=== PATIENT | female | born 1930 | race Caucasian/White ===

== ENCOUNTER 2016-09-12 19:37 | Inpatient (IN) | payer OTHER, MEDICARE ==
[~2016-09-12] VITALS: Ht 162.6 cm; Wt 80.6 kg
[~2016-09-12 19:37] MED LIST: ALBUAER19 INH; ASPCH81X PO; ATRINS INH; CHOL100010 PO; CZR25 PO; DULO-24 PO; FLUT0.15 NAE; GABA-112 PO; GLIP5TAB11 PO; IMDSR30 PO; LPR25 PO; LPT/40 PO; MAGN1CAP4 PO; NTRSLP4 SL; OXYC1TAB3 PO; PLV75 PO; PRED20TA2 PO; REPA1TAB42 PO; SNM/25100 PO; SYMIN INH; SYN125 PO
[2016-09-12] MEDS ORDERED: ALBUT/IPRATROP 3MG/0.5MG NEB 3 ML VIAL INH STA (20:34)
[2016-09-12 20:44] LABS: BASO % 0.1 %; BASO ABS # 0.01 K/uL (0-0.2); COMPLETE YES; HEMATOCRIT 33.4 % (37-47); IG% 0.4 %; LYMPH % 8.2 %; LYMPH ABS # 0.58 K/uL (1.2-3.4); MEAN CELL VOLUME 86.5 fL (80-100); MEAN CORPUSCULAR HEMOGLOBIN 28.2 pg (25-34); MEAN CORPUSCULAR HGB CONC 32.6 g/dl (32-36); MEAN PLATELET VOLUME 10.7 fL (7.4-10.4); MONO % 4.6 %; NEUT % 86.7 %; PLATELET COUNT 213 K/uL (130-400); RED BLOOD COUNT 3.86 M/uL (4.2-5.4); WHITE BLOOD COUNT 7.11 K/uL (4.8-10.8)
--- NOTE | 2016-09-12 20:48 | EMERGENCY ROOM VISIT NOTE ---
History Report prepared by Janet: Hernan Slade Under the Supervision of: Dr. Reno Green M.D. First contact with patient: 20:27 Chief Complaint: COUGH Stated Complaint: PROBLEMS BREATHING Nursing Triage Summary: pt c/o SOB, dry cough. seen on [facility] for same complaint, dx with Bronchitis. "I just seem awefly tight". pt denies pain. History of Present Illness The patient is an 86 year old female who presents to the Emergency Room with complaints of worsening shortness of breath beginning one week prior to arrival. She associates a dry cough with today's symptoms. The patient notes she was seen one week ago on [facility] for the same symptoms and was discharged on Prednisone and Azithromycin. She states she will finished her antibiotic tomorrow and prednisone in two days. The patient notes she has been using her inhaler and nebulizer without relief. She states she feels "tight". The patient notes she experienced similar symptoms this time last year, when she was diagnosed with pneumonia. Pt denies LOC, headache, fevers, chills, diaphoresis, visual changes, neck pain, chest pain, nausea, vomiting, abdominal pain, back pain, melena, hematochezia, urinary symptoms, numbness, weakness, lymphadenopathy, rash, or other complaints. Source of History: patient Onset: one week IT SPECIALIST Position: other (global) Timing: worsening Associated Symptoms: + SOB, + cough (dry) Review of Systems See HPI for pertinent positives and negatives. A total of ten systems were reviewed and were otherwise negative. Past Medical & Surgical Medical Problems: (1) Arrhythmia (2) Asthma (3) Benign hypertension (4) CAD (coronary artery disease) (5) Chest pain (6) CKD (chronic kidney disease), stage III (7) COPD (chronic obstructive pulmonary disease) (8) Diabetes mellitus type 2 (9) Dyslipidemia (10) Elevated troponin (11) GERD (gastroesophageal reflux disease) (12) H/O non-ST elevation myocardial infarction (NSTEMI) (13) Hypothyroidism (14) Migraine headache (15) Parkinson's disease (16) Pulmonary nodule (17) SOB (shortness of breath) (18) TIA (transient ischemic attack) Surgical Problems: (1) H/o cervical laminectomy (2) History of lumbar surgery (3) S/P tonsillectomy and adenoidectomy (4) Status post appendectomy (5) Status post cholecystectomy (6) Status post hysterectomy Family History FH: cancer FH: diabetes mellitus FH: heart disease Hypertension Social History Smoking Status: Never Smoker Alcohol Use: none Drug Use: none Marital Status: Housing Status: lives with family Occupation Status: retired Current/Historical Medications Scheduled Aspirin (Aspirin Chewable), 81 MG PO DAILY Atorvastatin (Lipitor), 40 MG PO DAILY Budesonide/Formoterol Fumarate (Symbicort 160-4.5 Mcg/Act), 2 PUFFS INH BID Cholecalciferol (Vitamin D), 2,000 UNITS PO DAILY Clopidogrel Bisulfate (Clopidogrel), 75 MG PO QAM Duloxetine HCl (Cymbalta), 1 CAP PO DAILY Fluticasone Propionate (Nasal) (Flonase Allergy Relief), 1 SPRAY JOSE DAILY Gabapentin (Neurontin), 200 MG PO TID Glipizide (Glucotrol), 10 MG PO BIDM Ipratropium [place] (Ipratropium [place]), 0.5 MG INH Q6R Isosorbide Mononitrate (Isosorbide Mononitrate ER), 30 MG PO QAM Levodopa/Carbidopa (Sinemet 25MG/100MG), 1 TABLET PO QID Levothyroxine Sodium (Synthroid), 125 MCG PO HS Losartan Potassium (Losartan Potassium), 25 MG PO QAM Magnesium Oxide (Magnesium), 500 MG PO DAILY Metoprolol Tartrate (Lopressor), 25 MG PO BID Prednisone (Prednisone Tab), 40 MG PO DAILY Scheduled PRN Albuterol Inhaler (Ventolin Inhaler), 2 PUFFS INH QID PRN for Wheezing Nitroglycerin (Nitrostat), 0.4 MG SL UD PRN for Chest Pain Oxycodone Immediate Rel Tab (Roxicodone Ir), 1 TAB PO Q4H PRN for Severe Pain Repaglinide (Prandin), 1 MG PO TID PRN for BSG >140 Allergies Coded Allergies: Cefuroxime (Verified Allergy, Unknown, ., 09/12/16) Cephalosporins (Verified Allergy, Unknown, 09/12/16) Donepezil (Unverified Allergy, Unknown, night terrors, 09/12/16) Levofloxacin (Unverified Allergy, Unknown, creatinine raised to 2.1, ) Physical Exam Vital Signs Date Time Temp Pulse Resp B/P Pulse Ox O2 Delivery O2 Flow Rate FiO2 09/12/16 23:02 92 28 147/81 97 Room Air 09/12/16 22:30 97 22 129/63 93 Room Air 09/12/16 21:00 91 23 123/77 93 Room Air 09/12/16 20:30 94 18 121/62 95 Room Air 09/12/16 20:28 90 09/12/16 20:14 95 Room Air 09/12/16 19:52 94 Room Air 09/12/16 19:49 36.7 102 16 130/63 94 Room Air Physical Exam GENERAL: Awake, alert, dyspneic-appearing. HENT: Normocephalic, atraumatic. Oropharynx unremarkable. EYES: Normal conjunctiva. Sclera non-icteric. NECK: Supple. No nuchal rigidity. FROM. No JVD. RESPIRATORY: Wheezes in the right lung. CARDIAC: Regular rate, normal rhythm. Extremities warm and well perfused. Pulses equal. ABDOMEN: Soft, non-distended. No tenderness to palpation. No rebound or guarding. No masses. RECTAL: Deferred. MUSCULOSKELETAL: Chest examination reveals no tenderness. The back is symmetrical on inspection without obvious abnormality. There is no CVA tenderness to palpation. No joint edema. LOWER EXTREMITIES: Calves are equal size bilaterally and non-tender. Trace lower extremity edema. No discoloration. NEURO: Normal sensorium. No sensory or motor deficits noted. SKIN: No rash or jaundice noted. Medical Decision & Procedures ER Provider Diagnostic Interpretation: X-ray: Per my interpretation, radiologist review. SINGLE VIEW CHEST CLINICAL HISTORY: Dyspnea. FINDINGS: An AP, portable, upright chest radiograph is compared to study dated 09/05/2016. The cardiomediastinal silhouette is unremarkable. There is atherosclerotic calcification of the thoracic aorta. There is minimal bibasilar atelectasis. The lungs and pleural spaces are otherwise clear. No pneumothorax is seen. The skeletal structures are osteopenic. Degenerative change is noted in the thoracic spine. IMPRESSION: No acute cardiopulmonary abnormality no significant change from 09/05/2016. Electronically signed by: Demond Velazquez M.D. 09/12/2016 8:50 PM Laboratory Results 09/12/16 20:30 Red Blood Count 3.86, Mean Corpuscular Volume 86.5, Mean Corpuscular Hemoglobin 28.2, Mean Corpuscular Hemoglobin Concent 32.6, Mean Platelet Volume 10.7, Neutrophils (%) (Auto) 86.7, Lymphocytes (%) (Auto) 8.2, Monocytes (%) (Auto) 4.6, Eosinophils (%) (Auto) 0.0, Basophils (%) (Auto) 0.1, Neutrophils # (Auto) 6.16, Lymphocytes # (Auto) 0.58, Monocytes # (Auto) 0.33, Eosinophils # (Auto) 0.00, Basophils # (Auto) 0.01 09/12/16 20:30 Test 09/12/16 20:25 09/12/16 20:30 09/12/16 21:38 09/12/16 22:50 Influenza Type A Antigen Neg for Influ A (NEG) Influenza Type B Antigen Neg for Influ B (NEG) White Blood Count 7.11 K/uL (4.8-10.8) Red Blood Count 3.86 M/uL (4.2-5.4) Hemoglobin 10.9 g/dL (12.0-16.0) Hematocrit 33.4 % (37-47) Mean Corpuscular Volume 86.5 fL (80-100) Mean Corpuscular Hemoglobin 28.2 pg (25-34) Mean Corpuscular Hemoglobin Concent 32.6 g/dl (32-36) Platelet Count 213 K/uL (130-400) Mean Platelet Volume 10.7 fL (7.4-10.4) Neutrophils (%) (Auto) 86.7 % Lymphocytes (%) (Auto) 8.2 % Monocytes (%) (Auto) 4.6 % Eosinophils (%) (Auto) 0.0 % Basophils (%) (Auto) 0.1 % Neutrophils # (Auto) 6.16 K/uL (1.4-6.5) Lymphocytes # (Auto) 0.58 K/uL (1.2-3.4) Monocytes # (Auto) 0.33 K/uL (0.11-0.59) Eosinophils # (Auto) 0.00 K/uL (0-0.5) Basophils # (Auto) 0.01 K/uL (0-0.2) RDW Standard Deviation 46.9 fL (36.4-46.3) RDW Coefficient of Variation 15.0 % (11.5-14.5) Immature Granulocyte % (Auto) 0.4 % Immature Granulocyte # (Auto) 0.03 K/uL (0.00-0.02) Activated Partial Thromboplast Time 28.2 SECONDS (21.0-31.0) Partial Thromboplastin Ratio 1.1 Anion Gap 12.0 mmol/L (3-11) Est Creatinine Clear Calc Drug Dose 20.7 ml/min Estimated GFR () 27.2 Estimated GFR (Non- 23.5 BUN/Creatinine Ratio 15.3 (10-20) Calcium Level 8.1 mg/dl (8.5-10.1) Total Bilirubin 0.2 mg/dl (0.2-1) Aspartate Amino Transf (AST/SGOT) 57 U/L (15-37) Alanine Aminotransferase (ALT/SGPT) 52 U/L (12-78) Alkaline Phosphatase 162 U/L (45-117) Pro-B-Type Natriuretic Peptide 892 pg/ml (0-1800) Total Protein 7.3 gm/dl (6.4-8.2) Albumin 3.2 gm/dl (3.4-5.0) Globulin 4.1 gm/dl (2.5-4.0) Albumin/Globulin Ratio 0.8 (0.9-2) Beta-Hydroxybutyric Acid 0.78 mg/dL (0.2-2.81) Bedside Lactic Acid Venous 5.17 mmol/L (0.90-1.70) Laboratory results reviewed by me Medications Administered Medications (Trade) Dose Ordered Sig/Nilsa Route Start Time Stop Time Status Last Admin Dose Admin Albuterol/ Ipratropium 3 ml 3 ml NOW STAT INH 09/12/16 20:34 09/12/16 20:35 DC 09/12/16 21:07 3 ML Sodium Chloride 500 ml @ 999 mls/hr Q31M STAT IV 09/12/16 21:49 09/12/16 22:19 DC 09/12/16 22:20 999 MLS/HR Sodium Chloride (Nss 1000ml) 1,000 ml @ 125 mls/hr Q8H STAT IV 09/12/16 21:49 09/13/16 05:48 09/12/16 22:20 125 MLS/HR Aspirin (Aspirin Chew) 324 mg STK-MED ONCE .ROUTE 09/12/16 22:13 09/12/16 22:14 DC 09/12/16 22:20 324 MG ECG Indication: SOB/dyspnea Rate (beats per minute): 89 Rhythm: normal sinus Findings: no acute ischemic change, no ectopy ED Course 2029: The patient was evaluated in room C1B. A complete history and physical exam was performed. 2033: Ordered Duoneb 3 ml INH. 2142: Reevaluated the patient at this time, and she is in agreement with the treatment plan for admission. 2148: Ordered Sodium Chloride 1,000 ml @ 125 mls/hr IV, Sodium Chloride 500 ml @ 999 mls/hr IV, Aspirin 324 mg PO. 2155: I spoke to Alok De La Torre (Hospitalist) about the patient's case, and he will follow the patient for further evaluation. Medical Decision Triage Nursing notes reviewed. The patient's presentation and history were concerning for respiratory issues. Etiologies such as pneumonia, COPD, reactive airway disease, CHF, cardiac ischemia, pulmonary embolism, pneumothorax, musculoskeletal, infections, gastrointestinal, as well as others were entertained. The patient was evaluated. She was wheezing. Otherwise she was doing relatively well. She was not requiring supplemental oxygen. She had no fever. The patient was given a DuoNeb and was feeling better. Her CBC showed a mild anemia. No leukocytosis. Creatinine was elevated but consistent with prior. Glucose was elevated at 333 which is likely from her steroid. Troponin was elevated and BNP was unremarkable. The patient was reassessed. She was found to have an elevated lactate but had no leukocytosis, hypotension, or hypoxia recorded here. The patient had no pneumonia on chest x-ray. She will need further evaluation and management in the hospital. The patient was given a dose of aspirin and IV fluids were initiated. Consultation was made with internal medicine. I discussed the case with . Patient was evaluated in the Emergency Room for further management. The chart was completed utilizing [facility] Speech voice recognition software. Grammatical errors, random word insertions, pronoun errors, and incomplete sentences are an occasional consequence of this system due to software limitations, ambient noise, and hardware issues. Any formal questions or concerns about the content, text, or information contained within the body of this dictation should be directly addressed to the physician for clarification. Consults Time Called: 2145 Consulting Physician: Alok De La Torre (Hospitalist) Returned Call: 2155 I spoke to Alok De La Torre (Hospitalist) about the patient's case, and he will follow the patient for further evaluation. Impression Primary Impression: Elevated troponin Additional Impressions: Cough, Wheezing Scribe Attestation The scribe's documentation has been prepared under my direction and personally reviewed by me in its entirety. I confirm that the note above accurately reflects all work, treatment, procedures, and medical decision making performed by me. Departure Information Dispostion Being Evaluated By Hospitalist (Alok De La Torre (Hospitalist)) Referrals Amanda Hogue D.O. (PCP)
--- NOTE | 2016-09-12 20:52 | DIAGNOSTIC IMAGING REPORT ---
SINGLE VIEW CHEST CLINICAL HISTORY: Dyspnea. FINDINGS: An AP, portable, upright chest radiograph is compared to study dated 09/05/2016. The cardiomediastinal silhouette is unremarkable. There is atherosclerotic calcification of the thoracic aorta. There is minimal bibasilar atelectasis. The lungs and pleural spaces are otherwise clear. No pneumothorax is seen. The skeletal structures are osteopenic. Degenerative change is noted in the thoracic spine. IMPRESSION: No acute cardiopulmonary abnormality no significant change from 09/05/2016. Electronically signed by: Demond Velazquez M.D. 09/12/2016 8:50 PM
[2016-09-12 21:10] LABS: BUN/CREATININE RATIO 15.3 (10-20); CALCIUM 8.1 mg/dl (8.5-10.1); CREATININE 1.9 mg/dl (0.60-1.20); POTASSIUM 4.8 mmol/L (3.5-5.1)
[2016-09-12 21:12] LABS: ALB/GLOB RATIO 0.8 (0.9-2)
[2016-09-12 21:39] LABS: BETA-HYDROXYBUTYRATE 0.78 mg/dL (0.2-2.81)
[2016-09-12] MEDS ORDERED: SODIUM CHLORIDE 0.9% 500ML 500 ML IV STA (21:49)
[2016-09-12] MEDS ORDERED: ASPIRIN 81 MG CHEW PO STA (21:49)
[2016-09-12] MEDS ORDERED: SODIUM CHLORIDE 0.9% 1000ML 1,000 ML IV STA (21:49)
[2016-09-12] MEDS ORDERED: ASPIRIN 324 MG CHEW ONE (22:13)
[2016-09-12 22:42] LABS: PARTIAL THROMBOPLASTIN RATIO 1.1
[2016-09-13] VITALS (13 sets, daily range): BP systolic 144–179; BP diastolic 56–84; PULSE 85–100; TEMP 36.4–36.8; O2SAT 92–98; Ht 162.6 cm; Wt 80.6 kg
[2016-09-13] MEDS ORDERED: INSULIN GLARGINE PER UNIT 15 UNITS in SYRINGE 0 ML SC STA (00:02)
[2016-09-13] MEDS ORDERED: METHYLPREDNISOLONE IV 20 MG in SYRINGE 0 ML IV STA (00:08)
[2016-09-13] MEDS ORDERED: INSULIN GLARGINE SOLOSTAR 100 UNITS/ML 3 ML PEN SC STA (00:09)
[2016-09-13] MEDS ORDERED: GUAIFENESIN 600 MG TABCR PO ONE (00:10)
[2016-09-13] MEDS ORDERED: GLUCAGON FOR INJ 1 MG VIAL SQ PRN (00:15)
[2016-09-13] MEDS ORDERED: LEVALBUTEROL/IPRATROPIUM NEB INH PRN (00:15)
[2016-09-13] MEDS ORDERED: GLUCOSE 40% GEL 15 GM TUBE PO PRN (00:15)
[2016-09-13] MEDS ORDERED: LORAZEPAM 2 MG/ML 1 ML VIAL IV PRN (00:15)
[2016-09-13] MEDS ORDERED: OXYCODONE HCL IR 5 MG TAB (IMMEDIATE RELEASE) PO PRN (00:15)
[2016-09-13] MEDS ORDERED: DEXTROSE 50% 50 ML SYR IV PRN (00:15)
[2016-09-13] MEDS ORDERED: NITROGLYCERIN 0.4 MG SL PER TAB CHARGE SL PRN ×2 (00:15)
[2016-09-13] MEDS ORDERED: GLUCOSE 10 TABS/TUBE PO PRN (00:15)
[2016-09-13] MEDS ORDERED: ACETAMINOPHEN 325 MG TAB PO PRN (00:15)
[2016-09-13] MEDS: SODIUM CHLORIDE 0.9% 1000ML 1,000 ML IV SCH ×3 (00:30→10:15)
[2016-09-13 00:45] LABS: URINE APPEARANCE CLEAR (CLEAR); URINE BILIRUBIN NEG (NEG); URINE COLOR YELLOW; URINE NITRITE NEG (NEG); URINE SPECIFIC GRAVITY 1.008 (1.000-1.030); UROBILINOGEN NEG (NEG)
[2016-09-13 00:56] LABS: MANUAL MICROSCOPIC REQUIRED? NO; REVIEW REQ? NO
[2016-09-13 01:15] LABS: PROTHROMBIN TIME (PATIENT) 10.4 SECONDS (9.0-12.0)
[2016-09-13] MEDS: IPRATROPIUM BROMIDE NEB SOLN 0.02% 2.5 ML VIAL INH SCH ×4 (01:33→20:14)
[2016-09-13] MEDS: LEVALBUTEROL 1.25MG/0.5ML NEB INH SCH ×4 (01:34→20:14)
[2016-09-13] MEDS ORDERED: LEVALBUTEROL/IPRATROPIUM NEB INH SCH (03:00)
[2016-09-13] MEDS ORDERED: IV FLUIDS COMPLETED PRN (04:45)
[2016-09-13 04:59] LABS: BASO % 0.1 %; BASO ABS # 0.01 K/uL (0-0.2); COMPLETE YES; EOS % 0.1 %; HEMATOCRIT 32.1 % (37-47); IG% 0.5 %; LYMPH % 12.1 %; LYMPH ABS # 0.88 K/uL (1.2-3.4); MEAN CELL VOLUME 85.1 fL (80-100); MEAN CORPUSCULAR HEMOGLOBIN 27.9 pg (25-34); MEAN CORPUSCULAR HGB CONC 32.7 g/dl (32-36); MEAN PLATELET VOLUME 10.5 fL (7.4-10.4); MONO % 4.7 %; NEUT % 82.5 %; PLATELET COUNT 187 K/uL (130-400); RED BLOOD COUNT 3.77 M/uL (4.2-5.4); WHITE BLOOD COUNT 7.29 K/uL (4.8-10.8)
[2016-09-13 05:20] LABS: BUN/CREATININE RATIO 15.7 (10-20); CALCIUM 8.3 mg/dl (8.5-10.1); CREATININE 1.6 mg/dl (0.60-1.20); POTASSIUM 4.9 mmol/L (3.5-5.1)
[2016-09-13] MEDS ORDERED: INSULIN GLARGINE SOLOSTAR 100 UNITS/ML 3 ML PEN SC ONE (06:20)
[2016-09-13] MEDS: HEPARIN SOD 5000 UNIT/0.5 ML CARP SQ SCH ×3 (06:29→22:17)
[2016-09-13] MEDS: ISOSORBIDE MONONITRATE 30 MG TABCR PO SCH (07:43)
[2016-09-13] MEDS: DULOXETINE HCL 20 MG CAP PO SCH (07:43)
[2016-09-13] MEDS: ASPIRIN 81 MG ECTAB PO SCH (07:43)
[2016-09-13] MEDS: ATORVASTATIN 20 MG TAB PO SCH (07:43)
[2016-09-13] MEDS: CARBIDOPA/LEVODOPA 25/100MG TAB PO SCH ×4 (07:44→21:09)
[2016-09-13] MEDS: METOPROLOL TARTRATE 25 MG TAB PO SCH ×2 (07:44→21:06)
[2016-09-13] MEDS: CLOPIDOGREL BISULFATE 75 MG TAB PO SCH (07:44)
[2016-09-13] MEDS: GABAPENTIN 100 MG CAP PO SCH ×3 (07:44→21:09)
--- NOTE | 2016-09-13 08:22 | HISTORY & PHYSICAL EXAMINATION ---
DATE OF ADMISSION: 09/13/2016 PRIMARY CARE DOCTOR: Dr. Hogue. Hx obtained from px and records. CHIEF COMPLAINT: Shortness of breath, persistent cough. HISTORY OF PRESENT ILLNESS: Medical history is significant for asthma, CAD sp stenting, hypertension, hyperlipidemia, diabetes type 2, on oral medications, Parkinson's disease as per records, TIA as per records, chronic renal insufficiency (baseline creatinine of 1.5), chronic anemia (baseline hemoglobin of 11). Recent confinement July 2016 for epigastric discomfort, normal stress study, EF 55-60%, mild LVH, aortic valve sclerosis, mild MR, grade 1 diastolic dysfunction. A week ago the patient seen at Emergency Room for cough symptoms, productive of yellow white sputum, and postnasal drainage, some shortness of breath. Episodes usually noted during cold weather. Impression was bronchitis. Patient discharged on azithromycin, prednisone course. Cough now nonproductive. Patient still "tight" despite [id number] home inhaler. Px denies cp. No fever, no chills. Patient returned to the Emergency Room. MEDICAL HISTORY: As above. SURGERIES: Cholecystectomy, appendectomy, hysterectomy, tonsillectomy, adenoidectomy, back surgery, neck surgery. HOME MEDICATIONS: Include albuterol, budesonide, cholecalciferol, fluticasone, glipizide, ipratropium, losartan with magnesium oxide, aspirin, Lipitor, clopidogrel, duloxetine, gabapentin, isosorbide mononitrate, levodopa, levothyroxine, metoprolol, nitroglycerin, OxyIR, prednisone course. ALLERGIES: TO CEFUROXIME, DONEPEZIL, LEVOFLOXACIN. FAMILY HISTORY: Heart disease. PERSONAL SOCIAL HISTORY: Nonsmoker, no chronic intake of alcoholic beverages. 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 PHYSICAL EXAMINATION: VITAL SIGNS: Blood pressure was noted to be 130/60, pulse rate 102, RR 28, temperature 36.8, sats 95 on room air. GENERAL: Noted to be pleasant, no respiratory distress. Looks younger for stated age. Obese. HEENT: Pale palpebral conjunctivae, dry mucosa. NECK: Short neck. CHEST: Expiratory wheezes. HEART: Regular rate and rhythm. ABDOMEN: Soft. Some distention. EXTREMITIES: Minimal LE edema, no tenderness. NEUROLOGIC: No gross deficits except for some tremors, chronic. LABORATORY DATA: Hemoglobin was noted to be 10.9, hematocrit 32.1, white cell count 11, platelets 213. Sodium 138, potassium 4.8, chloride 103, CO2 23, BUN 29, creatinine 1.9, glucose 330. Lactic acid was noted to be 5. Troponin 0.211. Hemoglobin A1c from August 2016 was 6.6. Chest x-ray, no acute pathology. EKG, rate 90, normal sinus rhythm, Q-waves in inferior leads, no ischemia. ASSESSMENT: 1. Asthma exacerbation asthmatic bronchitis sx usually precipitated by cold weather as per px protracted bronchitis symptoms despite outpx Zpack, prednisone taper, RTC MDI puffs. productive cough now dry. px bothered by residual tightness. px not hypoxemic 2. Acute renal failure on chronic renal insufficiency secondary to illness. 3. coronary artery disease, transient ischemic attack as per records. 4. troponinemia 2 to kidney dysfunction no ACS 5. Lactic acidemia likely secondary to kidney dysfunction Patient not septic. 6. DM2, on oral meds well controlled as of recent outpx HgA1c px hyperglycemic 2 to home pred taper 7 .Parkinson's disease as per records. 8. Anemia secondary to chronic kidney disease. Hemoglobin at baseline. PLAN: PCU RE troponinemia nebs, RTC p.r.n. mucolytic Solu-Medrol IV 1 dose now. continue prednisone taper. May need new steroid course pending response Pulmonary consult if no improvement ff above intervention RE asthma exacerbation /prolonged bronchitis. Follow lactic acid. Monitor creatinine response to IV fluids. Would hold off on additional antibiotic for now as cough is now dry and px not septic. PT/OT eval. basal insulin in order given hyperglycemia ff steroid rx, ISS BG goal 140-180 DVT prophylaxis, Heparin SQ Full code. MTDD
[2016-09-13] MEDS ORDERED: INSULIN GLARGINE SOLOSTAR 100 UNITS/ML 3 ML PEN SC SCH ×2 (09:00→21:00)
[2016-09-13] MEDS: INSULIN ASPART 100 UNITS/ML 3 ML PEN SC SCH ×4 (09:08→21:18)
[2016-09-13] MEDS: BENZONATATE 100MG CAP PO PRN ×2 (10:19→21:05)
[2016-09-13] MEDS ORDERED: DOXYCYCLINE HYCLATE 100 MG CAP PO STA (10:30)
--- NOTE | 2016-09-13 11:40 | PULMONARY CONSULTATION ---
DATE OF CONSULTATION: 09/13/2016 TIME: 10:10 a.m. HISTORY OF PRESENT ILLNESS: The patient was seen in room 239, bed 1. She is an 86-year-old female who has a chief complaint of cough and shortness of breath. Her symptoms began approximately September 02. She subsequently presented to the Emergency Room on September 05. She states at that time, she was having shortness of breath and cough. She was subsequently treated and released with Zithromax and prednisone. Her symptoms did not improve. She has become progressively more short of breath. She then came to the Emergency Room in the lead sql developer hours of today. She is feeling a little bit better than she was upon first presentation. The patient related that she was admitted 1 year ago for very similar symptoms. Review of records shows that she was admitted on September 04 and discharged on September 16. Her cough is nonproductive. She feels congested and feels like she would like to be able to bring up some phlegm, but nothing comes. She denies any chest pains. She denies chills, fevers or sweats. She states she feels well except for the respiratory complaints mentioned. Her appetite is good. Her energy level has been good. The patient is a . Her about 2 years ago. She does have 3 children, who live in the area. The patient carries a diagnosis of asthma. Apparently that diagnosis was made when she was in her 60s. She states that she has not had much trouble over time. She really has not had any significant exacerbations or anything until about a year ago. In February of 2016, she did have some shortness of breath. She states it felt different at that time. She ended up having a stent done acutely. She feels that what she has now seems different than that. The patient has never smoked. 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 PAST SURGICAL HISTORY: 1. Cardiac catheterization and stent. 2. Cholecystectomy. 3. Appendectomy. 4. Hysterectomy. 5. Tonsillectomy. 6. Adenoidectomy. 7. Cervical spine surgery. 8. Lumbar spine surgery. PAST MEDICAL HISTORY: 1. Coronary artery disease. 2. Hyperlipidemia. 3. Hypertension. 4. Diabetes type 2. 5. Parkinson's disease. 6. TIA. 7. Renal insufficiency. ALLERGIES: CEFTIN, WHICH MADE HER TONGUE FEEL NUMB. LEVOTHYROXINE, WHICH GAVE HER WHAT SHE CALLS A FUNNY FEELING ON HER FACE. SHE HAD THAT DRUG MANY TIMES IN THE PAST, BUT SHE FELT THAT ULTIMATELY IT CLEARLY WAS THE CAUSE OF HER SYMPTOMS WITH THE FACIAL DISCOMFORT. ALLERGY ALSO LISTED TO DONEPEZIL. FAMILY HISTORY: Father age 66 of [place]. Mother at age 72. She had cerebral bleed. REVIEW OF SYSTEMS: GENERAL: The patient's energy level is good. She does her own housework. She does her own shopping and still drives. NEUROLOGIC: No syncope or near syncope. OPHTHALMIC: No visual complaints. ENT: Denies nasal congestion or coryza. CARDIAC: No chest pain or palpitations. PULMONARY: As noted above. GASTROINTESTINAL: Appetite is good. Denies bowel problems. No heartburn. GENITOURINARY: She does have urinary stress incontinence, which is precipitated by severe coughing. MUSCULOSKELETAL: No acute complaints of myalgias or arthralgias. DERMATOLOGIC: No rash. She has had very minimal swelling of the lower extremities. ENDOCRINE: No lymphadenopathy. PHYSICAL EXAMINATION: VITAL SIGNS: The patient is a very pleasant 86-year-old female who was cooperative, alert and oriented. She was in no distress. HEENT: Pupils were reactive. NECK: Palpation of the neck reveals no lymph nodes. The neck veins did appear slightly distended. This was with the patient at about 15-20 degrees elevation. CARDIOVASCULAR: There was regular rate and rhythm. It was difficult to hear the cardiac sounds due to the pulmonary adventitious sounds. Blood pressure was 171/81. Temperature this morning 36.7. Heart rate was 86 per minute. LUNGS: Lung collins reveal diffuse rales and rhonchi bilaterally. She was coughing periodically. Respiratory rate 20 breaths per minute. Oxygen saturation 96% on room air. ABDOMEN: Soft. Good bowel sounds were heard. There was no tenderness to palpation, masses, or organomegaly. EXTREMITIES: Showed trace edema noted at sock line bilaterally. There was no cyanosis or clubbing. The patient had a chest x-ray done late last evening. This showed no acute cardiopulmonary abnormality. There was no obvious congestive heart failure. LABORATORY DATA: CBC shows a white count of 7.29, hemoglobin 10.5, and platelets are 187,000. Coags were normal. Urinalysis was unremarkable. Troponin was elevated at 0.187. Prior to that, it had been elevated at 0.211. Electrolytes show sodium 142, potassium 4.9, chloride 108, and bicarb 25. The BUN was 25 with a creatinine of 1.6. Yesterday, the creatinine was 1.9 and the BUN had been 29. Blood cultures are pending. IMPRESSION: 1. Acute asthmatic bronchitis. 2. Renal insufficiency. 3. History of coronary artery disease and status post stent. COMMENTS AND RECOMMENDATIONS: The patient has what appears to be a typical acute respiratory illness. However, somewhat surprisingly, it has not responded well to bronchodilator therapy. The patient does have a nebulizer at home, which she has been using recently on a regular basis, but without a lot of benefit. She also received prednisone. She has been taking Symbicort since last summer. She thought it helped especially at first. A Ventolin rescue inhaler does not seem to help much. This illness parallel to one she had last August of 2015 and to September of 2015. She did have a BNP done that was 892, which would be in the acceptable reference range for her. She did seem to have mild elevation of the neck veins. Complicating her course is that she is diabetic and thus giving her higher dose steroids presents some problems. Her sugars are elevated as it is. This morning, she was up to 192. She has been ordered Tessalon Perles to see if this would help with her cough. She is on her usual medicines. Her prednisone was at 40 mg daily. Ideally, she would do better with Solu-Medrol, but in light of her sugars, we may need to maintain the prednisone. However, if she worsens, I would change to Solu-Medrol. We will continue the levalbuterol and ipratropium as she has been receiving. It would be reasonable to check a mycoplasma titer. If she had an atypical infection, one might have thought that it would responded to the azithromycin, although she may not have taken it long enough. Suggest a trial of doxycycline. We will order a flutter valve for her to see if this helps loosen up any secretions. Thank you so much for asking me to assist in her care.
[2016-09-13] MEDS ORDERED: COUGH DROP (SUGAR FREE) LOZ 24 LOZ/1 BOX ONE (13:54)
[2016-09-13] MEDS ORDERED: PHARMACY GLYCEMIC MGMT CONSULT PRN (14:46)
--- NOTE | 2016-09-13 14:49 | Progress Note ---
Medicine Progress Note Date & Time of Visit: Sep 13, 2016 at 14:16. Subjective 86 yoF with asthma presents to hospital for SOB and coughing since 09/02 refractory to treatment with azithro/prednisone taper as outpatient Feels that her breathing has improved overnight Still coughing but denies coughing Denies nausea, vomiting, diarrhea, headaches, chest pain or any other symptoms at this time. Objective Last 8 Hrs Date Time Temp Pulse Resp B/P Pulse Ox O2 Delivery O2 Flow Rate FiO2 09/13/16 12:39 96 Room Air 09/13/16 11:52 36.7 88 20 148/61 97 Room Air 09/13/16 08:33 96 Room Air 09/13/16 08:33 96 Room Air 09/13/16 07:46 86 20 96 Room Air 09/13/16 07:22 36.7 85 16 171/81 95 Room Air 166/78 Physical Exam: GEN: WNWD, in no acute distress, alert and appropriate, not on oxygen and no conversational dyspnea. HEENT: NC/AT, normal sclerae CARDIO: reg rate, S1/2 heard without m/g/r LUNGS: diffuse expiratory wheezes throughout all lung collins-just finished bronchodilator treatment, good diaphragmatic excursion ABD: soft, non-tender, non-distended, no rebound or guarding EXTREMITY: no LE swelling or edema, extremities are warm and well-perfused NEURO: no gross focal deficits MUSC: good muscle tone, moves all extremities equally SKIN: warm and dry Laboratory Results: Last 24 Hours Test 09/12/16 20:25 09/12/16 20:30 09/12/16 21:35 09/12/16 21:38 Influenza Type A Antigen Neg for Influ A Influenza Type B Antigen Neg for Influ B White Blood Count 7.11 K/uL Red Blood Count 3.86 M/uL Hemoglobin 10.9 g/dL Hematocrit 33.4 % Mean Corpuscular Volume 86.5 fL Mean Corpuscular Hemoglobin 28.2 pg Mean Corpuscular Hemoglobin Concent 32.6 g/dl Platelet Count 213 K/uL Mean Platelet Volume 10.7 fL Neutrophils (%) (Auto) 86.7 % Lymphocytes (%) (Auto) 8.2 % Monocytes (%) (Auto) 4.6 % Eosinophils (%) (Auto) 0.0 % Basophils (%) (Auto) 0.1 % Neutrophils # (Auto) 6.16 K/uL Lymphocytes # (Auto) 0.58 K/uL Monocytes # (Auto) 0.33 K/uL Eosinophils # (Auto) 0.00 K/uL Basophils # (Auto) 0.01 K/uL RDW Standard Deviation 46.9 fL RDW Coefficient of Variation 15.0 % Immature Granulocyte % (Auto) 0.4 % Immature Granulocyte # (Auto) 0.03 K/uL Prothrombin Time 10.4 SECONDS Prothromb Time International Ratio 1.0 Activated Partial Thromboplast Time 28.2 SECONDS Partial Thromboplastin Ratio 1.1 Sodium Level 138 mmol/L Potassium Level 4.8 mmol/L Chloride Level 103 mmol/L Carbon Dioxide Level 23 mmol/L Anion Gap 12.0 mmol/L Blood Urea Nitrogen 29 mg/dl Creatinine 1.90 mg/dl Est Creatinine Clear Calc Drug Dose 20.7 ml/min Estimated GFR () 27.2 Estimated GFR (Non- 23.5 BUN/Creatinine Ratio 15.3 Random Glucose 333 mg/dl Calcium Level 8.1 mg/dl Total Bilirubin 0.2 mg/dl Aspartate Amino Transf (AST/SGOT) 57 U/L Alanine Aminotransferase (ALT/SGPT) 52 U/L Alkaline Phosphatase 162 U/L Troponin I 0.211 ng/ml Pro-B-Type Natriuretic Peptide 892 pg/ml Total Protein 7.3 gm/dl Albumin 3.2 gm/dl Globulin 4.1 gm/dl Albumin/Globulin Ratio 0.8 Beta-Hydroxybutyric Acid 0.78 mg/dL Bedside Lactic Acid Venous 5.07 mmol/L 5.17 mmol/L Test 09/12/16 22:50 09/13/16 00:30 09/13/16 01:20 09/13/16 04:50 Lactic Acid Level 3.8 mmol/L 2.4 mmol/L Troponin I 0.187 ng/ml Urine Color YELLOW Urine Appearance CLEAR Urine pH 5.0 Urine Specific Herod 1.008 Urine Protein NEG Urine Glucose (UA) NEG Urine Ketones NEG Urine Occult Blood NEG Urine Nitrite NEG Urine Bilirubin NEG Urine Urobilinogen NEG Urine Leukocyte Esterase NEG Bedside Glucose 175 mg/dl White Blood Count 7.29 K/uL Red Blood Count 3.77 M/uL Hemoglobin 10.5 g/dL Hematocrit 32.1 % Mean Corpuscular Volume 85.1 fL Mean Corpuscular Hemoglobin 27.9 pg Mean Corpuscular Hemoglobin Concent 32.7 g/dl Platelet Count 187 K/uL Mean Platelet Volume 10.5 fL Neutrophils (%) (Auto) 82.5 % Lymphocytes (%) (Auto) 12.1 % Monocytes (%) (Auto) 4.7 % Eosinophils (%) (Auto) 0.1 % Basophils (%) (Auto) 0.1 % Neutrophils # (Auto) 6.01 K/uL Lymphocytes # (Auto) 0.88 K/uL Monocytes # (Auto) 0.34 K/uL Eosinophils # (Auto) 0.01 K/uL Basophils # (Auto) 0.01 K/uL RDW Standard Deviation 46.3 fL RDW Coefficient of Variation 14.8 % Immature Granulocyte % (Auto) 0.5 % Immature Granulocyte # (Auto) 0.04 K/uL Sodium Level 142 mmol/L Potassium Level 4.9 mmol/L Chloride Level 108 mmol/L Carbon Dioxide Level 25 mmol/L Anion Gap 9.0 mmol/L Blood Urea Nitrogen 25 mg/dl Creatinine 1.60 mg/dl Est Creatinine Clear Calc Drug Dose 26.2 ml/min Estimated GFR () 33.5 Estimated GFR (Non- 28.9 BUN/Creatinine Ratio 15.7 Random Glucose 176 mg/dl Calcium Level 8.3 mg/dl Test 09/13/16 07:07 09/13/16 10:56 09/13/16 11:11 09/13/16 13:00 Bedside Glucose 192 mg/dl 180 mg/dl Lactic Acid Level 2.8 mmol/L Date/Time Source Procedure Growth Status 09/12/16 21:30 Blood Blood Culture Pending Received 09/12/16 21:25 Blood Blood Culture Pending Received Assessment & Plan 86 yoF with asthma presents with acute exacerbation 1. Asthma exacerbation asthmatic bronchitis sx usually precipitated by cold weather as per px protracted bronchitis symptoms despite outpx Zpack, prednisone taper, RTC MDI puffs. productive cough now dry. px bothered by residual tightness. px not hypoxemic but extensive wheezing throughout lung collins. Oral prednisone but because of wheezing, will switch to IV methylprednisone q8h and reassess in am. Cont duonebs and flutter valve per pulm Added daily peak flow to monitor progress. Flu negative. Doxy 100mg PO BID 2. Acute renal failure on chronic renal insufficiency secondary to illness- improvement overnight with IVF but will stop now. PRP in am. 3. coronary artery disease, transient ischemic attack as per records. Cont ASA , Plavix, statin after PCI over the summer. 4. troponemia 2 to kidney dysfunction no evidence of ACS, asymptomatic and EKG reveals SR [address]. Will rule out echo to ensure no acute wall motion abnormality. 5. Lactic acidemia likely secondary to kidney dysfunction Patient not septic. Uncertain cause, trend q6H until peaks 6. DM2, on oral meds well controlled as of recent outpx HgA1c px hyperglycemic 2 to home pred taper. Glycemic pharmacist to assist with management. 7 .Parkinson's disease as per records-cont home Sinemet. 8. Anemia secondary to chronic kidney disease-Hemoglobin at baseline. PT/OT eval. DVT prophylaxis, Heparin SQ Full code. [facility] Consult[facility]: Pulmonary Current Inpatient Medications: Current Inpatient Medications Medications (Trade) Dose Ordered Sig/Nilsa Route Start Time Stop Time Status Last Admin Dose Admin Heparin Sodium (Porcine) (Heparin Sq 5000 Unit/0.5ml) 5,000 unit Q8 SQ 09/13/16 06:00 10/13/16 05:59 09/13/16 13:53 5,000 UNIT Acetaminophen (Tylenol Tab) 650 mg Q4H PRN PO 09/13/16 00:15 10/13/16 00:14 Nitroglycerin (Nitrostat Tab) 0.4 mg UD PRN SL 09/13/16 00:15 10/13/16 00:14 Insulin Aspart (novoLOG ASPART) SLIDING SCALE If C... ACHS SC 09/13/16 07:00 10/13/16 06:59 09/13/16 12:24 3 UNITS Glucose (Glucose 40% Gel) 15-30 GRAMS 15 GRAMS... UD PRN PO 09/13/16 00:15 10/13/16 00:14 Glucose (Glucose Chew Tab) 4-8 Tablets 4 Tabl... UD PRN PO 09/13/16 00:15 10/13/16 00:14 Dextrose (Dextrose 50% 50ML Syringe) 25-50ML OF 50% DW IV FOR... UD PRN IV 09/13/16 00:15 10/13/16 00:14 Glucagon (Glucagon Inj) 1 mg UD PRN SQ 09/13/16 00:15 10/13/16 00:14 Aspirin (Ecotrin Tab) 81 mg QAM PO 09/13/16 09:00 10/13/16 08:59 09/13/16 07:43 81 MG Atorvastatin Calcium (Lipitor Tab) 40 mg DAILY PO 09/13/16 09:00 10/13/16 08:59 09/13/16 07:43 40 MG Clopidogrel Bisulfate (plAVix TAB) 75 mg QAM PO 09/13/16 09:00 10/13/16 08:59 09/13/16 07:44 75 MG Duloxetine HCl (Cymbalta Cap) 20 mg DAILY PO 09/13/16 09:00 10/13/16 08:59 09/13/16 07:43 20 MG Gabapentin (Neurontin Cap) 200 mg TID PO 09/13/16 09:00 10/13/16 08:59 09/13/16 13:54 200 MG Isosorbide Mononitrate (Imdur Ext Rel Tab) 30 mg QAM PO 09/13/16 09:00 10/13/16 08:59 09/13/16 07:43 30 MG Carbidopa/Levodopa (Sinemet 25/ 100MG Tab) 1 tab QID PO 09/13/16 09:00 10/13/16 08:59 09/13/16 12:19 1 TAB Levothyroxine Sodium (Synthroid Tab) 125 mcg HS PO 09/13/16 21:00 10/13/16 20:59 Metoprolol Tartrate (Lopressor Tab) 25 mg BID PO 09/13/16 09:00 10/13/16 08:59 09/13/16 07:44 25 MG Oxycodone HCl (Roxicodone Immediate Rel Tab) 5 mg Q4H PRN PO 09/13/16 00:15 09/27/16 00:14 Prednisone (PredniSONE TAB) 40 mg DAILY PO 09/13/16 09:00 10/13/16 08:59 09/13/16 07:44 40 MG Hydromorphone HCl (Dilaudid Inj) 0.5 mg Q3H PRN IV 09/13/16 00:15 09/27/16 00:14 Lorazepam (Ativan Inj) 0.5 mg Q4H PRN IV 09/13/16 00:15 10/13/16 00:14 09/13/16 01:51 0.5 MG Guaifenesin (Mucinex Contr Rel Tab) 600 mg Q12 PO 09/13/16 21:00 10/13/16 20:59 Ipratropium Peever (Atrovent 0.02% 0.5MG/2.5ML Neb) 0.5 mg Q6R INH 09/13/16 03:00 10/13/16 02:59 09/13/16 07:46 0.5 MG Levalbuterol (Xopenex 1.25MG/ 0.5ML Neb) 1.25 mg Q6R INH 09/13/16 03:00 10/13/16 02:59 09/13/16 07:46 1.25 MG Ipratropium Peever (Atrovent 0.02% 0.5MG/2.5ML Neb) 0.5 mg Q4H PRN INH 09/13/16 00:45 10/13/16 00:44 Levalbuterol (Xopenex 1.25MG/ 0.5ML Neb) 1.25 mg Q4H PRN INH 09/13/16 00:45 10/13/16 00:44 Miscellaneous (Iv Fluids Completed) 1 ea PRN PRN N/A 09/13/16 04:45 09/13/17 04:44 Insulin Glargine (Lantus Solostar Pen) 5 unit BID SC 09/13/16 21:00 10/13/16 20:59 Benzonatate (Tessalon Perles Cap) 100 mg Q8H PRN PO 09/13/16 09:45 10/13/16 09:44 09/13/16 10:19 100 MG Doxycycline Hyclate (Vibramycin Cap) 100 mg BID PO 09/13/16 21:00 09/20/16 20:59
--- NOTE | 2016-09-13 15:58 | Pharmacy Progress Note ---
Glycemic Control Intl Consult Date of Service Sep 13, 2016. Scope Glycemic Pharmacist consulted by on 09/13/16 for glycemic control and to write orders per [facility] inpatient glycemic control protocol Objective Weight (Kilograms): 82.400 Accuchecks BSG (last 24hrs): Test 09/12/16 20:30 09/13/16 01:20 09/13/16 04:50 09/13/16 07:07 Random Glucose 333 mg/dl (70-99) 176 mg/dl (70-99) Bedside Glucose 175 mg/dl (70-90) 192 mg/dl (70-90) Test 09/13/16 10:56 Bedside Glucose 180 mg/dl (70-90) Laboratory Data (last 24hrs) Test 09/12/16 20:30 09/13/16 04:50 Anion Gap 12.0 mmol/L 9.0 mmol/L BUN/Creatinine Ratio 15.3 15.7 Blood Urea Nitrogen 29 mg/dl 25 mg/dl Creatinine 1.90 mg/dl 1.60 mg/dl Potassium Level 4.8 mmol/L 4.9 mmol/L Sodium Level 138 mmol/L 142 mmol/L White Blood Count 7.11 K/uL 7.29 K/uL Red Blood Count 3.86 M/uL 3.77 M/uL Hemoglobin 10.9 g/dL 10.5 g/dL Hematocrit 33.4 % 32.1 % Mean Corpuscular Volume 86.5 fL 85.1 fL Mean Corpuscular Hemoglobin 28.2 pg 27.9 pg Mean Corpuscular Hemoglobin Concent 32.6 g/dl 32.7 g/dl Platelet Count 213 K/uL 187 K/uL Mean Platelet Volume 10.7 fL 10.5 fL Neutrophils (%) (Auto) 86.7 % 82.5 % Lymphocytes (%) (Auto) 8.2 % 12.1 % Monocytes (%) (Auto) 4.6 % 4.7 % Eosinophils (%) (Auto) 0.0 % 0.1 % Basophils (%) (Auto) 0.1 % 0.1 % Neutrophils # (Auto) 6.16 K/uL 6.01 K/uL Lymphocytes # (Auto) 0.58 K/uL 0.88 K/uL Monocytes # (Auto) 0.33 K/uL 0.34 K/uL Eosinophils # (Auto) 0.00 K/uL 0.01 K/uL Basophils # (Auto) 0.01 K/uL 0.01 K/uL Recent Pertinent Medications Outpatient Anti-diabetic Regimen: * Glipizide 10mg po BIDM, Prandin 1mg TIDM prn BSG > 140 mg/dl * Recent outpatient A1c indicates good control (will confirm A1c on 09/14/16) The patient is currently receiving: * Basal insulin: Lantus 5 units every 12 hours * Correctional Insulin: Novolog Correction per scale ACHS Goal Range: Low 140 mg/dL - High 180 mg/dL Correction Factor: 25 mg/dL/unit * Prandial insulin: Per carb ratio of 1 unit per 15 grams CHO consumed Risk Factors for Insulin Resistance: * Steroids: Starting SM 40mg IV [id number] (on Prednisone as an outpatient) * Infection: Asthma exacerbation; On doxycycline po * Diet: AHA/DM2 Assessment & Plan ASSESSMENT: * ADA & AACE recommend a goal blood sugar range 140-180 mg/dl for the majority of critically ill & non-critically ill patients. However, more stringent targets may be selected in individual cases. * 86 yo female admitted with asthma exacerbation. Pt is known to the pharmacy glycemic service from past admissions. * Pt ordered solu-medrol IV ATC so will expect BSGs to elevate in response. * Current regimen seems appropriate and also reflects past admission regimens when pt had similar stressors including steroids. * Will add a hold parameter to Lantus and also narrow the BSG range for tighter glycemic control. PLAN FOR INPATIENT GLYCEMIC CONTROL: * Continue Lantus 5units [id number]; hold for BSG below 110mg/dl * Novolog ACHS * Continue correction factor of 25 mg/dl/unit * Contine carb ratio of 1 unit per 15 grams CHO consumed * Narrow goal range to Low 120 mg/dL - High 160 mg/dL * Please note that the plan above was derived based on current level of insulin resistance and hospital stress. These recommendations are appropriate for inpatient admission only. Plan of care upon discharge will need to be reassessed to avoid potential outpatient hypo/hyperglycemia. Thank you.
[2016-09-13] MEDS: METHYLPREDNISOLONE IV 40 MG in SYRINGE 0 ML IV SCH ×2 (17:16→23:51)
[2016-09-13] MEDS: GUAIFENESIN 600 MG TABCR PO SCH (21:07)
[2016-09-13] MEDS: LEVOTHYROXINE 125 MCG TAB PO SCH (21:08)
[2016-09-13] MEDS: DOXYCYCLINE HYCLATE 100 MG CAP PO SCH (21:09)
[2016-09-13] MEDS: LORAZEPAM 0.5 MG TAB PO PRN (22:46)
[2016-09-14] VITALS (14 sets, daily range): BP systolic 142–161; BP diastolic 63–78; PULSE 67–87; TEMP 36.4–37.1; O2SAT 91–96
[2016-09-14] MEDS: HYDROmorphone INJ 1 MG/ML SYR IV PRN (00:01)
[2016-09-14] MEDS: IPRATROPIUM BROMIDE NEB SOLN 0.02% 2.5 ML VIAL INH SCH ×4 (02:02→21:00)
[2016-09-14] MEDS: LEVALBUTEROL 1.25MG/0.5ML NEB INH SCH ×4 (02:02→21:00)
[2016-09-14] MEDS: HEPARIN SOD 5000 UNIT/0.5 ML CARP SQ SCH ×3 (06:16→20:34)
[2016-09-14 08:09] LABS: COMPLETE YES; HEMATOCRIT 35.2 % (37-47); LYMPH % 16.1 %; MEAN CELL VOLUME 85.6 fL (80-100); MEAN CORPUSCULAR HGB CONC 32.7 g/dl (32-36); MONO % 6.3 %; NEUT % 76.6 %; PLATELET COUNT 235 K/uL (130-400); RED BLOOD COUNT 4.11 M/uL (4.2-5.4); WHITE BLOOD COUNT 11.18 K/uL (4.8-10.8)
[2016-09-14] MEDS: METHYLPREDNISOLONE IV 40 MG in SYRINGE 0 ML IV SCH (08:32)
[2016-09-14] MEDS: DULOXETINE HCL 20 MG CAP PO SCH (08:32)
[2016-09-14] MEDS: ASPIRIN 81 MG ECTAB PO SCH (08:32)
[2016-09-14] MEDS: GABAPENTIN 100 MG CAP PO SCH ×3 (08:33→20:17)
[2016-09-14] MEDS: GUAIFENESIN 600 MG TABCR PO SCH ×2 (08:33→20:16)
[2016-09-14] MEDS: ISOSORBIDE MONONITRATE 30 MG TABCR PO SCH (08:33)
[2016-09-14] MEDS: CLOPIDOGREL BISULFATE 75 MG TAB PO SCH (08:33)
[2016-09-14] MEDS: ATORVASTATIN 20 MG TAB PO SCH (08:33)
[2016-09-14] MEDS: CARBIDOPA/LEVODOPA 25/100MG TAB PO SCH ×4 (08:33→20:16)
[2016-09-14] MEDS: METOPROLOL TARTRATE 25 MG TAB PO SCH ×2 (08:33→20:17)
[2016-09-14] MEDS: DOXYCYCLINE HYCLATE 100 MG CAP PO SCH ×2 (08:35→20:19)
[2016-09-14] MEDS: INSULIN ASPART 100 UNITS/ML 3 ML PEN SC SCH ×4 (08:39→21:32)
[2016-09-14 08:42] LABS: BUN/CREATININE RATIO 18.8 (10-20); CALCIUM 9.2 mg/dl (8.5-10.1); CREATININE 1.5 mg/dl (0.60-1.20); POTASSIUM 4.5 mmol/L (3.5-5.1)
[2016-09-14] MEDS: BENZONATATE 100MG CAP PO PRN ×2 (08:42→20:19)
--- NOTE | 2016-09-14 08:45 | ECHOCARDIOGRAM REPORT ---
*NOTICE TO RECEIVING REPUBLICAN AGENCY This information is strictly Confidential and protected under [place] law. [place] law prohibits you from making any further disclosure of this information unless further disclosure is expressly permitted by the written consent of the person to whom it pertains or is authorized by law. A general authorization for the release of medical or other information is not sufficient for this purpose. Hospital accepts no responsibility if the information is made available to any other person, INCLUDING THE PATIENT. Interpretation Summary * Name: MARTÍNEZ LEMUS Study Date: 09/13/2016 04:13 PM BP: 148/61 mmHg * Patient Location: .2T\S\S239\S\1 HR: 90 * : 1930 (M/d[birth year]yy) Gender: Female Height: 64 in * Age: 86 yrs Ethnicity: [place] Weight: 182 lb * Ordering Physician: Ina Ramos * Referring Physician: Self, Referred * Performed By: Kaur Lugo RDCS * * Reason For Study: ELEVATED TROPONIN * BSA: 1.9 m2 * History: ELEVATED TROPONIN * -- Conclusions -- * Small, underfilled LV chamber with mild concentric LVH. * Hyperdynamic LV systolic function, EF >70%. * No segmental left ventricular wall motion abnormalities are noted. * Grade I diastolic dsyfunction. * Aortic valve sclerosis moderate, without significant aortic valvular stenosis. Procedure Details * A contrast injection of Definity was performed to improve assessment of LV function. * Contrast was injected into an intravenous site in the left arm. * One vial of Definity ultrasound contrast was diluted in normal saline to a total volume of 10 ml. A total of '2' ml of solution was administered during imaging. * Lot # [id number] of Definity utilized for procedure. * Expiration date 1 FEB 26. * The attending nurse who injected the contrast agent was BELKIS MOYER RN. Left Ventricle * The left ventricular cavity is small. * There is mild concentric left ventricular hypertrophy. * Ejection Fraction = >70 %. * The left ventricle is hyperdynamic. * No segmental left ventricular wall motion abnormalities are noted. * The left ventricular wall motion is normal. Right Ventricle * The right ventricular cavity size is normal (basal dimension <4.2 cm in right ventricular apical 4-chamber view). * The right ventricular systolic function is normal as assessed by tricuspid annular plane systolic excursion (TAPSE) (normal >1.5 cm). Atria * The left atrial size is normal. * Right atrial size is normal. * No ASD detected; PFO is not assessed. Mitral Valve * The mitral valve is normal in structure and function. Tricuspid Valve * The tricuspid valve is normal in structure and function. Aortic Valve * The aortic valve is trileaflet. * Aortic valve sclerosis moderate, without significant aortic valvular stenosis. * There is no significant aortic regurgitation. Pulmonic Valve * The pulmonary valve is not well seen, but the Doppler examination is normal without significant regurgitation or stenosis. Great Vessels * The aortic root is normal size. Pericardium/Pleural * There is no pericardial effusion. Left Ventricular Diastolic Function * Grade I diastolic dysfunction, (abnormal relaxation pattern). MMode 2D Measurements and Calculations IVSd 1.1 cm IVSs 1.7 cm LVIDd 4.2 cm LVIDs 2.7 cm LVPWd 1.2 cm LVPWs 1.4 cm IVS/LVPW 0.86 FS 36.1 % EDV(Teich) 79.1 ml ESV(Teich) 26.8 ml EF(Teich) 66.2 % EDV(cubed) 74.8 ml ESV(cubed) 19.5 ml EF(cubed) 74.0 % % IVS thick 59.9 % % LVPW thick 13.4 % LV mass(C)d 166.1 grams LV mass(C)dI 88.4 grams/m\S\2 LV mass(C)s 143.7 grams LV mass(C)sI 76.5 grams/m\S\2 SV(Teich) 52.4 ml SI(Teich) 27.9 ml/m\S\2 SV(cubed) 55.3 ml SI(cubed) 29.4 ml/m\S\2 Ao root diam 2.5 cm Ao root area 5.1 cm\S\2 LA dimension 3.3 cm LA/Ao 1.3 LVAd ap4 31.1 cm\S\2 LVLd ap4 8.4 cm EDV(MOD-sp4) 95.8 ml EDV(sp4-el) 97.3 ml LVAs ap4 17.2 cm\S\2 LVLs ap4 6.9 cm ESV(MOD-sp4) 35.1 ml ESV(sp4-el) 36.2 ml EF(MOD-sp4) 63.3 % EF(sp4-el) 62.8 % LVAd ap2 28.0 cm\S\2 LVLd ap2 7.5 cm EDV(MOD-sp2) 85.4 ml EDV(sp2-el) 88.9 ml LVAs ap2 14.7 cm\S\2 LVLs ap2 5.9 cm ESV(MOD-sp2) 30.4 ml ESV(sp2-el) 31.0 ml EF(MOD-sp2) 64.5 % EF(sp2-el) 65.1 % LVLd %diff -12.28 % EDV(MOD-bp) 95.0 ml LVLs %diff -16.58 % ESV(MOD-bp) 35.1 ml EF(MOD-bp) 63.0 % SV(MOD-sp4) 60.7 ml SI(MOD-sp4) 32.3 ml/m\S\2 SV(MOD-sp2) 55.1 ml SI(MOD-sp2) 29.3 ml/m\S\2 SV(MOD-bp) 59.9 ml SI(MOD-bp) 31.9 ml/m\S\2 SV(sp4-el) 61.2 ml SI(sp4-el) 32.6 ml/m\S\2 SV(sp2-el) 57.9 ml SI(sp2-el) 30.8 ml/m\S\2 Doppler Measurements and Calculations MV E max suzy 85.8 cm/sec MV A max suzy 131.1 cm/sec MV E/A 0.65 MV dec time 0.23 sec Ao V2 max 244.6 cm/sec Ao max PG 23.9 mmHg Ao max PG (full) 19.6 mmHg Ao V2 mean 176.0 cm/sec Ao mean PG 14.2 mmHg Ao mean PG (full) 11.9 mmHg Ao V2 VTI 47.3 cm LV V1 max PG 4.3 mmHg LV V1 mean PG 2.2 mmHg LV V1 max 103.6 cm/sec LV V1 mean 69.6 cm/sec LV V1 VTI 23.5 cm SV(Ao) 241.4 ml SI(Ao) 128.5 ml/m\S\2 TR max suzy 280.1 cm/sec
[2016-09-14] MEDS ORDERED: INSULIN GLARGINE SOLOSTAR 100 UNITS/ML 3 ML PEN SC SCH (09:00)
--- NOTE | 2016-09-14 13:36 | PULMONARY PROGRESS NOTE ---
DATE: 09/14/2016 DATE: 09/14/2016. TIME: 12:25 p.m. SUBJECTIVE: The patient is feeling significantly better. Her shortness of breath is much improved. She has been ambulating in the hallways without difficulty. Her cough is much decreased. She did not expectorate any sputum. She has had no chest pain. OBJECTIVE: GENERAL: The patient appeared comfortable and in no distress at all. VITAL SIGNS: Temperature this morning 37.1. NECK: Palpation of the neck reveals no lymph nodes. HEART: Rate is 80 beats per minute. The rhythm is irregular. LUNGS: Lung collins revealed very few rales and rhonchi. She was almost clear. CHEST: Respiratory rate is 20 breaths per minute. Oxygen saturation 96% on room air. Blood pressure 146/77. ABDOMEN: Unremarkable. EXTREMITIES: Showed trace edema. LABORATORY DATA: White count today was 11.18. This is mildly elevated compared to prior, but may be related to the steroids she received. Electrolytes show sodium 138, potassium 4.5, chloride 106, bicarbonate 21. BUN was 28 with a creatinine of 1.5. Lactic acid level this morning was reported as elevated at 3.7. This has been ranging between 2.4 and 3.9 on various blood draws. Blood cultures are showing no growth thus far. IMPRESSIONS: 1. Acute asthmatic bronchitis -- much improved. 2. Coronary artery disease by history. RECOMMENDATIONS: The patient is doing well. I would suspect she may be able to be discharged soon. She is still on Solu-Medrol 40 mg IV q. 8 hours. I think it is reasonable to discontinue that and to switch her to oral prednisone and see how she does. I would continue with her other interventions as present.
--- NOTE | 2016-09-14 15:29 | Pharmacy Progress Note ---
Glycemic Control: Progress Nt Date of Service Sep 14, 2016. Scope Glycemic Pharmacist consulted by Dr Ramos on 09/13/16 for glycemic control and to write orders per [facility] inpatient glycemic control protocol. Objective Accuchecks BSG (last 24hrs): Test 09/13/16 16:09 09/13/16 20:16 09/14/16 06:59 09/14/16 08:00 Bedside Glucose 192 mg/dl (70-90) 247 mg/dl (70-90) 201 mg/dl (70-90) Random Glucose 199 mg/dl (70-99) Test 09/14/16 11:34 Bedside Glucose 193 mg/dl (70-90) Laboratory Data (last 24hrs) Test 09/14/16 08:00 Anion Gap 11.0 mmol/L BUN/Creatinine Ratio 18.8 Blood Urea Nitrogen 28 mg/dl Creatinine 1.50 mg/dl Potassium Level 4.5 mmol/L Sodium Level 138 mmol/L White Blood Count 11.18 K/uL Red Blood Count 4.11 M/uL Hemoglobin 11.5 g/dL Hematocrit 35.2 % Mean Corpuscular Volume 85.6 fL Mean Corpuscular Hemoglobin 28.0 pg Mean Corpuscular Hemoglobin Concent 32.7 g/dl Platelet Count 235 K/uL Mean Platelet Volume 11.0 fL Neutrophils (%) (Auto) 76.6 % Lymphocytes (%) (Auto) 16.1 % Monocytes (%) (Auto) 6.3 % Eosinophils (%) (Auto) 0.0 % Basophils (%) (Auto) 0.0 % Neutrophils # (Auto) 8.57 K/uL Lymphocytes # (Auto) 1.80 K/uL Monocytes # (Auto) 0.70 K/uL Eosinophils # (Auto) 0.00 K/uL Basophils # (Auto) 0.00 K/uL HbA1c: 6.6% on 08/24/16 per [facility] outpatient records Recent Pertinent Medications Outpatient Anti-diabetic Regimen: * Glipizide 10mg PO BIDM * Prandin 1mg PO TID The patient is currently receiving: * Basal insulin: Lantus 5 units every 12 hours + additional dose of 15 units SQ x 1 dose @ 0000 on 09/14/16 * Correctional Insulin: Novolog Correction per scale ACHS Goal Range: Low 120 mg/dL - High 160 mg/dL Correction Factor: 25 mg/dL/unit * Prandial insulin: Per carb ratio of 1 unit per 15 grams CHO consumed Risk Factors for Insulin Resistance: * Steroids * Infection * Diet Assessment & Plan ASSESSMENT: * 86yo T2DM female with adequate outpatient control on oral antidiabetic medications * Outpatient regimen held on admission and patient initiated on SQ basal bolus insulin regimen with Lantus + NovoLog conservative dosing. * Pt currently with steroid induced hyperglycemia * Pt was initiated on oral prednisone on 09/13/16 but it was then changed to IV methylprednisolone. Insulin regimen was increased. * Steroids changing back to prednisone tomorrow. Therefore, will empirically decrease insulin regimen d/t step down in steroid dosing. * ADA & AACE recommend a goal blood sugar range 140-180 mg/dl for the majority of critically ill & non-critically ill patients. However, more stringent targets may be selected in individual cases. Will utilize more stringent target of 120-140mg/dl based on tight degree of outpatient control. PLAN FOR INPATIENT GLYCEMIC CONTROL: * Holding outpatient oral diabetes medications * Basal insulin with LANTUS 15 units SQ daily in AM * Correctional Insulin with NOVOLOG per scale ACHS or Q6hrs while NPO. Additional check + coverage at 0200 for RTC coverage. * Goal Range: Low 120 mg/dL - High 140 mg/dL * Correction Factor: 30 mg/dL/unit (40mg/dl/unit for 0200 check) * Nutritional / Prandial insulin per carb ratio of 1 unit per 10 grams CHO consumed * Please note that the plan above was derived based on current level of insulin resistance and hospital stress. These recommendations are appropriate for inpatient admission only. Plan of care upon discharge will need to be reassessed to avoid potential outpatient hypo/hyperglycemia. Thank you.
--- NOTE | 2016-09-14 15:45 | Progress Note ---
Internal Med Progress Note Date of Service: Sep 14, 2016. Provider Documentation: SUBJECTIVE: Resting comfortably afebrile says sob and cough much better eating ok ambulating fine feeling better OBJECTIVE: Vital Signs-as noted below Exam: General-alert and oriented x 3 ENT-normal hearing Neck-no neck masses Lungs-cta b/l no wheezing or crackles Heart-s1 and s2 heard regular rate and rhythm, no murmurs Abdomen-soft bowel sounds present non tender no distension Extremities-no edema no erythema Neuro-alert and awake moves extremities Lab data as noted below. ASSESSMENT & PLAN: 86 yoF with asthma presents with acute exacerbation 1. Asthma exacerbation asthmatic bronchitis mostlikely precipitated by cold weather as per px Failed out patient tx with z lissette and prednisone iv steroids and nebs Flu negative. On Doxy 100mg PO BID Improving taper steroids to po prednisone 2. Acute renal failure on chronic renal insufficiency secondary to illness- reolved. 3. coronary artery disease, transient ischemic attack as per records. Stable on ASA, Plavix, statin 4. troponemia 2 to kidney dysfunction asymptomatic. echo unremarkable. 5. Lactic acidemia likely secondary to kidney dysfunction will monitor. 6. DM2, on oral meds well controlled as of recent outpx HgA1c appreciate Glycemic pharmacist to assist with management. 7 .Parkinson's disease as per records. On Sinemet. 8. Anemia secondary to chronic kidney disease-Hemoglobin at baseline. PT/OT eval. DVT prophylaxis, Heparin SQ Full code. DISPOSITION possible d/c in am if stable Vital Signs: Date Time Temp Pulse Resp B/P Pulse Ox O2 Delivery O2 Flow Rate FiO2 09/14/16 14:41 86 16 93 Room Air 09/14/16 12:16 96 Room Air 09/14/16 09:25 96 Room Air 09/14/16 09:25 96 Room Air 09/14/16 08:32 79 16 95 Room Air 09/14/16 07:42 37.1 87 20 146/77 91 Room Air 09/14/16 04:00 36.7 85 20 142/63 96 Room Air 09/14/16 04:00 Room Air 09/14/16 02:03 81 18 93 Room Air 09/14/16 00:00 36.6 83 20 147/69 95 Room Air 09/13/16 23:59 Room Air 09/13/16 20:15 88 18 96 Room Air 09/13/16 20:00 Room Air 09/13/16 19:58 36.8 90 18 160/82 94 09/13/16 16:28 96 Room Air 09/13/16 16:17 36.7 100 22 144/56 92 Room Air Lab Results: Results Past 24 Hours Test 09/13/16 16:09 09/13/16 20:05 09/13/16 20:16 09/14/16 06:59 Range/Units Bedside Glucose 192 247 201 70-90 mg/dl Lactic Acid Level 3.9 0.4-2.0 mmol/L Test 09/14/16 08:00 09/14/16 11:34 09/14/16 12:00 Range/Units White Blood Count 11.18 4.8-10.8 K/uL Red Blood Count 4.11 4.2-5.4 M/uL Hemoglobin 11.5 12.0-16.0 g/dL Hematocrit 35.2 37-47 % Mean Corpuscular Volume 85.6 80-100 fL Mean Corpuscular Hemoglobin 28.0 25-34 pg Mean Corpuscular Hemoglobin Concent 32.7 32-36 g/dl Platelet Count 235 130-400 K/uL Mean Platelet Volume 11.0 7.4-10.4 fL Neutrophils (%) (Auto) 76.6 % Lymphocytes (%) (Auto) 16.1 % Monocytes (%) (Auto) 6.3 % Eosinophils (%) (Auto) 0.0 % Basophils (%) (Auto) 0.0 % Neutrophils # (Auto) 8.57 1.4-6.5 K/uL Lymphocytes # (Auto) 1.80 1.2-3.4 K/uL Monocytes # (Auto) 0.70 0.11-0.59 K/uL Eosinophils # (Auto) 0.00 0-0.5 K/uL Basophils # (Auto) 0.00 0-0.2 K/uL RDW Standard Deviation 46.5 36.4-46.3 fL RDW Coefficient of Variation 14.8 11.5-14.5 % Immature Granulocyte % (Auto) 1.0 % Immature Granulocyte # (Auto) 0.11 0.00-0.02 K/uL Sodium Level 138 136-145 mmol/L Potassium Level 4.5 3.5-5.1 mmol/L Chloride Level 106 98-107 mmol/L Carbon Dioxide Level 21 21-32 mmol/L Anion Gap 11.0 3-11 mmol/L Blood Urea Nitrogen 28 7-18 mg/dl Creatinine 1.50 0.60-1.20 mg/dl Est Creatinine Clear Calc Drug Dose 27.7 ml/min Estimated GFR () 36.2 Estimated GFR (Non- 31.2 BUN/Creatinine Ratio 18.8 10-20 Random Glucose 199 70-99 mg/dl Lactic Acid Level 3.7 2.9 0.4-2.0 mmol/L Calcium Level 9.2 8.5-10.1 mg/dl Bedside Glucose 193 70-90 mg/dl
[2016-09-14] MEDS: LEVOTHYROXINE 125 MCG TAB PO SCH (20:18)
[2016-09-14] MEDS: LORAZEPAM INJ 0.5 MG in SYRINGE 0.75 ML IV PRN (21:51)
[2016-09-14] MEDS: IPRATROPIUM BROMIDE NEB SOLN 0.02% 2.5 ML VIAL INH PRN (23:13)
[2016-09-14] MEDS: LEVALBUTEROL 1.25MG/0.5ML NEB INH PRN (23:13)
[2016-09-15] VITALS (12 sets, daily range): BP systolic 138–150; BP diastolic 63–95; PULSE 70–118; TEMP 36.7–36.9; O2SAT 90–96
[2016-09-15] MEDS ORDERED: INSULIN ASPART 100 UNITS/ML 3 ML PEN SC SCH (02:00)
[2016-09-15] MEDS: IPRATROPIUM BROMIDE NEB SOLN 0.02% 2.5 ML VIAL INH SCH ×4 (02:56→19:47)
[2016-09-15] MEDS: LEVALBUTEROL 1.25MG/0.5ML NEB INH SCH ×4 (02:56→19:47)
[2016-09-15] MEDS: LORAZEPAM INJ 0.5 MG in SYRINGE 0.75 ML IV PRN ×2 (03:32→12:58)
[2016-09-15] MEDS: HEPARIN SOD 5000 UNIT/0.5 ML CARP SQ SCH ×3 (06:57→21:57)
[2016-09-15 08:26] LABS: BASO % 0.1 %; BASO ABS # 0.01 K/uL (0-0.2); COMPLETE YES; IG% 0.7 %; MEAN CELL VOLUME 85.5 fL (80-100); MEAN CORPUSCULAR HEMOGLOBIN 28.7 pg (25-34); MEAN CORPUSCULAR HGB CONC 33.6 g/dl (32-36); MEAN PLATELET VOLUME 10.9 fL (7.4-10.4); MONO % 7.9 %; NEUT % 72.3 %; PLATELET COUNT 218 K/uL (130-400); RED BLOOD COUNT 4.21 M/uL (4.2-5.4); WHITE BLOOD COUNT 10.51 K/uL (4.8-10.8)
[2016-09-15] MEDS: ISOSORBIDE MONONITRATE 30 MG TABCR PO SCH (08:32)
[2016-09-15] MEDS: CLOPIDOGREL BISULFATE 75 MG TAB PO SCH (08:32)
[2016-09-15] MEDS: CARBIDOPA/LEVODOPA 25/100MG TAB PO SCH ×4 (08:32→20:50)
[2016-09-15] MEDS: DULOXETINE HCL 20 MG CAP PO SCH (08:32)
[2016-09-15] MEDS: ASPIRIN 81 MG ECTAB PO SCH (08:32)
[2016-09-15] MEDS: GABAPENTIN 100 MG CAP PO SCH ×3 (08:32→20:51)
[2016-09-15] MEDS: ATORVASTATIN 20 MG TAB PO SCH (08:32)
[2016-09-15] MEDS: METOPROLOL TARTRATE 25 MG TAB PO SCH ×2 (08:32→20:50)
[2016-09-15] MEDS: GUAIFENESIN 600 MG TABCR PO SCH ×2 (08:32→20:50)
[2016-09-15] MEDS: BENZONATATE 100MG CAP PO PRN ×2 (08:33→20:55)
[2016-09-15] MEDS: DOXYCYCLINE HYCLATE 100 MG CAP PO SCH ×2 (08:33→20:50)
[2016-09-15] MEDS: INSULIN ASPART 100 UNITS/ML 3 ML PEN SC SCH ×4 (08:42→21:58)
[2016-09-15 08:54] LABS: BUN/CREATININE RATIO 25.3 (10-20); CALCIUM 9.8 mg/dl (8.5-10.1); CREATININE 1.5 mg/dl (0.60-1.20); POTASSIUM 4.6 mmol/L (3.5-5.1)
[2016-09-15] MEDS ORDERED: INSULIN GLARGINE SOLOSTAR 100 UNITS/ML 3 ML PEN SC SCH (09:00)
--- NOTE | 2016-09-15 11:13 | Pharmacy Progress Note ---
Glycemic Control: Progress Nt Date of Service Sep 15, 2016. Scope Glycemic Pharmacist consulted by Dr Ramos on 09/13/16 for glycemic control and to write orders per [facility] inpatient glycemic control protocol. Objective Accuchecks BSG (last 24hrs): Test 09/14/16 11:34 09/14/16 16:19 09/14/16 21:11 09/15/16 03:31 Bedside Glucose 193 mg/dl (70-90) 139 mg/dl (70-90) 176 mg/dl (70-90) 203 mg/dl (70-90) Test 09/15/16 08:09 09/15/16 08:18 Bedside Glucose 152 mg/dl (70-90) Random Glucose 164 mg/dl (70-99) Laboratory Data (last 24hrs) Test 09/15/16 08:18 Anion Gap 12.0 mmol/L BUN/Creatinine Ratio 25.3 Blood Urea Nitrogen 38 mg/dl Creatinine 1.50 mg/dl Potassium Level 4.6 mmol/L Sodium Level 139 mmol/L White Blood Count 10.51 K/uL Red Blood Count 4.21 M/uL Hemoglobin 12.1 g/dL Hematocrit 36.0 % Mean Corpuscular Volume 85.5 fL Mean Corpuscular Hemoglobin 28.7 pg Mean Corpuscular Hemoglobin Concent 33.6 g/dl Platelet Count 218 K/uL Mean Platelet Volume 10.9 fL Neutrophils (%) (Auto) 72.3 % Lymphocytes (%) (Auto) 19.0 % Monocytes (%) (Auto) 7.9 % Eosinophils (%) (Auto) 0.0 % Basophils (%) (Auto) 0.1 % Neutrophils # (Auto) 7.60 K/uL Lymphocytes # (Auto) 2.00 K/uL Monocytes # (Auto) 0.83 K/uL Eosinophils # (Auto) 0.00 K/uL Basophils # (Auto) 0.01 K/uL HbA1c: 6.6% on 08/24/16 [facility] Recent Pertinent Medications Outpatient Anti-diabetic Regimen: * Glipizide 10mg PO BIDM * Prandin 1mg PO TID The patient is currently receiving: * Basal insulin: Lantus 15 units every 24 hours given in the morning * Correctional Insulin: Novolog Correction per scale ACHS Goal Range: Low 120 mg/dL - High 140 mg/dL Correction Factor: 30 mg/dL/unit * Prandial insulin: Per carb ratio of 1 unit per 10 grams CHO consumed Risk Factors for Insulin Resistance: * Steroids * Infection * Diet Assessment & Plan ASSESSMENT: * 86yo T2DM female with adequate outpatient control on oral antidiabetic medications * Outpatient regimen held on admission and patient initiated on SQ basal bolus insulin regimen with Lantus + NovoLog conservative dosing. * Pt currently with steroid induced hyperglycemia * Pt was initiated on oral prednisone on 09/13/16 but it was then changed to IV methylprednisolone. Insulin regimen was increased on 09/13/16. * Steroids changed back to prednisone 09/15/16 therefore, insulin regimen was empirically decreased 09/14/16 d/t step down in steroid dosing. * Patient has received 36 units of insulin over the past 24hrs * BSGs ranging 139-201mg/dl * AM fasting BSG in goal range at 152 mg/dl --> no change to basal insulin needed * Post-prandial BSGs in goal range --> no changes needed to CF/CR * ADA & AACE recommend a goal blood sugar range 140-180 mg/dl for the majority of critically ill & non-critically ill patients. However, more stringent targets may be selected in individual cases. Will utilize more stringent target of 120-140mg/dl based on tight degree of outpatient control. PLAN FOR INPATIENT GLYCEMIC CONTROL: * Holding outpatient oral diabetes medications * Continue Basal insulin with LANTUS 15 units SQ daily in AM * Continue Correctional Insulin with NOVOLOG per scale ACHS or Q6hrs while NPO ( d/c 0200 check) * Goal Range: Low 120 mg/dL - High 140 mg/dL * Correction Factor: 30 mg/dL/unit * Nutritional / Prandial insulin per carb ratio of 1 unit per 10 grams CHO consumed * Please note that the plan above was derived based on current level of insulin resistance and hospital stress. These recommendations are appropriate for inpatient admission only. Plan of care upon discharge will need to be reassessed to avoid potential outpatient hypo/hyperglycemia. Thank you. RECOMMENDATIONS FOR DISCHARGE: * A1c = 6.6% --> may be too tightly controlled based on age and comorbidities. * Pt is current taking Prandin (repaglinide) 1mg PO TIDM + Glipizide 10mg PO BIDM. This is a therapeutic duplication. * The combined use of Prandin repaglinide (a meglitinide) and oral sulfonylureas (glipizide) is not considered justified as both drug classes stimulate insulin secretion and therefore lead to hypoglycemia. * May consider decreasing outpatient regimen for less stringent glycemic control * Consider d/c glipizide or at a minimum cutting the dose in half. * No change to Prandin (repaglinide)
[2016-09-15] MEDS ORDERED: ALUMINUM/MAGNESIUM SUSP 30 ML UDC ONE (11:28)
[2016-09-15] MEDS ORDERED: ALUMINUM/MAGNESIUM/SIMETH (MAALOX MAX) 30 ML UDC PO PRN (11:30)
[2016-09-15] MEDS ORDERED: ALUMINUM/MAGNESIUM/SIMETH (MAALOX MAX) 30 ML UDC PO STA (11:40)
[2016-09-15] MEDS: LEVALBUTEROL 1.25MG/0.5ML NEB INH PRN (12:54)
[2016-09-15] MEDS: IPRATROPIUM BROMIDE NEB SOLN 0.02% 2.5 ML VIAL INH PRN (12:54)
[2016-09-15] MEDS: METHYLPREDNISOLONE IV 40 MG in SYRINGE 0 ML IV SCH (12:57)
[2016-09-15] MEDS ORDERED: METHYLPREDNISOLONE IV 40 MG in SYRINGE 0 ML IV ONE (13:15)
--- NOTE | 2016-09-15 13:29 | PROGRESS NOTE ---
DATE: 09/15/2016 PROBLEM LISTS: Includes: 1. Asthmatic bronchitis with acute exacerbation. 2. Coronary artery disease by history. SUBJECTIVE: The patient reports that she had a rough night last night. She states that she had an episode where she felt like reflux came up into her throat and then she had difficulty breathing. She states she did not have to have a nebulizer treatment and Ativan. She states that she is still having difficulties with breathing. Today, she states that she is coughing more. She states that she is wheezing more. She states that she is more short of breath due to her breathing difficulty. She is not really coughing anything up. She states she is more tired as well. She denies any chest pain or painful respirations. She states that she did have the episode of reflux and she states that she does get that somewhat frequently with this happening at night quite a bit and she will have the coughing episode associated with it. She reports that occasionally food will go down wrong as well. She has no nausea or vomiting, no pleuritic chest pain. No chest pain in general, no abdominal pain, no difficulty with her bowels. No difficulty voiding. OBJECTIVE: GENERAL: The patient is an 86-year-old female lying in bed, does have some audible wheezing, although this was faintly heard from across the room. She does have a persistent dry cough noted as well. She is alert and oriented x3. Mood is good. Affect is good. VITAL SIGNS: Temp 36.7, pulse 77, respiration 18, blood pressure is 150/81, and pulse ox 93% on room air. NECK: Supple. There is no mass. No JVD. No adenopathy. No bruit. No thyromegaly. No tenderness. CHEST: The patient has some fairly diffuse wheezing throughout, worse on exhalation. No appreciated rales or rhonchi. CARDIOVASCULAR: Regular rate and rhythm. There are no murmurs, gallops or rubs. ABDOMEN: Bowel sounds are present. Abdomen is soft, some mild tenderness to palpation in the mid epigastric area. No guarding, rigidity or organomegaly. EXTREMITIES: Trace edema, no erythema, no tenderness to palpation. LABORATORY DATA: White count is 10,000, H\T\H 12.1 and 36.0, platelet count is 218,000. No new imaging data. IMPRESSION AND PLAN: This is an 86-year-old female who is here for exacerbation to her asthma. She was doing well until yesterday when last evening she had an episode of reflux and her breathing has worsened. I suspect that the patient does have some reflux disease and may also have a component of aspiration. At this point, I do not feel that she should be discharged today. I am going to give her a one time dose of Solu-Medrol 40 mg. She is asking for Ativan and she does feel a little bit anxious as well. She does have a p.r.n. order and that will be given. I would like for her to have a chest x-ray. I would also like her to have barium swallow followed by a video swallow if needed, a cough for a p.r.n. nebulizer as well. If she does well today and the studies are remarkable, then I would anticipate that she may discharge tomorrow. I had started her on Protonix IV as well and I think that will be helpful for her and she may need something upon discharge long-term for her reflux disease. At this point, we will continue to follow her through hospitalization. JEAN PAUL
--- NOTE | 2016-09-15 14:36 | DIAGNOSTIC IMAGING REPORT ---
CHEST 2 VIEWS ROUTINE CLINICAL HISTORY: asthma exacerbation / possible aspiration COMPARISON STUDY: 09/12/2016 FINDINGS: The cardiac and mediastinal contours are normal. There is no evidence of focal pulmonary consolidation. There is no evidence of failure. No pleural effusions are visualized.[ There is a linear left basilar atelectasis/scarring. There is small right pleural effusion with associated right basilar airspace opacities likely atelectatic. IMPRESSION: Small right pleural effusion with associated right basilar airspace opacities, likely atelectatic. Electronically signed by: Matthew Corea M.D. 09/15/2016 2:34 PM
--- NOTE | 2016-09-15 14:47 | DIAGNOSTIC IMAGING REPORT ---
CHEST CT WITHOUT CONTRAST CT DOSE: 321.86 mGy.cm HISTORY: Dyspnea. TECHNIQUE: Multiaxial CT images of the chest were performed without contrast. COMPARISON: Chest CT 03/10/2016. FINDINGS: There is a trace right pleural effusion and a trace pericardial effusion. No mediastinal or hilar lymphadenopathy. The heart is normal in size. Normal caliber thoracic aorta. Prior cholecystectomy. Stable bile duct dilatation. The visualized spleen and adrenal glands are unremarkable. No suspicious lytic or blastic osseous lesions. The central airways are patent. No pneumothorax. Punctate calcified granuloma in a few tiny nodular densities at the right lung apex remain unchanged. Small focal area of peripheral interstitial thickening within the right upper lobe has improved. Stable 5 mm nodule within the right middle lobe on image 37. This demonstrates greater than 2 year stability and is considered be benign. No new focal lung consolidations. Mild peripheral interstitial thickening. IMPRESSION: 1. Trace right pleural effusion and a trace pericardial effusion. 2. Peripheral interstitial thickening which is likely chronic. 3. Stable benign 5 mm nodule within the right middle lobe. 4. No new focal lung consolidations to suggest pneumonia. Electronically signed by: Efren Feldman M.D. 09/15/2016 2:45 PM
[2016-09-15 15:23] LABS: ARTERIAL BLD GAS O2 SATURATION 91.4 % (90-95); ARTERIAL BLOOD GAS BASE EXCESS -0.3 mEq/L (-9-1.8); ARTERIAL BLOOD GAS HCO3 23 mmol/L (19-24); ARTERIAL BLOOD GAS PO2 62 mm/Hg (80-95); ARTERIAL BLOOD GAS pH 7.48 (7.35-7.45)
[2016-09-15 15:24] LABS: ALLEN TEST POS (POS); O2 ADMINISTRATION ROOM AIR
[2016-09-15 15:53] LABS: ALT/SGPT 17 U/L (12-78); BLOOD UREA NITROGEN 37 mg/dl (7-18); BUN/CREATININE RATIO 24.6 (10-20); CALCIUM 9.4 mg/dl (8.5-10.1); CARBON DIOXIDE 24 mmol/L (21-32); CHLORIDE 102 mmol/L (98-107); GLUCOSE 214 mg/dl (70-99); POTASSIUM 4.7 mmol/L (3.5-5.1); SODIUM 138 mmol/L (136-145)
[2016-09-15 15:59] LABS: ALB/GLOB RATIO 0.8 (0.9-2); ALKALINE PHOSPHATASE 122 U/L (45-117); AST/SGOT 23 U/L (15-37)
--- NOTE | 2016-09-15 20:12 | Progress Note ---
Internal Med Progress Note Date of Service: Sep 15, 2016. Provider Documentation: SUBJECTIVE: last night had episode of cough and sob having cough today has heartburn no chest pain afebrile later in the day feeling better OBJECTIVE: Vital Signs-as noted below Exam: General-alert and oriented x 3 ENT-normal hearing Neck-no neck masses Lungs-cta b/l b/l rhonchi Heart-s1 and s2 heard regular rate and rhythm, no murmurs Abdomen-soft bowel sounds present non tender no distension Extremities-no edema no erythema Neuro-alert and awake moves extremities Lab data as noted below. ASSESSMENT & PLAN: 86 yoF with asthma presents with acute exacerbation 1. Asthma exacerbation asthmatic bronchitis mostlikely precipitated by cold weather as per px Failed out patient tx with z lissette and prednisone iv steroids and nebs Flu negative. On Doxy 100mg PO BID Improved and tapered steroids to po prednisone but again develped ronhci and sob placed back on solumderol pulmonary thinks atinet aspirating. started on GERD px tx and plan for video swallow 2. Acute renal failure on chronic renal insufficiency secondary to illness- resolved. 3. coronary artery disease, transient ischemic attack as per records. Stable on ASA, Plavix, statin 4. troponemia 2 to kidney dysfunction asymptomatic. echo unremarkable. 5. Lactic acidemia likely secondary to kidney dysfunction persistent. Not in sepsis. Consulted nephrology for further input 6. DM2, on oral meds well controlled as of recent outpx HgA1c appreciate Glycemic pharmacist to assist with management. 7 .Parkinson's disease as per records. On Sinemet. 8. Anemia secondary to chronic kidney disease-Hemoglobin at baseline. PT/OT eval. DVT prophylaxis, Heparin SQ Full code. DISPOSITION possible d/c in 1-2 days if stable Vital Signs: Date Time Temp Pulse Resp B/P Pulse Ox O2 Delivery O2 Flow Rate FiO2 09/15/16 19:48 70 20 94 Nasal Cannula 2.0 09/15/16 16:00 90 Nasal Cannula 2.0 09/15/16 15:34 36.8 118 22 141/63 90 Room Air 09/15/16 14:25 70 20 94 Room Air 09/15/16 12:54 86 20 93 Room Air 09/15/16 08:59 36.7 77 18 150/81 93 Room Air 09/15/16 08:00 96 Room Air 09/15/16 07:55 70 20 94 Room Air 09/15/16 02:56 82 18 95 Room Air 09/15/16 00:35 36.9 81 20 150/95 94 Room Air 09/15/16 00:00 96 Room Air 09/15/16 00:00 96 Room Air 09/14/16 23:13 67 24 95 Room Air 09/14/16 21:00 80 16 96 Room Air Lab Results: Results Past 24 Hours Test 09/14/16 21:11 09/15/16 03:31 09/15/16 08:09 09/15/16 08:18 Range/Units Bedside Glucose 176 203 152 70-90 mg/dl White Blood Count 10.51 4.8-10.8 K/uL Red Blood Count 4.21 4.2-5.4 M/uL Hemoglobin 12.1 12.0-16.0 g/dL Hematocrit 36.0 37-47 % Mean Corpuscular Volume 85.5 80-100 fL Mean Corpuscular Hemoglobin 28.7 25-34 pg Mean Corpuscular Hemoglobin Concent 33.6 32-36 g/dl Platelet Count 218 130-400 K/uL Mean Platelet Volume 10.9 7.4-10.4 fL Neutrophils (%) (Auto) 72.3 % Lymphocytes (%) (Auto) 19.0 % Monocytes (%) (Auto) 7.9 % Eosinophils (%) (Auto) 0.0 % Basophils (%) (Auto) 0.1 % Neutrophils # (Auto) 7.60 1.4-6.5 K/uL Lymphocytes # (Auto) 2.00 1.2-3.4 K/uL Monocytes # (Auto) 0.83 0.11-0.59 K/uL Eosinophils # (Auto) 0.00 0-0.5 K/uL Basophils # (Auto) 0.01 0-0.2 K/uL RDW Standard Deviation 47.0 36.4-46.3 fL RDW Coefficient of Variation 15.0 11.5-14.5 % Immature Granulocyte % (Auto) 0.7 % Immature Granulocyte # (Auto) 0.07 0.00-0.02 K/uL Sodium Level 139 136-145 mmol/L Potassium Level 4.6 3.5-5.1 mmol/L Chloride Level 106 98-107 mmol/L Carbon Dioxide Level 21 21-32 mmol/L Anion Gap 12.0 3-11 mmol/L Blood Urea Nitrogen 38 7-18 mg/dl Creatinine 1.50 0.60-1.20 mg/dl Est Creatinine Clear Calc Drug Dose 27.7 ml/min Estimated GFR () 36.2 Estimated GFR (Non- 31.2 BUN/Creatinine Ratio 25.3 10-20 Random Glucose 164 70-99 mg/dl Lactic Acid Level 2.7 0.4-2.0 mmol/L Calcium Level 9.8 8.5-10.1 mg/dl Test 09/15/16 11:41 09/15/16 12:10 09/15/16 13:35 09/15/16 15:00 Range/Units Bedside Glucose 182 70-90 mg/dl Lactic Acid Level 4.0 0.4-2.0 mmol/L Creatine Kinase MB Ratio 0-3.0 Arterial Blood pH 7.48 7.35-7.45 Arterial Blood Partial Pressure CO2 31 35-46 mmHg Arterial Blood Partial Pressure O2 62 80-95 mm/Hg Arterial Blood HCO3 23 19-24 mmol/L Arterial Blood Oxygen Saturation 91.4 90-95 % Arterial Blood Base Excess -0.3 -9-1.8 mEq/L Arterial Blood Gas Delivery ROOM AIR Bernardo Test POS POS Sodium Level 138 136-145 mmol/L Potassium Level 4.7 3.5-5.1 mmol/L Chloride Level 102 98-107 mmol/L Carbon Dioxide Level 24 21-32 mmol/L Anion Gap 12.0 3-11 mmol/L Blood Urea Nitrogen 37 7-18 mg/dl Creatinine 1.50 0.60-1.20 mg/dl Est Creatinine Clear Calc Drug Dose 27.7 ml/min Estimated GFR () 36.2 Estimated GFR (Non- 31.2 BUN/Creatinine Ratio 24.6 10-20 Random Glucose 214 70-99 mg/dl Calcium Level 9.4 8.5-10.1 mg/dl Total Bilirubin 0.3 0.2-1 mg/dl Aspartate Amino Transf (AST/SGOT) 23 15-37 U/L Alanine Aminotransferase (ALT/SGPT) 17 12-78 U/L Alkaline Phosphatase 122 45-117 U/L Creatine Kinase MB 2.4 0.5-3.6 ng/ml Troponin I 0.074 0-0.045 ng/ml Total Protein 7.5 6.4-8.2 gm/dl Albumin 3.3 3.4-5.0 gm/dl Globulin 4.2 2.5-4.0 gm/dl Albumin/Globulin Ratio 0.8 0.9-2 Test 09/15/16 16:08 09/15/16 16:10 09/15/16 19:57 Range/Units Bedside Glucose 220 70-90 mg/dl Lactic Acid Level 3.0 0.4-2.0 mmol/L
[2016-09-15] MEDS: HYDROmorphone INJ 1 MG/ML SYR IV PRN (20:44)
[2016-09-15] MEDS: LEVOTHYROXINE 125 MCG TAB PO SCH (20:50)
[2016-09-16] VITALS (9 sets, daily range): BP systolic 119–182; BP diastolic 72–86; PULSE 74–94; TEMP 36.4–37; O2SAT 94–98
[2016-09-16] MEDS: METHYLPREDNISOLONE IV 40 MG in SYRINGE 0 ML IV SCH ×2 (00:26→13:38)
[2016-09-16] MEDS: LEVALBUTEROL 1.25MG/0.5ML NEB INH SCH ×4 (02:02→19:04)
[2016-09-16] MEDS: IPRATROPIUM BROMIDE NEB SOLN 0.02% 2.5 ML VIAL INH SCH ×4 (02:02→19:04)
[2016-09-16] MEDS: LORAZEPAM INJ 0.5 MG in SYRINGE 0.75 ML IV PRN (02:52)
[2016-09-16] MEDS: HYDROmorphone INJ 1 MG/ML SYR IV PRN (03:41)
[2016-09-16] MEDS: HEPARIN SOD 5000 UNIT/0.5 ML CARP SQ SCH ×3 (06:32→21:37)
[2016-09-16] MEDS: CARBIDOPA/LEVODOPA 25/100MG TAB PO SCH ×4 (08:24→21:33)
[2016-09-16] MEDS: CLOPIDOGREL BISULFATE 75 MG TAB PO SCH (08:25)
[2016-09-16] MEDS: DOXYCYCLINE HYCLATE 100 MG CAP PO SCH ×2 (08:25→21:34)
[2016-09-16] MEDS: ATORVASTATIN 20 MG TAB PO SCH (08:25)
[2016-09-16] MEDS: GABAPENTIN 100 MG CAP PO SCH ×3 (08:25→21:33)
[2016-09-16] MEDS: ASPIRIN 81 MG ECTAB PO SCH (08:26)
[2016-09-16] MEDS: GUAIFENESIN 600 MG TABCR PO SCH ×2 (08:26→21:34)
[2016-09-16] MEDS: ISOSORBIDE MONONITRATE 30 MG TABCR PO SCH (08:26)
[2016-09-16] MEDS: METOPROLOL TARTRATE 25 MG TAB PO SCH ×2 (08:26→21:36)
[2016-09-16] MEDS: PANTOprazole INJ 40 MG in SYRINGE 0 ML IV SCH (08:27)
[2016-09-16] MEDS: BENZONATATE 100MG CAP PO PRN ×2 (08:27→17:24)
[2016-09-16 08:28] LABS: BUN/CREATININE RATIO 28.3 (10-20); CALCIUM 9.5 mg/dl (8.5-10.1); CREATININE 1.5 mg/dl (0.60-1.20); POTASSIUM 5.2 mmol/L (3.5-5.1)
[2016-09-16] MEDS: DULOXETINE HCL 20 MG CAP PO SCH (08:28)
[2016-09-16 08:29] LABS: BASO % 0.1 %; BASO ABS # 0.01 K/uL (0-0.2); COMPLETE YES; HEMATOCRIT 35.1 % (37-47); LYMPH % 10.9 %; LYMPH ABS # 1.04 K/uL (1.2-3.4); MEAN CORPUSCULAR HEMOGLOBIN 28.3 pg (25-34); MEAN CORPUSCULAR HGB CONC 33.3 g/dl (32-36); MEAN PLATELET VOLUME 11.2 fL (7.4-10.4); MONO % 4.5 %; NEUT % 83.5 %; PLATELET COUNT 189 K/uL (130-400); PLT ESTIMATE NORMAL; RED BLOOD COUNT 4.13 M/uL (4.2-5.4); VACUOLIZATION 1+; WHITE BLOOD COUNT 9.58 K/uL (4.8-10.8)
[2016-09-16] MEDS: INSULIN ASPART 100 UNITS/ML 3 ML PEN SC SCH ×4 (08:41→21:40)
[2016-09-16] MEDS ORDERED: INSULIN GLARGINE SOLOSTAR 100 UNITS/ML 3 ML PEN SC SCH ×4 (09:00→21:00)
--- NOTE | 2016-09-16 12:26 | Pharmacy Progress Note ---
Glycemic: Assessment & Plan Date of Service Sep 16, 2016. Assessment & Plan * The patient is currently receiving 40 units of insulin per day. BSGs ranging 153 - 235 mg/dl over the past 24hrs. * Basal needs do not seem to be sufficiently covered yet as evidenced by fasting BSG above desired range despite 4 units of correctional insulin administered at bedtime yesterday. Also, the TDD of insulin is 40 units indicating the pt may benefit from additional basal on board to better distribute prandial vs basal needs 50/50. * The pt is NPO today in prep for a barium swallow test this afternoon. Therefore, I am hesitant to give full increase in Lantus dose this morning. Will split the dose up today and provide a 1/2 dose parameter. * Additionally, steroids are being tapered which will help to resolve hyperglycemia. I am reluctant to continue the increased basal dosing beyond today. Will reduce basal dose tomorrow morning to account for steroid taper. * Tighten Novolog CF/CR in order to achieve better prandial glycemic control through the day. PLAN FOR INPATIENT GLYCEMIC CONTROL: * Basal insulin: 09/16/16: Lantus 10 units SQ BID then 09/17/16: resume Lantus 15units SQ daily; give 1/2 dose for BSG below 110 mg/dl * Correctional Insulin: Novolog Correction per scale ACHS Goal Range: Low 120 mg/dL - High 140 mg/dL Tighten - Correction Factor: 25 mg/dL/unit * Prandial insulin: Tighten - Per carb ratio of 1 unit per 9 grams CHO consumed Pharmacy will continue to monitor patient daily and write orders per [facility] inpatient glycemic control protocol. Thanks. * Please note that the plan above was derived based on current level of insulin resistance and hospital stress. These recommendations are appropriate for inpatient admission only. Plan of care upon discharge will need to be reassessed to avoid potential outpatient hypo/hyperglycemia.
--- NOTE | 2016-09-16 13:19 | DIAGNOSTIC IMAGING REPORT ---
(BARIUM SWALLOW) ESOPHAGUS CLINICAL HISTORY: aspirationdysphagia COMPARISON STUDY: None FLUOROSCOPY TIME: 0.8 minutes. FINDINGS: Patient initiates swallowing function well. There is no evidence for aspiration or obstructive characteristics. Gas esophageal junction is unremarkable. Findings of minimal esophageal irritability. Patient ingested barium tablet immediately with no evidence for obstruction IMPRESSION: Minimal esophageal spasm and/or irritability. Otherwise negative study Electronically signed by: Celestino Ingram M.D. 09/16/2016 1:17 PM
[2016-09-16] MEDS ORDERED: SODIUM POLYST. SULF SUSP 15G/60ML PO ONE (15:30)
--- NOTE | 2016-09-16 16:31 | Pulmonology Progress Note ---
Pulmonary Progress Note Date of Service Sep 16, 2016. Attending Cable Subjective Feeling markedly improved today. Completed barium swallow and reports thirst and nausea post procedure but otherwise generally comfortable. Ambulating to the bathroom without difficulty. Reports some anxiety in the evenings alleviated with IV lorazepam. Cough became productive last night with subsequent improvement. Continues to c/o heart burn. Objective 86-yo female hospital day # 4 with exacerbation of asthma. PMHx includes: Asthma [ PFT 10/28], GERD/Reflux, HSV, h/o mycoplasma bronchiolitis (admit winter 2014), chronic maxillary sinusitis, HTN, DLD, CKD III, CAD s/p stent, pulmonary nodule (5mm - stable) Patient admitted to [facility] 09/13/2016 with exacerbation of asthma symptomatic of nonproductive cough and dyspnea despite completion of outpatient azithromycin and prednisone. On admission labs noted mild anemia. Mycoplasma IgM: negative. Lactic acid: 3.7. Echocardiogram 09/14/16: pEF with grade I diastolic dysfunction. ABG 09/15/16: 7.48/31/62/23. She was treated with bronchodilators, IV steroid and doxycycline with improvement. Over the evening 09/14-09/15 she reported severe symptoms of reflux with ? aspiration. F/U CXR was unremarkable and she received additional dose of IV steroid with anti-reflux regimen. CT chest 09/15/16: trace right sided pleural effusion, stable 5mm pulmonary nodule. No consolidation Barium Swallow 09/16/16: minima esophageal spasm and/or irritability - otherwise negative study Today: - Weaned to RA - Ambulating OOB independently - Afebrile, HD stable - WBC: 8.58, Hgb/Hct: 11.7/35.1, Plts: 189 - K+: 5.2, Cr: 1.5 Physical Exam: Constitutional: Well developed well nourished elderly female lying in hospital bed. No acute distress Head: + facial symmetry Eyes: EOMi, PERRLA, no injection Mouth: dry mucous membranes, no erythema Respiratory: Non-labored respirations. Bilateral rales. No wheeze. No cough on exam. CV: RRR, no MRG appreciated. Warm and perfused peripherally MSK/Extremities: Moving and developed symmetrically. No peripheral edema Neurologic:A&O. Good data recall. Appropriate affect. Able to follow complex commends. Assessment & Plan 86-yo female admitted with exacerbation of asthma. Overall she is steadily improving. She seems to be mobilizing her secretions on exam. She continues to struggle with reflux and her GI regimen has been escalated to include PPI + H2B. She would likely benefit from anti-reflux education and possibly outpatient GI follow-up. 1. Continue pulmonary toilet, flutter and encourage to ambulate throughout the hallways 2. Transition from IV to PO steroid tomorrow: 50mg dose in the AM 3. Continue scheduled bronchodilators and doxycycline 4. Elevate HOB 30-degrees at all times 5. Will continue to follow Data Medications: Current Inpatient Medications Medications (Trade) Dose Ordered Sig/Nilsa Route Start Time Stop Time Status Last Admin Dose Admin Heparin Sodium (Porcine) (Heparin Sq 5000 Unit/0.5ml) 5,000 unit Q8 SQ 09/13/16 06:00 10/13/16 05:59 09/16/16 13:47 5,000 UNIT Acetaminophen (Tylenol Tab) 650 mg Q4H PRN PO 09/13/16 00:15 10/13/16 00:14 Nitroglycerin (Nitrostat Tab) 0.4 mg UD PRN SL 09/13/16 00:15 10/13/16 00:14 Insulin Aspart (novoLOG ASPART) SLIDING SCALE If C... ACHS SC 09/13/16 07:00 10/13/16 06:59 09/16/16 08:41 2 UNITS Glucose (Glucose 40% Gel) 15-30 GRAMS 15 GRAMS... UD PRN PO 09/13/16 00:15 10/13/16 00:14 Glucose (Glucose Chew Tab) 4-8 Tablets 4 Tabl... UD PRN PO 09/13/16 00:15 10/13/16 00:14 Dextrose (Dextrose 50% 50ML Syringe) 25-50ML OF 50% DW IV FOR... UD PRN IV 09/13/16 00:15 10/13/16 00:14 Glucagon (Glucagon Inj) 1 mg UD PRN SQ 09/13/16 00:15 10/13/16 00:14 Aspirin (Ecotrin Tab) 81 mg QAM PO 09/13/16 09:00 10/13/16 08:59 09/16/16 08:26 81 MG Atorvastatin Calcium (Lipitor Tab) 40 mg DAILY PO 09/13/16 09:00 10/13/16 08:59 09/16/16 08:25 40 MG Clopidogrel Bisulfate (plAVix TAB) 75 mg QAM PO 09/13/16 09:00 10/13/16 08:59 09/16/16 08:25 75 MG Duloxetine HCl (Cymbalta Cap) 20 mg DAILY PO 09/13/16 09:00 10/13/16 08:59 09/16/16 08:28 20 MG Gabapentin (Neurontin Cap) 200 mg TID PO 09/13/16 09:00 10/13/16 08:59 09/16/16 13:38 200 MG Isosorbide Mononitrate (Imdur Ext Rel Tab) 30 mg QAM PO 09/13/16 09:00 10/13/16 08:59 09/16/16 08:26 30 MG Carbidopa/Levodopa (Sinemet 25/ 100MG Tab) 1 tab QID PO 09/13/16 09:00 10/13/16 08:59 09/16/16 13:38 1 TAB Levothyroxine Sodium (Synthroid Tab) 125 mcg HS PO 09/13/16 21:00 10/13/16 20:59 09/15/16 20:50 125 MCG Metoprolol Tartrate (Lopressor Tab) 25 mg BID PO 09/13/16 09:00 10/13/16 08:59 09/16/16 08:26 25 MG Oxycodone HCl (Roxicodone Immediate Rel Tab) 5 mg Q4H PRN PO 09/13/16 00:15 09/27/16 00:14 Hydromorphone HCl (Dilaudid Inj) 0.5 mg Q3H PRN IV 09/13/16 00:15 09/27/16 00:14 09/16/16 03:41 0.5 MG Lorazepam (Ativan Inj) 0.5 mg Q4H PRN IV 09/13/16 00:15 10/13/16 00:14 09/13/16 01:51 0.5 MG Guaifenesin (Mucinex Contr Rel Tab) 600 mg Q12 PO 09/13/16 21:00 10/13/16 20:59 09/16/16 08:26 600 MG Ipratropium [place] (Atrovent 0.02% 0.5MG/2.5ML Neb) 0.5 mg Q6R INH 09/13/16 03:00 10/13/16 02:59 09/16/16 14:15 0.5 MG Levalbuterol (Xopenex 1.25MG/ 0.5ML Neb) 1.25 mg Q6R INH 09/13/16 03:00 10/13/16 02:59 09/16/16 14:15 1.25 MG Ipratropium [place] (Atrovent 0.02% 0.5MG/2.5ML Neb) 0.5 mg Q4H PRN INH 09/13/16 00:45 10/13/16 00:44 09/15/16 12:54 0.5 MG Levalbuterol (Xopenex 1.25MG/ 0.5ML Neb) 1.25 mg Q4H PRN INH 09/13/16 00:45 10/13/16 00:44 09/15/16 12:54 1.25 MG Miscellaneous (Iv Fluids Completed) 1 ea PRN PRN N/A 09/13/16 04:45 09/13/17 04:44 Benzonatate (Tessalon Perles Cap) 100 mg Q8H PRN PO 09/13/16 09:45 10/13/16 09:44 09/16/16 08:27 100 MG Doxycycline Hyclate (Vibramycin Cap) 100 mg BID PO 09/13/16 21:00 09/20/16 20:59 09/16/16 08:25 100 MG Lorazepam (Ativan Tab) 0.5 mg TID PRN PO 09/13/16 14:15 10/13/16 14:14 09/13/16 22:46 0.5 MG Miscellaneous Information 1 ea 1 ea UD PRN N/A 09/13/16 14:46 10/13/16 14:45 Lorazepam/Syringe (Ativan Inj/ Syringe) 1 ml @ 1 mls/min Q4H PRN IV 09/14/16 21:30 10/14/16 21:29 09/16/16 02:52 1 MLS/MIN Al Hydrox/Mg Hydrox/ Simethicone 30 ml 30 ml Q6H PRN PO 09/15/16 11:30 10/15/16 11:29 Methylprednisolone Sodium Succinate 40 mg/Syringe 0.64 ml @ 1.5 mls/min Q12H IV 09/15/16 13:00 10/15/16 12:59 09/16/16 13:38 1.5 MLS/MIN Pantoprazole Sodium/Syringe (Protonix Inj/ Syringe) 10 ml @ 5 mls/min DAILY@11 IV 09/16/16 11:00 10/16/16 10:59 09/16/16 08:27 5 MLS/MIN Insulin Glargine (Lantus Solostar Pen) 15 unit DAILY SC 09/17/16 09:00 10/17/16 08:59 Insulin Glargine (Lantus Solostar Pen) 10 unit TODAY@1700 SC 09/16/16 17:00 09/16/16 17:01 Ranitidine HCl (zANTac TAB) 150 mg BID PO 09/16/16 21:00 10/16/16 20:59 Vital Signs: Date Time Temp Pulse Resp B/P Pulse Ox O2 Delivery O2 Flow Rate FiO2 09/16/16 15:55 Room Air 09/16/16 15:37 36.4 94 18 141/72 96 Room Air 09/16/16 14:15 77 20 94 Nasal Cannula 2.0 09/16/16 08:23 96 Room Air 09/16/16 08:00 Room Air 09/16/16 07:47 36.6 78 20 132/77 95 Nasal Cannula 2.0 09/16/16 07:27 74 20 94 Nasal Cannula 2.0 09/16/16 02:02 74 20 94 Nasal Cannula 2.0 09/16/16 00:53 37.0 77 20 182/81 95 Nasal Cannula 2.0 09/15/16 23:35 Nasal Cannula 2.0 09/15/16 21:02 98 138/78 09/15/16 19:48 70 20 94 Nasal Cannula 2.0 Laboratory Results: Last 24 Hours Test 09/15/16 19:57 09/15/16 21:00 09/16/16 07:39 09/16/16 08:01 Lactic Acid Level 3.7 mmol/L Bedside Glucose 235 mg/dl 189 mg/dl White Blood Count 9.58 K/uL Red Blood Count 4.13 M/uL Hemoglobin 11.7 g/dL Hematocrit 35.1 % Mean Corpuscular Volume 85.0 fL Mean Corpuscular Hemoglobin 28.3 pg Mean Corpuscular Hemoglobin Concent 33.3 g/dl Platelet Count 189 K/uL Mean Platelet Volume 11.2 fL Neutrophils (%) (Auto) 83.5 % Lymphocytes (%) (Auto) 10.9 % Monocytes (%) (Auto) 4.5 % Eosinophils (%) (Auto) 0.0 % Basophils (%) (Auto) 0.1 % Neutrophils # (Auto) 8.00 K/uL Lymphocytes # (Auto) 1.04 K/uL Monocytes # (Auto) 0.43 K/uL Eosinophils # (Auto) 0.00 K/uL Basophils # (Auto) 0.01 K/uL RDW Standard Deviation 45.9 fL RDW Coefficient of Variation 14.8 % Immature Granulocyte % (Auto) 1.0 % Immature Granulocyte # (Auto) 0.10 K/uL Toxic Vacuolation 1+ Platelet Estimate NORMAL Sodium Level 136 mmol/L Potassium Level 5.2 mmol/L Chloride Level 105 mmol/L Carbon Dioxide Level 21 mmol/L Anion Gap 10.0 mmol/L Blood Urea Nitrogen 43 mg/dl Creatinine 1.50 mg/dl Est Creatinine Clear Calc Drug Dose 27.7 ml/min Estimated GFR () 36.2 Estimated GFR (Non- 31.2 BUN/Creatinine Ratio 28.3 Random Glucose 192 mg/dl Calcium Level 9.5 mg/dl Test 09/16/16 11:37 Bedside Glucose 153 mg/dl
--- NOTE | 2016-09-16 16:49 | Progress Note ---
Internal Med Progress Note Date of Service: Sep 16, 2016. Provider Documentation: SUBJECTIVE: says feeling better today gets anxious in the night still has cough and bringing out sputum no diarrhea afebrile no chest pain OBJECTIVE: Vital Signs-as noted below Exam: General-alert and oriented x 3 ENT-normal hearing Neck-no neck masses Lungs-cta b/l b/l rhonchi Heart-s1 and s2 heard regular rate and rhythm, no murmurs Abdomen-soft bowel sounds present non tender no distension Extremities-no edema no erythema Neuro-alert and awake moves extremities Lab data as noted below. ASSESSMENT & PLAN: 86 yoF with asthma presents with acute exacerbation 1. Asthma exacerbation asthmatic bronchitis mostlikely precipitated by cold weather as per px Failed out patient tx with z lissette and prednisone iv steroids and nebs Flu negative. On Doxy 100mg PO BID Improved and tapered steroids to po prednisone but again developed rhonchi and sob placed back on solumderol pulmonary thinks patient aspirating. started on GERD px tx and plan for video swallow CT chest trace right and pericardial effusion otherwise unremarkable s/p esophageal xray which was unremarkable will continue tx and observe 2. Acute renal failure on chronic renal insufficiency secondary to illness- resolved. 3. coronary artery disease, transient ischemic attack as per records. Stable on ASA, Plavix, statin 4. troponemia 2 to kidney dysfunction asymptomatic. echo unremarkable. 5. Lactic acidemia likely secondary to kidney dysfunction persistent. Not in sepsis. Consulted nephrology -await input 6. DM2, on oral meds well controlled as of recent outpx HgA1c appreciate Glycemic pharmacist to assist with management. 7 .Parkinson's disease as per records. On Sinemet. 8. Anemia secondary to chronic kidney disease-Hemoglobin at baseline. PT/OT eval. DVT prophylaxis, Heparin SQ Full code. DISPOSITION to be determined Vital Signs: Date Time Temp Pulse Resp B/P Pulse Ox O2 Delivery O2 Flow Rate FiO2 09/16/16 15:55 Room Air 09/16/16 15:37 36.4 94 18 141/72 96 Room Air 09/16/16 14:15 77 20 94 Nasal Cannula 2.0 09/16/16 08:23 96 Room Air 09/16/16 08:00 Room Air 09/16/16 07:47 36.6 78 20 132/77 95 Nasal Cannula 2.0 09/16/16 07:27 74 20 94 Nasal Cannula 2.0 09/16/16 02:02 74 20 94 Nasal Cannula 2.0 09/16/16 00:53 37.0 77 20 182/81 95 Nasal Cannula 2.0 09/15/16 23:35 Nasal Cannula 2.0 09/15/16 21:02 98 138/78 09/15/16 19:48 70 20 94 Nasal Cannula 2.0 Lab Results: Results Past 24 Hours Test 09/15/16 19:57 09/15/16 21:00 09/16/16 07:39 09/16/16 08:01 Range/Units Lactic Acid Level 3.7 0.4-2.0 mmol/L Bedside Glucose 235 189 70-90 mg/dl White Blood Count 9.58 4.8-10.8 K/uL Red Blood Count 4.13 4.2-5.4 M/uL Hemoglobin 11.7 12.0-16.0 g/dL Hematocrit 35.1 37-47 % Mean Corpuscular Volume 85.0 80-100 fL Mean Corpuscular Hemoglobin 28.3 25-34 pg Mean Corpuscular Hemoglobin Concent 33.3 32-36 g/dl Platelet Count 189 130-400 K/uL Mean Platelet Volume 11.2 7.4-10.4 fL Neutrophils (%) (Auto) 83.5 % Lymphocytes (%) (Auto) 10.9 % Monocytes (%) (Auto) 4.5 % Eosinophils (%) (Auto) 0.0 % Basophils (%) (Auto) 0.1 % Neutrophils # (Auto) 8.00 1.4-6.5 K/uL Lymphocytes # (Auto) 1.04 1.2-3.4 K/uL Monocytes # (Auto) 0.43 0.11-0.59 K/uL Eosinophils # (Auto) 0.00 0-0.5 K/uL Basophils # (Auto) 0.01 0-0.2 K/uL RDW Standard Deviation 45.9 36.4-46.3 fL RDW Coefficient of Variation 14.8 11.5-14.5 % Immature Granulocyte % (Auto) 1.0 % Immature Granulocyte # (Auto) 0.10 0.00-0.02 K/uL Toxic Vacuolation 1+ Platelet Estimate NORMAL Sodium Level 136 136-145 mmol/L Potassium Level 5.2 3.5-5.1 mmol/L Chloride Level 105 98-107 mmol/L Carbon Dioxide Level 21 21-32 mmol/L Anion Gap 10.0 3-11 mmol/L Blood Urea Nitrogen 43 7-18 mg/dl Creatinine 1.50 0.60-1.20 mg/dl Est Creatinine Clear Calc Drug Dose 27.7 ml/min Estimated GFR () 36.2 Estimated GFR (Non- 31.2 BUN/Creatinine Ratio 28.3 10-20 Random Glucose 192 70-99 mg/dl Calcium Level 9.5 8.5-10.1 mg/dl Test 09/16/16 11:37 09/16/16 16:07 Range/Units Bedside Glucose 153 219 70-90 mg/dl
[2016-09-16 17:41] LABS: INFLUENZA A PCR Neg for Influ A (NEG); INFLUENZA B PCR Neg for Influ B (NEG)
[2016-09-16] MEDS: LORAZEPAM 0.5 MG TAB PO PRN (21:32)
[2016-09-16] MEDS: LEVOTHYROXINE 125 MCG TAB PO SCH (21:34)
[2016-09-16] MEDS: RANITIDINE HCL 150 MG TAB PO SCH (22:39)
[2016-09-17] VITALS (8 sets, daily range): BP systolic 126–164; BP diastolic 72–92; PULSE 72–86; TEMP 36.3–36.7; O2SAT 94–98
[2016-09-17] MEDS: METHYLPREDNISOLONE IV 40 MG in SYRINGE 0 ML IV SCH (01:16)
[2016-09-17] MEDS: LEVALBUTEROL 1.25MG/0.5ML NEB INH SCH ×4 (02:00→20:20)
[2016-09-17] MEDS: IPRATROPIUM BROMIDE NEB SOLN 0.02% 2.5 ML VIAL INH SCH ×4 (02:00→20:20)
[2016-09-17 05:55] LABS: COMPLETE YES; HEMATOCRIT 35.8 % (37-47); IG% 0.6 %; LYMPH % 10.2 %; LYMPH ABS # 1.05 K/uL (1.2-3.4); MEAN CELL VOLUME 86.3 fL (80-100); MEAN CORPUSCULAR HEMOGLOBIN 28.7 pg (25-34); MEAN CORPUSCULAR HGB CONC 33.2 g/dl (32-36); MEAN PLATELET VOLUME 11.2 fL (7.4-10.4); MONO % 6.4 %; NEUT % 82.8 %; PLATELET COUNT 193 K/uL (130-400); RED BLOOD COUNT 4.15 M/uL (4.2-5.4)
[2016-09-17] MEDS: HEPARIN SOD 5000 UNIT/0.5 ML CARP SQ SCH ×3 (06:09→22:38)
[2016-09-17 06:28] LABS: BUN/CREATININE RATIO 28.9 (10-20); CALCIUM 9.2 mg/dl (8.5-10.1); CREATININE 1.7 mg/dl (0.60-1.20); POTASSIUM 4.5 mmol/L (3.5-5.1)
--- NOTE | 2016-09-17 07:13 | NEPHROLOGY CONSULTATION ---
DATE OF CONSULTATION: 09/16/2016 ATTENDING OF RECORD: Ina Ramos DO REASON FOR CONSULTATION: Lactic acidosis and PENELOPE. HISTORY OF PRESENT ILLNESS: This is an 86-year-old female who follows with me in my outpatient clinic who has CKD stage 3 from advance age, hypertension and diabetes. She also has Parkinson's disease as well. The patient does not smoke, avoids NSAIDs and has a negative workup for myeloma. The patient has had hypertension for several years. 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 The patient has also been a type 2 diabetic for several years which is also well-controlled. The patient's creatinines have been in the 1.3 range. Hemoglobin A1c of 6.6. The patient presents during this hospitalization with shortness of breath and cough. The patient is thought to have asthma exacerbation and was treated outpatient with Z-Angel as well as prednisone, but was not improving. The patient currently is on Solu-Medrol 40 mg IV q. 12 and nebulizers as well as doxycycline. The patient continues to have some chest tightness and cough, but is starting to feel better. The patient's creatinine on admission was 1.9 from a baseline of 1.3 and has improved to 1.5 during this hospitalization. Blood cultures were negative and chest x-ray showed small right pleural effusion as well as atelectasis. The patient has had persistent and mild lactic acidosis in the 3 range. The patient was evaluated by pulmonary today, who was recommending transition from IV to oral steroids tomorrow and to continue the bronchodilators and doxycycline. She was steadily improving, but continues to have coarse breath sounds. Echo done during this hospitalization showed hyperdynamic LV systolic function with an EF of greater than 70% and small underfilled LV chamber with mild concentric LVH and grade 1 diastolic dysfunction with no segmental wall motion abnormalities detected. PAST SURGICAL HISTORY: Cholecystectomy, hysterectomy, tonsillectomy and appendectomy. PAST MEDICAL HISTORY: CKD stage 3, baseline creatinine of 1.3; Parkinson's; type 2 diabetes; hypertension; history of TIA in the past; hyperlipidemia; heart disease; asthma and GERD. FAMILY HISTORY: Significant for heart disease. SOCIAL HISTORY: Nonsmoker, no alcohol, no drugs. She is a retired nurse. REVIEW OF SYSTEMS: Positive chest tightness, positive cough, positive fatigue. Appetite is better. Urinating well. No nausea or vomiting. No diarrhea or constipation. Positive anxiety. No headaches. No blurry vision. No dysphagia. All other review of systems otherwise negative. CURRENT MEDICATIONS: Lantus 15 units daily, Zantac 150 mg p.o. b.i.d., Protonix 40 mg IV daily, Solu-Medrol 40 mg IV q. 12, Synthroid 125 mcg at night, Mucinex 600 mg p.o. q. 12, doxycycline 100 mg p.o. b.i.d., aspirin 81 mg daily, Lipitor 40 mg daily, Plavix 75 mg daily, Cymbalta 20 mg daily, Neurontin 200 mg p.o. t.i.d., Imdur 30 mg daily, Lopressor 25 mg p.o. b.i.d. 2, heparin 5000 units subQ q. 8, inhalers q. 6 hours. PHYSICAL EXAMINATION: VITAL SIGNS: Temperature 36.4, pulse 92, respiratory rate 20, blood pressure is 119/86 and satting 98% on room air. GENERAL: Awake, alert, oriented x3. EYES: No scleral icterus. ENT: Moist mucous membranes. NECK: Supple. PULMONARY: Coarse breath sounds with rhonchi. CARDIAC: Regular rate and rhythm. ABDOMEN: Bowel sounds positive, soft, nontender. EXTREMITIES: No clubbing, cyanosis or edema. NEUROLOGIC: Nonfocal. DERMATOLOGIC: No rash or ulcers noted. LABORATORIES: Sodium level is 136, potassium is 5.2, chloride is 105, bicarbonate is 21, BUN is 43, creatinine is 1.5, glucose 192, calcium is 9.5, white count 9.5, H\T\H 11 and 35, platelet count is 189. INR is 1. UA was bland. Flu was negative. ABG on the showed a pH of 7.48, pCO2 of 31, pO2 62 and bicarbonate of 23, indicating likely respiratory alkalosis from hyperventilation. Blood cultures negative. IMPRESSION: 1. Acute kidney injury on chronic kidney disease stage 3 with a baseline creatinine of 1.3 to 1.5; the patient came in with a creatinine of 1.9 and has improved to 1.5. She continues to have significant rhonchi; however, slowly improving. No indication for emergent dialysis at this time. 2. Hyperkalemia; potassium level was in the 4-5 range and has slowly and steadily risen to 5.2. We will change the patient to a low potassium diet. 3. Lactic acidosis. The patient has mild lactic acidosis in the setting of chronic kidney disease and asthma exacerbation. ABG actually is suggestive of respiratory alkalosis. Blood pressures are stable. Pulse is regular. While the patient is a diabetic, currently is not on any metformin, so no concern for metformin-induced acidosis. Likely has a combination of mildly elevated lactic acid from the patient's kidney disease plus or minus a contributing factor of ejection fraction of 70% indicating possible hypoperfusion and may benefit from bicarb fluids; however, given the fact that the patient has significant asthma exacerbation hesitant to do so at this time. Likely as asthma exacerbation improves, the lactic acidosis should also improve as well. I would like to repeat the lactic acid level as an outpatient. With the patient clinically improving, I would not treat with bicarb supplementation. Kidney function appears to have improved back to baseline. Given her good blood pressures, I would monitor for now and continue the conservative course of action. I appreciate the consultation. JEAN PAUL
--- NOTE | 2016-09-17 07:24 | Nephrology Progress Note ---
Nephrology Progress Note Date of Service: Sep 17, 2016. Subjective 86 yo female with asthma exacerbation with dry cough which is loosening up and has a positive attitude. pt feels she is slowly improving. has penelope which has improved close to baseline and a chronic underlying lactic acidemia. Objective Date Time Temp Pulse Resp B/P Pulse Ox O2 Delivery O2 Flow Rate FiO2 09/17/16 02:00 72 20 98 Room Air 09/17/16 00:17 36.4 86 20 164/77 97 Room Air 09/17/16 00:00 Nasal Cannula 2.0 09/16/16 21:29 92 119/86 09/16/16 19:04 77 20 98 Room Air 09/16/16 15:55 Room Air 09/16/16 15:37 36.4 94 18 141/72 96 Room Air 09/16/16 14:15 77 20 94 Nasal Cannula 2.0 09/16/16 08:23 96 Room Air 09/16/16 08:00 Room Air 09/16/16 07:47 36.6 78 20 132/77 95 Nasal Cannula 2.0 09/16/16 07:27 74 20 94 Nasal Cannula 2.0 Physical Exam: General-aaox3 Eyes-no scleral icterus ENT-mmm Neck-supple Lungs-+rhonchi Heart-rrr Abdomen-bs+ s/nt/nd Extremities-no c/c/e Neuro-nonfocal Current Inpatient Medications Medications (Trade) Dose Ordered Sig/Nilsa Route Start Time Stop Time Status Last Admin Dose Admin Heparin Sodium (Porcine) (Heparin Sq 5000 Unit/0.5ml) 5,000 unit Q8 SQ 09/13/16 06:00 10/13/16 05:59 09/17/16 06:09 5,000 UNIT Acetaminophen (Tylenol Tab) 650 mg Q4H PRN PO 09/13/16 00:15 10/13/16 00:14 Nitroglycerin (Nitrostat Tab) 0.4 mg UD PRN SL 09/13/16 00:15 10/13/16 00:14 Insulin Aspart (novoLOG ASPART) SLIDING SCALE If C... ACHS SC 09/13/16 07:00 10/13/16 06:59 09/16/16 21:40 6 UNITS Glucose (Glucose 40% Gel) 15-30 GRAMS 15 GRAMS... UD PRN PO 09/13/16 00:15 10/13/16 00:14 Glucose (Glucose Chew Tab) 4-8 Tablets 4 Tabl... UD PRN PO 09/13/16 00:15 10/13/16 00:14 Dextrose (Dextrose 50% 50ML Syringe) 25-50ML OF 50% DW IV FOR... UD PRN IV 09/13/16 00:15 10/13/16 00:14 Glucagon (Glucagon Inj) 1 mg UD PRN SQ 09/13/16 00:15 10/13/16 00:14 Aspirin (Ecotrin Tab) 81 mg QAM PO 09/13/16 09:00 10/13/16 08:59 09/16/16 08:26 81 MG Atorvastatin Calcium (Lipitor Tab) 40 mg DAILY PO 09/13/16 09:00 10/13/16 08:59 09/16/16 08:25 40 MG Clopidogrel Bisulfate (plAVix TAB) 75 mg QAM PO 09/13/16 09:00 10/13/16 08:59 09/16/16 08:25 75 MG Duloxetine HCl (Cymbalta Cap) 20 mg DAILY PO 09/13/16 09:00 10/13/16 08:59 09/16/16 08:28 20 MG Gabapentin (Neurontin Cap) 200 mg TID PO 09/13/16 09:00 10/13/16 08:59 09/16/16 21:33 200 MG Isosorbide Mononitrate (Imdur Ext Rel Tab) 30 mg QAM PO 09/13/16 09:00 10/13/16 08:59 09/16/16 08:26 30 MG Carbidopa/Levodopa (Sinemet 25/ 100MG Tab) 1 tab QID PO 09/13/16 09:00 10/13/16 08:59 09/16/16 21:33 1 TAB Levothyroxine Sodium (Synthroid Tab) 125 mcg HS PO 09/13/16 21:00 10/13/16 20:59 09/16/16 21:34 125 MCG Metoprolol Tartrate (Lopressor Tab) 25 mg BID PO 09/13/16 09:00 10/13/16 08:59 09/16/16 21:36 25 MG Oxycodone HCl (Roxicodone Immediate Rel Tab) 5 mg Q4H PRN PO 09/13/16 00:15 09/27/16 00:14 Hydromorphone HCl (Dilaudid Inj) 0.5 mg Q3H PRN IV 09/13/16 00:15 09/27/16 00:14 09/16/16 03:41 0.5 MG Lorazepam (Ativan Inj) 0.5 mg Q4H PRN IV 09/13/16 00:15 10/13/16 00:14 09/13/16 01:51 0.5 MG Guaifenesin (Mucinex Contr Rel Tab) 600 mg Q12 PO 09/13/16 21:00 10/13/16 20:59 09/16/16 21:34 600 MG Ipratropium [place] (Atrovent 0.02% 0.5MG/2.5ML Neb) 0.5 mg Q6R INH 09/13/16 03:00 10/13/16 02:59 09/17/16 02:00 0.5 MG Levalbuterol (Xopenex 1.25MG/ 0.5ML Neb) 1.25 mg Q6R INH 09/13/16 03:00 10/13/16 02:59 09/17/16 02:00 1.25 MG Ipratropium [place] (Atrovent 0.02% 0.5MG/2.5ML Neb) 0.5 mg Q4H PRN INH 09/13/16 00:45 10/13/16 00:44 09/15/16 12:54 0.5 MG Levalbuterol (Xopenex 1.25MG/ 0.5ML Neb) 1.25 mg Q4H PRN INH 09/13/16 00:45 10/13/16 00:44 09/15/16 12:54 1.25 MG Miscellaneous (Iv Fluids Completed) 1 ea PRN PRN N/A 09/13/16 04:45 09/13/17 04:44 Benzonatate (Tessalon Perles Cap) 100 mg Q8H PRN PO 09/13/16 09:45 10/13/16 09:44 09/16/16 17:24 100 MG Doxycycline Hyclate (Vibramycin Cap) 100 mg BID PO 09/13/16 21:00 09/20/16 20:59 09/16/16 21:34 100 MG Lorazepam (Ativan Tab) 0.5 mg TID PRN PO 09/13/16 14:15 10/13/16 14:14 09/16/16 21:32 0.5 MG Miscellaneous Information 1 ea 1 ea UD PRN N/A 09/13/16 14:46 10/13/16 14:45 Lorazepam/Syringe (Ativan Inj/ Syringe) 1 ml @ 1 mls/min Q4H PRN IV 09/14/16 21:30 10/14/16 21:29 09/17/16 00:00 1 MLS/MIN Al Hydrox/Mg Hydrox/ Simethicone 30 ml 30 ml Q6H PRN PO 09/15/16 11:30 10/15/16 11:29 Methylprednisolone Sodium Succinate 40 mg/Syringe 0.64 ml @ 1.5 mls/min Q12H IV 09/15/16 13:00 10/15/16 12:59 09/17/16 01:16 1.5 MLS/MIN Pantoprazole Sodium/Syringe (Protonix Inj/ Syringe) 10 ml @ 5 mls/min DAILY@11 IV 09/16/16 11:00 10/16/16 10:59 09/16/16 08:27 5 MLS/MIN Insulin Glargine (Lantus Solostar Pen) 15 unit DAILY SC 09/17/16 09:00 10/17/16 08:59 Ranitidine HCl (zANTac TAB) 150 mg BID PO 09/16/16 21:00 10/16/16 20:59 09/16/16 22:39 150 MG Last 24 Hours Test 09/16/16 07:39 09/16/16 08:01 09/16/16 11:37 09/16/16 16:07 White Blood Count 9.58 K/uL Red Blood Count 4.13 M/uL Hemoglobin 11.7 g/dL Hematocrit 35.1 % Mean Corpuscular Volume 85.0 fL Mean Corpuscular Hemoglobin 28.3 pg Mean Corpuscular Hemoglobin Concent 33.3 g/dl Platelet Count 189 K/uL Mean Platelet Volume 11.2 fL Neutrophils (%) (Auto) 83.5 % Lymphocytes (%) (Auto) 10.9 % Monocytes (%) (Auto) 4.5 % Eosinophils (%) (Auto) 0.0 % Basophils (%) (Auto) 0.1 % Neutrophils # (Auto) 8.00 K/uL Lymphocytes # (Auto) 1.04 K/uL Monocytes # (Auto) 0.43 K/uL Eosinophils # (Auto) 0.00 K/uL Basophils # (Auto) 0.01 K/uL RDW Standard Deviation 45.9 fL RDW Coefficient of Variation 14.8 % Immature Granulocyte % (Auto) 1.0 % Immature Granulocyte # (Auto) 0.10 K/uL Toxic Vacuolation 1+ Platelet Estimate NORMAL Sodium Level 136 mmol/L Potassium Level 5.2 mmol/L Chloride Level 105 mmol/L Carbon Dioxide Level 21 mmol/L Anion Gap 10.0 mmol/L Blood Urea Nitrogen 43 mg/dl Creatinine 1.50 mg/dl Est Creatinine Clear Calc Drug Dose 27.7 ml/min Estimated GFR () 36.2 Estimated GFR (Non- 31.2 BUN/Creatinine Ratio 28.3 Random Glucose 192 mg/dl Calcium Level 9.5 mg/dl Bedside Glucose 189 mg/dl 153 mg/dl 219 mg/dl Test 09/16/16 16:55 09/16/16 20:32 09/17/16 05:26 Influenza Type A (RT-PCR) Neg for Influ A Influenza Type B (RT-PCR) Neg for Influ B Bedside Glucose 241 mg/dl White Blood Count 10.30 K/uL Red Blood Count 4.15 M/uL Hemoglobin 11.9 g/dL Hematocrit 35.8 % Mean Corpuscular Volume 86.3 fL Mean Corpuscular Hemoglobin 28.7 pg Mean Corpuscular Hemoglobin Concent 33.2 g/dl Platelet Count 193 K/uL Mean Platelet Volume 11.2 fL Neutrophils (%) (Auto) 82.8 % Lymphocytes (%) (Auto) 10.2 % Monocytes (%) (Auto) 6.4 % Eosinophils (%) (Auto) 0.0 % Basophils (%) (Auto) 0.0 % Neutrophils # (Auto) 8.53 K/uL Lymphocytes # (Auto) 1.05 K/uL Monocytes # (Auto) 0.66 K/uL Eosinophils # (Auto) 0.00 K/uL Basophils # (Auto) 0.00 K/uL RDW Standard Deviation 47.5 fL RDW Coefficient of Variation 15.2 % Immature Granulocyte % (Auto) 0.6 % Immature Granulocyte # (Auto) 0.06 K/uL Sodium Level 139 mmol/L Potassium Level 4.5 mmol/L Chloride Level 105 mmol/L Carbon Dioxide Level 24 mmol/L Anion Gap 10.0 mmol/L Blood Urea Nitrogen 49 mg/dl Creatinine 1.70 mg/dl Est Creatinine Clear Calc Drug Dose 24.4 ml/min Estimated GFR () 31.1 Estimated GFR (Non- 26.8 BUN/Creatinine Ratio 28.9 Random Glucose 168 mg/dl Calcium Level 9.2 mg/dl Date/Time Source Procedure Growth Status 09/16/16 16:55 Nasal MRSA DNA Surveillance Screen - Final Specimen Negative for MRSA by DNA Probe Complete Assessment & Plan PENELOPE-creatinine was 1.9 which improved to 1.5. creatinine was 1.3 to 1.5 at baseline. not uremic and had penelope in setting of infection. infection is improving. no role for dialysis. lactic acidemia-based on echo, shows hyperdynamic function which may indicate element of volume depletion. however hesitant to give fluids in patient with significant rhonchi and undergoing asthma exacerbation. could have higher level secondary to the ckd although mild level of ckd. no metformin. my recommendation is to continue to treat the underlying asthma exacerbation and consider repeating the lactic acid levels as an outpt once clinically improved. hold on any bicarb fluids. pts abg suggestive of respiratory alkalosis from hyperventilation.
[2016-09-17] MEDS: ATORVASTATIN 20 MG TAB PO SCH (08:37)
[2016-09-17] MEDS: RANITIDINE HCL 150 MG TAB PO SCH ×2 (08:37→21:44)
[2016-09-17] MEDS: ASPIRIN 81 MG ECTAB PO SCH (08:37)
[2016-09-17] MEDS: DULOXETINE HCL 20 MG CAP PO SCH (08:37)
[2016-09-17] MEDS: CLOPIDOGREL BISULFATE 75 MG TAB PO SCH (08:37)
[2016-09-17] MEDS: GABAPENTIN 100 MG CAP PO SCH ×3 (08:37→21:42)
[2016-09-17] MEDS: BENZONATATE 100MG CAP PO PRN ×3 (08:38→21:45)
[2016-09-17] MEDS: METOPROLOL TARTRATE 25 MG TAB PO SCH ×2 (08:38→21:44)
[2016-09-17] MEDS: ISOSORBIDE MONONITRATE 30 MG TABCR PO SCH (08:38)
[2016-09-17] MEDS: GUAIFENESIN 600 MG TABCR PO SCH ×2 (08:38→21:43)
[2016-09-17] MEDS: CARBIDOPA/LEVODOPA 25/100MG TAB PO SCH ×4 (08:38→21:43)
[2016-09-17] MEDS: DOXYCYCLINE HYCLATE 100 MG CAP PO SCH ×2 (08:38→21:45)
[2016-09-17] MEDS: INSULIN ASPART 100 UNITS/ML 3 ML PEN SC SCH ×4 (08:43→22:38)
[2016-09-17] MEDS ORDERED: INSULIN GLARGINE SOLOSTAR 100 UNITS/ML 3 ML PEN SC SCH (09:00)
[2016-09-17] MEDS: PANTOprazole INJ 40 MG in SYRINGE 0 ML IV SCH (10:41)
--- NOTE | 2016-09-17 10:55 | Progress Note ---
Internal Med Progress Note Date of Service: Sep 17, 2016. Provider Documentation: SUBJECTIVE: says feeling much better today slept well cough is less sob improved no chest pain ambulated in hallways fine OBJECTIVE: Vital Signs-as noted below Exam: General-alert and oriented x 3 ENT-normal hearing Neck-no neck masses Lungs-cta b/l mild b/l rhonchi Heart-s1 and s2 heard regular rate and rhythm, no murmurs Abdomen-soft bowel sounds present non tender no distension Extremities-no edema no erythema Neuro-alert and awake moves extremities Lab data as noted below. ASSESSMENT & PLAN: 86 yoF with asthma presents with acute exacerbation 1. Asthma exacerbation asthmatic bronchitis mostlikely precipitated by cold weather as per px Failed out patient tx with z lissette and prednisone iv steroids and nebs Flu negative. On Doxy 100mg PO BID Improved and tapered steroids to po prednisone but again developed rhonchi and sob placed back on solumderol pulmonary thinks patient aspirating. started on GERD px tx and plan for video swallow CT chest trace right and pericardial effusion otherwise unremarkable s/p esophageal xray which was unremarkable improving changing steroid to po prednisone 50mg daily and will taper 2. Acute renal failure on chronic renal insufficiency secondary to illness- resolved. 3. coronary artery disease, transient ischemic attack as per records. Stable on ASA, Plavix, statin 4. troponemia 2 to kidney dysfunction asymptomatic. echo unremarkable. 5. Lactic acidemia likely secondary to kidney dysfunction persistent. Not in sepsis. Consulted nephrology -appreciate inputs plan to f/u labs as out patient when current illness resolves 6. DM2, on oral meds well controlled as of recent outpx HgA1c 219/241/168/186 appreciate Glycemic pharmacist to assist with management. 7 .Parkinson's disease as per records. On Sinemet. 8. Anemia secondary to chronic kidney disease-Hemoglobin at baseline. PT/OT eval. DVT prophylaxis, Heparin SQ Full code. DISPOSITION ambulate in hallways possible d/c in 2-3 days if stable Vital Signs: Date Time Temp Pulse Resp B/P Pulse Ox O2 Delivery O2 Flow Rate FiO2 09/17/16 08:00 Nasal Cannula 2.0 09/17/16 07:44 36.5 81 18 162/92 97 09/17/16 07:35 82 20 97 Nasal Cannula 2.0 09/17/16 02:00 72 20 98 Room Air 09/17/16 00:17 36.4 86 20 164/77 97 Room Air 09/17/16 00:00 Nasal Cannula 2.0 09/16/16 21:29 92 119/86 09/16/16 19:04 77 20 98 Room Air 09/16/16 15:55 Room Air 09/16/16 15:37 36.4 94 18 141/72 96 Room Air 09/16/16 14:15 77 20 94 Nasal Cannula 2.0 Lab Results: Results Past 24 Hours Test 09/16/16 11:37 09/16/16 16:07 09/16/16 16:55 09/16/16 20:32 Range/Units Bedside Glucose 153 219 241 70-90 mg/dl Influenza Type A (RT-PCR) Neg for Influ A NEG Influenza Type B (RT-PCR) Neg for Influ B NEG Test 09/17/16 05:26 09/17/16 07:32 Range/Units White Blood Count 10.30 4.8-10.8 K/uL Red Blood Count 4.15 4.2-5.4 M/uL Hemoglobin 11.9 12.0-16.0 g/dL Hematocrit 35.8 37-47 % Mean Corpuscular Volume 86.3 80-100 fL Mean Corpuscular Hemoglobin 28.7 25-34 pg Mean Corpuscular Hemoglobin Concent 33.2 32-36 g/dl Platelet Count 193 130-400 K/uL Mean Platelet Volume 11.2 7.4-10.4 fL Neutrophils (%) (Auto) 82.8 % Lymphocytes (%) (Auto) 10.2 % Monocytes (%) (Auto) 6.4 % Eosinophils (%) (Auto) 0.0 % Basophils (%) (Auto) 0.0 % Neutrophils # (Auto) 8.53 1.4-6.5 K/uL Lymphocytes # (Auto) 1.05 1.2-3.4 K/uL Monocytes # (Auto) 0.66 0.11-0.59 K/uL Eosinophils # (Auto) 0.00 0-0.5 K/uL Basophils # (Auto) 0.00 0-0.2 K/uL RDW Standard Deviation 47.5 36.4-46.3 fL RDW Coefficient of Variation 15.2 11.5-14.5 % Immature Granulocyte % (Auto) 0.6 % Immature Granulocyte # (Auto) 0.06 0.00-0.02 K/uL Sodium Level 139 136-145 mmol/L Potassium Level 4.5 3.5-5.1 mmol/L Chloride Level 105 98-107 mmol/L Carbon Dioxide Level 24 21-32 mmol/L Anion Gap 10.0 3-11 mmol/L Blood Urea Nitrogen 49 7-18 mg/dl Creatinine 1.70 0.60-1.20 mg/dl Est Creatinine Clear Calc Drug Dose 24.4 ml/min Estimated GFR () 31.1 Estimated GFR (Non- 26.8 BUN/Creatinine Ratio 28.9 10-20 Random Glucose 168 70-99 mg/dl Calcium Level 9.2 8.5-10.1 mg/dl Bedside Glucose 186 70-90 mg/dl Microbiology Results 09/16/16 MRSA DNA Surveillance Screen - Final, Complete Specimen Negative for MRSA by DNA Probe
--- NOTE | 2016-09-17 11:46 | PULMONARY PROGRESS NOTE ---
DATE: 09/17/2016 DATE: 09/17/2016. TIME: 11:10 a.m. SUBJECTIVE: The patient states her breathing is a little better. She was somewhat short of breath going to bed and with it during the night. She also has anxiety. She is still having some heartburn despite treatment. She states that she has a history of some GI problems and had seen Dr. Wiseman in the past. She did have a barium swallow yesterday that showed minimal esophageal spasm. Overall, she feels like she is doing better today. OBJECTIVE: GENERAL: The patient is comfortable at rest. She is always pleasant. She is afebrile. EARS, NOSE, THROAT: Exam is unremarkable. CHEST: Normal expansion. HEART: Rate was 80 beats per minute. Blood pressure 162/92. Respiratory rate 20 breaths per minute. LUNGS: Lung collins revealed mild to moderate rhonchi mainly in the lung bases bilaterally. Saturation 97%. It was unclear if that was done on room air or not. ABDOMEN: Soft and nontender. EXTREMITIES: Showed trace edema. LABORATORY DATA: White count today is 10.3. Hemoglobin 11.9, platelets 193,000. Sodium 139, potassium 4.5, chloride 105, bicarb 24. BUN is 49 and yesterday was 43. Creatinine is 1.7 and yesterday was 1.5. The renal function has been abnormal since admission and has been vacillating somewhat. IMPRESSIONS: 1. Acute asthmatic bronchitis, improved. 2. Persistent heartburn, likely secondary to reflux but with inability to exclude other problems. 3. Coronary artery disease by history. COMMENTS AND RECOMMENDATIONS: The patient is now on ranitidine and pantoprazole. If she continues having reflux it may be somewhat precipitated by her steroids. In that case, could consider giving the prednisone in a divided dose. This could be changed perhaps to 20 mg twice a day if that were the case. Otherwise, would continue with her treatments with levalbuterol and ipratropium every 6 hours and p.r.n.
[2016-09-17] MEDS: LORAZEPAM INJ 0.5 MG in SYRINGE 0.75 ML IV PRN ×2 (21:43)
[2016-09-17] MEDS: LEVOTHYROXINE 125 MCG TAB PO SCH (21:44)
[2016-09-18] VITALS (9 sets, daily range): BP systolic 108–146; BP diastolic 55–76; PULSE 70–88; TEMP 36.5–36.6; O2SAT 90–98
[2016-09-18] MEDS: LEVALBUTEROL 1.25MG/0.5ML NEB INH SCH ×4 (01:58→19:45)
[2016-09-18] MEDS: IPRATROPIUM BROMIDE NEB SOLN 0.02% 2.5 ML VIAL INH SCH ×4 (01:58→19:45)
[2016-09-18] MEDS: LORAZEPAM INJ 0.5 MG in SYRINGE 0.75 ML IV PRN (03:54)
[2016-09-18] MEDS: HEPARIN SOD 5000 UNIT/0.5 ML CARP SQ SCH ×3 (05:35→21:13)
[2016-09-18 07:03] LABS: BASO % 0.1 %; BASO ABS # 0.01 K/uL (0-0.2); COMPLETE YES; EOS % 0.1 %; HEMATOCRIT 36.3 % (37-47); IG% 0.8 %; LYMPH % 22.6 %; LYMPH ABS # 2.41 K/uL (1.2-3.4); MEAN CORPUSCULAR HEMOGLOBIN 28.2 pg (25-34); MEAN CORPUSCULAR HGB CONC 32.8 g/dl (32-36); MEAN PLATELET VOLUME 11.2 fL (7.4-10.4); NEUT % 67.4 %; PLATELET COUNT 195 K/uL (130-400); RED BLOOD COUNT 4.22 M/uL (4.2-5.4); WHITE BLOOD COUNT 10.65 K/uL (4.8-10.8)
[2016-09-18 07:27] LABS: CREATININE 1.6 mg/dl (0.60-1.20); POTASSIUM 3.9 mmol/L (3.5-5.1)
[2016-09-18] MEDS: CARBIDOPA/LEVODOPA 25/100MG TAB PO SCH ×4 (08:40→21:17)
[2016-09-18] MEDS: PANTOprazole SOD 40 MG TAB PO SCH (08:40)
[2016-09-18] MEDS: RANITIDINE HCL 150 MG TAB PO SCH ×2 (08:41→21:19)
[2016-09-18] MEDS: DULOXETINE HCL 20 MG CAP PO SCH (08:42)
[2016-09-18] MEDS: GABAPENTIN 100 MG CAP PO SCH ×3 (08:42→21:18)
[2016-09-18] MEDS: ISOSORBIDE MONONITRATE 30 MG TABCR PO SCH (08:43)
[2016-09-18] MEDS: GUAIFENESIN 600 MG TABCR PO SCH (08:43)
[2016-09-18] MEDS: DOXYCYCLINE HYCLATE 100 MG CAP PO SCH ×2 (08:43→21:19)
[2016-09-18] MEDS: ASPIRIN 81 MG ECTAB PO SCH (08:44)
[2016-09-18] MEDS: ATORVASTATIN 20 MG TAB PO SCH (08:44)
[2016-09-18] MEDS: INSULIN ASPART 100 UNITS/ML 3 ML PEN SC SCH ×4 (08:45→21:13)
[2016-09-18] MEDS: CLOPIDOGREL BISULFATE 75 MG TAB PO SCH (08:45)
[2016-09-18] MEDS: METOPROLOL TARTRATE 25 MG TAB PO SCH ×2 (08:46→21:23)
[2016-09-18] MEDS: BENZONATATE 100MG CAP PO PRN (12:24)
--- NOTE | 2016-09-18 14:56 | Pharmacy Progress Note ---
Glycemic Control: Progress Nt Date of Service Sep 18, 2016. Scope Glycemic Pharmacist consulted by Dr Ramos on 09/13/16 for glycemic control and to write orders per [facility] inpatient glycemic control protocol. Objective Accuchecks BSG (last 24hrs): Test 09/17/16 16:28 09/17/16 20:24 09/18/16 06:36 09/18/16 07:17 Bedside Glucose 182 mg/dl (70-90) 237 mg/dl (70-90) 86 mg/dl (70-90) Random Glucose 95 mg/dl (70-99) Test 09/18/16 11:15 Bedside Glucose 120 mg/dl (70-90) Laboratory Data (last 24hrs) Test 09/18/16 06:36 Anion Gap 9.0 mmol/L BUN/Creatinine Ratio 32.0 Blood Urea Nitrogen 51 mg/dl Creatinine 1.60 mg/dl Potassium Level 3.9 mmol/L Sodium Level 142 mmol/L White Blood Count 10.65 K/uL Red Blood Count 4.22 M/uL Hemoglobin 11.9 g/dL Hematocrit 36.3 % Mean Corpuscular Volume 86.0 fL Mean Corpuscular Hemoglobin 28.2 pg Mean Corpuscular Hemoglobin Concent 32.8 g/dl Platelet Count 195 K/uL Mean Platelet Volume 11.2 fL Neutrophils (%) (Auto) 67.4 % Lymphocytes (%) (Auto) 22.6 % Monocytes (%) (Auto) 9.0 % Eosinophils (%) (Auto) 0.1 % Basophils (%) (Auto) 0.1 % Neutrophils # (Auto) 7.17 K/uL Lymphocytes # (Auto) 2.41 K/uL Monocytes # (Auto) 0.96 K/uL Eosinophils # (Auto) 0.01 K/uL Basophils # (Auto) 0.01 K/uL Recent Pertinent Medications Outpatient Anti-diabetic Regimen: * Glipizide 10mg PO BIDM * Prandin 1mg PO TID The patient is currently receiving: * Basal insulin: Lantus 15 units every 24 hours given in the morning * Correctional Insulin: Novolog Correction per scale ACHS Goal Range: Low 120 mg/dL - High 140 mg/dL Correction Factor: 25 mg/dL/unit * Prandial insulin: Per carb ratio of 1 unit per 9 grams CHO consumed Risk Factors for Insulin Resistance: * Steroid Taper * Infection * Diet Assessment & Plan ASSESSMENT: * 86yo T2DM female with adequate outpatient control on oral antidiabetic medications * Outpatient regimen held on admission and patient initiated on SQ basal bolus insulin regimen with Lantus + NovoLog conservative dosing. * Pt currently with steroid induced hyperglycemia * IV solumedrol changed to PO Prednisone BID. Should see an improvement in hyperglycemia with this step down in steroid dosing * Patient has been receiving ~ 40 units of insulin per day with adequate control while on SoluMedrol - insulin regimen will need tapered to prevent future hypoglycemia now that pt receiving prednisone. * BSGs ranging 86-237mg/dl * AM fasting BSG below goal range at 86 mg/dl --> D/C basal insulin * Post-prandial BSGs in goal range but suspect that current orders will be too aggressive today with dec steroids --> Loosen CF/CR * ADA & AACE recommend a goal blood sugar range 140-180 mg/dl for the majority of critically ill & non-critically ill patients. However, more stringent targets may be selected in individual cases. Will utilize more stringent target of 120-140mg/dl based on tight degree of outpatient control. PLAN FOR INPATIENT GLYCEMIC CONTROL: * Holding outpatient oral diabetes medications * Discontinue Basal insulin with Lantus * Loosen Continue Correctional Insulin with NOVOLOG per scale ACHS or Q6hrs while NPO * Goal Range: Low 120 mg/dL - High 140 mg/dL * Correction Factor: 30 mg/dL/unit * Nutritional / Prandial insulin per carb ratio of 1 unit per 10 grams CHO consumed * Please note that the plan above was derived based on current level of insulin resistance and hospital stress. These recommendations are appropriate for inpatient admission only. Plan of care upon discharge will need to be reassessed to avoid potential outpatient hypo/hyperglycemia. Thank you. RECOMMENDATIONS FOR DISCHARGE: * A1c = 6.6% --> may be too tightly controlled based on age and comorbidities. * Pt is current taking Prandin (repaglinide) 1mg PO TIDM + Glipizide 10mg PO BIDM. This is a therapeutic duplication. * The combined use of Prandin repaglinide (a meglitinide) and oral sulfonylureas (glipizide) is not considered justified as both drug classes stimulate insulin secretion and therefore lead to hypoglycemia. * May consider decreasing outpatient regimen for less stringent glycemic control * Consider d/c glipizide or at a minimum cutting the dose in half. * No change to Prandin (repaglinide)
--- NOTE | 2016-09-18 14:58 | PULMONARY PROGRESS NOTE ---
DATE: 09/18/2016 DATE: 09/18/2016. TIME: 2:35 p.m. SUBJECTIVE: The patient states that she generally feels better. However, she was awake for about 2 hours last night with coughing. She does not have any liquid cough medicine ordered for her. She does feel that the mucus is thinning out. Thus, it is easier to come out. She has not been short of breath. Generally she feels better. OBJECTIVE: GENERAL: The patient appeared comfortable at rest. She was afebrile. EARS, NOSE, THROAT: Exam is unremarkable. HEART: Rate 70 beats per minute. The rhythm was regular. Blood pressure 108/70. Very mild rhonchi were heard posteriorly inferiorly. CHEST: Respiratory rate was 20. Saturations were 93% on room air. EXTREMITIES: Showed no edema. LABORATORY DATA: White count was 10.65. Hemoglobin 11.9. Platelets 195,000. Electrolytes showed sodium 142, potassium 3.9, chloride 108, bicarb 25. BUN is elevated at 51 and previously had been 49. The creatinine is elevated at 1.6, but previously was 1.7. Blood sugar today was 120. IMPRESSIONS: 1. Acute asthmatic bronchitis. 2. Gastroesophageal reflux disease. 3. Coronary artery disease. COMMENTS AND RECOMMENDATIONS: The patient is still on prednisone 50 mg daily. I believe that could be decreased to 40 mg daily. She is taking guaifenesin tablets q. 12 hours. I believe she would like some cough medicine. Perhaps we can change that to a liquid cough medicine that she could use p.r.n. I would anticipate that she is soon ready for discharge.
--- NOTE | 2016-09-18 17:55 | Progress Note ---
Internal Med Progress Note Date of Service: Sep 18, 2016. Provider Documentation: SUBJECTIVE: SITTING ON THE CHAIR COMFORTABLY SON IN THE ROOM SAYS SOB IS BETTER HAS SOME COUGH WITH YELLOWISH SPUTUM BUT GETTING BETTER AMBULATING FINE OBJECTIVE: Vital Signs-as noted below Exam: General-alert and oriented x 3 ENT-normal hearing Neck-no neck masses Lungs-cta b/l mild b/l rhonchi Heart-s1 and s2 heard regular rate and rhythm, no murmurs Abdomen-soft bowel sounds present non tender no distension Extremities-no edema no erythema Neuro-alert and awake moves extremities Lab data as noted below. ASSESSMENT & PLAN: 86 yoF with asthma presents with acute exacerbation 1. Asthma exacerbation asthmatic bronchitis mostlikely precipitated by cold weather as per px Failed out patient tx with z lissette and prednisone iv steroids and nebs Flu negative. On Doxy 100mg PO BID Improved and tapered steroids to po prednisone but again developed rhonchi and sob placed back on solumderol pulmonary thinks patient aspirating. started on GERD px tx and plan for video swallow CT chest trace right and pericardial effusion otherwise unremarkable s/p esophageal xray which was unremarkable improving changed steroid to po prednisone 50mg daily and will taper continue same for now Stable conditions: 2. Acute renal failure on chronic renal insufficiency secondary to illness- resolved. 3. coronary artery disease, transient ischemic attack as per records. Stable on ASA, Plavix, statin 4. troponemia 2 to kidney dysfunction asymptomatic. echo unremarkable. 5. Lactic acidemia likely secondary to kidney dysfunction persistent. Not in sepsis. Consulted nephrology -appreciate inputs plan to f/u labs as out patient when current illness resolves 6. DM2, on oral meds well controlled as of recent outpx HgA1c 219/241/168/186 appreciate Glycemic pharmacist to assist with management. 7 .Parkinson's disease as per records. On Sinemet. 8. Anemia secondary to chronic kidney disease-Hemoglobin at baseline. PT/OT eval. DVT prophylaxis, Heparin SQ Full code. DISPOSITION ambulate in hallways possible d/c on Tuesday Vital Signs: Date Time Temp Pulse Resp B/P Pulse Ox O2 Delivery O2 Flow Rate FiO2 09/18/16 15:45 93 Room Air 09/18/16 14:26 71 20 94 Room Air 09/18/16 14:22 36.5 70 20 108/70 93 Room Air 09/18/16 14:09 95 Room Air 09/18/16 07:14 71 20 95 Room Air 09/18/16 06:56 36.5 70 20 146/76 98 Nasal Cannula 2.0 09/18/16 00:00 Nasal Cannula 2.0 09/17/16 23:56 36.3 80 20 143/72 94 Room Air 09/17/16 20:22 72 20 94 Room Air Lab Results: Results Past 24 Hours Test 09/17/16 20:24 09/18/16 06:36 09/18/16 07:17 09/18/16 11:15 Range/Units Bedside Glucose 237 86 120 70-90 mg/dl White Blood Count 10.65 4.8-10.8 K/uL Red Blood Count 4.22 4.2-5.4 M/uL Hemoglobin 11.9 12.0-16.0 g/dL Hematocrit 36.3 37-47 % Mean Corpuscular Volume 86.0 80-100 fL Mean Corpuscular Hemoglobin 28.2 25-34 pg Mean Corpuscular Hemoglobin Concent 32.8 32-36 g/dl Platelet Count 195 130-400 K/uL Mean Platelet Volume 11.2 7.4-10.4 fL Neutrophils (%) (Auto) 67.4 % Lymphocytes (%) (Auto) 22.6 % Monocytes (%) (Auto) 9.0 % Eosinophils (%) (Auto) 0.1 % Basophils (%) (Auto) 0.1 % Neutrophils # (Auto) 7.17 1.4-6.5 K/uL Lymphocytes # (Auto) 2.41 1.2-3.4 K/uL Monocytes # (Auto) 0.96 0.11-0.59 K/uL Eosinophils # (Auto) 0.01 0-0.5 K/uL Basophils # (Auto) 0.01 0-0.2 K/uL RDW Standard Deviation 47.1 36.4-46.3 fL RDW Coefficient of Variation 15.1 11.5-14.5 % Immature Granulocyte % (Auto) 0.8 % Immature Granulocyte # (Auto) 0.09 0.00-0.02 K/uL Sodium Level 142 136-145 mmol/L Potassium Level 3.9 3.5-5.1 mmol/L Chloride Level 108 98-107 mmol/L Carbon Dioxide Level 25 21-32 mmol/L Anion Gap 9.0 3-11 mmol/L Blood Urea Nitrogen 51 7-18 mg/dl Creatinine 1.60 0.60-1.20 mg/dl Est Creatinine Clear Calc Drug Dose 25.9 ml/min Estimated GFR () 33.5 Estimated GFR (Non- 28.9 BUN/Creatinine Ratio 32.0 10-20 Random Glucose 95 70-99 mg/dl Calcium Level 9.0 8.5-10.1 mg/dl Total Creatine Kinase 63 26-192 U/L Test 09/18/16 16:11 Range/Units Bedside Glucose 232 70-90 mg/dl
[2016-09-18] MEDS: LEVOTHYROXINE 125 MCG TAB PO SCH (21:18)
[2016-09-18] MEDS: GUAIFENESIN SUGAR FREE 200 MG/10 ML UDC PO PRN (21:20)
[2016-09-19] VITALS (7 sets, daily range): BP systolic 135–153; BP diastolic 66–71; PULSE 61–89; TEMP 36.7–36.8; O2SAT 93–97
[2016-09-19] MEDS: BENZONATATE 100MG CAP PO PRN ×3 (00:54→21:19)
[2016-09-19] MEDS: IPRATROPIUM BROMIDE NEB SOLN 0.02% 2.5 ML VIAL INH SCH ×4 (01:59→19:25)
[2016-09-19] MEDS: LEVALBUTEROL 1.25MG/0.5ML NEB INH SCH ×4 (01:59→19:25)
[2016-09-19] MEDS: HEPARIN SOD 5000 UNIT/0.5 ML CARP SQ SCH ×3 (05:49→21:14)
[2016-09-19 06:25] LABS: BASO % 0.1 %; BASO ABS # 0.01 K/uL (0-0.2); COMPLETE YES; EOS % 0.1 %; HEMATOCRIT 37.6 % (37-47); IG% 0.9 %; LYMPH % 18.5 %; LYMPH ABS # 2.05 K/uL (1.2-3.4); MEAN CELL VOLUME 84.9 fL (80-100); MEAN CORPUSCULAR HEMOGLOBIN 28.2 pg (25-34); MEAN CORPUSCULAR HGB CONC 33.2 g/dl (32-36); MEAN PLATELET VOLUME 11.6 fL (7.4-10.4); MONO % 7.8 %; NEUT % 72.6 %; PLATELET COUNT 191 K/uL (130-400); RED BLOOD COUNT 4.43 M/uL (4.2-5.4); WHITE BLOOD COUNT 11.09 K/uL (4.8-10.8)
[2016-09-19 06:52] LABS: BUN/CREATININE RATIO 34.6 (10-20); CALCIUM 9.1 mg/dl (8.5-10.1); CREATININE 1.4 mg/dl (0.60-1.20); POTASSIUM 4.2 mmol/L (3.5-5.1)
[2016-09-19] MEDS: ASPIRIN 81 MG ECTAB PO SCH (08:56)
[2016-09-19] MEDS: METOPROLOL TARTRATE 25 MG TAB PO SCH ×2 (08:56→21:16)
[2016-09-19] MEDS: RANITIDINE HCL 150 MG TAB PO SCH ×2 (08:56→21:18)
[2016-09-19] MEDS: ATORVASTATIN 20 MG TAB PO SCH (08:57)
[2016-09-19] MEDS: ISOSORBIDE MONONITRATE 30 MG TABCR PO SCH (08:57)
[2016-09-19] MEDS: CLOPIDOGREL BISULFATE 75 MG TAB PO SCH (08:57)
[2016-09-19] MEDS: DULOXETINE HCL 20 MG CAP PO SCH (08:57)
[2016-09-19] MEDS: CARBIDOPA/LEVODOPA 25/100MG TAB PO SCH ×4 (08:58→21:17)
[2016-09-19] MEDS: DOXYCYCLINE HYCLATE 100 MG CAP PO SCH ×2 (08:58→21:18)
[2016-09-19] MEDS: GABAPENTIN 100 MG CAP PO SCH ×3 (08:58→21:17)
[2016-09-19] MEDS: PANTOprazole SOD 40 MG TAB PO SCH (08:59)
[2016-09-19] MEDS: INSULIN ASPART 100 UNITS/ML 3 ML PEN SC SCH ×4 (09:16→21:13)
--- NOTE | 2016-09-19 11:17 | Pharmacy Progress Note ---
Glycemic Control: Progress Nt Date of Service Sep 19, 2016. Scope Glycemic Pharmacist consulted by Dr Ramos on 09/13/16 for glycemic control and to write orders per [facility] inpatient glycemic control protocol. Objective Accuchecks BSG (last 24hrs): Test 09/18/16 11:15 09/18/16 16:11 09/18/16 20:42 09/19/16 05:53 Bedside Glucose 120 mg/dl (70-90) 232 mg/dl (70-90) 224 mg/dl (70-90) Random Glucose 119 mg/dl (70-99) Test 09/19/16 07:14 09/19/16 10:59 Bedside Glucose 108 mg/dl (70-90) 137 mg/dl (70-90) Laboratory Data (last 24hrs) Test 09/19/16 05:53 Anion Gap 9.0 mmol/L BUN/Creatinine Ratio 34.6 Blood Urea Nitrogen 48 mg/dl Creatinine 1.40 mg/dl Potassium Level 4.2 mmol/L Sodium Level 141 mmol/L White Blood Count 11.09 K/uL Red Blood Count 4.43 M/uL Hemoglobin 12.5 g/dL Hematocrit 37.6 % Mean Corpuscular Volume 84.9 fL Mean Corpuscular Hemoglobin 28.2 pg Mean Corpuscular Hemoglobin Concent 33.2 g/dl Platelet Count 191 K/uL Mean Platelet Volume 11.6 fL Neutrophils (%) (Auto) 72.6 % Lymphocytes (%) (Auto) 18.5 % Monocytes (%) (Auto) 7.8 % Eosinophils (%) (Auto) 0.1 % Basophils (%) (Auto) 0.1 % Neutrophils # (Auto) 8.06 K/uL Lymphocytes # (Auto) 2.05 K/uL Monocytes # (Auto) 0.86 K/uL Eosinophils # (Auto) 0.01 K/uL Basophils # (Auto) 0.01 K/uL HbA1c: 6.6% on 08/24/16 Recent Pertinent Medications Outpatient Anti-diabetic Regimen: * Glipizide 10mg PO BIDM * Prandin 1mg PO TID The patient is currently receiving: * Basal insulin: D/C'ed 09/28/16 * Correctional Insulin: Novolog Correction per scale ACHS Goal Range: Low 120 mg/dL - High 140 mg/dL Correction Factor: 30mg/dL/unit * Prandial insulin: Per carb ratio of 1 unit per 10 grams CHO consumed Risk Factors for Insulin Resistance: * Steroid Taper * Infection * Diet Assessment & Plan ASSESSMENT: * 86yo T2DM female with adequate outpatient control on oral antidiabetic medications * Outpatient regimen of oral antidiabetic agents held on admission and patient initiated on SQ basal bolus insulin regimen with Lantus + NovoLog conservative dosing. * Pt currently with steroid induced hyperglycemia * Initially was ordered RTC dosing of IV solumedrol. Steroids have tapered to once daily prednisone in the morning * Preferred regimen to treat steroid induced hyperglycemia d/t once daily prednisone is NPH insulin given once daily with prednisone as the kinetics of NPH match that of the hyperglycemic effects of daily prednisone. * Patient received 16 units of prandial/correctional insulin yesterday. Basal insulin was d/c 09/18/16 d/t steroid taper and "low" AM fasting BSG. * BSGs in range in the AM and then sae throughout the day from prednisone. Addition of NPH will correct this rise in hyperglycemia * ADA & AACE recommend a goal blood sugar range 140-180 mg/dl for the majority of critically ill & non-critically ill patients. However, more stringent targets may be selected in individual cases. Will utilize more stringent target of 120-140mg/dl based on tight degree of outpatient control. PLAN FOR INPATIENT GLYCEMIC CONTROL: * Holding outpatient oral diabetes medications * Start NPH 10 units SQ daily with prednisone * Continue Correctional Insulin with NOVOLOG per scale ACHS or Q6hrs while NPO * Goal Range: Low 120 mg/dL - High 140 mg/dL * Correction Factor: 30 mg/dL/unit * Nutritional / Prandial insulin per carb ratio of 1 unit per 10 grams CHO consumed * Please note that the plan above was derived based on current level of insulin resistance and hospital stress. These recommendations are appropriate for inpatient admission only. Plan of care upon discharge will need to be reassessed to avoid potential outpatient hypo/hyperglycemia. Thank you. RECOMMENDATIONS FOR DISCHARGE: * A1c = 6.6% --> may be too tightly controlled based on age and comorbidities. * Pt is current taking Prandin (repaglinide) 1mg PO TIDM + Glipizide 10mg PO BIDM. This is a therapeutic duplication. * The combined use of Prandin repaglinide (a meglitinide) and oral sulfonylureas (glipizide) is not considered justified as both drug classes stimulate insulin secretion and therefore lead to hypoglycemia. * May consider decreasing outpatient regimen for less stringent glycemic control * Consider d/c glipizide or at a minimum cutting the dose in half. * No change to Prandin (repaglinide)
[2016-09-19] MEDS: INSULIN HUMAN NPH SC SCH (12:28)
--- NOTE | 2016-09-19 17:19 | Progress Note ---
Internal Med Progress Note Date of Service: Sep 19, 2016. Provider Documentation: SUBJECTIVE: resting comfortably sob better cough is better afebrile ambulating fine ok to go home in am OBJECTIVE: Vital Signs-as noted below Exam: General-alert and oriented x 3 ENT-normal hearing Neck-no neck masses Lungs-cta b/l no wheezing or crackles Heart-s1 and s2 heard regular rate and rhythm, no murmurs Abdomen-soft bowel sounds present non tender no distension Extremities-no edema no erythema Neuro-alert and awake moves extremities Lab data as noted below. ASSESSMENT & PLAN: 86 yoF with asthma presents with acute exacerbation 1. Asthma exacerbation asthmatic bronchitis mostlikely precipitated by cold weather as per px Failed out patient tx with z lissette and prednisone iv steroids and nebs Flu negative. On Doxy 100mg PO BID Improved and tapered steroids to po prednisone but again developed rhonchi and sob placed back on solumderol pulmonary thinks patient aspirating. started on GERD px tx and plan for video swallow CT chest trace right and pericardial effusion otherwise unremarkable s/p esophageal xray which was unremarkable changed steroid to po prednisone 50mg daily and will taper much improved if stable d/c in am Stable conditions: 2. Acute renal failure on chronic renal insufficiency secondary to illness- resolved. 3. coronary artery disease, transient ischemic attack as per records. Stable on ASA, Plavix, statin 4. troponemia 2 to kidney dysfunction asymptomatic. echo unremarkable. 5. Lactic acidemia likely secondary to kidney dysfunction persistent. Not in sepsis. Consulted nephrology -appreciate inputs plan to f/u labs as out patient when current illness resolves 6. DM2, on oral meds well controlled as of recent outpx HgA1c 219/241/168/186 appreciate Glycemic pharmacist to assist with management. 7 .Parkinson's disease as per records. On Sinemet. 8. Anemia secondary to chronic kidney disease-Hemoglobin at baseline. PT/OT eval. DVT prophylaxis, Heparin SQ Full code. DISPOSITION ambulate in hallways possible d/c on Tuesday Vital Signs: Date Time Temp Pulse Resp B/P Pulse Ox O2 Delivery O2 Flow Rate FiO2 09/19/16 14:35 36.8 69 18 135/69 93 09/19/16 14:12 70 20 94 Room Air 09/19/16 08:00 Room Air 09/19/16 07:20 36.7 61 20 153/71 97 09/19/16 07:03 61 20 97 Room Air 09/19/16 00:45 Room Air 09/18/16 23:47 36.6 75 20 130/74 91 Room Air 09/18/16 21:22 88 145/55 09/18/16 19:45 79 18 90 Room Air Lab Results: Results Past 24 Hours Test 09/18/16 20:42 09/19/16 05:53 09/19/16 07:14 09/19/16 10:59 Range/Units Bedside Glucose 224 108 137 70-90 mg/dl White Blood Count 11.09 4.8-10.8 K/uL Red Blood Count 4.43 4.2-5.4 M/uL Hemoglobin 12.5 12.0-16.0 g/dL Hematocrit 37.6 37-47 % Mean Corpuscular Volume 84.9 80-100 fL Mean Corpuscular Hemoglobin 28.2 25-34 pg Mean Corpuscular Hemoglobin Concent 33.2 32-36 g/dl Platelet Count 191 130-400 K/uL Mean Platelet Volume 11.6 7.4-10.4 fL Neutrophils (%) (Auto) 72.6 % Lymphocytes (%) (Auto) 18.5 % Monocytes (%) (Auto) 7.8 % Eosinophils (%) (Auto) 0.1 % Basophils (%) (Auto) 0.1 % Neutrophils # (Auto) 8.06 1.4-6.5 K/uL Lymphocytes # (Auto) 2.05 1.2-3.4 K/uL Monocytes # (Auto) 0.86 0.11-0.59 K/uL Eosinophils # (Auto) 0.01 0-0.5 K/uL Basophils # (Auto) 0.01 0-0.2 K/uL RDW Standard Deviation 46.6 36.4-46.3 fL RDW Coefficient of Variation 15.1 11.5-14.5 % Immature Granulocyte % (Auto) 0.9 % Immature Granulocyte # (Auto) 0.10 0.00-0.02 K/uL Sodium Level 141 136-145 mmol/L Potassium Level 4.2 3.5-5.1 mmol/L Chloride Level 109 98-107 mmol/L Carbon Dioxide Level 23 21-32 mmol/L Anion Gap 9.0 3-11 mmol/L Blood Urea Nitrogen 48 7-18 mg/dl Creatinine 1.40 0.60-1.20 mg/dl Est Creatinine Clear Calc Drug Dose 29.6 ml/min Estimated GFR () 39.3 Estimated GFR (Non- 33.9 BUN/Creatinine Ratio 34.6 10-20 Random Glucose 119 70-99 mg/dl Calcium Level 9.1 8.5-10.1 mg/dl Test 09/19/16 16:07 Range/Units Bedside Glucose 257 70-90 mg/dl
[2016-09-19] MEDS: LEVOTHYROXINE 125 MCG TAB PO SCH (21:17)
[2016-09-19] MEDS: GUAIFENESIN SUGAR FREE 200 MG/10 ML UDC PO PRN (21:18)
[2016-09-19] MEDS ORDERED: NURSING DECISION MEDICATION ORDER SCH (21:45)
[2016-09-19] MEDS ORDERED: SODIUM CHLORIDE 0.65% NA SOLN 45 ML (OCEAN) PRN (21:45)
[2016-09-20] MEDS ORDERED: COUGH DROP (SUGAR FREE) LOZ 24 LOZ/1 BOX ONE (00:23)
[2016-09-20 01:05] VITALS: BP 147/75; PULSE 70; TEMP 36.9; O2SAT 98
[2016-09-20] MEDS: IPRATROPIUM BROMIDE NEB SOLN 0.02% 2.5 ML VIAL INH SCH ×2 (02:45→07:01)
[2016-09-20] MEDS: LEVALBUTEROL 1.25MG/0.5ML NEB INH SCH ×2 (02:45→07:01)
[2016-09-20] MEDS: HEPARIN SOD 5000 UNIT/0.5 ML CARP SQ SCH ×2 (06:00→13:11)
[2016-09-20 07:01] VITALS: PULSE 86; O2SAT 95
[2016-09-20 07:12] LABS: COMPLETE YES; EOS % 0.3 %; IG% 0.8 %; LYMPH % 22.2 %; LYMPH ABS # 2.37 K/uL (1.2-3.4); MEAN CELL VOLUME 85.9 fL (80-100); MEAN CORPUSCULAR HEMOGLOBIN 28.2 pg (25-34); MEAN CORPUSCULAR HGB CONC 32.8 g/dl (32-36); MEAN PLATELET VOLUME 11.4 fL (7.4-10.4); MONO % 8.4 %; NEUT % 68.3 %; PLATELET COUNT 189 K/uL (130-400); RED BLOOD COUNT 4.54 M/uL (4.2-5.4); WHITE BLOOD COUNT 10.66 K/uL (4.8-10.8)
[2016-09-20 07:49] VITALS: BP 167/77; PULSE 65; TEMP 36.4; O2SAT 97
[2016-09-20 07:52] LABS: BUN/CREATININE RATIO 32.3 (10-20); CALCIUM 9.2 mg/dl (8.5-10.1); CREATININE 1.5 mg/dl (0.60-1.20); POTASSIUM 4.3 mmol/L (3.5-5.1)
[2016-09-20 09:20] VITALS: BP 132/69; PULSE 76
[2016-09-20] MEDS: ATORVASTATIN 20 MG TAB PO SCH (09:25)
[2016-09-20] MEDS: RANITIDINE HCL 150 MG TAB PO SCH (09:25)
[2016-09-20] MEDS: CARBIDOPA/LEVODOPA 25/100MG TAB PO SCH ×2 (09:25→12:49)
[2016-09-20] MEDS: ISOSORBIDE MONONITRATE 30 MG TABCR PO SCH (09:25)
[2016-09-20] MEDS: CLOPIDOGREL BISULFATE 75 MG TAB PO SCH (09:25)
[2016-09-20] MEDS: PANTOprazole SOD 40 MG TAB PO SCH (09:26)
[2016-09-20] MEDS: DULOXETINE HCL 20 MG CAP PO SCH (09:26)
[2016-09-20] MEDS: GABAPENTIN 100 MG CAP PO SCH ×2 (09:26→12:50)
[2016-09-20] MEDS: DOXYCYCLINE HYCLATE 100 MG CAP PO SCH (09:26)
[2016-09-20] MEDS: ASPIRIN 81 MG ECTAB PO SCH (09:26)
[2016-09-20] MEDS: BENZONATATE 100MG CAP PO PRN (09:27)
[2016-09-20] MEDS: GUAIFENESIN SUGAR FREE 200 MG/10 ML UDC PO PRN (09:27)
[2016-09-20] MEDS: METOPROLOL TARTRATE 25 MG TAB PO SCH (09:29)
[2016-09-20] MEDS: INSULIN ASPART 100 UNITS/ML 3 ML PEN SC SCH ×2 (10:23→12:46)
[2016-09-20] MEDS: INSULIN HUMAN NPH SC SCH (10:24)
[2016-09-20] MEDS ORDERED: PRED10TA PO (12:01)
[2016-09-20] MEDS ORDERED: DXY100 PO (12:01)
[2016-09-20] MEDS ORDERED: GLC5 PO (12:01)
[2016-09-20] MEDS ORDERED: BENZ100C7 PO (12:01)
[2016-09-20] MEDS ORDERED: GUAISYP4 PO (12:01)
[2016-09-20] MEDS ORDERED: ZNT150 PO (12:01)
[2016-09-20] MEDS ORDERED: ATV5 PO (12:01)
[2016-09-20] MEDS ORDERED: PRT40 PO (12:01)
--- NOTE | 2016-09-20 12:10 | Discharge Instructions ---
Discharge Instructions Admission Reason for Admission: Acute Asthma Exacerbation Discharge Discharge Diagnosis / Problem: ACUTE ASTHMA EXACERBATION Discharge Goals Goal(s): Decrease discomfort, Improve function Activity Recommendations Activity Limitations: resume your previous activity . Instructions / Follow-Up Instructions / Follow-Up FOLLOWUP WITH FAMILY DOCTOR Amanda Alvarez ON Sep AT 10:50AM FOLLOWUP WITH PULMONARY IN 2-3 WEEKS. DOSE OF GLIPIZIDE(sulfonylureas) IS REDUCED As hba1c is 6.5(03/2016) and also on Prandin repaglinide (a meglitinide) as both drug classes stimulate insulin secretion and therefore can lead to hypoglycemia. TO CHECK BLOOD SUGARS REGULARLY AND FOLLOWUP WITH FAMILY DOCTOR. Current Hospital Diet Patient's current hospital diet: Diabetes Type 2 Diet, Low Potassium Diet (2g K) Discharge Diet Recommended Diet: AHA Diet (Heart Healthy), Diabetes Type 2 Diet Pending Studies Studies pending at discharge: no Laboratory Results Lipid Panel Test 07/27/16 08:45 Range/Units Triglycerides Level 294 H 0-150 mg/dl Cholesterol Level 230 H 0-200 mg/dl HDL Cholesterol 42 mg/dl Cholesterol/HDL Ratio 5.5 LDL Cholesterol, Calculated 129 mg/dl Medical Emergencies . Who to Call and When: Medical Emergencies: If at any time you feel your situation is an emergency, please call 911 immediately. . Non-Emergent Contact Non-Emergency issues call your: Primary Care Provider . . "Provider Documentation" section prepared by Tyrone Zurita. VTE Core Measure Inpt VTE Proph given/why not?: Unfractionated heparin SQ
[2016-09-20 12:12] VITALS: BP 132/69; PULSE 76; TEMP 36.4; O2SAT 97
[2016-09-20] MEDS ORDERED: IPRASOL4 INH (14:02)
--- NOTE | 2016-09-20 19:32 | Progress Note ---
Internal Med Progress Note Date of Service: Sep 20, 2016. Provider Documentation: SUBJECTIVE: resting comfortably sob and cough much better ambulated fine' passed two step ok to go home OBJECTIVE: Vital Signs-as noted below Exam: General-alert and oriented x 3 ENT-normal hearing Neck-no neck masses Lungs-cta b/l no wheezing or crackles Heart-s1 and s2 heard regular rate and rhythm, no murmurs Abdomen-soft bowel sounds present non tender no distension Extremities-no edema no erythema Neuro-alert and awake moves extremities Lab data as noted below. ASSESSMENT & PLAN: 86 yoF with asthma presents with acute exacerbation 1. Asthma exacerbation asthmatic bronchitis mostlikely precipitated by cold weather as per px Failed out patient tx with z lissette and prednisone iv steroids and nebs Flu negative. On Doxy 100mg PO BID Improved and tapered steroids to po prednisone but again developed rhonchi and sob placed back on solumderol pulmonary thinks patient aspirating. started on GERD px tx and plan for video swallow CT chest trace right and pericardial effusion otherwise unremarkable s/p esophageal xray which was unremarkable changed steroid to po prednisone 50mg daily and will taper also started on Zantac and ppi for possible GERD as per pulmonary much improved discharged on steroid taper and doxycycline 2. Acute renal failure on chronic renal insufficiency secondary to illness- resolved. 3. coronary artery disease, transient ischemic attack as per records. Stable on ASA, Plavix, statin 4. troponemia 2 to kidney dysfunction asymptomatic. echo unremarkable. 5. Lactic acidemia likely secondary to kidney dysfunction persistent. Not in sepsis. Consulted nephrology -appreciate inputs plan to f/u labs as out patient when current illness resolves 6. DM2, on oral meds well controlled as of recent outpx HgA1c appreciate Glycemic pharmacist to assist with management. 7 .Parkinson's disease as per records. On Sinemet. 8. Anemia secondary to chronic kidney disease-Hemoglobin at baseline. discharged home Vital Signs: Date Time Temp Pulse Resp B/P Pulse Ox O2 Delivery O2 Flow Rate FiO2 09/20/16 12:12 36.4 76 17 97 Room Air 09/20/16 09:20 76 132/69 09/20/16 07:49 36.4 65 17 167/77 97 Room Air 09/20/16 07:40 Room Air 09/20/16 07:01 86 20 95 Room Air 09/20/16 01:05 36.9 70 20 147/75 98 Room Air 09/20/16 00:20 Room Air 09/19/16 21:15 85 144/66 09/19/16 19:30 89 20 94 Room Air Lab Results: Results Past 24 Hours Test 09/19/16 20:36 09/20/16 06:48 09/20/16 07:35 09/20/16 11:34 Range/Units Bedside Glucose 239 85 130 70-90 mg/dl White Blood Count 10.66 4.8-10.8 K/uL Red Blood Count 4.54 4.2-5.4 M/uL Hemoglobin 12.8 12.0-16.0 g/dL Hematocrit 39.0 37-47 % Mean Corpuscular Volume 85.9 80-100 fL Mean Corpuscular Hemoglobin 28.2 25-34 pg Mean Corpuscular Hemoglobin Concent 32.8 32-36 g/dl Platelet Count 189 130-400 K/uL Mean Platelet Volume 11.4 7.4-10.4 fL Neutrophils (%) (Auto) 68.3 % Lymphocytes (%) (Auto) 22.2 % Monocytes (%) (Auto) 8.4 % Eosinophils (%) (Auto) 0.3 % Basophils (%) (Auto) 0.0 % Neutrophils # (Auto) 7.28 1.4-6.5 K/uL Lymphocytes # (Auto) 2.37 1.2-3.4 K/uL Monocytes # (Auto) 0.90 0.11-0.59 K/uL Eosinophils # (Auto) 0.03 0-0.5 K/uL Basophils # (Auto) 0.00 0-0.2 K/uL RDW Standard Deviation 47.7 36.4-46.3 fL RDW Coefficient of Variation 15.3 11.5-14.5 % Immature Granulocyte % (Auto) 0.8 % Immature Granulocyte # (Auto) 0.08 0.00-0.02 K/uL Sodium Level 142 136-145 mmol/L Potassium Level 4.3 3.5-5.1 mmol/L Chloride Level 107 98-107 mmol/L Carbon Dioxide Level 23 21-32 mmol/L Anion Gap 12.0 3-11 mmol/L Blood Urea Nitrogen 48 7-18 mg/dl Creatinine 1.50 0.60-1.20 mg/dl Est Creatinine Clear Calc Drug Dose 27.7 ml/min Estimated GFR () 36.2 Estimated GFR (Non- 31.2 BUN/Creatinine Ratio 32.3 10-20 Random Glucose 95 70-99 mg/dl Calcium Level 9.2 8.5-10.1 mg/dl Chemistry Specimen Hemolysis
--- NOTE | 2016-09-20 19:50 | Discharge Summary ---
Discharge Summary Admission Date: Sep 13, 2016 at 00:01 Discharge Date: Sep 20, 2016 Discharge Disposition: Home Principal Diagnosis: ASTHMA EXACERBATION Secondary Diagnoses/Problems: asthma, CAD sp stenting, hypertension, hyperlipidemia, diabetes type 2, on oral medications, Parkinson's disease as per records, TIA as per records, chronic renal insufficiency (baseline creatinine of 1.5), chronic anemia (baseline hemoglobin of 11). Consultations: Pulmonary Medication Reconciliation New Medications: Glipizide (Glipizide) 5 Mg Tab 5 MG PO DAILY, #30 1 Refill Guaifenesin/Codeine (Robitussin-Ac Syrup) Syrp 5 ML PO Q6H PRN for Cough for 6 Days, #120 ML 1 Refill Ipratropium-Albuterol (Duoneb) 3 Ml Nebu 1 TREATMENT INH Q4H PRN for SOB/Wheezing, #1 INHA 3 Refills Prednisone Tab (Prednisone) 10 Mg Tab 40 MG PO UD, #30 TAB PREDNISONE 40MG PO DAILY X 3 DAYS THEN PREDNISONE 30MG PO DAILY X 3 DAYS THEN PREDNISONE 20MG PO DAILY X 3 DAYS THEN PREDNISONE 10MG PO DAILY X 3 DAYS THEN STOP. Benzonatate (Benzonatate) 100 Mg Cap 100 MG PO Q8H PRN for Cough, #20 CAP Doxycycline Hyclate (Doxycycline Hyclate) 100 Mg Cap 100 MG PO BID, #6 CAP Lorazepam (Lorazepam) 0.5 Mg Tab 0.5 MG PO BID PRN for Anxiety, #30 TAB Pantoprazole (Pantoprazole Sodium) 40 Mg Tab 40 MG PO QAM, #30 TAB 2 Refills Ranitidine HCl (Ranitidine HCl) 150 Mg Tab 150 MG PO BID, #60 TAB 2 Refills Continued Medications: Albuterol Inhaler (Ventolin Inhaler) Aers 2 PUFFS INH QID PRN for Wheezing, #5 INHALER Aspirin (Aspirin Chewable) 81 Mg Chew 81 MG PO DAILY Atorvastatin (Lipitor) 40 Mg Tab 40 MG PO DAILY, TAB Budesonide/Formoterol Fumarate (Symbicort 160-4.5 Mcg/Act) 60 Puffs/Inhaler Aero 2 PUFFS INH BID for 30 Days, 2 Refills Cholecalciferol (Vitamin D) 1,000 Inter.unit Tab 2000 UNITS PO DAILY, TAB Clopidogrel Bisulfate (Clopidogrel) 75 Mg Tab 75 MG PO QAM for 30 Days, #30 TAB 6 Refills Duloxetine HCl (Cymbalta) 20 Mg Cap 1 CAP PO DAILY for 30 Days, #30 CAP 2 Refills Fluticasone Propionate (Nasal) (Flonase Allergy Relief) 50 Mcg/Act Spr 1 SPRAY JOSE DAILY Gabapentin (Neurontin) 100 Mg Cap 200 MG PO TID Isosorbide Mononitrate (Isosorbide Mononitrate ER) 30 Mg Tabcr 30 MG PO QAM for 30 Days, #30 TABS 6 Refills Levodopa/Carbidopa (Sinemet 25MG/100MG) 1 Ea Tab 1 TABLET PO QID Levothyroxine Sodium (Synthroid) 125 Mcg Tab 125 MCG PO HS for 30 Days, #30 TAB 6 Refills Losartan Potassium (Losartan Potassium) 25 Mg Tab 25 MG PO QAM for 30 Days, #30 TAB 6 Refills Magnesium Oxide (Magnesium) 500 Mg Cap 500 MG PO DAILY Metoprolol Tartrate (Lopressor) 25 Mg Tab 25 MG PO BID for 30 Days, #60 TAB 6 Refills Nitroglycerin (Nitrostat) 0.4 Mg/1 Tab Subl 0.4 MG SL UD PRN for Chest Pain for 30 Days, #30 MG 6 Refills Oxycodone Immediate Rel Tab (Roxicodone Ir) 5 Mg Tab 1 TAB PO Q4H PRN for Severe Pain, #20 TAB Repaglinide (Prandin) 1 Mg Tab 1 MG PO TID PRN for BSG >140 take only if bsg is >140 Discontinued Medications: Glipizide (Glucotrol) 5 Mg Tab 10 MG PO BIDM TAKE WITH MORNING AND EVENING MEALS Prednisone (Prednisone Tab) 20 Mg Tab 40 MG PO DAILY, #10 TAB Admission Information HPI (per Admitting provider): Medical history is significant for asthma, CAD sp stenting, hypertension, hyperlipidemia, diabetes type 2, on oral medications, Parkinson's disease as per records, TIA as per records, chronic renal insufficiency (baseline creatinine of 1.5), chronic anemia (baseline hemoglobin of 11). Recent confinement July 2016 for epigastric discomfort, normal stress study, EF 55-60%, mild LVH, aortic valve sclerosis, mild MR, grade 1 diastolic dysfunction. A week ago the patient seen at Emergency Room for cough symptoms, productive of yellow white sputum, and postnasal drainage, some shortness of breath. Episodes usually noted during cold weather. Impression was bronchitis. Patient discharged on azithromycin, prednisone course. Cough now nonproductive. Patient still "tight" despite [id number] home inhaler. Px denies cp. No fever, no chills. Patient returned to the Emergency Room Physical Exam (per Admitting): VITAL SIGNS: Blood pressure was noted to be 130/60, pulse rate 102, RR 28, temperature 36.8, sats 95 on room air. GENERAL: Noted to be pleasant, no respiratory distress. Looks younger for stated age. Obese. HEENT: Pale palpebral conjunctivae, dry mucosa. NECK: Short neck. CHEST: Expiratory wheezes. HEART: Regular rate and rhythm. ABDOMEN: Soft. Some distention. EXTREMITIES: Minimal LE edema, no tenderness. NEUROLOGIC: No gross deficits except for some tremors, chronic Hospital Course 86 yoF with asthma presents with acute exacerbation 1. Asthma exacerbation asthmatic bronchitis mostlikely precipitated by cold weather as per px Failed out patient tx with z lissette and prednisone iv steroids and nebs Flu negative. On Doxy 100mg PO BID Improved and tapered steroids to po prednisone but again developed rhonchi and sob placed back on solumderol pulmonary thinks patient aspirating. started on GERD px tx and plan for video swallow CT chest trace right and pericardial effusion otherwise unremarkable s/p esophageal xray which was unremarkable changed steroid to po prednisone 50mg daily and will taper also started on Zantac and ppi for possible GERD as per pulmonary much improved discharged on steroid taper and doxycycline 2. Acute renal failure on chronic renal insufficiency secondary to illness- resolved. 3. coronary artery disease, transient ischemic attack as per records. Stable on ASA, Plavix, statin 4. troponemia 2 to kidney dysfunction asymptomatic. echo unremarkable. 5. Lactic acidemia likely secondary to kidney dysfunction persistent. Not in sepsis. Consulted nephrology -appreciate inputs plan to f/u labs as out patient when current illness resolves 6. DM2, on oral meds well controlled as of recent outpx HgA1c appreciate Glycemic pharmacist to assist with management. 7 .Parkinson's disease as per records. On Sinemet. 8. Anemia secondary to chronic kidney disease-Hemoglobin at baseline. discharged home Total time spent on discharge = 35MINUTES This includes examination of the patient, discharge planning, medication reconciliation, and communication with other providers. Discharge Instructions Please take this sheet to every appointment for the next month Discharge Instructions Admission Reason for Admission: Acute Asthma Exacerbation Discharge Discharge Diagnosis / Problem: ACUTE ASTHMA EXACERBATION Discharge Goals Goal(s): Decrease discomfort, Improve function Activity Recommendations Activity Limitations: resume your previous activity . Instructions / Follow-Up Instructions / Follow-Up FOLLOWUP WITH FAMILY DOCTOR Amanda Alvarez ON Sep AT 10:50AM FOLLOWUP WITH PULMONARY IN 2-3 WEEKS. DOSE OF GLIPIZIDE(sulfonylureas) IS REDUCED As hba1c is 6.5(03/2016) and also on Prandin repaglinide (a meglitinide) as both drug classes stimulate insulin secretion and therefore can lead to hypoglycemia. TO CHECK BLOOD SUGARS REGULARLY AND FOLLOWUP WITH FAMILY DOCTOR. Current Hospital Diet Patient's current hospital diet: Diabetes Type 2 Diet, Low Potassium Diet (2g K) Discharge Diet Recommended Diet: AHA Diet (Heart Healthy), Diabetes Type 2 Diet Pending Studies Studies pending at discharge: no Laboratory Results Lipid Panel Test 07/27/16 08:45 Range/Units Triglycerides Level 294 H 0-150 mg/dl Cholesterol Level 230 H 0-200 mg/dl HDL Cholesterol 42 mg/dl Cholesterol/HDL Ratio 5.5 LDL Cholesterol, Calculated 129 mg/dl Medical Emergencies . Who to Call and When: Medical Emergencies: If at any time you feel your situation is an emergency, please call 911 immediately. . Non-Emergent Contact Non-Emergency issues call your: Primary Care Provider . . "Provider Documentation" section prepared by Tyrone Zurita. VTE Core Measure Inpt VTE Proph given/why not?: Unfractionated heparin SQ
[2016-10-03] MEDS ORDERED: AMOX1TAB42 PO (15:31)
[2016-10-15] MEDS ORDERED: PRED10TA PO (15:54)
== END 2016-09-20 14:41 | disposition home or self-care (01) | DRG 202 ==
LOC: ENRESERVTM → ENRESERVDT → C.EDB 19:38 → C.2T 09-13 00:01 → EDBEDREQ 09-13 00:06 → C.MS2W 09-14 18:31
PROVIDERS: ADMIT Internal Medicine; ATTEND Internal Medicine
DX: J45.901 Unspecified asthma with (acute) exacerbation (principal); N17.9 Acute kidney failure, unspecified; E87.2 Acidosis; I31.3 Pericardial effusion (noninflammatory); I25.10 Atherosclerotic heart disease of native coronary artery without angina pectoris; G20 Parkinson's disease; E78.5 Hyperlipidemia, unspecified; K21.9 Gastro-esophageal reflux disease without esophagitis; N18.3 Chronic kidney disease, stage 3 (moderate); E87.5 Hyperkalemia; J32.0 Chronic maxillary sinusitis; R91.1 Solitary pulmonary nodule; I13.10 Hypertensive heart and chronic kidney disease without heart failure, with stage 1 through stage 4 chronic kidney disease, or unspecified chronic kidney disease; E11.22 Type 2 diabetes mellitus with diabetic chronic kidney disease; D63.1 Anemia in chronic kidney disease; I08.1 Rheumatic disorders of both mitral and tricuspid valves; R79.89 Other specified abnormal findings of blood chemistry; R12 Heartburn; G43.909 Migraine, unspecified, not intractable, without status migrainosus; Z95.5 Presence of coronary angioplasty implant and graft; Z86.73 Personal history of transient ischemic attack (TIA), and cerebral infarction without residual deficits; Z98.1 Arthrodesis status; Z79.899 Other long term (current) drug therapy; Z79.51 Long term (current) use of inhaled steroids; Z79.82 Long term (current) use of aspirin; Z79.84 Long term (current) use of oral hypoglycemic drugs; Z79.02 Long term (current) use of antithrombotics/antiplatelets; Z79.891 Long term (current) use of opiate analgesic

== ENCOUNTER 2016-10-01 13:02 | Inpatient (IN) | payer OTHER, MEDICARE ==
[~2016-10-01] VITALS: Ht 165.1 cm; Wt 75.1 kg
[~2016-10-01 13:02] MED LIST changes: -ATRINS INH; +ATV5 PO; +BENZ100C7 PO; +DXY100 PO; +GLC5 PO; -GLIP5TAB11 PO; +GUAISYP4 PO; +IPRASOL4 INH; +PRED10TA PO; -PRED20TA2 PO; +PRT40 PO; +ZNT150 PO
[2016-10-01] MEDS ORDERED: SODIUM CHLORIDE 0.9% 500ML 500 ML IV STA (13:34)
[2016-10-01] MEDS ORDERED: SODIUM CHLORIDE 0.9% 1000ML 1,000 ML IV STA (13:34)
[2016-10-01] MEDS ORDERED: PIPERACILLIN/TAZOBACTAM 4.5 GM/100ML D5W IV STA (13:34)
--- NOTE | 2016-10-01 13:41 | EMERGENCY ROOM VISIT NOTE ---
History Report prepared by Janet: Lora Monroe Under the Supervision of: Dr. Piedad Kern M.D. First contact with patient: 13:18 Chief Complaint: HEADACHE Stated Complaint: SINUS, HEADACHE History of Present Illness The patient is a 86 year old female who presents to the Emergency Room with complaints of persistent sinus discomfort over the past couple of days. She states that she is congested and has been expelling thick, yellow mucous when she blows her nose. She also complains of ear clogging and feeling tired and weak, as if she has no energy. Today, the patient stopped by her PCP office and they recommended that she be seen in the emergency room. Her blood pressure was normal at that time. She has been eating and drinking well yesterday. She reports drinking at least 6 bottles of water yesterday. This morning, she drank about a bottle of water. On September 13, the patient was admitted to the hospital for an elevated troponin and had a stress test by Dr. Mcclure. She was discharged a week later. Denies cough, shortness of breath, or other complaints. She does not take her temperature, but does not feel like she has had a fever. She did have a flu shot this year. Source of History: patient Onset: a couple days ago Position: other (sinus) Quality: other (congestion) Timing: other (persistent) Associated Symptoms: + fatigue, + weakness, No SOB, No chest pain Note: Other symptoms: ear clogged Review of Systems See HPI for pertinent positives & negatives. A total of 10 systems reviewed and were otherwise negative. Past Medical & Surgical Medical Problems: (1) Arrhythmia (2) Asthma (3) Benign hypertension (4) CAD (coronary artery disease) (5) CKD (chronic kidney disease), stage III (6) COPD (chronic obstructive pulmonary disease) (7) Diabetes mellitus type 2 (8) Dyslipidemia (9) GERD (gastroesophageal reflux disease) (10) H/O non-ST elevation myocardial infarction (NSTEMI) (11) Hypotension (12) Hypothyroidism (13) Migraine headache (14) Parkinson's disease (15) Pulmonary nodule (16) TIA (transient ischemic attack) Surgical Problems: (1) H/o cervical laminectomy (2) History of lumbar surgery (3) S/P tonsillectomy and adenoidectomy (4) Status post appendectomy (5) Status post cholecystectomy (6) Status post hysterectomy Family History FH: cancer BROTHER FH: diabetes mellitus FH: heart disease FATHER ( [place] 66) MOTHER ( [place] 72) Hypertension Stroke MOTHER Social History Smoking Status: Never Smoker Alcohol Use: none Drug Use: none Marital Status: Housing Status: lives with family Occupation Status: retired Current/Historical Medications Scheduled Amoxicillin & Pot Clavulanate (Amoxicillin/Clavulanate P), 500 MG PO BIDM Aspirin (Aspirin Chewable), 81 MG PO DAILY Atorvastatin (Lipitor), 40 MG PO DAILY Budesonide/Formoterol Fumarate (Symbicort 160-4.5 Mcg/Act), 2 PUFFS INH BID Cholecalciferol (Vitamin D), 2,000 UNITS PO DAILY Clopidogrel Bisulfate (Clopidogrel), 75 MG PO QAM Duloxetine HCl (Cymbalta), 1 CAP PO DAILY Fluticasone Propionate (Nasal) (Flonase Allergy Relief), 1 SPRAY JOSE BID Gabapentin (Neurontin), 200 MG PO TID Glipizide (Glipizide), 5 MG PO DAILY Isosorbide Mononitrate (Isosorbide Mononitrate ER), 30 MG PO QAM Levodopa/Carbidopa (Sinemet 25MG/100MG), 1 TABLET PO QID Levothyroxine Sodium (Synthroid), 125 MCG PO HS Losartan Potassium (Losartan Potassium), 25 MG PO QAM Magnesium Oxide (Magnesium), 500 MG PO DAILY Metoprolol Tartrate (Lopressor), 25 MG PO BID Pantoprazole (Pantoprazole Sodium), 40 MG PO QAM Ranitidine HCl (Ranitidine HCl), 150 MG PO BID Saline (Armstrong Nasal Buchanan), 1 SPRAY JOSE DAILY Scheduled PRN Albuterol Inhaler (Ventolin Inhaler), 2 PUFFS INH QID PRN for Wheezing Benzonatate (Benzonatate), 100 MG PO Q8H PRN for Cough Guaifenesin/Codeine (Robitussin-Ac Syrup), 5 ML PO Q6H PRN for Cough Ipratropium-Albuterol (Duoneb), 1 TREATMENT INH Q4H PRN for SOB/Wheezing Lorazepam (Lorazepam), 0.5 MG PO BID PRN for Anxiety Nitroglycerin (Nitrostat), 0.4 MG SL UD PRN for Chest Pain Oxycodone Immediate Rel Tab (Roxicodone Ir), 1 TAB PO Q4H PRN for Severe Pain Repaglinide (Prandin), 1 MG PO TID PRN for BSG >140 Allergies Coded Allergies: Cefuroxime (Verified Allergy, Unknown, ., 10/01/16) tongue tingling Cephalosporins (Verified Allergy, Unknown, 10/01/16) Donepezil (Unverified Adverse Reaction, Unknown, night terrors, 10/01/16) Levofloxacin (Unverified Adverse Reaction, Unknown, creatinine raised to 2.1, 10/01/16) Physical Exam Vital Signs Date Time Temp Pulse Resp B/P Pulse Ox O2 Delivery O2 Flow Rate FiO2 10/01/16 16:04 71 16 120/67 95 Room Air 10/01/16 14:41 79 16 121/61 94 Room Air 10/01/16 14:01 82 16 101/50 95 Room Air 10/01/16 13:33 88 16 89/52 96 Room Air 10/01/16 13:31 82 10/01/16 13:15 36.5 89 18 87/57 92 Room Air Physical Exam Vital signs reviewed. General: Well-appearing 86 year old female, in no significant distress. Noted to be hypotensive. HEENT: Mild tenderness to percussion of frontal sinuses. No scleral icterus, PERRLA, neck supple. Atraumatic. Cardiovascular: Regular rate and rhythm, systolic ejection murmur. Pulmonary: Clear to auscultation bilaterally, normal work of breathing. Abdomen: Soft, nontender, nondistended, positive bowel sounds. Musculoskeletal: Atraumatic, no peripheral edema. Neurologic: Patient awake alert and oriented x 3, full strength in all 4 extremities. Cranial nerves 2 through 12 grossly intact. Skin: Warm, dry, no rash Medical Decision & Procedures ER Provider Diagnostic Interpretation: X-ray results as stated below per my interpretation and radiologist interpretation. Other radiology results as stated below per my review and radiologist interpretation: CHEST ONE VIEW PORTABLE CLINICAL HISTORY: Cough. Elevated lactate. COMPARISON STUDY: Chest radiograph and chest CT September 15, 2016. FINDINGS: Lung volumes are normal. No consolidation is identified. There is no evidence of pulmonary edema. Cardiomediastinal silhouette is stable. The appearance of the chest has not significantly changed. IMPRESSION: No acute cardiopulmonary findings. Electronically signed by: Serge Grewal M.D. 10/01/2016 3:46 PM Dictated Date/Time: 10/01/2016 3:[address] CT DOSE: HISTORY: headache, low BP TECHNIQUE: Multiaxial CT images of the head were performed without the use of intravenous contrast. Automated exposure control was utilized for this study. Comparison: Head CT 12/14/2013. Findings: The calvarium and skull base are intact. There is no mass, hematoma, midline shift, acute infarct. White matter hypodensity is nonspecific but suggestive of microvascular ischemic change. The ventricles and sulci demonstrate mild age-related involutional changes. Impression: No significant change compared to the prior study. No acute intracranial abnormality. SINUS CT CT DOSE: HISTORY: headache, low BP TECHNIQUE: Multiaxial CT images of the paranasal sinuses were performed and reformatted in the coronal plane without the use of contrast. COMPARISON: Sinus CT 09/06/2015. FINDINGS: Mild mucosal thickening within the left frontoethmoidal recess. The frontal sinuses are clear. There is minimal mucosal thickening within the remaining paranasal sinuses. This is improved in the interval. There are no fluid levels within the paranasal sinuses. The mastoid air cells are clear. The bilateral ostiomeatal units are patent. Mild left nasal septal deviation. The orbits are unremarkable. IMPRESSION: The paranasal sinuses and mastoid air cells are essentially clear. Electronically signed by: Efren Feldman M.D. 10/01/2016 3:08 PM Dictated Date/Time: 10/01/2016 3:[address] CT DOSE: HISTORY: headache, low BP TECHNIQUE: Multiaxial CT images of the head were performed without the use of intravenous contrast. Automated exposure control was utilized for this study. Comparison: Head CT 12/14/2013. Findings: The calvarium and skull base are intact. There is no mass, hematoma, midline shift, acute infarct. White matter hypodensity is nonspecific but suggestive of microvascular ischemic change. The ventricles and sulci demonstrate mild age-related involutional changes. Impression: No significant change compared to the prior study. No acute intracranial abnormality. SINUS CT CT DOSE: HISTORY: headache, low BP TECHNIQUE: Multiaxial CT images of the paranasal sinuses were performed and reformatted in the coronal plane without the use of contrast. COMPARISON: Sinus CT 09/06/2015. FINDINGS: Mild mucosal thickening within the left frontoethmoidal recess. The frontal sinuses are clear. There is minimal mucosal thickening within the remaining paranasal sinuses. This is improved in the interval. There are no fluid levels within the paranasal sinuses. The mastoid air cells are clear. The bilateral ostiomeatal units are patent. Mild left nasal septal deviation. The orbits are unremarkable. IMPRESSION: The paranasal sinuses and mastoid air cells are essentially clear. Electronically signed by: Efren Feldman M.D. 10/01/2016 3:08 PM Dictated Date/Time: 10/01/2016 3:01 PM Laboratory Results Test 10/01/16 14:10 10/01/16 14:25 10/01/16 15:54 Activated Partial Thromboplast Time 29.4 SECONDS (21.0-31.0) Partial Thromboplastin Ratio 1.1 Total Bilirubin 0.4 mg/dl (0.2-1) Direct Bilirubin 0.1 mg/dl (0-0.2) Aspartate Amino Transf (AST/SGOT) 22 U/L (15-37) Alanine Aminotransferase (ALT/SGPT) 11 U/L (12-78) Alkaline Phosphatase 86 U/L (45-117) Total Creatine Kinase 36 U/L (26-192) Creatine Kinase MB 0.8 ng/ml (0.5-3.6) Creatine Kinase MB Ratio 2.2 (0-3.0) Total Protein 6.7 gm/dl (6.4-8.2) Albumin 2.9 gm/dl (3.4-5.0) Beta-Hydroxybutyric Acid 0.88 mg/dL (0.2-2.81) Bedside Troponin I 0.010 ng/ml (0-0.045) Bedside Lactic Acid Venous 2.57 mmol/L (0.90-1.70) Laboratory results per my review. Medications Administered Medications (Trade) Dose Ordered Sig/Nilsa Route Start Time Stop Time Status Last Admin Dose Admin Sodium Chloride (Nss 500ml) 500 ml @ 999 mls/hr Q31M STAT IV 10/01/16 13:34 10/01/16 14:04 DC 10/01/16 14:19 999 MLS/HR Piperacillin Sod/ Tazobactam Sod 4.5 gm 4.5 gm NOW STAT IV 10/01/16 13:34 10/01/16 13:38 DC 10/01/16 16:02 4.5 GM Sodium Chloride (Nss 1000ml) 1,000 ml @ 125 mls/hr Q8H STAT IV 10/01/16 13:34 10/01/16 21:33 DC 10/01/16 14:19 125 MLS/HR ECG Indication: weakness Rate (beats per minute): 79 Rhythm: normal sinus Findings: no acute ischemic change, no ectopy, other (previous inferior infarct ) ED Course 1331: Past medical records reviewed. The patient was evaluated in room C11. A complete history and physical examination was performed. 1334: Ordered NSS 1000 ml @ 125 mls/hr IV, Zosyn 4.5 gm IV, NSS 500 ml @ 999 mls /hr IV. 1537: Upon reevaluation, the patient is resting comfortably. I discussed laboratory and radiographic results with the patient and her son. They verbalized agreement of the treatment plan. 1540: [facility] The patient will be evaluated for further management and care. Medical Decision Differential diagnosis: Influenza, other viral illness, pneumonia, urinary tract infection, metabolic abnormality, medication effect, cellulitis, meningitis, intra-abdominal source. This patient was evaluated and appeared to be in no significant distress. She is noted to be hypotensive. Patient was hydrated with normal saline solution. EKG reveals no evidence of acute ischemia or ectopy. Patient's laboratory work reveals an elevated lactate. She did seem to improve after the IV fluids. She was given IV Zosyn for the possibility of sepsis. CT scan of the head and sinuses reveals no evidence of acute sinusitis. Trending the patient's laboratory work reveals a persistently elevated lactate. Patient's vital signs did stabilize. Case was discussed with the hospitalist service. She will be evaluated for further management. Patient family are aware of the plan and agree. Consults Time Called: 1537 Consulting Physician: [facility] Returned Call: 1540 I spoke with Veena Sotelo PA-C of the [facility]. The patient will be evaluated for further management and care. Impression Primary Impression: Hypotension Additional Impressions: Headache Lactic acidosis Scribe Attestation The scribe's documentation has been prepared under my direction and personally reviewed by me in its entirety. I confirm that the note above accurately reflects all work, treatment, procedures, and medical decision making performed by me. Departure Information Dispostion Being Evaluated By Hospitalist Prescriptions Amoxicillin & Pot Clavulanate (AMOXICILLIN/CLAVULANATE P) 1 Tab Tab 500 MG PO BIDM for 5 Days, #10 TAB 0 Refills Prov: Everett Schuler MD 10/03/16 Referrals Amanda Hogue D.O. (PCP) Patient Instructions My [facility] Problem Qualifiers
[2016-10-01 14:34] LABS: BASO % 0.1 %; BASO ABS # 0.01 K/uL (0-0.2); COMPLETE YES; EOS % 1.4 %; HEMATOCRIT 38.6 % (37-47); IG% 0.4 %; LYMPH % 14.9 %; LYMPH ABS # 1.26 K/uL (1.2-3.4); MEAN CELL VOLUME 85.6 fL (80-100); MEAN CORPUSCULAR HEMOGLOBIN 28.8 pg (25-34); MEAN CORPUSCULAR HGB CONC 33.7 g/dl (32-36); MEAN PLATELET VOLUME 11.3 fL (7.4-10.4); MONO % 6.9 %; NEUT % 76.3 %; PLATELET COUNT 166 K/uL (130-400); RED BLOOD COUNT 4.51 M/uL (4.2-5.4); WHITE BLOOD COUNT 8.43 K/uL (4.8-10.8)
[2016-10-01 14:41] LABS: PARTIAL THROMBOPLASTIN RATIO 1.1
[2016-10-01 14:52] LABS: BUN/CREATININE RATIO 16.2 (10-20); CALCIUM 8.5 mg/dl (8.5-10.1); CREATININE 1.8 mg/dl (0.60-1.20); MAGNESIUM 1.8 mg/dl (1.8-2.4); POTASSIUM 4.2 mmol/L (3.5-5.1)
[2016-10-01 15:02] LABS: BETA-HYDROXYBUTYRATE 0.88 mg/dL (0.2-2.81); CKMB/CK RATIO 2.2 (0-3.0)
--- NOTE | 2016-10-01 15:10 | DIAGNOSTIC IMAGING REPORT ---
HEAD CT NONCONTRAST CT DOSE: HISTORY: headache, low BP TECHNIQUE: Multiaxial CT images of the head were performed without the use of intravenous contrast. Automated exposure control was utilized for this study. Comparison: Head CT 12/14/2013. Findings: The calvarium and skull base are intact. There is no mass, hematoma, midline shift, acute infarct. White matter hypodensity is nonspecific but suggestive of microvascular ischemic change. The ventricles and sulci demonstrate mild age-related involutional changes. Impression: No significant change compared to the prior study. No acute intracranial abnormality. SINUS CT CT DOSE: HISTORY: headache, low BP TECHNIQUE: Multiaxial CT images of the paranasal sinuses were performed and reformatted in the coronal plane without the use of contrast. COMPARISON: Sinus CT 09/06/2015. FINDINGS: Mild mucosal thickening within the left frontoethmoidal recess. The frontal sinuses are clear. There is minimal mucosal thickening within the remaining paranasal sinuses. This is improved in the interval. There are no fluid levels within the paranasal sinuses. The mastoid air cells are clear. The bilateral ostiomeatal units are patent. Mild left nasal septal deviation. The orbits are unremarkable. IMPRESSION: The paranasal sinuses and mastoid air cells are essentially clear. Electronically signed by: Efren Feldman M.D. 10/01/2016 3:08 PM Dictated Date/Time: 10/01/2016 3:01 PM
--- NOTE | 2016-10-01 15:48 | DIAGNOSTIC IMAGING REPORT ---
CHEST ONE VIEW PORTABLE CLINICAL HISTORY: Cough. Elevated lactate. COMPARISON STUDY: Chest radiograph and chest CT September 15, 2016. FINDINGS: Lung volumes are normal. No consolidation is identified. There is no evidence of pulmonary edema. Cardiomediastinal silhouette is stable. The appearance of the chest has not significantly changed. IMPRESSION: No acute cardiopulmonary findings. Electronically signed by: Serge Grewal M.D. 10/01/2016 3:46 PM Dictated Date/Time: 10/01/2016 3:45 PM
[2016-10-01] MEDS ORDERED: PIPERACILLIN/TAZOBACTAM 4.5 GM/100ML D5W ONE (15:59)
[2016-10-01] MEDS ORDERED: DEXTROSE 50% 50 ML SYR IV PRN ×2 (16:30→20:30)
[2016-10-01] MEDS ORDERED: GLUCAGON FOR INJ 1 MG VIAL SQ PRN ×2 (16:30→20:30)
[2016-10-01] MEDS ORDERED: ACETAMINOPHEN 325 MG TAB PO PRN (16:30)
[2016-10-01] MEDS ORDERED: ONDANSETRON INJ 2 MG/ML 2 ML VIAL IV PRN (16:30)
[2016-10-01] MEDS ORDERED: GLUCOSE 10 TABS/TUBE PO PRN ×2 (16:30→20:30)
[2016-10-01] MEDS ORDERED: GLUCOSE 40% GEL 15 GM TUBE PO PRN ×2 (16:30→20:30)
[2016-10-01] MEDS ORDERED: GUAIFENESIN/CODEINE 100MG/10MG 5ML UDC PO PRN (17:15)
[2016-10-01] MEDS ORDERED: OXYCODONE HCL IR 5 MG TAB (IMMEDIATE RELEASE) PO PRN (17:15)
[2016-10-01] MEDS ORDERED: NITROGLYCERIN 0.4 MG SL PER TAB CHARGE SL PRN (17:15)
[2016-10-01] MEDS ORDERED: ALBUT/IPRATROP 3MG/0.5MG NEB 3 ML VIAL INH PRN (17:15)
[2016-10-01] MEDS ORDERED: BENZONATATE 100MG CAP PO PRN (17:15)
[2016-10-01] MEDS ORDERED: ALBUTEROL HFA 8 GM INHALER INH PRN (17:15)
[2016-10-01] MEDS ORDERED: LORAZEPAM 0.5 MG TAB PO PRN (17:15)
[2016-10-01] MEDS ORDERED: SALI0.6510 NAE (17:32)
--- NOTE | 2016-10-01 17:36 | History and Physical ---
History & Physical Date & Time of Service: Oct 01, 2016 at 17:06 Chief Complaint: Sinus, Headache Primary Care Physician: Amanda Hogue D.O. History of Present Illness Source: patient, family (daughter at bedside who is an RN), clinic records, hospital records This is an 86 year old female with PMH of CAD s/p stent, asthma, HTN, HL, DM type 2, Parkinson's disease, hx of TIA, CKD, and other problems listed below who presents to the ED for frontal headache. Patient was recently admitted from Sep 13-Sep 20 for asthma exacerbation treated with steroids and antibiotics. Patient was seen by pulmonology, thought to be aspirating, had unremarkable esophageal x-ray, wand was placed on Zantac and PPI for GERD. During that admission she had PENELOPE, asymptomatic elevated troponin, with unremarkable TTE, which was attributed to kidney dysfunction. She also had elevated lactic acid during that admission thought secondary to kidney dysfunction, and nephrology was consulted. Patient was feeling better at home, then 3 days ago developed frontal pressure headache with sinus congestion and nasal drainage of yellow mucous. She has not taken anything for [place] and currently rates it 2/10. Ears are also feeling clogged. She had chills and myalgias yesterday. She stopped in to PCP's office today, where UA was taken (essentially unremarkable except small esterase), urine culture pending. She was unable to get a same-day appointment so presented to ER, where she was found to be hypotensive to 80s/50s. She was given a 500 mL bolus and NSS at 125/hour with resolution of BP to 120s/60s. She reports eating/ drinking normally at home. Denies recent changes in BP medications. Patient denies fever, vision change, photophobia, sore throat, cough, SOB, nausea, vomiting, diarrhea, dysuria, frequency, urgency. Past Medical/Surgical History Medical Problems: (1) Arrhythmia Permanent Comment: Hx SVT vs PAT Status: Chronic (2) Asthma Status: Chronic (3) Benign hypertension Status: Chronic (4) CAD (coronary artery disease) Status: Chronic (5) CKD (chronic kidney disease), stage III Status: Chronic (6) COPD (chronic obstructive pulmonary disease) Status: Chronic (7) Diabetes mellitus type 2 Status: Chronic (8) Dyslipidemia Status: Chronic (9) GERD (gastroesophageal reflux disease) Status: Chronic (10) H/O non-ST elevation myocardial infarction (NSTEMI) Status: Chronic (11) Hypothyroidism Status: Chronic (12) Migraine headache Status: Chronic (13) Parkinson's disease Status: Chronic (14) Pulmonary nodule Permanent Comment: RUL Status: Chronic (15) TIA (transient ischemic attack) Status: Chronic Surgical Problems: (1) H/o cervical laminectomy Status: Chronic (2) History of lumbar surgery Status: Chronic (3) S/P tonsillectomy and adenoidectomy Status: Chronic (4) Status post appendectomy Status: Chronic (5) Status post cholecystectomy Status: Chronic (6) Status post hysterectomy Status: Chronic Family History FH: cancer BROTHER FH: diabetes mellitus FH: heart disease FATHER ( [place] 66) MOTHER ( [place] 72) Hypertension Stroke MOTHER Social History Smoking Status: Never Smoker Alcohol Use: none Marital Status: Housing status: lives alone Occupational Status: retired Immunizations History of Influenza Vaccine: Yes Influenza Vaccine Date: Jul 23, 2015 History of Tetanus Vaccine?: UTD Tetanus Immunization Date: Sep 06, 2001 History of Pneumococcal: Yes Pneumococcal Date: Sep 06, 2003 History of Hepatitis B Vaccine: No Multi-Drug Resistant Organisms History of MDRO: No Allergies Coded Allergies: Cefuroxime (Verified Allergy, Unknown, ., 10/01/16) tongue tingling Cephalosporins (Verified Allergy, Unknown, 10/01/16) Donepezil (Unverified Adverse Reaction, Unknown, night terrors, 10/01/16) Levofloxacin (Unverified Adverse Reaction, Unknown, creatinine raised to 2.1, 10/01/16) Home Medications Scheduled Aspirin (Aspirin Chewable), 81 MG PO DAILY Atorvastatin (Lipitor), 40 MG PO DAILY Budesonide/Formoterol Fumarate (Symbicort 160-4.5 Mcg/Act), 2 PUFFS INH BID Cholecalciferol (Vitamin D), 2,000 UNITS PO DAILY Clopidogrel Bisulfate (Clopidogrel), 75 MG PO QAM Duloxetine HCl (Cymbalta), 1 CAP PO DAILY Fluticasone Propionate (Nasal) (Flonase Allergy Relief), 1 SPRAY JOSE BID Gabapentin (Neurontin), 200 MG PO TID Glipizide (Glipizide), 5 MG PO DAILY Isosorbide Mononitrate (Isosorbide Mononitrate ER), 30 MG PO QAM Levodopa/Carbidopa (Sinemet 25MG/100MG), 1 TABLET PO QID Levothyroxine Sodium (Synthroid), 125 MCG PO HS Losartan Potassium (Losartan Potassium), 25 MG PO QAM Magnesium Oxide (Magnesium), 500 MG PO DAILY Metoprolol Tartrate (Lopressor), 25 MG PO BID Pantoprazole (Pantoprazole Sodium), 40 MG PO QAM Ranitidine HCl (Ranitidine HCl), 150 MG PO BID Saline ([place] Nasal [place]), 1 SPRAY JOSE DAILY Scheduled PRN Albuterol Inhaler (Ventolin Inhaler), 2 PUFFS INH QID PRN for Wheezing Benzonatate (Benzonatate), 100 MG PO Q8H PRN for Cough Guaifenesin/Codeine (Robitussin-Ac Syrup), 5 ML PO Q6H PRN for Cough Ipratropium-Albuterol (Duoneb), 1 TREATMENT INH Q4H PRN for SOB/Wheezing Lorazepam (Lorazepam), 0.5 MG PO BID PRN for Anxiety Nitroglycerin (Nitrostat), 0.4 MG SL UD PRN for Chest Pain Oxycodone Immediate Rel Tab (Roxicodone Ir), 1 TAB PO Q4H PRN for Severe Pain Repaglinide (Prandin), 1 MG PO TID PRN for BSG >140 Review of Systems Ten point review of systems performed with pertinent positives and negatives noted in HPI. Physical Exam Vital Signs Date Time Temp Pulse Resp B/P Pulse Ox O2 Delivery O2 Flow Rate FiO2 10/01/16 16:04 71 16 120/67 95 Room Air 10/01/16 14:41 79 16 121/61 94 Room Air 10/01/16 14:01 82 16 101/50 95 Room Air 10/01/16 13:33 88 16 89/52 96 Room Air 10/01/16 13:31 82 10/01/16 13:15 36.5 89 18 87/57 92 Room Air General Appearance: WD/WN, no apparent distress, + pertinent finding (very pleasant alert elderly female, family at bedside (daughter who is an RN and son) ) Head: normocephalic, atraumatic Eyes: normal inspection, PERRL, EOMI, sclerae normal ENT: normal ENT inspection, hearing grossly normal, pharynx normal, + pertinent finding (left TM normal. right TM occluded by cerumen. + bilateral frontal sinus tenderness. no maxillary sinus tenderness.) Neck: supple, no adenopathy, trachea midline Respiratory/Chest: lungs clear, normal breath sounds, no respiratory distress Cardiovascular: regular rate, rhythm, + systolic murmur Abdomen/GI: normal bowel sounds, non tender, soft Extremities/Musculoskelatal: normal inspection, no calf tenderness, normal capillary refill, no pedal edema Neurologic/Psych: alert, normal mood/affect, oriented x 3, + pertinent finding (grossly nonfocal) Skin: normal color, warm/dry Diagnostics Laboratory Results Results Past 24 Hours Test 10/01/16 14:10 10/01/16 14:25 10/01/16 14:30 10/01/16 14:35 Range/Units White Blood Count 8.43 4.8-10.8 K/uL Red Blood Count 4.51 4.2-5.4 M/uL Hemoglobin 13.0 12.0-16.0 g/dL Hematocrit 38.6 37-47 % Mean Corpuscular Volume 85.6 80-100 fL Mean Corpuscular Hemoglobin 28.8 25-34 pg Mean Corpuscular Hemoglobin Concent 33.7 32-36 g/dl Platelet Count 166 130-400 K/uL Mean Platelet Volume 11.3 7.4-10.4 fL Neutrophils (%) (Auto) 76.3 % Lymphocytes (%) (Auto) 14.9 % Monocytes (%) (Auto) 6.9 % Eosinophils (%) (Auto) 1.4 % Basophils (%) (Auto) 0.1 % Neutrophils # (Auto) 6.43 1.4-6.5 K/uL Lymphocytes # (Auto) 1.26 1.2-3.4 K/uL Monocytes # (Auto) 0.58 0.11-0.59 K/uL Eosinophils # (Auto) 0.12 0-0.5 K/uL Basophils # (Auto) 0.01 0-0.2 K/uL RDW Standard Deviation 48.6 36.4-46.3 fL RDW Coefficient of Variation 15.4 11.5-14.5 % Immature Granulocyte % (Auto) 0.4 % Immature Granulocyte # (Auto) 0.03 0.00-0.02 K/uL Activated Partial Thromboplast Time 29.4 21.0-31.0 SECONDS Partial Thromboplastin Ratio 1.1 Sodium Level 137 136-145 mmol/L Potassium Level 4.2 3.5-5.1 mmol/L Chloride Level 103 98-107 mmol/L Carbon Dioxide Level 22 21-32 mmol/L Anion Gap 12.0 3-11 mmol/L Blood Urea Nitrogen 29 7-18 mg/dl Creatinine 1.80 0.60-1.20 mg/dl Est Creatinine Clear Calc Drug Dose 22.9 ml/min Estimated GFR () 29.0 Estimated GFR (Non- 25.0 BUN/Creatinine Ratio 16.2 10-20 Random Glucose 303 70-99 mg/dl Calcium Level 8.5 8.5-10.1 mg/dl Magnesium Level 1.8 1.8-2.4 mg/dl Total Bilirubin 0.4 0.2-1 mg/dl Direct Bilirubin 0.1 0-0.2 mg/dl Aspartate Amino Transf (AST/SGOT) 22 15-37 U/L Alanine Aminotransferase (ALT/SGPT) 11 12-78 U/L Alkaline Phosphatase 86 45-117 U/L Total Creatine Kinase 36 26-192 U/L Creatine Kinase MB 0.8 0.5-3.6 ng/ml Creatine Kinase MB Ratio 2.2 0-3.0 Total Protein 6.7 6.4-8.2 gm/dl Albumin 2.9 3.4-5.0 gm/dl Beta-Hydroxybutyric Acid 0.88 0.2-2.81 mg/dL Bedside Troponin I 0.010 0-0.045 ng/ml Lactic Acid Level 3.3 0.4-2.0 mmol/L Bedside Lactic Acid Venous 3.50 0.90-1.70 mmol/L Test 10/01/16 15:54 Range/Units Bedside Lactic Acid Venous 2.57 0.90-1.70 mmol/L Microbiology Results 10/01/16 Blood Culture, Received Pending 10/01/16 Blood Culture, Received Pending Diagnostic Radiology HEAD CT NONCONTRAST CT DOSE: HISTORY: headache, low BP TECHNIQUE: Multiaxial CT images of the head were performed without the use of intravenous contrast. Automated exposure control was utilized for this study. Comparison: Head CT 12/14/2013. Findings: The calvarium and skull base are intact. There is no mass, hematoma, midline shift, acute infarct. White matter hypodensity is nonspecific but suggestive of microvascular ischemic change. The ventricles and sulci demonstrate mild age-related involutional changes. Impression: No significant change compared to the prior study. No acute intracranial abnormality. SINUS CT CT DOSE: HISTORY: headache, low BP TECHNIQUE: Multiaxial CT images of the paranasal sinuses were performed and reformatted in the coronal plane without the use of contrast. COMPARISON: Sinus CT 09/06/2015. FINDINGS: Mild mucosal thickening within the left frontoethmoidal recess. The frontal sinuses are clear. There is minimal mucosal thickening within the remaining paranasal sinuses. This is improved in the interval. There are no fluid levels within the paranasal sinuses. The mastoid air cells are clear. The bilateral ostiomeatal units are patent. Mild left nasal septal deviation. The orbits are unremarkable. IMPRESSION: The paranasal sinuses and mastoid air cells are essentially clear. CHEST ONE VIEW PORTABLE CLINICAL HISTORY: Cough. Elevated lactate. COMPARISON STUDY: Chest radiograph and chest CT September 15, 2016. FINDINGS: Lung volumes are normal. No consolidation is identified. There is no evidence of pulmonary edema. Cardiomediastinal silhouette is stable. The appearance of the chest has not significantly changed. IMPRESSION: No acute cardiopulmonary findings. EKG NSR, 79 bpm, possible age indeterminate inferior infarct, nonspecific T wave abnormality in III, no ST abnormalities Impression Assessment and Plan HYPOTENSION Resolved with IVF's (500 mL bolus then started on NSS 125/hour) in ER Does not appear septic (afebrile, no leukocytosis, no tachycardia) Workup for infection- clinically has acute sinusitis; CXR unremarkable; outpatient UA does not appear infected- UC pending; blood cultures pending Hold losartan; continue metoprolol with parameters Continue IVF's at gentle rate 75 cc/hour Monitor in telemetry ACUTE SINUSITIS CT sinuses- the paranasal and mastoid air cells are essentially clear; +mild mucosal thickening within the left frontoethmoidal recess Treated with Zosyn in ER Will do Augmentin 500 mg BID - checked with pharmacy for renal dosing Reports underlying chronic sinusitis- has seen [facility] Continue Flonase and nasal saline irrigation PENELOPE on CKD Cr is 1.8, baseline approx 1.3 Hold Losartan Continue IVF's at gentle rate 75 mL/hour ELEVATED LACTIC ACID Trending down (3.3 ->2.5) Also elevated on prior admission- attributed to kidney dysfunction Will recheck in am DM TYPE 2 Hold oral diabetic medications Insulin sliding scale coverage CAD S/P STENT Stable; denies chest pain; troponin negative Continue beta sumaya, aspirin, Plavix, isosorbide, statin ASTHMA Not in exacerbation Continue home inhalers GERD Now controlled Continue Zantac and Protonix PARKINSON'S DISEASE Continue Sinemet DVT PROPHYLAXIS Heparin SQ Patient seen in collaboration with Dr. Turner. Please see his addendum. Attending: Patient is a 86 yr old female with multiple comorbidities who was recently discharged after being treated for asthma exacerbation and PENELOPE presents with history of frontal headache, lethargy since 3 days duration. Frontal headache is pressure like and is constant associated with nasal discharge. Reports associated chills and myalgia. Denies any fever, dizziness, change in vision, chest pain, SOB, abd pain, change in bowel/bladder habits. She was found to be hypotensive with SBP in 80s and her Cr levels were elevated from baseline. Denies any other relevant history. Physical Exam: Vitals signs as noted above General Appearance:Moderately built and nourished, no apparent distress HEENT: normocephalic, Atraumatic, frontal sinus tenderness Eyes: normal inspection, EOMI, PERRLA, Anicteric Neck: supple, no JVD, Trachea midline Respiratory/Chest: Normal Vesicular breath sounds, CTA, No accessory muscle use Cardiovascular: S1, S2, NSR, + systolic murmur Abdomen/GI:Soft, protuberant, Non tender, Bowel sounds present Extremities/Musculoskeletal:normal inspection, no calf tenderness, cyanosis, clubbing, edema Neurologic/Psych:AAOX3, grossly no focal neurological deficits Skin: normal color, warm Assessment and Plan: Hypotension/PENELOPE on CKD: Likely prerenal Currently BP improved Baseline Cr: 1.3 IV fluids Hold Losartan 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 Please review for detailed A&P as above. VTE Prophylaxis VTE Risk Assessment Done? Y/N: Yes Risk Level: Moderate
[2016-10-01 18:24] VITALS: Ht 165.1 cm; Wt 75.1 kg
[2016-10-01 21:02] LABS: HEMATOCRIT 34.6 % (37-47); MEAN CELL VOLUME 84.8 fL (80-100); MEAN CORPUSCULAR HEMOGLOBIN 28.7 pg (25-34); MEAN CORPUSCULAR HGB CONC 33.8 g/dl (32-36); MEAN PLATELET VOLUME 10.8 fL (7.4-10.4); PLATELET COUNT 123 K/uL (130-400); RED BLOOD COUNT 4.08 M/uL (4.2-5.4); WHITE BLOOD COUNT 6.24 K/uL (4.8-10.8)
[2016-10-01 21:16] LABS: PROTHROMBIN TIME (PATIENT) 10.5 SECONDS (9.0-12.0)
[2016-10-01 21:19] VITALS: BP 108/54; PULSE 78
[2016-10-01 21:20] LABS: INFLUENZA A PCR Neg for Influ A (NEG); INFLUENZA B PCR Neg for Influ B (NEG)
[2016-10-01] MEDS: SODIUM CHLORIDE 0.9% 1000ML 1,000 ML IV SCH (21:22)
[2016-10-01] MEDS: AMOXICILLIN/CLAVULANATE TAB 500 MG TAB PO SCH (21:23)
[2016-10-01] MEDS: CARBAMIDE PEROXIDE 6.5% 15 ML BTL OT SCH (21:23)
[2016-10-01] MEDS: BUDESONIDE/FORMOTEROL FUMARATE 160/4.5 60 PUFFS/INHALER INH SCH (21:24)
[2016-10-01] MEDS: FLUTICASONE PROPIONATE NA SPR 16 GM BTL NAE SCH (21:25)
[2016-10-01] MEDS: CARBIDOPA/LEVODOPA 25/100MG TAB PO SCH (21:26)
[2016-10-01] MEDS: GABAPENTIN 100 MG CAP PO SCH (21:27)
[2016-10-01] MEDS: METOPROLOL TARTRATE 25 MG TAB PO SCH (21:27)
[2016-10-01] MEDS: RANITIDINE HCL 150 MG TAB PO SCH (21:28)
[2016-10-01] MEDS: HEPARIN SOD 5000 UNIT/0.5 ML CARP SQ SCH (21:31)
[2016-10-01] MEDS: INSULIN ASPART 100 UNITS/ML 3 ML PEN SC SCH (21:31)
[2016-10-01 22:16] LABS: URINE APPEARANCE CLEAR (CLEAR); URINE BILIRUBIN NEG (NEG); URINE COLOR YELLOW; URINE NITRITE NEG (NEG); URINE SPECIFIC GRAVITY 1.006 (1.000-1.030); UROBILINOGEN NEG (NEG); ZZUR CULT IF INDIC CLEAN CATCH NO
[2016-10-01 22:17] LABS: MANUAL MICROSCOPIC REQUIRED? NO; REVIEW REQ? NO
[2016-10-02] VITALS (7 sets, daily range): BP systolic 107–167; BP diastolic 55–79; PULSE 82–97; TEMP 36.7–37.9; O2SAT 90–97
[2016-10-02] MEDS: HEPARIN SOD 5000 UNIT/0.5 ML CARP SQ SCH ×3 (05:51→21:35)
[2016-10-02] MEDS: LEVOTHYROXINE 125 MCG TAB PO SCH (05:53)
[2016-10-02] MEDS: INSULIN ASPART 100 UNITS/ML 3 ML PEN SC SCH ×4 (07:00→21:35)
[2016-10-02] MEDS: CARBIDOPA/LEVODOPA 25/100MG TAB PO SCH ×4 (07:55→20:21)
[2016-10-02] MEDS: CHOLECALCIFEROL 1000 INTER.UNIT TAB PO SCH (07:55)
[2016-10-02] MEDS: RANITIDINE HCL 150 MG TAB PO SCH ×2 (07:55→20:19)
[2016-10-02] MEDS: ASPIRIN 81 MG ECTAB PO SCH (07:55)
[2016-10-02] MEDS: ISOSORBIDE MONONITRATE 30 MG TABCR PO SCH (07:56)
[2016-10-02] MEDS: SODIUM CHLORIDE 0.65% NA SOLN 45 ML (OCEAN) NAE SCH (07:56)
[2016-10-02] MEDS: DULOXETINE HCL 20 MG CAP PO SCH (07:56)
[2016-10-02] MEDS: AMOXICILLIN/CLAVULANATE TAB 500 MG TAB PO SCH ×2 (07:56→18:15)
[2016-10-02] MEDS: FLUTICASONE PROPIONATE NA SPR 16 GM BTL NAE SCH ×2 (07:57→20:17)
[2016-10-02] MEDS: CLOPIDOGREL BISULFATE 75 MG TAB PO SCH (07:57)
[2016-10-02] MEDS: BUDESONIDE/FORMOTEROL FUMARATE 160/4.5 60 PUFFS/INHALER INH SCH ×2 (07:57→20:17)
[2016-10-02] MEDS: GABAPENTIN 100 MG CAP PO SCH ×3 (07:58→20:21)
[2016-10-02] MEDS: PANTOprazole SOD 40 MG TAB PO SCH (07:58)
[2016-10-02] MEDS: CARBAMIDE PEROXIDE 6.5% 15 ML BTL OT SCH ×2 (07:58→20:17)
[2016-10-02] MEDS: ATORVASTATIN 20 MG TAB PO SCH (07:59)
[2016-10-02] MEDS: MAGNESIUM OXIDE 400 MG TAB PO SCH (07:59)
[2016-10-02] MEDS: METOPROLOL TARTRATE 25 MG TAB PO SCH ×2 (07:59→20:18)
[2016-10-02 09:50] LABS: HEMATOCRIT 32.7 % (37-47); MEAN CELL VOLUME 84.9 fL (80-100); MEAN CORPUSCULAR HEMOGLOBIN 28.8 pg (25-34); MEAN CORPUSCULAR HGB CONC 33.9 g/dl (32-36); MEAN PLATELET VOLUME 10.8 fL (7.4-10.4); PLATELET COUNT 115 K/uL (130-400); RED BLOOD COUNT 3.85 M/uL (4.2-5.4)
[2016-10-02 10:10] LABS: BUN/CREATININE RATIO 13.1 (10-20); CALCIUM 8.1 mg/dl (8.5-10.1); CREATININE 1.5 mg/dl (0.60-1.20); MAGNESIUM 1.7 mg/dl (1.8-2.4); POTASSIUM 4.3 mmol/L (3.5-5.1)
[2016-10-02] MEDS: SODIUM CHLORIDE 0.9% 1000ML 1,000 ML IV SCH (13:17)
--- NOTE | 2016-10-02 14:43 | Progress Note ---
Medicine Progress Note Date & Time of Visit: Oct 02, 2016 at 14:34. Subjective patient states she feels improved today headache is better less weak denies fever/chills, cough, abdominal pain, problems with urination or BM denies other symptoms Objective Last 8 Hrs Date Time Temp Pulse Resp B/P Pulse Ox O2 Delivery O2 Flow Rate FiO2 10/02/16 12:00 Room Air 10/02/16 11:53 37.0 93 16 115/55 94 10/02/16 08:00 Room Air 10/02/16 07:27 37.1 86 18 167/79 97 Physical Exam: General- oriented x 3, not in distress, speaks in sentences , no effort Head- atraumatic Eyes- anicteric Neck- supple, no JVD Lungs- clear to auscultation b/l Heart-normal rate, regular rhythm; no murmurs Abdomen- normal bowel sounds, soft, nontender Extremities- no pretibial edema, no calf tenderness Neuro- alert, oriented x 3;no gross focal deficits Skin- warm & dry Laboratory Results: Last 24 Hours Test 10/01/16 14:35 10/01/16 15:54 10/01/16 19:14 10/01/16 19:33 Bedside Lactic Acid Venous 3.50 mmol/L 2.57 mmol/L Bedside Glucose 179 mg/dl Influenza Type A (RT-PCR) Neg for Influ A Influenza Type B (RT-PCR) Neg for Influ B Test 10/01/16 20:47 10/01/16 21:47 10/02/16 06:54 10/02/16 09:43 White Blood Count 6.24 K/uL 6.10 K/uL Red Blood Count 4.08 M/uL 3.85 M/uL Hemoglobin 11.7 g/dL 11.1 g/dL Hematocrit 34.6 % 32.7 % Mean Corpuscular Volume 84.8 fL 84.9 fL Mean Corpuscular Hemoglobin 28.7 pg 28.8 pg Mean Corpuscular Hemoglobin Concent 33.8 g/dl 33.9 g/dl RDW Standard Deviation 48.3 fL 47.8 fL RDW Coefficient of Variation 15.4 % 15.4 % Platelet Count 123 K/uL 115 K/uL Mean Platelet Volume 10.8 fL 10.8 fL Prothrombin Time 10.5 SECONDS Prothromb Time International Ratio 1.0 Urine Color YELLOW Urine Appearance CLEAR Urine pH 5.0 Urine Specific [place] 1.006 Urine Protein NEG Urine Glucose (UA) NEG Urine Ketones NEG Urine Occult Blood NEG Urine Nitrite NEG Urine Bilirubin NEG Urine Urobilinogen NEG Urine Leukocyte Esterase NEG Bedside Glucose 70 mg/dl Sodium Level 137 mmol/L Potassium Level 4.3 mmol/L Chloride Level 104 mmol/L Carbon Dioxide Level 23 mmol/L Anion Gap 10.0 mmol/L Blood Urea Nitrogen 20 mg/dl Creatinine 1.50 mg/dl Est Creatinine Clear Calc Drug Dose 27.3 ml/min Estimated GFR () 36.2 Estimated GFR (Non- 31.2 BUN/Creatinine Ratio 13.1 Random Glucose 239 mg/dl Lactic Acid Level 2.3 mmol/L Calcium Level 8.1 mg/dl Magnesium Level 1.7 mg/dl Test 10/02/16 11:11 10/02/16 14:19 Bedside Glucose 227 mg/dl Date/Time Source Procedure Growth Status 10/01/16 15:50 Blood Blood Culture Pending Received Assessment & Plan HYPOTENSION, Resolving - no signs of sepsis - possible dehydration given IV fluid bolus now on NSS 75cc/hr BP improving - Losartan held - blood cultures pending PENELOPE on CKD Cr is 1.8, baseline approx 1.3 Hold Losartan Continue IVF's at gentle rate 75 mL/hour - crea improving, now at 1.[address] sinuses- the paranasal and mastoid air cells are essentially clear; +mild mucosal thickening within the left frontoethmoidal recess Treated with Zosyn in ER - improving continue Augment Continue Flonase and nasal saline irrigation ELEVATED LACTIC ACID Trending down (3.3 ->2.5) Also elevated on prior admission- attributed to kidney dysfunction - improving recheck this PM DM TYPE 2 Hold oral diabetic medications Insulin sliding scale coverage CAD S/P STENT Stable; denies chest pain; troponin negative Continue beta sumaya, aspirin, Plavix, isosorbide, statin ASTHMA stable GERD Continue Zantac and Protonix PARKINSON'S DISEASE Continue Sinemet DVT PROPHYLAXIS Heparin SQ Disposition pending possible d/c home tomorrow Current Inpatient Medications: Current Inpatient Medications Medications (Trade) Dose Ordered Sig/Nilsa Route Start Time Stop Time Status Last Admin Dose Admin Heparin Sodium (Porcine) (Heparin Sq 5000 Unit/0.5ml) 5,000 unit Q8 SQ 10/01/16 22:00 10/31/16 21:59 10/02/16 05:51 5,000 UNIT Acetaminophen (Tylenol Tab) 650 mg Q4H PRN PO 10/01/16 16:30 10/31/16 16:29 Ondansetron HCl (Zofran Inj) 4 mg Q6H PRN IV 10/01/16 16:30 10/31/16 16:29 Carbamide Peroxide ([place] Removal Soln) 5 drops BID OT 10/01/16 21:00 10/05/16 20:59 10/02/16 07:58 5 DROPS Insulin Aspart (novoLOG ASPART) SLIDING SCALE If C... ACHS SC 10/01/16 21:00 10/31/16 20:59 10/02/16 13:20 4 UNITS Glucose (Glucose 40% Gel) 15-30 GRAMS 15 GRAMS... UD PRN PO 10/01/16 16:30 10/31/16 16:29 Glucose (Glucose Chew Tab) 4-8 Tablets 4 Tabl... UD PRN PO 10/01/16 16:30 10/31/16 16:29 Dextrose (Dextrose 50% 50ML Syringe) 25-50ML OF 50% DW IV FOR... UD PRN IV 10/01/16 16:30 10/31/16 16:29 Glucagon 1 mg 1 mg UD PRN SQ 10/01/16 16:30 10/31/16 16:29 Sodium Chloride (Nss 1000ml) 1,000 ml @ 75 mls/hr [id number] IV 10/01/16 20:30 10/31/16 20:29 10/02/16 13:17 75 MLS/HR Amoxicillin/ Clavulanate Potassium (Augmentin Tab) 500 mg BIDM PO 10/01/16 21:00 10/11/16 20:59 10/02/16 07:56 500 MG Albuterol (Ventolin Hfa Inhaler) 2 puffs QID PRN INH 10/01/16 17:15 10/31/16 17:14 Aspirin (Ecotrin Tab) 81 mg DAILY PO 10/02/16 09:00 11/01/16 08:59 10/02/16 07:55 81 MG Atorvastatin Calcium (Lipitor Tab) 40 mg DAILY PO 10/02/16 09:00 11/01/16 08:59 10/02/16 07:59 40 MG Benzonatate ([place] Cap) 100 mg Q8H PRN PO 10/01/16 17:15 10/31/16 17:14 Budesonide/ Formoterol Fumarate (Symbicort 160/ 4.5 Inh) 2 puffs BID INH 10/01/16 21:00 10/31/16 20:59 10/02/16 07:57 2 PUFFS Cholecalciferol (Vitamin D Tab) 2,000 inter.unit DAILY PO 10/02/16 09:00 11/01/16 08:59 10/02/16 07:55 2,000 INTER.UNIT Clopidogrel Bisulfate (plAVix TAB) 75 mg QAM PO 10/02/16 09:00 11/01/16 08:59 10/02/16 07:57 75 MG Duloxetine HCl (Cymbalta Cap) 20 mg DAILY PO 10/02/16 09:00 11/01/16 08:59 10/02/16 07:56 20 MG Fluticasone Propionate (Flonase Nasal [place]) 1 sprays BID JOSE 10/01/16 21:00 10/31/16 20:59 10/02/16 07:57 1 SPRAYS Gabapentin (Neurontin Cap) 200 mg TID PO 10/01/16 21:00 10/31/16 20:59 10/02/16 13:17 200 MG Codeine Phosphate/ Guaifenesin (Robitussin-AC Sugar Free Syrup) 5 ml Q6H PRN PO 10/01/16 17:15 10/31/16 17:14 Albuterol/ Ipratropium (Duoneb) 3 ml Q4H PRN INH 10/01/16 17:15 10/31/16 17:14 Isosorbide Mononitrate (Imdur Ext Rel Tab) 30 mg QAM PO 10/02/16 09:00 11/01/16 08:59 10/02/16 07:56 30 MG Carbidopa/Levodopa (Sinemet 25/ 100MG Tab) 1 tab QID PO 10/01/16 21:00 10/31/16 20:59 10/02/16 13:16 1 TAB Levothyroxine Sodium (Synthroid Tab) 125 mcg DAILYBB PO 10/02/16 06:00 11/01/16 05:59 10/02/16 05:53 125 MCG Lorazepam (Ativan Tab) 0.5 mg BID PRN PO 10/01/16 17:15 10/31/16 17:14 Metoprolol Tartrate (Lopressor Tab) 25 mg BID PO 10/01/16 21:00 10/31/16 20:59 10/02/16 07:59 25 MG Nitroglycerin (Nitrostat Tab) 0.4 mg UD PRN SL 10/01/16 17:15 10/31/16 17:14 Oxycodone HCl (Roxicodone Immediate Rel Tab) 5 mg Q4H PRN PO 10/01/16 17:15 10/15/16 17:14 10/01/16 21:43 5 MG Pantoprazole Sodium (Protonix Tab) 40 mg QAM PO 10/02/16 09:00 11/01/16 08:59 10/02/16 07:58 40 MG Ranitidine HCl (zANTac TAB) 150 mg BID PO 10/01/16 21:00 10/31/16 20:59 10/02/16 07:55 150 MG Magnesium Oxide (Mag-Ox Tab) 400 mg DAILY PO 10/02/16 09:00 11/01/16 08:59 10/02/16 07:59 400 MG Sodium Chloride ([place] Nasal [place]) 1 sprays DAILY JOSE 10/02/16 09:00 11/01/16 08:59 10/02/16 07:56 1 SPRAYS Glucose (Glucose 40% Gel) 15-30 GRAMS 15 GRAMS... UD PRN PO 10/01/16 20:30 10/31/16 20:29 Glucose (Glucose Chew Tab) 4-8 Tablets 4 Tabl... UD PRN PO 10/01/16 20:30 10/31/16 20:29 Dextrose (Dextrose 50% 50ML Syringe) 25-50ML OF 50% DW IV FOR... UD PRN IV 10/01/16 20:30 10/31/16 20:29 Glucagon (Glucagon Inj) 1 mg UD PRN SQ 10/01/16 20:30 10/31/16 20:29
[2016-10-03] MEDS ORDERED: AMOXICILLIN/CLAVULANATE TAB 500 MG TAB PO SCH
[2016-10-03] MEDS: SODIUM CHLORIDE 0.9% 1000ML 1,000 ML IV SCH (02:08)
[2016-10-03] MEDS: LEVOTHYROXINE 125 MCG TAB PO SCH (06:21)
[2016-10-03] MEDS: HEPARIN SOD 5000 UNIT/0.5 ML CARP SQ SCH (06:22)
[2016-10-03 07:22] VITALS: BP 155/73; PULSE 92; TEMP 37.6; O2SAT 93
[2016-10-03 08:00] VITALS: O2SAT 93
[2016-10-03] MEDS: FLUTICASONE PROPIONATE NA SPR 16 GM BTL NAE SCH (08:29)
[2016-10-03] MEDS: BUDESONIDE/FORMOTEROL FUMARATE 160/4.5 60 PUFFS/INHALER INH SCH (08:29)
[2016-10-03] MEDS: SODIUM CHLORIDE 0.65% NA SOLN 45 ML (OCEAN) NAE SCH (08:30)
[2016-10-03] MEDS: CARBAMIDE PEROXIDE 6.5% 15 ML BTL OT SCH (08:30)
[2016-10-03] MEDS: AMOXICILLIN/CLAVULANATE TAB 500 MG TAB PO SCH ×2 (08:30→15:43)
[2016-10-03] MEDS: ATORVASTATIN 20 MG TAB PO SCH (08:31)
[2016-10-03] MEDS: CLOPIDOGREL BISULFATE 75 MG TAB PO SCH (08:31)
[2016-10-03] MEDS: CHOLECALCIFEROL 1000 INTER.UNIT TAB PO SCH (08:31)
[2016-10-03] MEDS: MAGNESIUM OXIDE 400 MG TAB PO SCH (08:31)
[2016-10-03] MEDS: RANITIDINE HCL 150 MG TAB PO SCH (08:32)
[2016-10-03] MEDS: ISOSORBIDE MONONITRATE 30 MG TABCR PO SCH (08:32)
[2016-10-03] MEDS: CARBIDOPA/LEVODOPA 25/100MG TAB PO SCH ×2 (08:32→12:47)
[2016-10-03] MEDS: ASPIRIN 81 MG ECTAB PO SCH (08:33)
[2016-10-03] MEDS: GABAPENTIN 100 MG CAP PO SCH ×2 (08:33→12:46)
[2016-10-03] MEDS: METOPROLOL TARTRATE 25 MG TAB PO SCH (08:34)
[2016-10-03] MEDS: PANTOprazole SOD 40 MG TAB PO SCH (08:34)
[2016-10-03] MEDS: DULOXETINE HCL 20 MG CAP PO SCH (08:34)
[2016-10-03] MEDS: INSULIN ASPART 100 UNITS/ML 3 ML PEN SC SCH ×2 (08:55→12:49)
[2016-10-03 10:51] LABS: BASO % 0.6 %; BASO ABS # 0.04 K/uL (0-0.2); COMPLETE YES; EOS % 2.3 %; HEMATOCRIT 34.3 % (37-47); IG% 0.3 %; LYMPH % 12.4 %; LYMPH ABS # 0.82 K/uL (1.2-3.4); MEAN CELL VOLUME 86.2 fL (80-100); MEAN CORPUSCULAR HEMOGLOBIN 28.9 pg (25-34); MEAN CORPUSCULAR HGB CONC 33.5 g/dl (32-36); MONO % 6.1 %; NEUT % 78.3 %; PLATELET COUNT 118 K/uL (130-400); RED BLOOD COUNT 3.98 M/uL (4.2-5.4)
[2016-10-03 11:18] LABS: BUN/CREATININE RATIO 10.4 (10-20); CALCIUM 8.8 mg/dl (8.5-10.1); CREATININE 1.3 mg/dl (0.60-1.20); POTASSIUM 4.7 mmol/L (3.5-5.1)
--- NOTE | 2016-10-03 15:24 | Progress Note ---
Medicine Progress Note Date & Time of Visit: Oct 03, 2016 at 15:17. Subjective patient states she feels better overall headache resolved has occasional rhinorrhea no dizziness, headache, chest pain, palpitations no other symptoms states she is ready and would like to be discharged today Objective Last 8 Hrs Date Time Temp Pulse Resp B/P Pulse Ox O2 Delivery O2 Flow Rate FiO2 10/03/16 08:00 93 Room Air 2.0 10/03/16 08:00 93 Room Air 10/03/16 07:22 37.6 92 18 155/73 93 Room Air Physical Exam: General- oriented x 3, not in distress, speaks in sentences , no effort Neck- no JVD Lungs- clear to auscultation bilaterally Heart-normal rate, regular rhythm; no murmurs Abdomen- normal bowel sounds, soft, nontender Extremities- no pretibial edema, no calf tenderness Neuro- alert, oriented x 3;no gross focal deficits Skin- warm & dry Laboratory Results: Last 24 Hours Test 10/02/16 16:52 10/02/16 20:06 10/03/16 08:17 10/03/16 10:35 Bedside Glucose 115 mg/dl 195 mg/dl 122 mg/dl White Blood Count 6.60 K/uL Red Blood Count 3.98 M/uL Hemoglobin 11.5 g/dL Hematocrit 34.3 % Mean Corpuscular Volume 86.2 fL Mean Corpuscular Hemoglobin 28.9 pg Mean Corpuscular Hemoglobin Concent 33.5 g/dl Platelet Count 118 K/uL Mean Platelet Volume 11.0 fL Neutrophils (%) (Auto) 78.3 % Lymphocytes (%) (Auto) 12.4 % Monocytes (%) (Auto) 6.1 % Eosinophils (%) (Auto) 2.3 % Basophils (%) (Auto) 0.6 % Neutrophils # (Auto) 5.17 K/uL Lymphocytes # (Auto) 0.82 K/uL Monocytes # (Auto) 0.40 K/uL Eosinophils # (Auto) 0.15 K/uL Basophils # (Auto) 0.04 K/uL RDW Standard Deviation 48.2 fL RDW Coefficient of Variation 15.2 % Immature Granulocyte % (Auto) 0.3 % Immature Granulocyte # (Auto) 0.02 K/uL Sodium Level 137 mmol/L Potassium Level 4.7 mmol/L Chloride Level 102 mmol/L Carbon Dioxide Level 26 mmol/L Anion Gap 9.0 mmol/L Blood Urea Nitrogen 14 mg/dl Creatinine 1.30 mg/dl Est Creatinine Clear Calc Drug Dose 31.5 ml/min Estimated GFR () 43.0 Estimated GFR (Non- 37.1 BUN/Creatinine Ratio 10.4 Random Glucose 234 mg/dl Calcium Level 8.8 mg/dl Test 10/03/16 11:38 Bedside Glucose 203 mg/dl Assessment & Plan HYPOTENSION, Resolved, LIKELY FROM DEHYDRATION - no signs of sepsis - blood cultures negative given IV fluid bolus BP improved PENELOPE on CKD Cr is 1.8, baseline approx 1.3 IV fluids given , Losartan held crea flori to baseline 1.3 - monitor as outpatient ACUTE SINUSITIS CT sinuses- the paranasal and mastoid air cells are essentially clear; +mild mucosal thickening within the left frontoethmoidal recess Treated with Zosyn in ER - improving - given Augmentin BID x 2 days discharge on 5 more days of Augmentin BID Continue Flonase and nasal saline irrigation ELEVATED LACTIC ACID improved from 3.3 to 2.0 MILD THROMBOCYTOPENIA platelets 166 --> 118 from underlying infection? monitor as outpatient DM TYPE 2 resume usual medications CAD S/P STENT Stable; denies chest pain; troponin negative Continue beta sumaya, aspirin, Plavix, isosorbide, statin ASTHMA stable GERD Continue Zantac and Protonix PARKINSON'S DISEASE Continue Sinemet DVT PROPHYLAXIS Heparin SQ given Disposition d/c home today ff up with PCP in 3-5 days Current Inpatient Medications: Current Inpatient Medications Medications (Trade) Dose Ordered Sig/Nilsa Route Start Time Stop Time Status Last Admin Dose Admin Heparin Sodium (Porcine) (Heparin Sq 5000 Unit/0.5ml) 5,000 unit Q8 SQ 10/01/16 22:00 10/31/16 21:59 10/03/16 06:22 5,000 UNIT Acetaminophen (Tylenol Tab) 650 mg Q4H PRN PO 10/01/16 16:30 10/31/16 16:29 Ondansetron HCl (Zofran Inj) 4 mg Q6H PRN IV 10/01/16 16:30 10/31/16 16:29 Carbamide Peroxide (Earwax Removal Soln) 5 drops BID OT 10/01/16 21:00 10/05/16 20:59 10/03/16 08:30 5 DROPS Insulin Aspart (novoLOG ASPART) SLIDING SCALE If C... ACHS SC 10/01/16 21:00 10/31/16 20:59 10/03/16 12:49 4 UNITS Glucose (Glucose 40% Gel) 15-30 GRAMS 15 GRAMS... UD PRN PO 10/01/16 16:30 10/31/16 16:29 Glucose (Glucose Chew Tab) 4-8 Tablets 4 Tabl... UD PRN PO 10/01/16 16:30 10/31/16 16:29 Dextrose (Dextrose 50% 50ML Syringe) 25-50ML OF 50% DW IV FOR... UD PRN IV 10/01/16 16:30 10/31/16 16:29 Glucagon (Glucagon Inj) 1 mg UD PRN SQ 10/01/16 16:30 10/31/16 16:29 Amoxicillin/ Clavulanate Potassium (Augmentin Tab) 500 mg BIDM PO 10/01/16 21:00 10/11/16 20:59 10/03/16 08:30 500 MG Albuterol (Ventolin Hfa Inhaler) 2 puffs QID PRN INH 10/01/16 17:15 10/31/16 17:14 Aspirin (Ecotrin Tab) 81 mg DAILY PO 10/02/16 09:00 11/01/16 08:59 10/03/16 08:33 81 MG Atorvastatin Calcium (Lipitor Tab) 40 mg DAILY PO 10/02/16 09:00 11/01/16 08:59 10/03/16 08:31 40 MG Benzonatate (Tessalon Perles Cap) 100 mg Q8H PRN PO 10/01/16 17:15 10/31/16 17:14 Budesonide/ Formoterol Fumarate (Symbicort 160/ 4.5 Inh) 2 puffs BID INH 10/01/16 21:00 10/31/16 20:59 10/03/16 08:29 2 PUFFS Cholecalciferol (Vitamin D Tab) 2,000 inter.unit DAILY PO 10/02/16 09:00 11/01/16 08:59 10/03/16 08:31 2,000 INTER.UNIT Clopidogrel Bisulfate (plAVix TAB) 75 mg QAM PO 10/02/16 09:00 11/01/16 08:59 10/03/16 08:31 75 MG Duloxetine HCl (Cymbalta Cap) 20 mg DAILY PO 10/02/16 09:00 11/01/16 08:59 10/03/16 08:34 20 MG Fluticasone Propionate (Flonase Nasal [place]) 1 sprays BID JOSE 10/01/16 21:00 10/31/16 20:59 10/03/16 08:29 1 SPRAYS Gabapentin (Neurontin Cap) 200 mg TID PO 10/01/16 21:00 10/31/16 20:59 10/03/16 12:46 200 MG Codeine Phosphate/ Guaifenesin (Robitussin-AC Sugar Free Syrup) 5 ml Q6H PRN PO 10/01/16 17:15 10/31/16 17:14 Albuterol/ Ipratropium (Duoneb) 3 ml Q4H PRN INH 10/01/16 17:15 10/31/16 17:14 Isosorbide Mononitrate (Imdur Ext Rel Tab) 30 mg QAM PO 10/02/16 09:00 11/01/16 08:59 10/03/16 08:32 30 MG Carbidopa/Levodopa (Sinemet 25/ 100MG Tab) 1 tab QID PO 10/01/16 21:00 10/31/16 20:59 10/03/16 12:47 1 TAB Levothyroxine Sodium (Synthroid Tab) 125 mcg DAILYBB PO 10/02/16 06:00 11/01/16 05:59 10/03/16 06:21 125 MCG Lorazepam (Ativan Tab) 0.5 mg BID PRN PO 10/01/16 17:15 10/31/16 17:14 Metoprolol Tartrate (Lopressor Tab) 25 mg BID PO 10/01/16 21:00 10/31/16 20:59 10/03/16 08:34 25 MG Nitroglycerin (Nitrostat Tab) 0.4 mg UD PRN SL 10/01/16 17:15 10/31/16 17:14 Oxycodone HCl (Roxicodone Immediate Rel Tab) 5 mg Q4H PRN PO 10/01/16 17:15 10/15/16 17:14 10/01/16 21:43 5 MG Pantoprazole Sodium (Protonix Tab) 40 mg QAM PO 10/02/16 09:00 11/01/16 08:59 10/03/16 08:34 40 MG Ranitidine HCl (zANTac TAB) 150 mg BID PO 10/01/16 21:00 10/31/16 20:59 10/03/16 08:32 150 MG Magnesium Oxide (Mag-Ox Tab) 400 mg DAILY PO 10/02/16 09:00 11/01/16 08:59 10/03/16 08:31 400 MG Sodium Chloride ([place] Nasal [place]) 1 sprays DAILY JOSE 10/02/16 09:00 11/01/16 08:59 10/03/16 08:30 1 SPRAYS Glucose (Glucose 40% Gel) 15-30 GRAMS 15 GRAMS... UD PRN PO 10/01/16 20:30 10/31/16 20:29 Glucose (Glucose Chew Tab) 4-8 Tablets 4 Tabl... UD PRN PO 10/01/16 20:30 10/31/16 20:29 Dextrose (Dextrose 50% 50ML Syringe) 25-50ML OF 50% DW IV FOR... UD PRN IV 10/01/16 20:30 10/31/16 20:29 Glucagon (Glucagon Inj) 1 mg UD PRN SQ 10/01/16 20:30 10/31/16 20:29
[2016-10-03 15:26] VITALS: BP 155/73; PULSE 92; TEMP 37.6; O2SAT 93
[2016-10-03] MEDS ORDERED: AMOX1TAB42 PO (15:31)
--- NOTE | 2016-10-03 15:38 | Discharge Instructions ---
Discharge Instructions Admission Reason for Admission: Hypotension Discharge Discharge Diagnosis / Problem: Dehydration, Sinusitis Discharge Goals Goal(s): Diagnostic testing, Therapeutic intervention Activity Recommendations Activity Limitations: as noted below (no heavy exertion until re-evaluated by Primary Care Physician) . Instructions / Follow-Up Instructions / Follow-Up PLEASE CALL YOUR PRIMARY CARE PHYSICIAN IMMEDIATELY IF WITH RECURRENCE OF SYMPTOMS. WEAKNESS, DIZZINESS. ENSURE ADEQUATE DAILY FLUID INTAKE. FOLLOW UP WITH DR. CALDERON ON Tuesday10/05/16 AT 10:50AM. Current Hospital Diet Patient's current hospital diet: AHA Diet (Heart Healthy), Diabetes Type 2 Diet Discharge Diet Recommended Diet: AHA Diet (Heart Healthy), Diabetes Type 2 Diet Pending Studies Studies pending at discharge: yes List of pending studies: REPEAT BLOOD WORK - CBC AND PRP Laboratory Results Lipid Panel Test 07/27/16 08:45 Range/Units Triglycerides Level 294 H 0-150 mg/dl Cholesterol Level 230 H 0-200 mg/dl HDL Cholesterol 42 mg/dl Cholesterol/HDL Ratio 5.5 LDL Cholesterol, Calculated 129 mg/dl Medical Emergencies . Who to Call and When: Medical Emergencies: If at any time you feel your situation is an emergency, please call 911 immediately. . Non-Emergent Contact Non-Emergency issues call your: Primary Care Provider Call Non-Emergent contact if: you have a fever, your pain is not controlled . Past History Medical & Surgical History: (1) Hypothyroidism (2) Benign hypertension (3) Diabetes mellitus type 2 (4) Migraine headache (5) Parkinson's disease (6) Dyslipidemia (7) Pulmonary nodule (8) GERD (gastroesophageal reflux disease) (9) Arrhythmia (10) COPD (chronic obstructive pulmonary disease) (11) Asthma (12) H/O non-ST elevation myocardial infarction (NSTEMI) (13) CAD (coronary artery disease) (14) CKD (chronic kidney disease), stage III (15) TIA (transient ischemic attack) (16) Status post hysterectomy (17) Status post cholecystectomy (18) Status post appendectomy (19) S/P tonsillectomy and adenoidectomy (20) H/o cervical laminectomy (21) History of lumbar surgery . "Provider Documentation" section prepared by Everett Schuler. VTE Core Measure Inpt VTE Proph given/why not?: Unfractionated heparin SQ
--- NOTE | 2016-10-03 15:42 | Discharge Summary ---
Discharge Summary Admission Date: Oct 01, 2016 at 16:20 Discharge Date: Oct 03, 2016 Discharge Disposition: Home Principal Diagnosis: HYPOTENSION, Resolved, LIKELY FROM DEHYDRATION Secondary Diagnoses/Problems: PLEASE REFER TO HOSPITAL COURSE BELOW. Pending Studies/Follow-Up: PLEASE REPEAT CBC AND PRP (RE: MILD THROMBOCYTOPENIA, ACUTE RENAL FAILURE) Medication Reconciliation New Medications: Amoxicillin & Pot Clavulanate (Amoxicillin/Clavulanate P) 1 Tab Tab 500 MG PO BIDM for 5 Days, #10 TAB 0 Refills Continued Medications: Albuterol Inhaler (Ventolin Inhaler) Aers 2 PUFFS INH QID PRN for Wheezing, #5 INHALER Aspirin (Aspirin Chewable) 81 Mg Chew 81 MG PO DAILY Atorvastatin (Lipitor) 40 Mg Tab 40 MG PO DAILY, TAB Benzonatate (Benzonatate) 100 Mg Cap 100 MG PO Q8H PRN for Cough, #20 CAP Budesonide/Formoterol Fumarate (Symbicort 160-4.5 Mcg/Act) 60 Puffs/Inhaler Aero 2 PUFFS INH BID for 30 Days, 2 Refills Cholecalciferol (Vitamin D) 1,000 Inter.unit Tab 2000 UNITS PO DAILY, TAB Clopidogrel Bisulfate (Clopidogrel) 75 Mg Tab 75 MG PO QAM for 30 Days, #30 TAB 6 Refills Duloxetine HCl (Cymbalta) 20 Mg Cap 1 CAP PO DAILY for 30 Days, #30 CAP 2 Refills Fluticasone Propionate (Nasal) (Flonase Allergy Relief) 50 Mcg/Act Spr 1 SPRAY JOSE BID Gabapentin (Neurontin) 100 Mg Cap 200 MG PO TID Glipizide (Glipizide) 5 Mg Tab 5 MG PO DAILY, #30 1 Refill Guaifenesin/Codeine (Robitussin-Ac Syrup) Syrp 5 ML PO Q6H PRN for Cough for 6 Days, #120 ML 1 Refill Ipratropium-Albuterol (Duoneb) 3 Ml Nebu 1 TREATMENT INH Q4H PRN for SOB/Wheezing, #1 INHA 3 Refills Isosorbide Mononitrate (Isosorbide Mononitrate ER) 30 Mg Tabcr 30 MG PO QAM for 30 Days, #30 TABS 6 Refills Levodopa/Carbidopa (Sinemet 25MG/100MG) 1 Ea Tab 1 TABLET PO QID Levothyroxine Sodium (Synthroid) 125 Mcg Tab 125 MCG PO HS for 30 Days, #30 TAB 6 Refills Lorazepam (Lorazepam) 0.5 Mg Tab 0.5 MG PO BID PRN for Anxiety, #30 TAB Losartan Potassium (Losartan Potassium) 25 Mg Tab 25 MG PO QAM for 30 Days, #30 TAB 6 Refills Magnesium Oxide (Magnesium) 500 Mg Cap 500 MG PO DAILY Metoprolol Tartrate (Lopressor) 25 Mg Tab 25 MG PO BID for 30 Days, #60 TAB 6 Refills Nitroglycerin (Nitrostat) 0.4 Mg/1 Tab Subl 0.4 MG SL UD PRN for Chest Pain for 30 Days, #30 MG 6 Refills Oxycodone Immediate Rel Tab (Roxicodone Ir) 5 Mg Tab 1 TAB PO Q4H PRN for Severe Pain, #20 TAB Pantoprazole (Pantoprazole Sodium) 40 Mg Tab 40 MG PO QAM, #30 TAB 2 Refills Ranitidine HCl (Ranitidine HCl) 150 Mg Tab 150 MG PO BID, #60 TAB 2 Refills Repaglinide (Prandin) 1 Mg Tab 1 MG PO TID PRN for BSG >140 take only if bsg is >140 Saline ([place] Nasal [place]) 0.65 % Spr 1 SPRAY JOSE DAILY Admission Information HPI (per Admitting provider): This is an 86 year old female with PMH of CAD s/p stent, asthma, HTN, HL, DM type 2, Parkinson's disease, hx of TIA, CKD, and other problems listed below who presents to the ED for frontal headache. Patient was recently admitted from Sep 13-Sep 20 for asthma exacerbation treated with steroids and antibiotics. Patient was seen by pulmonology, thought to be aspirating, had unremarkable esophageal x-ray, wand was placed on Zantac and PPI for GERD. During that admission she had PENELOPE, asymptomatic elevated troponin, with unremarkable TTE, which was attributed to kidney dysfunction. She also had elevated lactic acid during that admission thought secondary to kidney dysfunction, and nephrology was consulted. Patient was feeling better at home, then 3 days ago developed frontal pressure headache with sinus congestion and nasal drainage of yellow mucous. She has not taken anything for [place] and currently rates it 2/10. Ears are also feeling clogged. She had chills and myalgias yesterday. She stopped in to PCP's office today, where UA was taken (essentially unremarkable except small esterase), urine culture pending. She was unable to get a same-day appointment so presented to ER, where she was found to be hypotensive to 80s/50s. She was given a 500 mL bolus and NSS at 125/hour with resolution of BP to 120s/60s. She reports eating/ drinking normally at home. Denies recent changes in BP medications. Patient denies fever, vision change, photophobia, sore throat, cough, SOB, nausea, vomiting, diarrhea, dysuria, frequency, urgency. Physical Exam (per Admitting): General Appearance: WD/WN, no apparent distress, + pertinent finding (very pleasant alert elderly female, family at bedside (daughter who is an RN and son) ) Head: normocephalic, atraumatic Eyes: normal inspection, PERRL, EOMI, sclerae normal ENT: normal ENT inspection, hearing grossly normal, pharynx normal, + pertinent finding (left TM normal. right TM occluded by cerumen. + bilateral frontal sinus tenderness. no maxillary sinus tenderness.) Neck: supple, no adenopathy, trachea midline Respiratory/Chest: lungs clear, normal breath sounds, no respiratory distress Cardiovascular: regular rate, rhythm, + systolic murmur Abdomen/GI: normal bowel sounds, non tender, soft Extremities/Musculoskelatal: normal inspection, no calf tenderness, normal capillary refill, no pedal edema Neurologic/Psych: alert, normal mood/affect, oriented x 3, + pertinent finding (grossly nonfocal) Skin: normal color, warm/dry Hospital Course HYPOTENSION, Resolved, LIKELY FROM DEHYDRATION - no signs of sepsis - blood cultures negative given IV fluid bolus BP improved ACUTE RENAL FAILURE on CKD Cr is 1.8, baseline approx 1.3 IV fluids given , Losartan held crea flori to baseline 1.3 - monitor as outpatient ACUTE SINUSITIS CT sinuses- the paranasal and mastoid air cells are essentially clear; +mild mucosal thickening within the left frontoethmoidal recess Treated with Zosyn in ER - improving - given Augmentin BID x 2 days discharge on 5 more days of Augmentin BID Continue Flonase and nasal saline irrigation ELEVATED LACTIC ACID resolved from 3.3 to 2.0 MILD THROMBOCYTOPENIA platelets 166 --> 118 from underlying infection? monitor as outpatient DM TYPE 2 resume usual medications CAD S/P STENT Stable; denies chest pain; troponin negative Continue beta sumaya, aspirin, Plavix, isosorbide, statin ASTHMA stable GERD Continue Zantac and Protonix PARKINSON'S DISEASE Continue Sinemet DVT PROPHYLAXIS Heparin SQ given Disposition d/c home today ff up with PCP in 3-5 days Total time spent on discharge = 25 minutes This includes examination of the patient, discharge planning, medication reconciliation, and communication with other providers. Discharge Instructions Discharge Instructions Admission Reason for Admission: Hypotension Discharge Discharge Diagnosis / Problem: Dehydration, Sinusitis Discharge Goals Goal(s): Diagnostic testing, Therapeutic intervention Activity Recommendations Activity Limitations: as noted below (no heavy exertion until re-evaluated by Primary Care Physician) . Instructions / Follow-Up Instructions / Follow-Up PLEASE CALL YOUR PRIMARY CARE PHYSICIAN IMMEDIATELY IF WITH RECURRENCE OF SYMPTOMS. WEAKNESS, DIZZINESS. ENSURE ADEQUATE DAILY FLUID INTAKE. FOLLOW UP WITH DR. CALDERON ON Tuesday10/05/16 AT 10:50AM. Current Hospital Diet Patient's current hospital diet: AHA Diet (Heart Healthy), Diabetes Type 2 Diet Discharge Diet Recommended Diet: AHA Diet (Heart Healthy), Diabetes Type 2 Diet Pending Studies Studies pending at discharge: yes List of pending studies: REPEAT BLOOD WORK - CBC AND PRP Laboratory Results Lipid Panel Test 07/27/16 08:45 Range/Units Triglycerides Level 294 H 0-150 mg/dl Cholesterol Level 230 H 0-200 mg/dl HDL Cholesterol 42 mg/dl Cholesterol/HDL Ratio 5.5 LDL Cholesterol, Calculated 129 mg/dl Medical Emergencies . Who to Call and When: Medical Emergencies: If at any time you feel your situation is an emergency, please call 911 immediately. . Non-Emergent Contact Non-Emergency issues call your: Primary Care Provider Call Non-Emergent contact if: you have a fever, your pain is not controlled . Past History Medical & Surgical History: (1) Hypothyroidism (2) Benign hypertension (3) Diabetes mellitus type 2 (4) Migraine headache (5) Parkinson's disease (6) Dyslipidemia (7) Pulmonary nodule (8) GERD (gastroesophageal reflux disease) (9) Arrhythmia (10) COPD (chronic obstructive pulmonary disease) (11) Asthma (12) H/O non-ST elevation myocardial infarction (NSTEMI) (13) CAD (coronary artery disease) (14) CKD (chronic kidney disease), stage III (15) TIA (transient ischemic attack) (16) Status post hysterectomy (17) Status post cholecystectomy (18) Status post appendectomy (19) S/P tonsillectomy and adenoidectomy (20) H/o cervical laminectomy (21) History of lumbar surgery . "Provider Documentation" section prepared by Everett Schuler. VTE Core Measure Inpt VTE Proph given/why not?: Unfractionated heparin SQ
[2016-10-15] MEDS ORDERED: PRED10TA PO (15:54)
== END 2016-10-03 15:45 | disposition home or self-care (01) | DRG 315 ==
LOC: ENRESERVTM → ENRESERVDT → C.EDB 13:02 → C.2T 16:20 → C.MS4W 10-02 16:03
PROVIDERS: ADMIT Internal Medicine; ATTEND Internal Medicine
DX: I95.9 Hypotension, unspecified (principal); N17.9 Acute kidney failure, unspecified; J01.90 Acute sinusitis, unspecified; J45.909 Unspecified asthma, uncomplicated; I12.9 Hypertensive chronic kidney disease with stage 1 through stage 4 chronic kidney disease, or unspecified chronic kidney disease; N18.3 Chronic kidney disease, stage 3 (moderate); J44.9 Chronic obstructive pulmonary disease, unspecified; E11.22 Type 2 diabetes mellitus with diabetic chronic kidney disease; E78.5 Hyperlipidemia, unspecified; K21.9 Gastro-esophageal reflux disease without esophagitis; E86.0 Dehydration; E03.9 Hypothyroidism, unspecified; D69.6 Thrombocytopenia, unspecified; I25.10 Atherosclerotic heart disease of native coronary artery without angina pectoris; G20 Parkinson's disease; Z83.3 Family history of diabetes mellitus; Z86.73 Personal history of transient ischemic attack (TIA), and cerebral infarction without residual deficits; Z79.82 Long term (current) use of aspirin; Z79.899 Other long term (current) drug therapy; Z95.5 Presence of coronary angioplasty implant and graft

== ENCOUNTER 2016-10-06 21:15 | Inpatient (IN) | payer OTHER, MEDICARE ==
[~2016-10-06] VITALS: Ht 165.1 cm; Wt 76.4 kg
[~2016-10-06 21:15] MED LIST changes: +AMOX1TAB42 PO; -DXY100 PO; -PRED10TA PO; +SALI0.6510 NAE
--- NOTE | 2016-10-06 22:10 | DIAGNOSTIC IMAGING REPORT ---
SINGLE VIEW CHEST CLINICAL HISTORY: Sepsis. FINDINGS: An AP, portable, upright chest radiograph is compared to study dated 10/01/2016. Correlation is made with chest CT dated 09/15/2016. The examination is degraded by portable technique and patient rotation. The cardiomediastinal silhouette is unremarkable. There is atherosclerotic calcification of the thoracic aorta. There is minimal bibasilar atelectasis. There is diffuse interstitial thickening. No lobar consolidation or pleural effusion is identified. No pneumothorax is seen. The skeletal structures are osteopenic. Degenerative change is noted in the thoracic spine. IMPRESSION: There is diffuse an nonspecific thickening of the interstitium. Correlate clinically for evidence of an infectious or inflammatory pneumonitis or possibly congestive change. Electronically signed by: Demond Velazquez M.D. 10/06/2016 10:09 PM Dictated Date/Time: 10/06/2016 10:07 PM
[2016-10-06] MEDS ORDERED: VNTHFA/IN INH (22:18)
[2016-10-06] MEDS ORDERED: CHOL2000 PO (22:18)
[2016-10-06] MEDS ORDERED: METO25TA56 PO ×2 (22:43)
[2016-10-06] MEDS ORDERED: ACETAMINOPHEN 325 MG TAB PO STA (23:11)
[2016-10-06 23:15] LABS: BASO % 0.5 %; BASO ABS # 0.04 K/uL (0-0.2); COMPLETE YES; EOS % 2.8 %; HEMATOCRIT 31.6 % (37-47); IG% 0.8 %; LYMPH % 17.4 %; LYMPH ABS # 1.54 K/uL (1.2-3.4); MEAN CELL VOLUME 85.9 fL (80-100); MEAN CORPUSCULAR HEMOGLOBIN 28.8 pg (25-34); MEAN CORPUSCULAR HGB CONC 33.5 g/dl (32-36); MEAN PLATELET VOLUME 10.7 fL (7.4-10.4); MONO % 8.5 %; PLATELET COUNT 189 K/uL (130-400); RED BLOOD COUNT 3.68 M/uL (4.2-5.4); WHITE BLOOD COUNT 8.84 K/uL (4.8-10.8)
[2016-10-06] MEDS ORDERED: PIPERACILLIN/TAZOBACTAM 4.5 GM/100ML D5W IV STA (23:21)
[2016-10-06 23:32] LABS: PARTIAL THROMBOPLASTIN RATIO 1.3; PROTHROMBIN TIME (PATIENT) 10.6 SECONDS (9.0-12.0)
[2016-10-06 23:34] LABS: BUN/CREATININE RATIO 10.6 (10-20); CALCIUM 8.6 mg/dl (8.5-10.1); CREATININE 1.6 mg/dl (0.60-1.20); MAGNESIUM 1.7 mg/dl (1.8-2.4); POTASSIUM 4.7 mmol/L (3.5-5.1)
[2016-10-06 23:37] LABS: ALB/GLOB RATIO 0.7 (0.9-2)
[2016-10-06 23:56] LABS: URINE APPEARANCE CLEAR (CLEAR); URINE BILIRUBIN NEG (NEG); URINE COLOR YELLOW; URINE EPITHELIAL CELL AUTO >30 /lpf (0-5); URINE NITRITE NEG (NEG); URINE PH 5.5 (4.5-7.5); URINE SPECIFIC GRAVITY 1.013 (1.000-1.030); UROBILINOGEN NEG (NEG)
[2016-10-07] VITALS (12 sets, daily range): BP systolic 93–138; BP diastolic 58–74; PULSE 76–88; TEMP 36.4–37.7; O2SAT 90–96; BMI 28.1
[2016-10-07 00:01] LABS: MANUAL MICROSCOPIC REQUIRED? NO; REVIEW REQ? NO
--- NOTE | 2016-10-07 01:22 | History and Physical ---
History & Physical Date & Time of Service: Oct 07, 2016 at 01:21 . Chief Complaint: weakness, confusion, fever . Primary Care Physician: Amanda Hogue D.O. . History of Present Illness Source: patient, family, clinic records, hospital records 86 [address]O female followed by Dr[address] Hogue. History of ischemic heart disease, asthma, DM, Parkinson's disease, and other problems noted below. Hospitalized at [facility] 09/12/16 - 09/20/16 with exacerbation of asthma. Readmitted 10/01/16 - 10/03/16 with hypotension attributed to dehydration. Daughter found her to be confused this evening. Seemed to be unable to get her self undressed. She was experiencing fever and cough productive of yellow sputum, sometimes blood-tinged. Mental status improved by the time she arrived to the ED. No headache. No nausea, vomiting, diarrhea. No dysuria. . Past Medical/Surgical History Medical Problems: (1) Arrhythmia Permanent Comment: Hx SVT vs PAT Status: Chronic (2) Asthma Status: Chronic (3) Benign hypertension Status: Chronic (4) CAD (coronary artery disease) Status: Chronic (5) CKD (chronic kidney disease), stage III Status: Chronic (6) COPD (chronic obstructive pulmonary disease) Status: Chronic (7) Diabetes mellitus type 2 Status: Chronic (8) Dyslipidemia Status: Chronic (9) GERD (gastroesophageal reflux disease) Status: Chronic (10) H/O non-ST elevation myocardial infarction (NSTEMI) Status: Chronic (11) Hypothyroidism Status: Chronic (12) Migraine headache Status: Chronic (13) Parkinson's disease Status: Chronic (14) Pulmonary nodule Permanent Comment: RUL Status: Chronic (15) TIA (transient ischemic attack) Status: Chronic Surgical Problems: (1) H/o cervical laminectomy Status: Chronic (2) History of lumbar surgery Status: Chronic (3) S/P tonsillectomy and adenoidectomy Status: Chronic (4) Status post appendectomy Status: Chronic (5) Status post cholecystectomy Status: Chronic (6) Status post hysterectomy Status: Chronic Family History FH: cancer BROTHER FH: diabetes mellitus FH: heart disease FATHER ( [place] 66) MOTHER ( [place] 72) Hypertension Stroke MOTHER Social History Smoking Status: Never Smoker Alcohol Use: none Marital Status: Housing status: lives alone Occupational Status: retired Immunizations History of Influenza Vaccine: Yes Influenza Vaccine Date: Jul 23, 2015 History of Tetanus Vaccine?: UTD Tetanus Immunization Date: Sep 06, 2001 History of Pneumococcal: Yes Pneumococcal Date: Sep 06, 2003 History of Hepatitis B Vaccine: No Multi-Drug Resistant Organisms History of MDRO: No Allergies Coded Allergies: Cefuroxime (Verified Allergy, Unknown, ., 10/01/16) tongue tingling Cephalosporins (Verified Allergy, Unknown, 10/01/16) Donepezil (Unverified Adverse Reaction, Unknown, night terrors, 10/01/16) Levofloxacin (Unverified Adverse Reaction, Unknown, creatinine raised to 2.1, 10/01/16) Home Medications Scheduled Amoxicillin & Pot Clavulanate (Amoxicillin/Clavulanate P), 500 MG PO BIDM Aspirin (Aspirin Chewable), 81 MG PO DAILY Atorvastatin (Lipitor), 40 MG PO DAILY Budesonide/Formoterol Fumarate (Symbicort 160-4.5 Mcg/Act), 2 PUFFS INH BID Cholecalciferol (Vitamin D3), 1 CAP PO DAILY Clopidogrel Bisulfate (Clopidogrel), 75 MG PO QAM Duloxetine HCl (Cymbalta), 1 CAP PO DAILY Fluticasone Propionate (Nasal) (Flonase Allergy Relief), 1 SPRAY JOSE BID Gabapentin (Neurontin), 200 MG PO TID Glipizide (Glipizide), 5 MG PO DAILY Isosorbide Mononitrate (Isosorbide Mononitrate ER), 30 MG PO QAM Levodopa/Carbidopa (Sinemet 25MG/100MG), 1 TABLET PO QID Levothyroxine Sodium (Synthroid), 125 MCG PO HS Losartan Potassium (Losartan Potassium), 25 MG PO QAM Magnesium Oxide (Magnesium), 500 MG PO DAILY Metoprolol Tartrate (Lopressor) (Lopressor), 50 MG PO QAM Metoprolol Tartrate (Lopressor) (Lopressor), 25 MG PO QPM Pantoprazole (Pantoprazole Sodium), 40 MG PO QAM Ranitidine HCl (Ranitidine HCl), 150 MG PO BID Saline ([place] Nasal [place]), 1 SPRAY JOSE DAILY Scheduled PRN Albuterol Hfa (Ventolin Hfa), 2 PUFFS INH QID PRN for SOB/Wheezing Benzonatate (Benzonatate), 100 MG PO Q8H PRN for Cough Guaifenesin/Codeine (Robitussin-Ac Syrup), 5 ML PO Q6H PRN for Cough Ipratropium-Albuterol (Duoneb), 1 TREATMENT INH Q4H PRN for SOB/Wheezing Lorazepam (Lorazepam), 0.5 MG PO BID PRN for Anxiety Nitroglycerin (Nitrostat), 0.4 MG SL UD PRN for Chest Pain Oxycodone Immediate Rel Tab (Roxicodone Ir), 1 TAB PO Q4H PRN for Severe Pain Repaglinide (Prandin), 1 MG PO TID PRN for BSG >140 Review of Systems Constitutional: + fever Eyes: No worsening of vision ENT: + hearing loss, + nasal symptoms, No sore throat Respiratory: + cough, + sputum Cardiovascular: No chest pain, No edema, No palpitations Abdomen: No GI bleeding, No diarrhea, No nausea, No pain, No vomiting Musculoskeletal: No joint pain Genitourinary - Female: No dysuria, No hematuria Neurologic: + problem reported (Parkinsons disease with stable symptoms) Endocrine: + fatigue, No excessive thirst, No excessive urination Hematologic / Lymphatic: + abnormal bleeding/bruising, No swollen lymph nodes Integumentary: No itch, No new/changing skin lesions, No rash Physical Exam Vital Signs Date Time Temp Pulse Resp B/P Pulse Ox O2 Delivery O2 Flow Rate FiO2 10/07/16 01:20 37.5 88 16 106/87 93 Nasal Cannula 2.0 10/06/16 23:47 108 16 132/65 93 Nasal Cannula 2.0 10/06/16 23:37 39.1 10/06/16 22:43 110 18 129/66 93 Nasal Cannula 2.0 10/06/16 21:55 94 Nasal Cannula 2.0 10/06/16 21:40 95 Nasal Cannula 2.0 10/06/16 21:37 116 10/06/16 21:27 38.0 125 18 128/70 89 Room Air General Appearance: WD/WN, no apparent distress Head: normocephalic, atraumatic Eyes: normal inspection, PERRL, EOMI, sclerae normal, + pertinent finding ( conjunctivae pale) ENT: normal ENT inspection, pharynx normal Neck: supple, no adenopathy, thyroid normal, no JVD Respiratory/Chest: + pertinent finding (few scattered rhonchi, mild diffuse wheezing) Abdomen/GI: normal bowel sounds, non tender, soft, no organomegaly Extremities/Musculoskelatal: normal inspection, no calf tenderness, no pedal edema Neurologic/Psych: derivatives trader II-XII nml as tested (PERRL, EOMI), normal mood/affect, + disoriented (mild confusion) Skin: normal color, no rash, + diaphoresis Lymphatic: no adenopathy Diagnostics Laboratory Results Results Past 24 Hours Test 10/06/16 23:04 10/06/16 23:12 10/06/16 23:35 Range/Units White Blood Count 8.84 4.8-10.8 K/uL Red Blood Count 3.68 4.2-5.4 M/uL Hemoglobin 10.6 12.0-16.0 g/dL Hematocrit 31.6 37-47 % Mean Corpuscular Volume 85.9 80-100 fL Mean Corpuscular Hemoglobin 28.8 25-34 pg Mean Corpuscular Hemoglobin Concent 33.5 32-36 g/dl Platelet Count 189 130-400 K/uL Mean Platelet Volume 10.7 7.4-10.4 fL Neutrophils (%) (Auto) 70.0 % Lymphocytes (%) (Auto) 17.4 % Monocytes (%) (Auto) 8.5 % Eosinophils (%) (Auto) 2.8 % Basophils (%) (Auto) 0.5 % Neutrophils # (Auto) 6.19 1.4-6.5 K/uL Lymphocytes # (Auto) 1.54 1.2-3.4 K/uL Monocytes # (Auto) 0.75 0.11-0.59 K/uL Eosinophils # (Auto) 0.25 0-0.5 K/uL Basophils # (Auto) 0.04 0-0.2 K/uL RDW Standard Deviation 48.9 36.4-46.3 fL RDW Coefficient of Variation 15.6 11.5-14.5 % Immature Granulocyte % (Auto) 0.8 % Immature Granulocyte # (Auto) 0.07 0.00-0.02 K/uL Prothrombin Time 10.6 9.0-12.0 SECONDS Prothromb Time International Ratio 1.0 0.9-1.1 Activated Partial Thromboplast Time 34.5 21.0-31.0 SECONDS Partial Thromboplastin Ratio 1.3 Sodium Level 135 136-145 mmol/L Potassium Level 4.7 3.5-5.1 mmol/L Chloride Level 99 98-107 mmol/L Carbon Dioxide Level 24 21-32 mmol/L Anion Gap 12.0 3-11 mmol/L Blood Urea Nitrogen 17 7-18 mg/dl Creatinine 1.60 0.60-1.20 mg/dl Est Creatinine Clear Calc Drug Dose 25.4 ml/min Estimated GFR () 33.5 Estimated GFR (Non- 28.9 BUN/Creatinine Ratio 10.6 10-20 Random Glucose 121 70-99 mg/dl Calcium Level 8.6 8.5-10.1 mg/dl Magnesium Level 1.7 1.8-2.4 mg/dl Total Bilirubin 0.7 0.2-1 mg/dl Aspartate Amino Transf (AST/SGOT) 32 15-37 U/L Alanine Aminotransferase (ALT/SGPT) 37 12-78 U/L Alkaline Phosphatase 96 45-117 U/L Total Protein 6.8 6.4-8.2 gm/dl Albumin 2.7 3.4-5.0 gm/dl Globulin 4.1 2.5-4.0 gm/dl Albumin/Globulin Ratio 0.7 0.9-2 Bedside Lactic Acid Venous 1.42 0.90-1.70 mmol/L Urine Color YELLOW Urine Appearance CLEAR CLEAR Urine pH 5.5 4.5-7.5 Urine Specific [place] 1.013 1.000-1.030 Urine Protein NEG NEG Urine Glucose (UA) NEG NEG Urine Ketones NEG NEG Urine Occult Blood NEG NEG Urine Nitrite NEG NEG Urine Bilirubin NEG NEG Urine Urobilinogen NEG NEG Urine Leukocyte Esterase NEG NEG Urine WBC (Auto) 1-5 0-5 /hpf Urine RBC (Auto) 0-4 0-4 /hpf Urine Hyaline Casts (Auto) 1-5 0-5 /lpf Urine Epithelial Cells (Auto) >30 0-5 /lpf Urine Bacteria (Auto) NEG NEG Microbiology Results 10/06/16 Blood Culture, Received Pending 10/06/16 Blood Culture, Received Pending 10/06/16 Urine Culture, Received Pending Diagnostic Radiology SINGLE VIEW CHEST IMPRESSION: There is diffuse an nonspecific thickening of the interstitium. Correlate clinically for evidence of an infectious or inflammatory pneumonitis or possibly congestive change. Electronically signed by: Demond Velazquez M.D. 10/06/2016 10:09 PM . Impression Assessment and Plan SEPSIS / SUSPECTED PNEUMONIA Meets criteria for sepsis per 2001 definition and current CMS guidelines- fever , tachycardia. Most likely secondary to pneumonia. Hemodynamically stable. Serum lactate 1.42. Blood cultures obtained in ED and received broad spectrum antibiotic coverage with piperacillin / tazobactam. Continue piperacillin / tazobactam. Add doxycycline for atypical coverage. Check sputum gram stain, C&S. Check WEIGHER AND MIXER swab for influenza A/B with PCR. ALTERED MENTAL STATUS Probable encephalopathy secondary to sepsis. Follow. CORONARY ARTERY DISEASE No anginal symptoms. Continue aspirin, metoprolol, nitrates, statin. HYPERTENSION Continue metoprolol, nitrates, losartan. ASTHMA Mild wheezing, oxygenation well on NC. Continue bronchodilators. DM TYPE 2 Usually well-controlled. Random glucose in ED = 121. Tight control not indicated given patient's advanced age. Hold oral agents while acutely ill. Insulin coverage PRN for elevated blood sugars. PARKINSON'S DISEASE Continue carbidopa / levodopa. VTE PROPHYLAXIS Moderate risk for VTE. No anticoagulants at this time due to hemoptysis. SCD's. RESUSCITATION STATUS Full resuscitation. DISPOSITION Admit to Telemetry Unit. Expected discharge to home. Family Medicine follow-up with Dr. Hogue. . VTE Prophylaxis Risk Level: Moderate Given or contraindicated: SCD's
[2016-10-07] MEDS ORDERED: SODIUM CHLORIDE 0.9% 1000ML 1,000 ML IV SCH (01:45)
[2016-10-07] MEDS ORDERED: NITROGLYCERIN 0.4 MG SL PER TAB CHARGE SL PRN (05:30)
[2016-10-07] MEDS ORDERED: ALBUTEROL HFA 8 GM INHALER INH PRN (05:30)
[2016-10-07] MEDS ORDERED: LORAZEPAM 0.5 MG TAB PO PRN (05:30)
[2016-10-07] MEDS ORDERED: PIPERACILL/TAZOBAC IV 3.375 GM in DEXTROSE 5% 100ML 100 ML IV SCH (06:00)
[2016-10-07] MEDS ORDERED: PIPERACILL/TAZOBAC CONSULT ACTIVE PRN (06:00)
[2016-10-07] MEDS ORDERED: DOXYCYCLINE IV 100 MG in DEXTROSE 5% 100ML 100 ML IV SCH (06:00)
[2016-10-07 06:44] LABS: HEMATOCRIT 28.6 % (37-47); MEAN CELL VOLUME 84.9 fL (80-100); MEAN CORPUSCULAR HEMOGLOBIN 29.1 pg (25-34); MEAN CORPUSCULAR HGB CONC 34.3 g/dl (32-36); MEAN PLATELET VOLUME 10.7 fL (7.4-10.4); PLATELET COUNT 162 K/uL (130-400); RED BLOOD COUNT 3.37 M/uL (4.2-5.4); WHITE BLOOD COUNT 6.36 K/uL (4.8-10.8)
[2016-10-07 07:14] LABS: BUN/CREATININE RATIO 11.1 (10-20); CALCIUM 8.1 mg/dl (8.5-10.1); CREATININE 1.8 mg/dl (0.60-1.20); POTASSIUM 4.3 mmol/L (3.5-5.1)
[2016-10-07] MEDS ORDERED: GLUCOSE 10 TABS/TUBE PO PRN (07:15)
[2016-10-07] MEDS ORDERED: GLUCOSE 40% GEL 15 GM TUBE PO PRN (07:15)
[2016-10-07] MEDS ORDERED: GLUCAGON FOR INJ 1 MG VIAL SQ PRN (07:15)
[2016-10-07] MEDS ORDERED: DEXTROSE 50% 50 ML SYR IV PRN (07:15)
[2016-10-07 07:54] LABS: INFLUENZA A PCR Neg for Influ A (NEG); INFLUENZA B PCR Neg for Influ B (NEG)
[2016-10-07] MEDS: CARBIDOPA/LEVODOPA 25/100MG TAB PO SCH ×4 (08:45→20:39)
[2016-10-07] MEDS: ASPIRIN 81 MG ECTAB PO SCH (08:45)
[2016-10-07] MEDS: MAGNESIUM OXIDE 400 MG TAB PO SCH (08:45)
[2016-10-07] MEDS: PANTOprazole SOD 40 MG TAB PO SCH (08:46)
[2016-10-07] MEDS: GABAPENTIN 100 MG CAP PO SCH ×3 (08:46→20:41)
[2016-10-07] MEDS: ATORVASTATIN 20 MG TAB PO SCH (08:46)
[2016-10-07] MEDS: RANITIDINE HCL 150 MG TAB PO SCH ×2 (08:46→20:42)
[2016-10-07] MEDS: CLOPIDOGREL BISULFATE 75 MG TAB PO SCH (08:47)
[2016-10-07] MEDS: DULOXETINE HCL 20 MG CAP PO SCH (08:47)
[2016-10-07] MEDS: PIPERACILL/TAZOBAC IV 3.375 GM in DEXTROSE 5% 100ML 100 ML IV SCH ×3 (08:48→23:15)
[2016-10-07] MEDS: BUDESONIDE/FORMOTEROL FUMARATE 160/4.5 60 PUFFS/INHALER INH SCH ×2 (08:52→20:34)
[2016-10-07] MEDS: METOPROLOL TARTRATE 50 MG TAB PO SCH (08:56)
[2016-10-07] MEDS: ISOSORBIDE MONONITRATE 30 MG TABCR PO SCH (08:56)
[2016-10-07] MEDS: LOSARTAN POTASSIUM 25 MG TAB PO SCH (08:57)
[2016-10-07] MEDS: FLUTICASONE PROPIONATE NA SPR 16 GM BTL NAE SCH ×2 (08:57→20:34)
[2016-10-07] MEDS: SODIUM CHLORIDE 0.65% NA SOLN 45 ML (OCEAN) NAE SCH (08:59)
--- NOTE | 2016-10-07 10:28 | Clinical Documentation Query ---
CLINICAL DOCUMENTATION QUERY Dr. ROOT, In your clinical opinion is this patient being managed for: (x ) Acute kidney failure ( ) Other explanation of clinical findings (Please Explain) ( ) Unable to determine (Please Define) ( ) Need to Discuss ( ) Not Agree The medical record reflects the following clinical findings, treatment, and risk factors. Clinical Indicators: 86 yo female presenting with sepsis from suspected pneumonia. Baseline Cr range (noted in hospital stay Oct 01-2016) noted to be 1.3. Initial Cr 1.6 which has trended up to Cr 1.8. Treatment: IV fluid bolus, monitor PRP, IV zosyn and doxycycline, O2 support, tele monitoring Risk Factors: age, CKD stage III, DM, HTN, sepsis, COPD Please clarify and document your clinical opinion in the progress notes and discharge summary. Terms such as "probable", "suspected", "likely", "questionable", "possible", or "still to be ruled out" are acceptable. IF IN AGREEMENT, YOU MUST DOCUMENT ABOVE DIAGNOSTIC STATEMENT IN DAILY PROGRESS NOTES AND DISCHARGE SUMMARY. This document is not part of the patient's record. Thank You, Hazel Gleason, RN [phone]
--- NOTE | 2016-10-07 10:55 | Progress Note ---
Medicine Progress Note Date & Time of Visit: Oct 07, 2016 at 10:40. Subjective 86 yoF brought in by her daughter for confusion at home. She lives alone and states that since her prior discharge on 10/03 she has not felt well. Specifically, she is very tired with an increase in this on 10/04--the day after discharge. She was noted to be febrile prior to leaving, and states that since that time she has had fevers, chills, a cough, worsening sinus pressure and continued greenish-yellow drainage from her nose. She also reports chills and a headache across the front of her face. She denies sore throat, nasuea, vomiting, diarrhea, stiff neck, photophobia, or ear pain or fullness. She is more alert and oriented this morning after starting Zosyn and doxy in the ER and has been afebrile after the recorded rectal twmp of 39.1 last night in the ER. She still has shaking chills and is obviously uncomfortable. She is asking for a regular diet instead of liquids. 09/13-09/20 Admission for asthma exacerbation 10/01-10/03-admitted for acute sinusitis with associated hypotension thought to be 2/2 dehydration. She was given one dose of Zosyn in the ER and switched to Augmentin BID x 7 days. Objective Last 8 Hrs Date Time Temp Pulse Resp B/P Pulse Ox O2 Delivery O2 Flow Rate FiO2 10/07/16 08:55 36.9 86 20 138/67 94 Nasal Cannula 2.0 10/07/16 07:22 36.4 76 18 96/59 95 Nasal Cannula 2.0 10/07/16 04:00 36.6 82 20 110/67 96 Nasal Cannula 2.0 Physical Exam: GEN: WNWD, has obvious shaking chills, alert and appropriate, fatigued HEENT: NC/AT, PERRL, normal sclerae, no LAD, pharynx non-acute, TM nakia without obvious effusion, external canals appear non-erythematous, sinus TTP worse in frontal sinuses but also present in both maxillary sinuses. CARDIO: reg rate, S1/2 heard without m/g/r LUNGS: CTA bilaterally, crackles at the bases bilaterally, no rales or wheezes, good diaphragmatic excursion ABD: soft, non-tender, non-distended, no rebound or guarding EXTREMITY: no LE swelling or edema, extremities are warm and well-perfused NEURO: CN 2-12 grossly intact, sensation intact throughout MUSC: limited exam as patient not feeling well, no gross focal deficits SKIN: warm and dry Laboratory Results: Last 24 Hours Test 10/06/16 23:04 10/06/16 23:12 10/06/16 23:35 10/07/16 06:00 White Blood Count 8.84 K/uL Red Blood Count 3.68 M/uL Hemoglobin 10.6 g/dL Hematocrit 31.6 % Mean Corpuscular Volume 85.9 fL Mean Corpuscular Hemoglobin 28.8 pg Mean Corpuscular Hemoglobin Concent 33.5 g/dl Platelet Count 189 K/uL Mean Platelet Volume 10.7 fL Neutrophils (%) (Auto) 70.0 % Lymphocytes (%) (Auto) 17.4 % Monocytes (%) (Auto) 8.5 % Eosinophils (%) (Auto) 2.8 % Basophils (%) (Auto) 0.5 % Neutrophils # (Auto) 6.19 K/uL Lymphocytes # (Auto) 1.54 K/uL Monocytes # (Auto) 0.75 K/uL Eosinophils # (Auto) 0.25 K/uL Basophils # (Auto) 0.04 K/uL RDW Standard Deviation 48.9 fL RDW Coefficient of Variation 15.6 % Immature Granulocyte % (Auto) 0.8 % Immature Granulocyte # (Auto) 0.07 K/uL Prothrombin Time 10.6 SECONDS Prothromb Time International Ratio 1.0 Activated Partial Thromboplast Time 34.5 SECONDS Partial Thromboplastin Ratio 1.3 Sodium Level 135 mmol/L Potassium Level 4.7 mmol/L Chloride Level 99 mmol/L Carbon Dioxide Level 24 mmol/L Anion Gap 12.0 mmol/L Blood Urea Nitrogen 17 mg/dl Creatinine 1.60 mg/dl Est Creatinine Clear Calc Drug Dose 25.4 ml/min Estimated GFR () 33.5 Estimated GFR (Non- 28.9 BUN/Creatinine Ratio 10.6 Random Glucose 121 mg/dl Calcium Level 8.6 mg/dl Magnesium Level 1.7 mg/dl Total Bilirubin 0.7 mg/dl Aspartate Amino Transf (AST/SGOT) 32 U/L Alanine Aminotransferase (ALT/SGPT) 37 U/L Alkaline Phosphatase 96 U/L Total Protein 6.8 gm/dl Albumin 2.7 gm/dl Globulin 4.1 gm/dl Albumin/Globulin Ratio 0.7 Bedside Lactic Acid Venous 1.42 mmol/L Urine Color YELLOW Urine Appearance CLEAR Urine pH 5.5 Urine Specific [place] 1.013 Urine Protein NEG Urine Glucose (UA) NEG Urine Ketones NEG Urine Occult Blood NEG Urine Nitrite NEG Urine Bilirubin NEG Urine Urobilinogen NEG Urine Leukocyte Esterase NEG Urine WBC (Auto) 1-5 /hpf Urine RBC (Auto) 0-4 /hpf Urine Hyaline Casts (Auto) 1-5 /lpf Urine Epithelial Cells (Auto) >30 /lpf Urine Bacteria (Auto) NEG Influenza Type A (RT-PCR) Neg for Influ A Influenza Type B (RT-PCR) Neg for Influ B Test 10/07/16 06:16 10/07/16 07:42 White Blood Count 6.36 K/uL Red Blood Count 3.37 M/uL Hemoglobin 9.8 g/dL Hematocrit 28.6 % Mean Corpuscular Volume 84.9 fL Mean Corpuscular Hemoglobin 29.1 pg Mean Corpuscular Hemoglobin Concent 34.3 g/dl RDW Standard Deviation 48.8 fL RDW Coefficient of Variation 15.7 % Platelet Count 162 K/uL Mean Platelet Volume 10.7 fL Sodium Level 135 mmol/L Potassium Level 4.3 mmol/L Chloride Level 103 mmol/L Carbon Dioxide Level 23 mmol/L Anion Gap 9.0 mmol/L Blood Urea Nitrogen 20 mg/dl Creatinine 1.80 mg/dl Est Creatinine Clear Calc Drug Dose 23.0 ml/min Estimated GFR () 29.0 Estimated GFR (Non- 25.0 BUN/Creatinine Ratio 11.1 Random Glucose 130 mg/dl Calcium Level 8.1 mg/dl Bedside Glucose 147 mg/dl Date/Time Source Procedure Growth Status 10/06/16 23:04 Blood Blood Culture Pending Received 10/06/16 22:28 Blood Blood Culture Pending Received 10/06/16 23:35 Urine,Catheterized Urine Culture Pending Received Assessment & Plan SEPSIS / SUSPECTED PNEUMONIA with ACUTE SINUSITIS -appears resuscitated as HR has improved overnight and she is currently afebrile. -lactate was normal last night -will cont 1 more L of IVF for comfort and to work against insensible loss from expected fever -there is nonspecific interstitial thickening on CXR and crackles at the bases with some cough, which may point to an atypipcal pneumonia -however, she is still having significant symptoms in her sinuses with persistent yellowish drainage from her nose and sinus pain/pressure -CT sinuses last week was negative despite same symptoms at that time -will cont with IV Zosyn/doxy for another 1-2 days and plan to repeat CT/CXR if no improvement -cont supportive care -blood and sputum cultures pending -flu is negative -will also screen for RSV as this has been circulating in the community and the hospital ALTERED MENTAL STATUS Probable encephalopathy secondary to sepsis. resolved CORONARY ARTERY DISEASE No anginal symptoms. Continue aspirin, metoprolol, nitrates, statin. HYPERTENSION Continue metoprolol, nitrates, losartan. ASTHMA No wheezing on exam today, oxygenation well on NC but not on oxygen at home. Cont with oxygen support as needed but wean when feeling improved. Continue bronchodilators. DM TYPE 2 Usually well-controlled. Random glucose in ED = 121. Tight control not indicated given patient's advanced age. Hold oral agents while acutely ill. Insulin coverage PRN for elevated blood sugars. PARKINSON'S DISEASE Continue carbidopa / levodopa. VTE PROPHYLAXIS Moderate risk for VTE. No anticoagulants at this time due to hemoptysis. SCD's. RESUSCITATION STATUS Full resuscitation. DISPOSITION Admit to Telemetry Unit. Expected discharge to home. Family Medicine follow-up with Dr. Hogue. Ina Ramos DO [facility] Hospitalist . Current Inpatient Medications: Current Inpatient Medications Medications (Trade) Dose Ordered Sig/Nilsa Route Start Time Stop Time Status Last Admin Dose Admin Acetaminophen 650 mg 650 mg Q4H PRN PO 10/07/16 01:30 11/06/16 01:29 Doxycycline Hyclate/Dextrose (Vibramycin IV/ D5 100ml) 110 ml @ 50 mls/hr BID@0600,1800 IV 10/07/16 06:00 10/14/16 05:59 10/07/16 06:14 50 MLS/HR Albuterol (Ventolin Hfa Inhaler) 2 puffs QID PRN INH 10/07/16 05:30 11/06/16 05:29 Aspirin (Ecotrin Tab) 81 mg QAM PO 10/07/16 09:00 11/06/16 08:59 10/07/16 08:45 81 MG Atorvastatin Calcium (Lipitor Tab) 40 mg DAILY PO 10/07/16 09:00 11/06/16 08:59 10/07/16 08:46 40 MG Benzonatate (Tessalon Perles Cap) 100 mg Q8H PRN PO 10/07/16 05:30 11/06/16 05:29 Budesonide/ Formoterol Fumarate (Symbicort 160/ 4.5 Inh) 2 puffs BID INH 10/07/16 09:00 11/06/16 08:59 10/07/16 08:52 2 PUFFS Clopidogrel Bisulfate (plAVix TAB) 75 mg QAM PO 10/07/16 09:00 11/06/16 08:59 10/07/16 08:47 75 MG Duloxetine HCl (Cymbalta Cap) 20 mg DAILY PO 10/07/16 09:00 11/06/16 08:59 10/07/16 08:47 20 MG Fluticasone Propionate (Flonase Nasal [place]) 2 sprays BID JOSE 10/07/16 09:00 11/06/16 08:59 10/07/16 08:57 2 SPRAYS Gabapentin (Neurontin Cap) 200 mg TID PO 10/07/16 09:00 11/06/16 08:59 10/07/16 08:46 200 MG Albuterol/ Ipratropium (Duoneb) 3 ml Q4H PRN INH 10/07/16 05:30 11/06/16 05:29 Isosorbide Mononitrate (Imdur Ext Rel Tab) 30 mg QAM PO 10/07/16 09:00 11/06/16 08:59 10/07/16 08:56 30 MG Carbidopa/Levodopa (Sinemet 25/ 100MG Tab) 1 tab QID PO 10/07/16 09:00 11/06/16 08:59 10/07/16 08:45 1 TAB Levothyroxine Sodium (Synthroid Tab) 125 mcg HS PO 10/07/16 21:00 11/06/16 20:59 Lorazepam (Ativan Tab) 0.5 mg BID PRN PO 10/07/16 05:30 11/06/16 05:29 Losartan Potassium (coZAAR TAB) 25 mg QAM PO 10/07/16 09:00 11/06/16 08:59 10/07/16 08:57 25 MG Metoprolol Tartrate (Lopressor Tab) 25 mg QPM PO 10/07/16 21:00 11/06/16 20:59 Metoprolol Tartrate (Lopressor Tab) 50 mg QAM PO 10/07/16 09:00 11/06/16 08:59 10/07/16 08:56 50 MG Nitroglycerin (Nitrostat Tab) 0.4 mg UD PRN SL 10/07/16 05:30 11/06/16 05:29 Oxycodone HCl (Roxicodone Immediate Rel Tab) 5 mg Q4H PRN PO 10/07/16 05:30 10/21/16 05:29 Pantoprazole Sodium (Protonix Tab) 40 mg QAM PO 10/07/16 09:00 11/06/16 08:59 10/07/16 08:46 40 MG Ranitidine HCl (zANTac TAB) 150 mg BID PO 10/07/16 09:00 11/06/16 08:59 10/07/16 08:46 150 MG Sodium Chloride ([place] Nasal [place]) 2 sprays DAILY JOSE 10/07/16 09:00 11/06/16 08:59 10/07/16 08:59 2 SPRAYS Piperacillin Sod/ Tazobactam Sod 1 ea 1 ea UD PRN N/A 10/07/16 06:00 11/06/16 05:59 Piperacillin Sod/ Tazobactam Sod/ Dextrose (Zosyn Iv/D5 100ml) 115 ml @ 28 mls/hr Q8H IV 10/07/16 08:00 10/14/16 07:59 10/07/16 08:48 28 MLS/HR Magnesium Oxide (Mag-Ox Tab) 400 mg QAM PO 10/07/16 09:00 11/06/16 08:59 10/07/16 08:45 400 MG Insulin Aspart (novoLOG ASPART) SLIDING SCALE G... ACHS SC 10/07/16 11:00 11/06/16 10:59 Glucose (Glucose 40% Gel) 15-30 GRAMS 15 GRAMS... UD PRN PO 10/07/16 07:15 11/06/16 07:14 Glucose (Glucose Chew Tab) 4-8 Tablets 4 Tabl... UD PRN PO 10/07/16 07:15 11/06/16 07:14 Dextrose (Dextrose 50% 50ML Syringe) 25-50ML OF 50% DW IV FOR... UD PRN IV 10/07/16 07:15 11/06/16 07:14 Glucagon (Glucagon Inj) 1 mg UD PRN SQ 10/07/16 07:15 11/06/16 07:14
--- NOTE | 2016-10-07 11:51 | EMERGENCY ROOM VISIT NOTE ---
History Report prepared by Janet: Lora Monroe Under the Supervision of: Dr. Jem Negro M.D. First contact with patient: 23:01 Chief Complaint: HYPOTENSION Stated Complaint: LOW BLOOD PRESSURE History of Present Illness The patient is a 86 year old female who presents to the Emergency Room via family to be evaluated for altered mental status today. Per patient's daughter, when the patient was brought dinner this evening, the patient seemed to be disheveled which is unlike her. She was also incontinent of urine, which is very unusual. Her daughter told her to put a new pair of pants on and when she put them on the bottom of the pants were over the patient's feet. Her daughter took her blood pressure, which was low around 88/48 initially. She took a repeat blood pressure and the systolic improved to 115. Her daughter notes that the patient does have a history of UTIs, but does not typically have urinary symptoms. When she has UTIs she seems a little off compared to baseline. The patient was hospitalized October 01 for hypotension likely from dehydration and was placed on Augmentin for a UTI and sinus infection. She also had acute renal failure and thrombocytopenia. She was discharged 2 days later. The patient notes that she has been blowing green/yellow mucous from her nose, had a productive cough with clear sputum, and sinus headache since she was admitted to the hospital which have not improved. The patient is still currently on Augmentin. She did take her morning dose today. Her family states that she has been keeping up with drinking fluids. The patient has not taken her temperature , as she does not have a thermometer at home. Denies neck stiffness or pain, chest pain, shortness of breath, nausea, vomiting, abdominal pain, urinary symptoms, rash, or other complaints. Source of History: patient, family Onset: today Position: other (global) Quality: other (altered mental status) Timing: other (persistent) Associated Symptoms: + cough, + headache, No SOB, No chest pain, No nausea, No neck pain, No rash, No urinary symptoms, No vomiting Note: Other symptoms: yellow/green mucous from nose Review of Systems See HPI for pertinent positives & negatives. A total of 10 systems reviewed and were otherwise negative. Past Medical & Surgical Medical Problems: (1) Altered mental status (2) Altered mental status (3) Arrhythmia (4) Asthma (5) Benign hypertension (6) CAD (coronary artery disease) (7) CKD (chronic kidney disease), stage III (8) COPD (chronic obstructive pulmonary disease) (9) Diabetes mellitus type 2 (10) Dyslipidemia (11) GERD (gastroesophageal reflux disease) (12) H/O non-ST elevation myocardial infarction (NSTEMI) (13) Hypotension (14) Hypothyroidism (15) Migraine headache (16) Parkinson's disease (17) Pulmonary nodule (18) TIA (transient ischemic attack) Surgical Problems: (1) H/o cervical laminectomy (2) History of lumbar surgery (3) S/P tonsillectomy and adenoidectomy (4) Status post appendectomy (5) Status post cholecystectomy (6) Status post hysterectomy Family History FH: cancer BROTHER FH: diabetes mellitus FH: heart disease FATHER ( [place] 66) MOTHER ( [place] 72) Hypertension Stroke MOTHER Social History Smoking Status: Never Smoker Alcohol Use: none Marital Status: Housing Status: lives with family Occupation Status: retired Current/Historical Medications Scheduled Amoxicillin & Pot Clavulanate (Amoxicillin/Clavulanate P), 500 MG PO BIDM Aspirin (Aspirin Chewable), 81 MG PO DAILY Atorvastatin (Lipitor), 40 MG PO DAILY Budesonide/Formoterol Fumarate (Symbicort 160-4.5 Mcg/Act), 2 PUFFS INH BID Cholecalciferol (Vitamin D3), 1 CAP PO DAILY Clopidogrel Bisulfate (Clopidogrel), 75 MG PO QAM Duloxetine HCl (Cymbalta), 1 CAP PO DAILY Fluticasone Propionate (Nasal) (Flonase Allergy Relief), 1 SPRAY JOSE BID Gabapentin (Neurontin), 200 MG PO TID Glipizide (Glipizide), 5 MG PO DAILY Isosorbide Mononitrate (Isosorbide Mononitrate ER), 30 MG PO QAM Levodopa/Carbidopa (Sinemet 25MG/100MG), 1 TABLET PO QID Levothyroxine Sodium (Synthroid), 125 MCG PO HS Losartan Potassium (Losartan Potassium), 25 MG PO QAM Magnesium Oxide (Magnesium), 500 MG PO DAILY Metoprolol Tartrate (Lopressor) (Lopressor), 50 MG PO QAM Metoprolol Tartrate (Lopressor) (Lopressor), 25 MG PO QPM Pantoprazole (Pantoprazole Sodium), 40 MG PO QAM Ranitidine HCl (Ranitidine HCl), 150 MG PO BID Saline ([place] Nasal [place]), 1 SPRAY JOSE DAILY Scheduled PRN Albuterol Hfa (Ventolin Hfa), 2 PUFFS INH QID PRN for SOB/Wheezing Benzonatate (Benzonatate), 100 MG PO Q8H PRN for Cough Guaifenesin/Codeine (Robitussin-Ac Syrup), 5 ML PO Q6H PRN for Cough Ipratropium-Albuterol (Duoneb), 1 TREATMENT INH Q4H PRN for SOB/Wheezing Lorazepam (Lorazepam), 0.5 MG PO BID PRN for Anxiety Nitroglycerin (Nitrostat), 0.4 MG SL UD PRN for Chest Pain Oxycodone Immediate Rel Tab (Roxicodone Ir), 1 TAB PO Q4H PRN for Severe Pain Repaglinide (Prandin), 1 MG PO TID PRN for BSG >140 Allergies Coded Allergies: Cefuroxime (Verified Allergy, Unknown, ., 10/01/16) tongue tingling Cephalosporins (Verified Allergy, Unknown, 10/01/16) Donepezil (Unverified Adverse Reaction, Unknown, night terrors, 10/01/16) Levofloxacin (Unverified Adverse Reaction, Unknown, creatinine raised to 2.1, 10/01/16) Physical Exam Vital Signs Date Time Temp Pulse Resp B/P Pulse Ox O2 Delivery O2 Flow Rate FiO2 10/07/16 01:20 37.5 88 16 106/87 93 Nasal Cannula 2.0 10/06/16 23:47 108 16 132/65 93 Nasal Cannula 2.0 10/06/16 23:37 39.1 10/06/16 22:43 110 18 129/66 93 Nasal Cannula 2.0 10/06/16 21:55 94 Nasal Cannula 2.0 10/06/16 21:40 95 Nasal Cannula 2.0 10/06/16 21:37 116 10/06/16 21:27 38.0 125 18 128/70 89 Room Air Physical Exam Constitutional: Vital signs reviewed. Eyes: Pupils are equal round reactive to light. Conjunctiva are noninjected. ENT: Pharynx is clear without erythema or exudate. Mucous membranes are moist. Neck supple without meningeal signs. No sinus tenderness. Respiratory: Clear to auscultation bilaterally. Breath sounds are equal bilaterally. No wheezing or rales. Cardiovascular: Tachycardic rate at 113 and regular rhythm. No rubs or gallops. GI: Soft, nondistended and nontender. Bowel sounds are present. Musculoskeletal: No peripheral edema. Integumentary: No cyanosis. Neurological: The patient is awake and alert. No focal deficits. Psychiatric: Normal affect. Medical Decision & Procedures ER Provider Diagnostic Interpretation: X-ray results as stated below per interpretation by me and the radiologist: SINGLE VIEW CHEST CLINICAL HISTORY: Sepsis. FINDINGS: An AP, portable, upright chest radiograph is compared to study dated 10/01/2016. Correlation is made with chest CT dated 09/15/2016. The examination is degraded by portable technique and patient rotation. The cardiomediastinal silhouette is unremarkable. There is atherosclerotic calcification of the thoracic aorta. There is minimal bibasilar atelectasis. There is diffuse interstitial thickening. No lobar consolidation or pleural effusion is identified. No pneumothorax is seen. The skeletal structures are osteopenic. Degenerative change is noted in the thoracic spine. IMPRESSION: There is diffuse an nonspecific thickening of the interstitium. Correlate clinically for evidence of an infectious or inflammatory pneumonitis or possibly congestive change. Electronically signed by: Demond Velzaquez M.D. 10/06/2016 10:09 PM Dictated Date/Time: 10/06/2016 10:07 PM Laboratory Results Test 10/06/16 23:04 10/06/16 23:12 10/06/16 23:35 Immature Granulocyte % (Auto) 0.8 % White Blood Count 8.84 K/uL (4.8-10.8) Red Blood Count 3.68 M/uL (4.2-5.4) Hemoglobin 10.6 g/dL (12.0-16.0) Hematocrit 31.6 % (37-47) Mean Corpuscular Volume 85.9 fL (80-100) Mean Corpuscular Hemoglobin 28.8 pg (25-34) Mean Corpuscular Hemoglobin Concent 33.5 g/dl (32-36) Platelet Count 189 K/uL (130-400) Mean Platelet Volume 10.7 fL (7.4-10.4) Neutrophils (%) (Auto) 70.0 % Lymphocytes (%) (Auto) 17.4 % Monocytes (%) (Auto) 8.5 % Eosinophils (%) (Auto) 2.8 % Basophils (%) (Auto) 0.5 % Neutrophils # (Auto) 6.19 K/uL (1.4-6.5) Lymphocytes # (Auto) 1.54 K/uL (1.2-3.4) Monocytes # (Auto) 0.75 K/uL (0.11-0.59) Eosinophils # (Auto) 0.25 K/uL (0-0.5) Basophils # (Auto) 0.04 K/uL (0-0.2) Immature Granulocyte # (Auto) 0.07 K/uL (0.00-0.02) Prothrombin Time 10.6 SECONDS (9.0-12.0) Prothromb Time International Ratio 1.0 (0.9-1.1) Activated Partial Thromboplast Time 34.5 SECONDS (21.0-31.0) Partial Thromboplastin Ratio 1.3 Magnesium Level 1.7 mg/dl (1.8-2.4) Total Bilirubin 0.7 mg/dl (0.2-1) Aspartate Amino Transf (AST/SGOT) 32 U/L (15-37) Alanine Aminotransferase (ALT/SGPT) 37 U/L (12-78) Alkaline Phosphatase 96 U/L (45-117) Total Protein 6.8 gm/dl (6.4-8.2) Albumin 2.7 gm/dl (3.4-5.0) Globulin 4.1 gm/dl (2.5-4.0) Albumin/Globulin Ratio 0.7 (0.9-2) Bedside Lactic Acid Venous 1.42 mmol/L (0.90-1.70) Urine Color YELLOW Urine Appearance CLEAR (CLEAR) Urine pH 5.5 (4.5-7.5) Urine Specific [place] 1.013 (1.000-1.030) Urine Protein NEG (NEG) Urine Glucose (UA) NEG (NEG) Urine Ketones NEG (NEG) Urine Occult Blood NEG (NEG) Urine Nitrite NEG (NEG) Urine Bilirubin NEG (NEG) Urine Urobilinogen NEG (NEG) Urine Leukocyte Esterase NEG (NEG) Urine WBC (Auto) 1-5 /hpf (0-5) Urine RBC (Auto) 0-4 /hpf (0-4) Urine Hyaline Casts (Auto) 1-5 /lpf (0-5) Urine Epithelial Cells (Auto) >30 /lpf (0-5) Urine Bacteria (Auto) NEG (NEG) Laboratory results as reviewed by me. Medications Administered Medications (Trade) Dose Ordered Sig/Nilsa Route Start Time Stop Time Status Last Admin Dose Admin Acetaminophen (Tylenol Tab) 650 mg NOW STAT PO 10/06/16 23:11 10/06/16 23:14 DC 10/06/16 23:42 650 MG Piperacillin Sod/ Tazobactam Sod (Zosyn Iv) 4.5 gm NOW STAT IV 10/06/16 23:21 10/06/16 23:22 DC 10/06/16 23:43 4.5 GM ECG Indication: tachycardia Rate (beats per minute): 112 Rhythm: sinus tachycardia Findings: Q waves (lead 3), no ectopy ED Course 2303: The patient was evaluated in room C12. A complete history and physical exam was performed. 2311: Ordered Tylenol Tab 650 mg PO. 2321: Ordered Zosyn 4.5 gm IV. 2340: I reassessed the patient and talked to her family about results. Her temperature was greater than 102 rectally. Family agreed with the treatment plan. 0030: I discussed the case with Dr. Ocampo [facility] Hospitalist. The patient will be evaluated for further management. Medical Decision This is a 86-year-old female presents with hypotension, altered mental status and fever. Differential diagnosis includes sepsis, UTI, pneumonia, sinusitis, metabolic derangement. I did perform a limited focused review of portions of the patient's old chart on the electronic medical record. The patient was admitted October 01 for hypotension likely from dehydration. She was placed on Augmentin. She also had acute renal failure, sinusitis, and thrombocytopenia. I did evaluate the patient as noted above. The patient had somewhat altered mental status at home with a transient episode of hypotension. In the ED she is febrile. She has a headache but it is frontal and pressure-like. She has had it since she was previously admitted and was diagnosed as sinusitis. She denies having any neck pain or stiffness and has no meningeal signs. IV access was established. The patient was placed on a continuous forestry foreman. She is tachycardic but this is likely due to her fever. Her fever was treated with Tylenol and we will continue monitoring her heart rate. Her blood pressure is unremarkable in the emergency department.She was slightly hypoxemic with a room air sat of 80%. She did respond well to supplemental oxygen via nasal cannula. I did order and personally review the patient's 12-lead EKG and chest x-ray as described above. Her chest x-ray does demonstrate pneumonitis. She has had a productive cough and so I did treat her with IV Zosyn for presumed pneumonia. Blood cultures were ordered prior to this. I did order and review the patient 's blood work as noted in the electronic medical record. Her platelet count is normal. I did discuss the test results with the patient and her family. I did discuss the case with the hospitalist and wrapper caser. Consults Time Called: 001 Consulting Physician: Dr. Terrence Dickinson Hospitalist Returned Call: 0030 I discussed the case with him. The patient will be evaluated for further management. Impression Primary Impression: Hypoxemia Additional Impressions: Pneumonitis Fever Scribe Attestation The scribe's documentation has been prepared under my direct and personally reviewed by me in its entirety. I confirm that the note above accurately reflects all work, treatment, procedures, and medical decision making performed by me. Departure Information Dispostion Being Evaluated By Hospitalist Referrals Amanda Hogue D.O. (PCP) Patient Instructions [facility] Problem Qualifiers
[2016-10-07] MEDS: INSULIN ASPART 100 UNITS/ML 3 ML PEN SC SCH ×3 (12:23→20:44)
[2016-10-07] MEDS: BENZONATATE 100MG CAP PO PRN (12:23)
[2016-10-07] MEDS: ACETAMINOPHEN 325 MG TAB PO PRN (16:37)
[2016-10-07] MEDS ORDERED: BISACODYL 10 MG SUPP PR PRN (17:30)
[2016-10-07] MEDS: DOXYCYCLINE IV 100 MG in DEXTROSE 5% 100ML 100 ML IV SCH (20:29)
[2016-10-07] MEDS: POLYETHYLENE (MIRALAX) 17 GM PACK PO SCH (20:35)
[2016-10-07] MEDS: METOPROLOL TARTRATE 25 MG TAB PO SCH (20:39)
[2016-10-07] MEDS: LEVOTHYROXINE 125 MCG TAB PO SCH (20:42)
[2016-10-08] VITALS (10 sets, daily range): BP systolic 96–149; BP diastolic 53–69; PULSE 71–101; TEMP 36.8–37; O2SAT 92–97
[2016-10-08] MEDS: DOXYCYCLINE IV 100 MG in DEXTROSE 5% 100ML 100 ML IV SCH ×2 (06:02→19:38)
[2016-10-08 06:22] LABS: BASO % 0.3 %; BASO ABS # 0.02 K/uL (0-0.2); COMPLETE YES; EOS % 2.9 %; HEMATOCRIT 30.2 % (37-47); IG% 0.6 %; LYMPH % 19.8 %; LYMPH ABS # 1.22 K/uL (1.2-3.4); MEAN CELL VOLUME 84.6 fL (80-100); MEAN CORPUSCULAR HEMOGLOBIN 28.3 pg (25-34); MEAN CORPUSCULAR HGB CONC 33.4 g/dl (32-36); MEAN PLATELET VOLUME 11.1 fL (7.4-10.4); MONO % 8.3 %; NEUT % 68.1 %; PLATELET COUNT 183 K/uL (130-400); RED BLOOD COUNT 3.57 M/uL (4.2-5.4); WHITE BLOOD COUNT 6.17 K/uL (4.8-10.8)
[2016-10-08 06:56] LABS: BUN/CREATININE RATIO 10.1 (10-20); CALCIUM 8.8 mg/dl (8.5-10.1); CREATININE 1.7 mg/dl (0.60-1.20); POTASSIUM 4.1 mmol/L (3.5-5.1)
[2016-10-08] MEDS: INSULIN ASPART 100 UNITS/ML 3 ML PEN SC SCH ×4 (07:50→21:36)
[2016-10-08] MEDS: DULOXETINE HCL 20 MG CAP PO SCH (08:03)
[2016-10-08] MEDS: ATORVASTATIN 20 MG TAB PO SCH (08:03)
[2016-10-08] MEDS: ISOSORBIDE MONONITRATE 30 MG TABCR PO SCH (08:03)
[2016-10-08] MEDS: ASPIRIN 81 MG ECTAB PO SCH (08:03)
[2016-10-08] MEDS: CLOPIDOGREL BISULFATE 75 MG TAB PO SCH (08:03)
[2016-10-08] MEDS: RANITIDINE HCL 150 MG TAB PO SCH ×2 (08:03→21:29)
[2016-10-08] MEDS: BENZONATATE 100MG CAP PO PRN ×2 (08:04→21:28)
[2016-10-08] MEDS: MAGNESIUM OXIDE 400 MG TAB PO SCH (08:04)
[2016-10-08] MEDS: PANTOprazole SOD 40 MG TAB PO SCH (08:04)
[2016-10-08] MEDS: CARBIDOPA/LEVODOPA 25/100MG TAB PO SCH ×4 (08:04→21:28)
[2016-10-08] MEDS: GABAPENTIN 100 MG CAP PO SCH ×3 (08:05→21:28)
[2016-10-08] MEDS: LOSARTAN POTASSIUM 25 MG TAB PO SCH (08:05)
[2016-10-08] MEDS: FLUTICASONE PROPIONATE NA SPR 16 GM BTL NAE SCH ×2 (08:07→21:29)
[2016-10-08] MEDS: SODIUM CHLORIDE 0.65% NA SOLN 45 ML (OCEAN) NAE SCH (08:07)
[2016-10-08] MEDS: METOPROLOL TARTRATE 50 MG TAB PO SCH (08:07)
[2016-10-08] MEDS: BUDESONIDE/FORMOTEROL FUMARATE 160/4.5 60 PUFFS/INHALER INH SCH ×2 (08:07→21:29)
[2016-10-08] MEDS: POLYETHYLENE (MIRALAX) 17 GM PACK PO SCH ×2 (08:08→21:00)
[2016-10-08] MEDS: PIPERACILL/TAZOBAC IV 3.375 GM in DEXTROSE 5% 100ML 100 ML IV SCH ×3 (08:09→23:44)
[2016-10-08] MEDS: ACETAMINOPHEN 325 MG TAB PO PRN (14:12)
[2016-10-08] MEDS: ALBUT/IPRATROP 3MG/0.5MG NEB 3 ML VIAL INH PRN ×2 (16:14→20:54)
--- NOTE | 2016-10-08 21:13 | Progress Note ---
Medicine Progress Note Date & Time of Visit: Oct 08, 2016 at 15:39. Subjective 86 yoF with acute sinus infection -defervesced-no fever in 24 hours. -reports that she is feeling much better and appears improved -states pain still present across her sinuses but this is less denies sore throat +cough nonproductive -blowing yellowish phlegm out of her nose -tolerating PO -denies nausea, vomiting, diarrhea, chest pain or shortness of breath. Objective Last 8 Hrs Date Time Temp Pulse Resp B/P Pulse Ox O2 Delivery O2 Flow Rate FiO2 10/08/16 15:03 36.9 89 16 96/53 95 Nasal Cannula 2.0 10/08/16 12:00 94 Nasal Cannula 2.0 10/08/16 11:40 37.0 87 16 107/58 94 Room Air 10/08/16 08:00 97 Nasal Cannula 2.0 Physical Exam: GEN: WNWD, has obvious shaking chills, alert and appropriate, fatigued HEENT: NC/AT, normal sclerae, no LAD, pharynx non-acute, TM nakia without obvious effusion, external canals appear non-erythematous, sinus TTP worse in frontal sinuses but also present in both maxillary sinuses-improved since yesterday. CARDIO: reg rate, S1/2 heard without m/g/r LUNGS: CTA bilaterally, no crackles, no rales or wheezes, good diaphragmatic excursion ABD: soft, non-tender, non-distended, no rebound or guarding EXTREMITY: no LE swelling or edema, extremities are warm and well-perfused NEURO: CN 2-12 grossly intact, sensation intact throughout MUSC: strength intact, moves around the bed easily no gross focal deficits SKIN: warm and dry Laboratory Results: Last 24 Hours Test 10/07/16 16:28 10/07/16 19:44 10/08/16 05:37 10/08/16 07:34 Bedside Glucose 124 mg/dl 141 mg/dl 94 mg/dl White Blood Count 6.17 K/uL Red Blood Count 3.57 M/uL Hemoglobin 10.1 g/dL Hematocrit 30.2 % Mean Corpuscular Volume 84.6 fL Mean Corpuscular Hemoglobin 28.3 pg Mean Corpuscular Hemoglobin Concent 33.4 g/dl Platelet Count 183 K/uL Mean Platelet Volume 11.1 fL Neutrophils (%) (Auto) 68.1 % Lymphocytes (%) (Auto) 19.8 % Monocytes (%) (Auto) 8.3 % Eosinophils (%) (Auto) 2.9 % Basophils (%) (Auto) 0.3 % Neutrophils # (Auto) 4.20 K/uL Lymphocytes # (Auto) 1.22 K/uL Monocytes # (Auto) 0.51 K/uL Eosinophils # (Auto) 0.18 K/uL Basophils # (Auto) 0.02 K/uL RDW Standard Deviation 47.8 fL RDW Coefficient of Variation 15.4 % Immature Granulocyte % (Auto) 0.6 % Immature Granulocyte # (Auto) 0.04 K/uL Sodium Level 135 mmol/L Potassium Level 4.1 mmol/L Chloride Level 101 mmol/L Carbon Dioxide Level 22 mmol/L Anion Gap 12.0 mmol/L Blood Urea Nitrogen 17 mg/dl Creatinine 1.70 mg/dl Est Creatinine Clear Calc Drug Dose 24.3 ml/min Estimated GFR () 31.1 Estimated GFR (Non- 26.8 BUN/Creatinine Ratio 10.1 Random Glucose 99 mg/dl Calcium Level 8.8 mg/dl Test 10/08/16 11:16 Bedside Glucose 177 mg/dl Date/Time Source Procedure Growth Status 10/07/16 22:00 Nasal MRSA DNA Surveillance Screen - Final Specimen Negative for MRSA by DNA Probe Complete 10/07/16 22:15 Sputum Expectorated Sputum Gram Stain - Final Resulted 10/07/16 22:15 Sputum Expectorated Sputum Sputum Culture - Preliminary LIGHT NORMAL CARL[place] Present, Final Rep... Resulted Assessment & Plan ACUTE SINUSITIS -appears resuscitated as HR has improved overnight and she is currently afebrile. -lactate was normal last night -will cont 1 more L of IVF for comfort and to work against insensible loss from expected fever -there is nonspecific interstitial thickening on CXR and crackles at the bases with some cough, which may point to an atypical pneumonia? -however, her main issue is a bad sinus infection that appears to be resolving on current therapy. -CT sinuses last week was negative despite same symptoms at that time -will cont with IV Zosyn/doxy for another 1-2 days -cont supportive care -blood and sputum cultures are negative -flu is negative -RSV pending [place] IN SETTING OF CKD STAGE III-Baseline creatinine is around 1.5. Likely related to prerenal azotemia 2/2 not feeling well. Improved since admission and with initial IVF. Cont low dose Losartan. ALTERED MENTAL STATUS Probable encephalopathy secondary to sepsis. resolved CORONARY ARTERY DISEASE No anginal symptoms. Continue aspirin, metoprolol, nitrates, statin. HYPERTENSION Continue metoprolol, nitrates, losartan. ASTHMA No wheezing on exam today, oxygenation well on NC but not on oxygen at home. Cont with oxygen support as needed but wean when feeling improved. Continue bronchodilators. DM TYPE 2 Usually well-controlled. Insulin coverage PRN for elevated blood sugars. Currently at goal PARKINSON'S DISEASE Continue carbidopa / levodopa. VTE PROPHYLAXIS Add heparin to SCDs Full Code DISPOSITION -transfer to Med/Surg Ina Ramos DO [facility] Hospitalist . Current Inpatient Medications: Current Inpatient Medications Medications (Trade) Dose Ordered Sig/Nilsa Route Start Time Stop Time Status Last Admin Dose Admin Acetaminophen (Tylenol Tab) 650 mg Q4H PRN PO 10/07/16 01:30 11/06/16 01:29 10/08/16 14:12 650 MG Albuterol (Ventolin Hfa Inhaler) 2 puffs QID PRN INH 10/07/16 05:30 11/06/16 05:29 Aspirin (Ecotrin Tab) 81 mg QAM PO 10/07/16 09:00 11/06/16 08:59 10/08/16 08:03 81 MG Atorvastatin Calcium (Lipitor Tab) 40 mg DAILY PO 10/07/16 09:00 11/06/16 08:59 10/08/16 08:03 40 MG Benzonatate (Tessalon Perles Cap) 100 mg Q8H PRN PO 10/07/16 05:30 11/06/16 05:29 10/08/16 08:04 100 MG Budesonide/ Formoterol Fumarate (Symbicort 160/ 4.5 Inh) 2 puffs BID INH 10/07/16 09:00 11/06/16 08:59 10/08/16 08:07 2 PUFFS Clopidogrel Bisulfate (plAVix TAB) 75 mg QAM PO 10/07/16 09:00 11/06/16 08:59 10/08/16 08:03 75 MG Duloxetine HCl (Cymbalta Cap) 20 mg DAILY PO 10/07/16 09:00 11/06/16 08:59 10/08/16 08:03 20 MG Fluticasone Propionate (Flonase Nasal [place]) 2 sprays BID JOSE 10/07/16 09:00 11/06/16 08:59 10/08/16 08:07 2 SPRAYS Gabapentin (Neurontin Cap) 200 mg TID PO 10/07/16 09:00 11/06/16 08:59 10/08/16 14:11 200 MG Albuterol/ Ipratropium (Duoneb) 3 ml Q4H PRN INH 10/07/16 05:30 11/06/16 05:29 Isosorbide Mononitrate (Imdur Ext Rel Tab) 30 mg QAM PO 10/07/16 09:00 11/06/16 08:59 10/08/16 08:03 30 MG Carbidopa/Levodopa (Sinemet 25/ 100MG Tab) 1 tab QID PO 10/07/16 09:00 11/06/16 08:59 10/08/16 14:11 1 TAB Levothyroxine Sodium (Synthroid Tab) 125 mcg HS PO 10/07/16 21:00 11/06/16 20:59 10/07/16 20:42 125 MCG Lorazepam (Ativan Tab) 0.5 mg BID PRN PO 10/07/16 05:30 11/06/16 05:29 Losartan Potassium (coZAAR TAB) 25 mg QAM PO 10/07/16 09:00 11/06/16 08:59 10/08/16 08:05 25 MG Metoprolol Tartrate (Lopressor Tab) 25 mg QPM PO 10/07/16 21:00 11/06/16 20:59 Metoprolol Tartrate (Lopressor Tab) 50 mg QAM PO 10/07/16 09:00 11/06/16 08:59 10/08/16 08:07 50 MG Nitroglycerin (Nitrostat Tab) 0.4 mg UD PRN SL 10/07/16 05:30 11/06/16 05:29 Oxycodone HCl (Roxicodone Immediate Rel Tab) 5 mg Q4H PRN PO 10/07/16 05:30 10/21/16 05:29 Pantoprazole Sodium (Protonix Tab) 40 mg QAM PO 10/07/16 09:00 11/06/16 08:59 10/08/16 08:04 40 MG Ranitidine HCl (zANTac TAB) 150 mg BID PO 10/07/16 09:00 11/06/16 08:59 10/08/16 08:03 150 MG Sodium Chloride ([place] Nasal [place]) 2 sprays DAILY JOSE 10/07/16 09:00 11/06/16 08:59 10/08/16 08:07 2 SPRAYS Piperacillin Sod/ Tazobactam Sod 1 ea 1 ea UD PRN N/A 10/07/16 06:00 11/06/16 05:59 Piperacillin Sod/ Tazobactam Sod/ Dextrose (Zosyn Iv/D5 100ml) 115 ml @ 28 mls/hr Q8H IV 10/07/16 08:00 10/14/16 07:59 10/08/16 15:26 28 MLS/HR Magnesium Oxide (Mag-Ox Tab) 400 mg QAM PO 10/07/16 09:00 11/06/16 08:59 10/08/16 08:04 400 MG Insulin Aspart (novoLOG ASPART) SLIDING SCALE G... ACHS SC 10/07/16 11:00 11/06/16 10:59 Glucose (Glucose 40% Gel) 15-30 GRAMS 15 GRAMS... UD PRN PO 10/07/16 07:15 11/06/16 07:14 Glucose (Glucose Chew Tab) 4-8 Tablets 4 Tabl... UD PRN PO 10/07/16 07:15 11/06/16 07:14 Dextrose (Dextrose 50% 50ML Syringe) 25-50ML OF 50% DW IV FOR... UD PRN IV 10/07/16 07:15 11/06/16 07:14 Glucagon 1 mg 1 mg UD PRN SQ 10/07/16 07:15 11/06/16 07:14 Doxycycline Hyclate/Dextrose (Vibramycin IV/ D5 100ml) 110 ml @ 50 mls/hr BID@0600,2000 IV 10/07/16 20:00 10/14/16 19:59 10/08/16 06:02 50 MLS/HR Polyethylene (Miralax Powder Packet) 17 gm BID PO 10/07/16 21:00 10/10/16 20:59 Bisacodyl (Dulcolax Supp) 10 mg DAILY PRN MT 10/07/16 17:30 11/06/16 17:29 10/07/16 22:00 10 MG
[2016-10-08] MEDS: LEVOTHYROXINE 125 MCG TAB PO SCH (21:28)
[2016-10-08] MEDS: METOPROLOL TARTRATE 25 MG TAB PO SCH (21:29)
[2016-10-08] MEDS: HEPARIN SOD 5000 UNIT/0.5 ML CARP SQ SCH (21:36)
[2016-10-09] VITALS (8 sets, daily range): BP systolic 106–138; BP diastolic 55–80; PULSE 73–94; TEMP 36.4–37.4; O2SAT 92–98
[2016-10-09] MEDS: DOXYCYCLINE IV 100 MG in DEXTROSE 5% 100ML 100 ML IV SCH ×2 (05:19→20:40)
[2016-10-09] MEDS: BENZONATATE 100MG CAP PO PRN (05:21)
[2016-10-09] MEDS ORDERED: COUGH DROP (SUGAR FREE) LOZ 24 LOZ/1 BOX ONE (05:29)
[2016-10-09] MEDS ORDERED: COUGH DROP (SUGAR FREE) LOZ 24 LOZ/1 BOX PO PRN (05:30)
[2016-10-09] MEDS: HEPARIN SOD 5000 UNIT/0.5 ML CARP SQ SCH ×3 (05:53→20:51)
[2016-10-09] MEDS: INSULIN ASPART 100 UNITS/ML 3 ML PEN SC SCH ×4 (07:48→20:53)
[2016-10-09] MEDS: BUDESONIDE/FORMOTEROL FUMARATE 160/4.5 60 PUFFS/INHALER INH SCH ×2 (07:52→20:42)
[2016-10-09] MEDS: PIPERACILL/TAZOBAC IV 3.375 GM in DEXTROSE 5% 100ML 100 ML IV SCH ×2 (07:52→16:48)
[2016-10-09] MEDS: SODIUM CHLORIDE 0.65% NA SOLN 45 ML (OCEAN) NAE SCH (07:53)
[2016-10-09] MEDS: ATORVASTATIN 20 MG TAB PO SCH (07:53)
[2016-10-09] MEDS: DULOXETINE HCL 20 MG CAP PO SCH (07:53)
[2016-10-09] MEDS: LOSARTAN POTASSIUM 25 MG TAB PO SCH (07:53)
[2016-10-09] MEDS: ASPIRIN 81 MG ECTAB PO SCH (07:53)
[2016-10-09] MEDS: FLUTICASONE PROPIONATE NA SPR 16 GM BTL NAE SCH ×2 (07:53→20:42)
[2016-10-09] MEDS: ISOSORBIDE MONONITRATE 30 MG TABCR PO SCH (07:53)
[2016-10-09] MEDS: CARBIDOPA/LEVODOPA 25/100MG TAB PO SCH ×4 (07:54→20:45)
[2016-10-09] MEDS: GABAPENTIN 100 MG CAP PO SCH ×3 (07:54→20:44)
[2016-10-09] MEDS: RANITIDINE HCL 150 MG TAB PO SCH ×2 (07:54→20:48)
[2016-10-09] MEDS: MAGNESIUM OXIDE 400 MG TAB PO SCH (07:54)
[2016-10-09] MEDS: PANTOprazole SOD 40 MG TAB PO SCH (07:54)
[2016-10-09] MEDS: METOPROLOL TARTRATE 50 MG TAB PO SCH (07:54)
[2016-10-09] MEDS: CLOPIDOGREL BISULFATE 75 MG TAB PO SCH (07:54)
[2016-10-09] MEDS: POLYETHYLENE (MIRALAX) 17 GM PACK PO SCH ×2 (07:54→20:56)
[2016-10-09] MEDS ORDERED: GUAIFENESIN/CODEINE 200MG/20MG 10ML UDC PO ONE (10:00)
[2016-10-09] MEDS ORDERED: PHARMACY GLYCEMIC MGMT CONSULT PRN (10:04)
[2016-10-09 10:26] LABS: BUN/CREATININE RATIO 9.8 (10-20); CALCIUM 8.8 mg/dl (8.5-10.1); CREATININE 1.8 mg/dl (0.60-1.20); POTASSIUM 4.4 mmol/L (3.5-5.1)
--- NOTE | 2016-10-09 14:14 | DIAGNOSTIC IMAGING REPORT ---
CHEST 2 VIEWS ROUTINE CLINICAL HISTORY: Persistent cough, chronic hypoxia. COMPARISON STUDY: 10/06/2016 FINDINGS: The cardiac and sternal contours remain stable. There is a small right pleural effusion. There are persistent bilateral interstitial opacities.[ These could be inflammatory/infectious, or related to congestive failure. IMPRESSION: 1. Stable nonspecific bilateral interstitial opacities 2. Small right pleural effusion. Electronically signed by: Matthew Corea M.D. 10/09/2016 2:13 PM Dictated Date/Time: 10/09/2016 2:12 PM
--- NOTE | 2016-10-09 15:27 | Progress Note ---
Medicine Progress Note Date & Time of Visit: Oct 09, 2016 at 10:04. Subjective persistent cough overnight keeping her awake improvement in facial TTP continues with the Flonase and Saline still having phlegm from nose RSV pending glucose at goal and not requiring insulin adding Robitussin AC for cough, which she reports using at home with success tolerating PO no fevers or chills overnight repeat CXR today Objective Last 8 Hrs Date Time Temp Pulse Resp B/P Pulse Ox O2 Delivery O2 Flow Rate FiO2 10/09/16 08:00 Nasal Cannula 2.0 10/09/16 07:36 37.3 94 16 138/80 92 2.0 Physical Exam: GEN: WNWD,no acute distress, alert and appropriate, fatigued HEENT: NC/AT, normal sclerae, no LAD, pharynx non-acute, TM nakia without obvious effusion, external canals appear non-erythematous, sinus TTP worse in frontal sinuses but also present in both maxillary sinuses-again improved since yesterday. NECK: swollen bilat tonsillar lymph nodes CARDIO: reg rate, S1/2 heard without m/g/r LUNGS: CTA bilaterally, crackles at right base, no rales or wheezes, good diaphragmatic excursion ABD: soft, non-tender, non-distended, no rebound or guarding EXTREMITY: no LE swelling or edema, extremities are warm and well-perfused NEURO: CN 2-12 grossly intact, sensation intact throughout MUSC: strength intact, moves around the bed easily no gross focal deficits SKIN: warm and dry Laboratory Results: Last 24 Hours Test 10/08/16 11:16 10/08/16 16:05 10/08/16 20:25 10/09/16 06:21 Bedside Glucose 177 mg/dl 144 mg/dl 235 mg/dl Test 10/09/16 07:28 Bedside Glucose 142 mg/dl Assessment & Plan 86 yoF with suspected community-acquired pneumonia and acute sinusitis ACUTE SINUSITIS/COMMUNITY-ACQUIRED PNEUMONIA -afebrile for the last 48 hours and physical exam has improved -there is nonspecific interstitial thickening on CXR and crackles at the bases with some cough, and recent h/o fever which may point to an atypical pneumonia -repeat CXR (PA& Lat) today reveals definite interstitial infiltrates, so I am comfortable with calling this a PNA--suspect viral etiology, possibly parainfluenza or RSV with nasal congestion component. -sinusitis may be a complication of pneumonia in this case -multiplex PCR for nasal washing was considered, however, reference testing would not ship out for two days and would take at least one week to return. -also considered legionella UAT and strep pneumo UAT as patient failed outpatient abx therapy, however, did not test as she is improving and because of reference test timing above. -CT sinuses last week was negative despite same symptoms at that time -no repeat sinuses at this time -will cont with IV Zosyn/doxy and will plan to transition to PO Levaquin in next 1-2 days -cont supportive care -blood and sputum cultures are negative -flu is negative -RSV pending PENELOPE IN SETTING OF CKD STAGE III-Baseline creatinine is around 1.5. Likely related to prerenal azotemia 2/2 not feeling well. Improved since admission and with initial IVF. She is eating and drinking to thirst. Will hold Losartan at this time and trend PRP. ALTERED MENTAL STATUS Probable encephalopathy secondary to sepsis. resolved CORONARY ARTERY DISEASE No anginal symptoms. Continue aspirin, metoprolol, nitrates, statin. HYPERTENSION Continue metoprolol, nitrates, losartan on hold ASTHMA No wheezing on exam today, oxygenation well on NC but not on oxygen at home. Cont with oxygen support as needed but wean when feeling improved. Continue bronchodilators PRN DM TYPE 2 Usually well-controlled. Insulin coverage PRN for elevated blood sugars. Currently at goal with 2U given overnight-total 2U for coverage since admission PARKINSON'S DISEASE Continue carbidopa / levodopa. VTE PROPHYLAXIS Add heparin to SCDs Full Code DISPOSITION -transfer to Med/Surg -plan was discussed in detail with daughter/library science instructor, who is at the bedside today. Ina Ramos DO [facility] Hospitalist . Current Inpatient Medications: Current Inpatient Medications Medications (Trade) Dose Ordered Sig/Nilsa Route Start Time Stop Time Status Last Admin Dose Admin Acetaminophen (Tylenol Tab) 650 mg Q4H PRN PO 10/07/16 01:30 11/06/16 01:29 10/08/16 14:12 650 MG Albuterol (Ventolin Hfa Inhaler) 2 puffs QID PRN INH 10/07/16 05:30 11/06/16 05:29 Aspirin (Ecotrin Tab) 81 mg QAM PO 10/07/16 09:00 11/06/16 08:59 10/09/16 07:53 81 MG Atorvastatin Calcium (Lipitor Tab) 40 mg DAILY PO 10/07/16 09:00 11/06/16 08:59 10/09/16 07:53 40 MG Benzonatate (Tessalon Perles Cap) 100 mg Q8H PRN PO 10/07/16 05:30 11/06/16 05:29 10/09/16 05:21 100 MG Budesonide/ Formoterol Fumarate (Symbicort 160/ 4.5 Inh) 2 puffs BID INH 10/07/16 09:00 11/06/16 08:59 10/09/16 07:52 2 PUFFS Clopidogrel Bisulfate (plAVix TAB) 75 mg QAM PO 10/07/16 09:00 11/06/16 08:59 10/09/16 07:54 75 MG Duloxetine HCl (Cymbalta Cap) 20 mg DAILY PO 10/07/16 09:00 11/06/16 08:59 10/09/16 07:53 20 MG Fluticasone Propionate (Flonase Nasal [place]) 2 sprays BID JOSE 10/07/16 09:00 11/06/16 08:59 10/09/16 07:53 2 SPRAYS Gabapentin (Neurontin Cap) 200 mg TID PO 10/07/16 09:00 11/06/16 08:59 10/09/16 07:54 200 MG Albuterol/ Ipratropium (Duoneb) 3 ml Q4H PRN INH 10/07/16 05:30 11/06/16 05:29 10/08/16 20:54 3 ML Isosorbide Mononitrate (Imdur Ext Rel Tab) 30 mg QAM PO 10/07/16 09:00 11/06/16 08:59 10/09/16 07:53 30 MG Carbidopa/Levodopa (Sinemet 25/ 100MG Tab) 1 tab QID PO 10/07/16 09:00 11/06/16 08:59 10/09/16 07:54 1 TAB Levothyroxine Sodium (Synthroid Tab) 125 mcg HS PO 10/07/16 21:00 11/06/16 20:59 10/08/16 21:28 125 MCG Lorazepam (Ativan Tab) 0.5 mg BID PRN PO 10/07/16 05:30 11/06/16 05:29 Losartan Potassium (coZAAR TAB) 25 mg QAM PO 10/07/16 09:00 11/06/16 08:59 10/09/16 07:53 25 MG Metoprolol Tartrate (Lopressor Tab) 25 mg QPM PO 10/07/16 21:00 11/06/16 20:59 10/08/16 21:29 25 MG Metoprolol Tartrate (Lopressor Tab) 50 mg QAM PO 10/07/16 09:00 11/06/16 08:59 10/09/16 07:54 50 MG Nitroglycerin (Nitrostat Tab) 0.4 mg UD PRN SL 10/07/16 05:30 11/06/16 05:29 Oxycodone HCl (Roxicodone Immediate Rel Tab) 5 mg Q4H PRN PO 10/07/16 05:30 10/21/16 05:29 Pantoprazole Sodium (Protonix Tab) 40 mg QAM PO 10/07/16 09:00 11/06/16 08:59 10/09/16 07:54 40 MG Ranitidine HCl (zANTac TAB) 150 mg BID PO 10/07/16 09:00 11/06/16 08:59 10/09/16 07:54 150 MG Sodium Chloride ([place] Nasal [place]) 2 sprays DAILY JOSE 10/07/16 09:00 11/06/16 08:59 10/09/16 07:53 2 SPRAYS Piperacillin Sod/ Tazobactam Sod 1 ea 1 ea UD PRN N/A 10/07/16 06:00 11/06/16 05:59 Piperacillin Sod/ Tazobactam Sod/ Dextrose (Zosyn Iv/D5 100ml) 115 ml @ 28 mls/hr Q8H IV 10/07/16 08:00 10/14/16 07:59 10/09/16 07:52 28 MLS/HR Magnesium Oxide (Mag-Ox Tab) 400 mg QAM PO 10/07/16 09:00 11/06/16 08:59 10/09/16 07:54 400 MG Insulin Aspart (novoLOG ASPART) SLIDING SCALE G... ACHS SC 10/07/16 11:00 11/06/16 10:59 10/08/16 21:36 2 UNITS Glucose (Glucose 40% Gel) 15-30 GRAMS 15 GRAMS... UD PRN PO 10/07/16 07:15 11/06/16 07:14 Glucose (Glucose Chew Tab) 4-8 Tablets 4 Tabl... UD PRN PO 10/07/16 07:15 11/06/16 07:14 Dextrose (Dextrose 50% 50ML Syringe) 25-50ML OF 50% DW IV FOR... UD PRN IV 10/07/16 07:15 11/06/16 07:14 Glucagon 1 mg 1 mg UD PRN SQ 10/07/16 07:15 11/06/16 07:14 Doxycycline Hyclate/Dextrose (Vibramycin IV/ D5 100ml) 110 ml @ 50 mls/hr BID@0600,2000 IV 10/07/16 20:00 10/14/16 19:59 10/09/16 05:19 50 MLS/HR Polyethylene (Miralax Powder Packet) 17 gm BID PO 10/07/16 21:00 10/10/16 20:59 Bisacodyl (Dulcolax Supp) 10 mg DAILY PRN ID 10/07/16 17:30 11/06/16 17:29 10/07/16 22:00 10 MG Heparin Sodium (Porcine) (Heparin Sq 5000 Unit/0.5ml) 5,000 unit Q8 SQ 10/08/16 22:00 11/07/16 21:59 10/09/16 05:53 5,000 UNIT Menthol (Nice Janie) 1 janie PRN PRN PO 10/09/16 05:30 11/08/16 05:29 Codeine Phosphate/ Guaifenesin (Robitussin-AC Sugar Free Syrup) 10 ml Q6H PRN PO 10/09/16 10:00 11/08/16 09:59 UNV Codeine Phosphate/ Guaifenesin (Robitussin-AC Sugar Free Syrup) 10 ml 1000 ONCE PO 10/09/16 10:00 10/09/16 10:01 UNV Miscellaneous Information (Consult Glycemic Management Pharmacy) 1 ea NOW STAT N/A 10/09/16 10:02 10/09/16 10:03 UNV
[2016-10-09] MEDS: ALBUT/IPRATROP 3MG/0.5MG NEB 3 ML VIAL INH PRN (16:13)
[2016-10-09] MEDS: LEVOTHYROXINE 125 MCG TAB PO SCH (20:47)
[2016-10-09] MEDS: METOPROLOL TARTRATE 25 MG TAB PO SCH (20:47)
[2016-10-09] MEDS: GUAIFENESIN/CODEINE 200MG/20MG 10ML UDC PO PRN (20:54)
[2016-10-09] MEDS: ACETAMINOPHEN 325 MG TAB PO PRN (20:55)
[2016-10-10] VITALS (9 sets, daily range): BP systolic 96–149; BP diastolic 53–74; PULSE 76–101; TEMP 36.8–38.2; O2SAT 85–96
[2016-10-10] MEDS: PIPERACILL/TAZOBAC IV 3.375 GM in DEXTROSE 5% 100ML 100 ML IV SCH ×2 (02:21→08:24)
[2016-10-10] MEDS: DOXYCYCLINE IV 100 MG in DEXTROSE 5% 100ML 100 ML IV SCH (05:55)
[2016-10-10] MEDS: GUAIFENESIN/CODEINE 200MG/20MG 10ML UDC PO PRN ×2 (05:55→16:00)
[2016-10-10] MEDS: HEPARIN SOD 5000 UNIT/0.5 ML CARP SQ SCH ×3 (05:56→21:19)
[2016-10-10 07:53] LABS: CREATININE 1.6 mg/dl (0.60-1.20)
[2016-10-10] MEDS: INSULIN ASPART 100 UNITS/ML 3 ML PEN SC SCH ×4 (08:20→21:00)
[2016-10-10] MEDS: POLYETHYLENE (MIRALAX) 17 GM PACK PO SCH (08:22)
[2016-10-10] MEDS: BUDESONIDE/FORMOTEROL FUMARATE 160/4.5 60 PUFFS/INHALER INH SCH ×2 (08:24→21:11)
[2016-10-10] MEDS: FLUTICASONE PROPIONATE NA SPR 16 GM BTL NAE SCH ×2 (08:24→21:11)
[2016-10-10] MEDS: PANTOprazole SOD 40 MG TAB PO SCH (08:25)
[2016-10-10] MEDS: ASPIRIN 81 MG ECTAB PO SCH (08:25)
[2016-10-10] MEDS: SODIUM CHLORIDE 0.65% NA SOLN 45 ML (OCEAN) NAE SCH (08:25)
[2016-10-10] MEDS: RANITIDINE HCL 150 MG TAB PO SCH ×2 (08:25→21:13)
[2016-10-10] MEDS: METOPROLOL TARTRATE 50 MG TAB PO SCH (08:25)
[2016-10-10] MEDS: ATORVASTATIN 20 MG TAB PO SCH (08:25)
[2016-10-10] MEDS: BENZONATATE 100MG CAP PO PRN ×2 (08:25→21:21)
[2016-10-10] MEDS: GABAPENTIN 100 MG CAP PO SCH ×3 (08:25→21:16)
[2016-10-10] MEDS: ISOSORBIDE MONONITRATE 30 MG TABCR PO SCH (08:25)
[2016-10-10] MEDS: MAGNESIUM OXIDE 400 MG TAB PO SCH (08:25)
[2016-10-10] MEDS: DULOXETINE HCL 20 MG CAP PO SCH (08:25)
[2016-10-10] MEDS: CARBIDOPA/LEVODOPA 25/100MG TAB PO SCH ×4 (08:25→21:12)
[2016-10-10] MEDS: CLOPIDOGREL BISULFATE 75 MG TAB PO SCH (08:25)
[2016-10-10] MEDS: OXYCODONE HCL IR 5 MG TAB (IMMEDIATE RELEASE) PO PRN ×2 (10:04→10:53)
--- NOTE | 2016-10-10 10:34 | Progress Note ---
Medicine Progress Note Date & Time of Visit: Oct 10, 2016 at 10:21. Subjective pt is teary and reporting pain all over she states that her coughing is better and she feels her facial pain has improved she is still blowing junk out of her nose she is tolerating PO she reports littele sleep last night as her IV kept beeping and people kept coming in her room i was just called by the nurse as her IV infiltrated and the IV team tried multiple times to get an iv without success with continued improvement, we are switching her to oral agents at this point. Objective Last 8 Hrs Date Time Temp Pulse Resp B/P Pulse Ox O2 Delivery O2 Flow Rate FiO2 10/10/16 08:00 Nasal Cannula 2.0 10/10/16 07:29 36.8 76 16 122/73 96 2.0 Physical Exam: GEN: WNWD,in mild distress, alert and appropriate, fatigued, no increased work of breathing or conversational dyspnea, appears shaky and worn out HEENT: NC/AT, normal sclerae, TTP still over sinuses but improved, MMM NECK: swollen bilat tonsillar lymph nodes CARDIO: tachy rate, S1/2 heard without m/g/r LUNGS: CTA bilaterally, crackles at right and left base, no rales or wheezes, good diaphragmatic excursion ABD: soft, non-tender, non-distended, no rebound or guarding EXTREMITY: no LE swelling or edema, extremities are warm and well-perfused N/M: no gross focal deficits SKIN: warm and dry Laboratory Results: Last 24 Hours Test 10/09/16 11:42 10/09/16 16:43 10/09/16 20:11 10/10/16 07:13 Bedside Glucose 228 mg/dl 111 mg/dl 210 mg/dl Creatinine 1.60 mg/dl Est Creatinine Clear Calc Drug Dose 25.8 ml/min Estimated GFR () 33.5 Estimated GFR (Non- 28.9 Test 10/10/16 07:46 Bedside Glucose 159 mg/dl Assessment & Plan 86 yoF with suspected viral community-acquired pneumonia and acute sinusitis ACUTE SINUSITIS/COMMUNITY-ACQUIRED PNEUMONIA -afebrile for the last 72 hours and physical exam has improved -there is nonspecific interstitial thickening on CXR and crackles at the bases with some cough, and recent h/o fever which may point to an atypical pneumonia -suspect strongly this is a viral pneumonia with bacterial superinfection, starting Tamiflu course despite flu negative as RSV and human metapneumoviruses can be as severe as flu in the elderly. -repeat CXR (PA& Lat) 10/09 reveals definite interstitial infiltrates, so I am comfortable with calling this a PNA--suspect viral etiology, possibly parainfluenza or RSV with nasal congestion component. -sinusitis may be a complication of pneumonia in this case -multiplex PCR for nasal washing was considered, however, reference testing would not ship out for two days and would take at least one week to return. -also considered legionella UAT and strep pneumo UAT as patient failed outpatient abx therapy, however, did not test as she is improving and because of reference test timing above. -CT sinuses last week was negative despite same symptoms at that time -no repeat sinuses at this time -will cont with IV Zosyn/doxy and will plan to transition to PO Levaquin in next 1-2 days -cont supportive care -blood and sputum cultures remain negative -flu is negative -RSV pending -scheduled breathing treatments PENELOPE IN SETTING OF CKD STAGE III-resolved to baseline, Baseline creatinine is around 1.5. Likely related to prerenal azotemia 2/2 not feeling well. Improved since admission and with initial IVF. She is eating and drinking to thirst. Cont holding Losartan ALTERED MENTAL STATUS Probable encephalopathy secondary to sepsis. resolved CORONARY ARTERY DISEASE No anginal symptoms. Continue aspirin, metoprolol, nitrates, statin. HYPERTENSION Continue metoprolol, nitrates, losartan on hold ASTHMA No wheezing on exam today, oxygenation well on NC but not on oxygen at home. Cont with oxygen support as needed but wean when feeling improved. Continue bronchodilators PRN DM TYPE 2 Usually well-controlled. Insulin coverage PRN for elevated blood sugars. Currently at goal with minimal coverage required PARKINSON'S DISEASE Continue carbidopa / levodopa. VTE PROPHYLAXIS Add heparin to SCDs Full Code DISPOSITION -transfer to Med/Surg -plan was discussed in detail with daughter/refrigeration service technician, who is at the bedside today. Ina Ramos DO [facility] Hospitalist . Current Inpatient Medications: Current Inpatient Medications Medications (Trade) Dose Ordered Sig/Nilsa Route Start Time Stop Time Status Last Admin Dose Admin Acetaminophen (Tylenol Tab) 650 mg Q4H PRN PO 10/07/16 01:30 11/06/16 01:29 10/09/16 20:55 650 MG Albuterol (Ventolin Hfa Inhaler) 2 puffs QID PRN INH 10/07/16 05:30 11/06/16 05:29 Aspirin (Ecotrin Tab) 81 mg QAM PO 10/07/16 09:00 11/06/16 08:59 10/10/16 08:25 81 MG Atorvastatin Calcium (Lipitor Tab) 40 mg DAILY PO 10/07/16 09:00 11/06/16 08:59 10/10/16 08:25 40 MG Benzonatate (Tessalon Perles Cap) 100 mg Q8H PRN PO 10/07/16 05:30 11/06/16 05:29 10/10/16 08:25 100 MG Budesonide/ Formoterol Fumarate (Symbicort 160/ 4.5 Inh) 2 puffs BID INH 10/07/16 09:00 11/06/16 08:59 10/10/16 08:24 2 PUFFS Clopidogrel Bisulfate (plAVix TAB) 75 mg QAM PO 10/07/16 09:00 11/06/16 08:59 10/10/16 08:25 75 MG Duloxetine HCl (Cymbalta Cap) 20 mg DAILY PO 10/07/16 09:00 11/06/16 08:59 10/10/16 08:25 20 MG Fluticasone Propionate (Flonase Nasal [place]) 2 sprays BID JOSE 10/07/16 09:00 11/06/16 08:59 10/10/16 08:24 2 SPRAYS Gabapentin (Neurontin Cap) 200 mg TID PO 10/07/16 09:00 11/06/16 08:59 10/10/16 08:25 200 MG Isosorbide Mononitrate (Imdur Ext Rel Tab) 30 mg QAM PO 10/07/16 09:00 11/06/16 08:59 10/10/16 08:25 30 MG Carbidopa/Levodopa (Sinemet 25/ 100MG Tab) 1 tab QID PO 10/07/16 09:00 11/06/16 08:59 10/10/16 08:25 1 TAB Levothyroxine Sodium (Synthroid Tab) 125 mcg HS PO 10/07/16 21:00 11/06/16 20:59 10/09/16 20:47 125 MCG Lorazepam (Ativan Tab) 0.5 mg BID PRN PO 10/07/16 05:30 11/06/16 05:29 Losartan Potassium (coZAAR TAB) 25 mg QAM PO 10/07/16 09:00 11/06/16 08:59 Future Hold 10/09/16 07:53 25 MG Metoprolol Tartrate (Lopressor Tab) 25 mg QPM PO 10/07/16 21:00 11/06/16 20:59 10/09/16 20:47 25 MG Metoprolol Tartrate (Lopressor Tab) 50 mg QAM PO 10/07/16 09:00 11/06/16 08:59 10/10/16 08:25 50 MG Nitroglycerin (Nitrostat Tab) 0.4 mg UD PRN SL 10/07/16 05:30 11/06/16 05:29 Oxycodone HCl (Roxicodone Immediate Rel Tab) 5 mg Q4H PRN PO 10/07/16 05:30 10/21/16 05:29 10/10/16 10:04 5 MG Pantoprazole Sodium (Protonix Tab) 40 mg QAM PO 10/07/16 09:00 11/06/16 08:59 10/10/16 08:25 40 MG Ranitidine HCl (zANTac TAB) 150 mg BID PO 10/07/16 09:00 11/06/16 08:59 10/10/16 08:25 150 MG Sodium Chloride ([place] Nasal [place]) 2 sprays DAILY JOSE 10/07/16 09:00 11/06/16 08:59 10/10/16 08:25 2 SPRAYS Magnesium Oxide (Mag-Ox Tab) 400 mg QAM PO 10/07/16 09:00 11/06/16 08:59 10/10/16 08:25 400 MG Insulin Aspart (novoLOG ASPART) SLIDING SCALE G... ACHS SC 10/07/16 11:00 11/06/16 10:59 10/09/16 20:53 1 UNITS Glucose (Glucose 40% Gel) 15-30 GRAMS 15 GRAMS... UD PRN PO 10/07/16 07:15 11/06/16 07:14 Glucose (Glucose Chew Tab) 4-8 Tablets 4 Tabl... UD PRN PO 10/07/16 07:15 11/06/16 07:14 Dextrose (Dextrose 50% 50ML Syringe) 25-50ML OF 50% DW IV FOR... UD PRN IV 10/07/16 07:15 11/06/16 07:14 Glucagon (Glucagon Inj) 1 mg UD PRN SQ 10/07/16 07:15 11/06/16 07:14 Polyethylene (Miralax Powder Packet) 17 gm BID PO 10/07/16 21:00 10/10/16 20:59 Bisacodyl (Dulcolax Supp) 10 mg DAILY PRN ME 10/07/16 17:30 11/06/16 17:29 10/07/16 22:00 10 MG Heparin Sodium (Porcine) (Heparin Sq 5000 Unit/0.5ml) 5,000 unit Q8 SQ 10/08/16 22:00 11/07/16 21:59 10/10/16 05:56 5,000 UNIT Menthol (Nice Janie) 1 janie PRN PRN PO 10/09/16 05:30 11/08/16 05:29 Codeine Phosphate/ Guaifenesin (Robitussin-AC Sugar Free Syrup) 10 ml Q6H PRN PO 10/09/16 10:00 11/08/16 09:59 10/10/16 05:55 10 ML Oseltamivir Phosphate (Tamiflu Susp) 30 mg Q24H PO 10/10/16 10:15 10/15/16 10:14 UNV Albuterol/ Ipratropium (Duoneb) 3 ml Q6H PRN INH 10/10/16 10:10 11/09/16 10:09 UNV
[2016-10-10] MEDS: OSELTAMIVIR PHOSPHATE SUSP 30 MG/5 ML UDP PO SCH (11:27)
[2016-10-10] MEDS: AMOXICILLIN/CLAVULANATE TAB 500 MG TAB PO SCH ×2 (11:27→21:15)
[2016-10-10] MEDS: AZITHROMYCIN 250 MG TAB PO SCH (11:28)
[2016-10-10] MEDS: ACETAMINOPHEN 500 MG TAB PO SCH ×2 (11:28→21:14)
[2016-10-10] MEDS: ALBUT/IPRATROP 3MG/0.5MG NEB 3 ML VIAL INH SCH ×2 (15:00→20:09)
[2016-10-10] MEDS: LEVOTHYROXINE 125 MCG TAB PO SCH (21:13)
[2016-10-10] MEDS: METOPROLOL TARTRATE 25 MG TAB PO SCH (21:16)
[2016-10-11] VITALS (8 sets, daily range): BP systolic 105–112; BP diastolic 55–63; PULSE 62–93; TEMP 36.8–37.2; O2SAT 91–98
[2016-10-11] MEDS: GUAIFENESIN/CODEINE 200MG/20MG 10ML UDC PO PRN ×2 (01:09→12:29)
[2016-10-11] MEDS: ALBUT/IPRATROP 3MG/0.5MG NEB 3 ML VIAL INH SCH ×4 (02:00→20:18)
[2016-10-11] MEDS: BENZONATATE 100MG CAP PO PRN (05:35)
[2016-10-11] MEDS: HEPARIN SOD 5000 UNIT/0.5 ML CARP SQ SCH ×3 (05:37→22:11)
[2016-10-11] MEDS: ACETAMINOPHEN 500 MG TAB PO SCH ×3 (05:42→22:09)
[2016-10-11 06:10] LABS: BASO % 0.2 %; BASO ABS # 0.02 K/uL (0-0.2); COMPLETE YES; EOS % 2.3 %; IG% 0.9 %; LYMPH % 18.9 %; LYMPH ABS # 1.62 K/uL (1.2-3.4); MEAN CORPUSCULAR HGB CONC 33.3 g/dl (32-36); MEAN PLATELET VOLUME 10.7 fL (7.4-10.4); MONO % 7.2 %; NEUT % 70.5 %; PLATELET COUNT 311 K/uL (130-400); RED BLOOD COUNT 3.57 M/uL (4.2-5.4); WHITE BLOOD COUNT 8.56 K/uL (4.8-10.8)
[2016-10-11 06:26] LABS: BUN/CREATININE RATIO 17.8 (10-20); CALCIUM 9.7 mg/dl (8.5-10.1); CREATININE 1.4 mg/dl (0.60-1.20)
[2016-10-11] MEDS: INSULIN ASPART 100 UNITS/ML 3 ML PEN SC SCH ×4 (08:39→22:08)
[2016-10-11] MEDS: FLUTICASONE PROPIONATE NA SPR 16 GM BTL NAE SCH ×2 (08:44→22:06)
[2016-10-11] MEDS: SODIUM CHLORIDE 0.65% NA SOLN 45 ML (OCEAN) NAE SCH (08:44)
[2016-10-11] MEDS: DULOXETINE HCL 20 MG CAP PO SCH (08:44)
[2016-10-11] MEDS: AMOXICILLIN/CLAVULANATE TAB 500 MG TAB PO SCH ×2 (08:44→17:17)
[2016-10-11] MEDS: ASPIRIN 81 MG ECTAB PO SCH (08:44)
[2016-10-11] MEDS: BUDESONIDE/FORMOTEROL FUMARATE 160/4.5 60 PUFFS/INHALER INH SCH ×2 (08:44→22:06)
[2016-10-11] MEDS: CLOPIDOGREL BISULFATE 75 MG TAB PO SCH (08:45)
[2016-10-11] MEDS: CARBIDOPA/LEVODOPA 25/100MG TAB PO SCH ×4 (08:45→22:10)
[2016-10-11] MEDS: PANTOprazole SOD 40 MG TAB PO SCH (08:45)
[2016-10-11] MEDS: ISOSORBIDE MONONITRATE 30 MG TABCR PO SCH (08:45)
[2016-10-11] MEDS: ATORVASTATIN 20 MG TAB PO SCH (08:45)
[2016-10-11] MEDS: GABAPENTIN 100 MG CAP PO SCH ×3 (08:45→22:07)
[2016-10-11] MEDS: RANITIDINE HCL 150 MG TAB PO SCH ×2 (08:45→22:08)
[2016-10-11] MEDS: MAGNESIUM OXIDE 400 MG TAB PO SCH (08:45)
[2016-10-11] MEDS: METOPROLOL TARTRATE 50 MG TAB PO SCH (08:45)
[2016-10-11] MEDS: OSELTAMIVIR PHOSPHATE SUSP 30 MG/5 ML UDP PO SCH (08:57)
--- NOTE | 2016-10-11 11:36 | Progress Note ---
Medicine Progress Note Date & Time of Visit: Oct 11, 2016 at 11:30. Subjective Greatly improved today Still with some runny nose, sinus pain and cough but all are improved no fevers or chills overnight No other symptoms at this time Tolerating PO Excited to get out of bed and ambulate today Objective Last 8 Hrs Date Time Temp Pulse Resp B/P Pulse Ox O2 Delivery O2 Flow Rate FiO2 10/11/16 08:12 37.1 81 18 109/63 92 2.0 10/11/16 08:00 Nasal Cannula 2.0 10/11/16 07:24 82 20 91 Nasal Cannula 2.0 Physical Exam: GEN: WNWD, in no distress, alert and appropriate, rested, no increased work of breathing or conversational dyspnea, appears improved from yesterday HEENT: NC/AT, normal sclerae, TTP still over sinuses but improved, MMM NECK: swollen bilat tonsillar lymph nodes CARDIO: reg rate, S1/2 heard without m/g/r LUNGS: CTA bilaterally, crackles at right and left base-unchanged, no rales or wheezes, good diaphragmatic excursion ABD: soft, non-tender, non-distended, no rebound or guarding EXTREMITY: no LE swelling or edema, extremities are warm and well-perfused N/M: no gross focal deficits SKIN: warm and dry Laboratory Results: Last 24 Hours Test 10/10/16 11:50 10/10/16 17:03 10/10/16 20:45 10/11/16 05:25 Bedside Glucose 195 mg/dl 149 mg/dl 150 mg/dl White Blood Count 8.56 K/uL Red Blood Count 3.57 M/uL Hemoglobin 10.0 g/dL Hematocrit 30.0 % Mean Corpuscular Volume 84.0 fL Mean Corpuscular Hemoglobin 28.0 pg Mean Corpuscular Hemoglobin Concent 33.3 g/dl Platelet Count 311 K/uL Mean Platelet Volume 10.7 fL Neutrophils (%) (Auto) 70.5 % Lymphocytes (%) (Auto) 18.9 % Monocytes (%) (Auto) 7.2 % Eosinophils (%) (Auto) 2.3 % Basophils (%) (Auto) 0.2 % Neutrophils # (Auto) 6.02 K/uL Lymphocytes # (Auto) 1.62 K/uL Monocytes # (Auto) 0.62 K/uL Eosinophils # (Auto) 0.20 K/uL Basophils # (Auto) 0.02 K/uL RDW Standard Deviation 48.0 fL RDW Coefficient of Variation 15.7 % Immature Granulocyte % (Auto) 0.9 % Immature Granulocyte # (Auto) 0.08 K/uL Sodium Level 133 mmol/L Potassium Level 5.0 mmol/L Chloride Level 100 mmol/L Carbon Dioxide Level 23 mmol/L Anion Gap 10.0 mmol/L Blood Urea Nitrogen 25 mg/dl Creatinine 1.40 mg/dl Est Creatinine Clear Calc Drug Dose 29.5 ml/min Estimated GFR () 39.3 Estimated GFR (Non- 33.9 BUN/Creatinine Ratio 17.8 Random Glucose 106 mg/dl Calcium Level 9.7 mg/dl Test 10/11/16 07:38 Bedside Glucose 128 mg/dl Assessment & Plan 86 yoF with suspected viral community-acquired pneumonia and acute sinusitis ACUTE SINUSITIS/COMMUNITY-ACQUIRED PNEUMONIA -Tm yesterday was 100.7 prior to starting Tamiflu and just after she had multiple peripheral IV attempts, AF overnight -there is nonspecific interstitial thickening on CXR and crackles at the bases with some cough, and recent h/o fever which may point to an atypical pneumonia -suspect strongly this is a viral pneumonia with bacterial superinfection, started Tamiflu 10/10 course despite flu negative as RSV and human metapneumoviruses can be as severe as flu in the elderly. -repeat CXR (PA& Lat) 10/09 reveals definite interstitial infiltrates, so I am comfortable with calling this a PNA--suspect viral etiology, possibly parainfluenza or RSV with nasal congestion component. -sinusitis may be a complication of pneumonia in this case? -multiplex PCR for nasal washing was considered, however, reference testing would not ship out for two days and would take at least one week to return and pt is now improved -also considered legionella UAT and strep pneumo UAT as patient failed outpatient abx therapy, however, did not test as she is improving and because of reference test timing above. -CT sinuses last week was negative despite same symptoms at that time -no repeat sinuses at this time -IV Zosyn/doxy switchted to Augmentin/Azithro on 10/10 -blood and sputum cultures remain negative -flu is negative -RSV pending -scheduled breathing treatments -APAP was scheduled q8h 10/10 for achiness which is greatly improved today, cont this PENELOPE IN SETTING OF CKD STAGE III-resolved to baseline, Baseline creatinine is around 1.5. Likely related to prerenal azotemia 2/2 not feeling well. Improved since admission and with initial IVF. She is eating and drinking to thirst. Cont holding Losartan ALTERED MENTAL STATUS Probable encephalopathy secondary to sepsis. resolved CORONARY ARTERY DISEASE No anginal symptoms. Continue aspirin, metoprolol, nitrates, statin. HYPERTENSION Continue metoprolol, nitrates, losartan on hold ASTHMA No wheezing on exam today, oxygenation well on NC but not on oxygen at home. Cont with oxygen support as needed but wean when feeling improved. Continue bronchodilators PRN DM TYPE 2 Usually well-controlled. Insulin coverage PRN for elevated blood sugars. Currently at goal with minimal coverage required PARKINSON'S DISEASE Continue carbidopa / levodopa. VTE PROPHYLAXIS Add heparin to SCDs Full Code DISPOSITION: PT/OT to eval today Ina Ramos DO [facility] Hospitalist . Current Inpatient Medications: Current Inpatient Medications Medications (Trade) Dose Ordered Sig/Nilsa Route Start Time Stop Time Status Last Admin Dose Admin Albuterol (Ventolin Hfa Inhaler) 2 puffs QID PRN INH 10/07/16 05:30 11/06/16 05:29 Aspirin (Ecotrin Tab) 81 mg QAM PO 10/07/16 09:00 11/06/16 08:59 10/11/16 08:44 81 MG Atorvastatin Calcium (Lipitor Tab) 40 mg DAILY PO 10/07/16 09:00 11/06/16 08:59 10/11/16 08:45 40 MG Benzonatate (Tessalon Perles Cap) 100 mg Q8H PRN PO 10/07/16 05:30 11/06/16 05:29 10/11/16 05:35 100 MG Budesonide/ Formoterol Fumarate (Symbicort 160/ 4.5 Inh) 2 puffs BID INH 10/07/16 09:00 11/06/16 08:59 10/11/16 08:44 2 PUFFS Clopidogrel Bisulfate (plAVix TAB) 75 mg QAM PO 10/07/16 09:00 11/06/16 08:59 10/11/16 08:45 75 MG Duloxetine HCl (Cymbalta Cap) 20 mg DAILY PO 10/07/16 09:00 11/06/16 08:59 10/11/16 08:44 20 MG Fluticasone Propionate (Flonase Nasal [place]) 2 sprays BID JOSE 10/07/16 09:00 11/06/16 08:59 10/11/16 08:44 2 SPRAYS Gabapentin (Neurontin Cap) 200 mg TID PO 10/07/16 09:00 11/06/16 08:59 10/11/16 08:45 200 MG Isosorbide Mononitrate (Imdur Ext Rel Tab) 30 mg QAM PO 10/07/16 09:00 11/06/16 08:59 10/11/16 08:45 30 MG Carbidopa/Levodopa (Sinemet 25/ 100MG Tab) 1 tab QID PO 10/07/16 09:00 11/06/16 08:59 10/11/16 08:45 1 TAB Levothyroxine Sodium (Synthroid Tab) 125 mcg HS PO 10/07/16 21:00 11/06/16 20:59 10/10/16 21:13 125 MCG Lorazepam (Ativan Tab) 0.5 mg BID PRN PO 10/07/16 05:30 11/06/16 05:29 Losartan Potassium (coZAAR TAB) 25 mg QAM PO 10/07/16 09:00 11/06/16 08:59 Future Hold 10/09/16 07:53 25 MG Metoprolol Tartrate (Lopressor Tab) 25 mg QPM PO 10/07/16 21:00 11/06/16 20:59 10/10/16 21:16 25 MG Metoprolol Tartrate (Lopressor Tab) 50 mg QAM PO 10/07/16 09:00 11/06/16 08:59 10/11/16 08:45 50 MG Nitroglycerin (Nitrostat Tab) 0.4 mg UD PRN SL 10/07/16 05:30 11/06/16 05:29 Oxycodone HCl (Roxicodone Immediate Rel Tab) 5 mg Q4H PRN PO 10/07/16 05:30 10/21/16 05:29 10/10/16 10:04 5 MG Pantoprazole Sodium (Protonix Tab) 40 mg QAM PO 10/07/16 09:00 11/06/16 08:59 10/11/16 08:45 40 MG Ranitidine HCl (zANTac TAB) 150 mg BID PO 10/07/16 09:00 11/06/16 08:59 10/11/16 08:45 150 MG Sodium Chloride ([place] Nasal [place]) 2 sprays DAILY JOSE 10/07/16 09:00 11/06/16 08:59 10/11/16 08:44 2 SPRAYS Magnesium Oxide (Mag-Ox Tab) 400 mg QAM PO 10/07/16 09:00 11/06/16 08:59 10/11/16 08:45 400 MG Insulin Aspart (novoLOG ASPART) SLIDING SCALE G... ACHS SC 10/07/16 11:00 11/06/16 10:59 10/10/16 12:26 1 UNITS Glucose (Glucose 40% Gel) 15-30 GRAMS 15 GRAMS... UD PRN PO 10/07/16 07:15 11/06/16 07:14 Glucose (Glucose Chew Tab) 4-8 Tablets 4 Tabl... UD PRN PO 10/07/16 07:15 11/06/16 07:14 Dextrose (Dextrose 50% 50ML Syringe) 25-50ML OF 50% DW IV FOR... UD PRN IV 10/07/16 07:15 11/06/16 07:14 Glucagon (Glucagon Inj) 1 mg UD PRN SQ 10/07/16 07:15 11/06/16 07:14 Bisacodyl (Dulcolax Supp) 10 mg DAILY PRN [place] 10/07/16 17:30 11/06/16 17:29 10/07/16 22:00 10 MG Heparin Sodium (Porcine) (Heparin Sq 5000 Unit/0.5ml) 5,000 unit Q8 SQ 10/08/16 22:00 11/07/16 21:59 10/11/16 05:37 5,000 UNIT Menthol (Nice Janie) 1 janie PRN PRN PO 10/09/16 05:30 11/08/16 05:29 Codeine Phosphate/ Guaifenesin (Robitussin-AC Sugar Free Syrup) 10 ml Q6H PRN PO 10/09/16 10:00 11/08/16 09:59 10/11/16 01:09 10 ML Oseltamivir Phosphate (Tamiflu Susp) 30 mg QAM PO 10/10/16 12:00 10/15/16 11:59 10/11/16 08:57 30 MG Albuterol/ Ipratropium (Duoneb) 3 ml Q6R INH 10/10/16 15:00 11/09/16 14:59 10/11/16 07:23 3 ML Amoxicillin/ Clavulanate Potassium (Augmentin Tab) 500 mg BIDM PO 10/10/16 12:00 10/17/16 11:59 10/11/16 08:44 500 MG Azithromycin (Zithromax Tab) 500 mg Q24H PO 10/10/16 12:00 10/14/16 12:01 10/10/16 11:28 500 MG Acetaminophen (Tylenol Tab) 1,000 mg Q8 PO 10/10/16 14:00 10/12/16 13:59 10/11/16 05:42 1,000 MG
[2016-10-11] MEDS: AZITHROMYCIN 250 MG TAB PO SCH (12:25)
[2016-10-11] MEDS ORDERED: LOPERAMIDE HCL 2 MG CAP PO PRN (20:15)
[2016-10-11] MEDS: LEVOTHYROXINE 125 MCG TAB PO SCH (22:10)
[2016-10-11] MEDS: METOPROLOL TARTRATE 25 MG TAB PO SCH (22:15)
[2016-10-12] VITALS (13 sets, daily range): BP systolic 94–154; BP diastolic 46–75; PULSE 72–90; TEMP 36.6–36.8; O2SAT 81–98
[2016-10-12] MEDS: ALBUT/IPRATROP 3MG/0.5MG NEB 3 ML VIAL INH SCH ×4 (02:28→20:24)
[2016-10-12] MEDS: ACETAMINOPHEN 500 MG TAB PO SCH (06:01)
[2016-10-12] MEDS: HEPARIN SOD 5000 UNIT/0.5 ML CARP SQ SCH ×3 (06:04→20:39)
[2016-10-12] MEDS: INSULIN ASPART 100 UNITS/ML 3 ML PEN SC SCH ×4 (08:43→20:32)
[2016-10-12] MEDS: BUDESONIDE/FORMOTEROL FUMARATE 160/4.5 60 PUFFS/INHALER INH SCH ×2 (08:44→20:34)
[2016-10-12] MEDS: AMOXICILLIN/CLAVULANATE TAB 500 MG TAB PO SCH ×2 (08:44→17:32)
[2016-10-12] MEDS: DULOXETINE HCL 20 MG CAP PO SCH (08:45)
[2016-10-12] MEDS: FLUTICASONE PROPIONATE NA SPR 16 GM BTL NAE SCH ×2 (08:45→20:35)
[2016-10-12] MEDS: SODIUM CHLORIDE 0.65% NA SOLN 45 ML (OCEAN) NAE SCH (08:45)
[2016-10-12] MEDS: ATORVASTATIN 20 MG TAB PO SCH (08:47)
[2016-10-12] MEDS: ISOSORBIDE MONONITRATE 30 MG TABCR PO SCH (08:47)
[2016-10-12] MEDS: PANTOprazole SOD 40 MG TAB PO SCH (08:48)
[2016-10-12] MEDS: GABAPENTIN 100 MG CAP PO SCH ×3 (08:48→20:36)
[2016-10-12] MEDS: CLOPIDOGREL BISULFATE 75 MG TAB PO SCH (08:48)
[2016-10-12] MEDS: MAGNESIUM OXIDE 400 MG TAB PO SCH (08:48)
[2016-10-12] MEDS: CARBIDOPA/LEVODOPA 25/100MG TAB PO SCH ×4 (08:49→20:36)
[2016-10-12] MEDS: METOPROLOL TARTRATE 50 MG TAB PO SCH (08:49)
[2016-10-12] MEDS: RANITIDINE HCL 150 MG TAB PO SCH ×2 (08:49→20:36)
[2016-10-12] MEDS: BENZONATATE 100MG CAP PO PRN (08:50)
[2016-10-12] MEDS: OSELTAMIVIR PHOSPHATE SUSP 30 MG/5 ML UDP PO SCH (08:52)
[2016-10-12] MEDS: ASPIRIN 81 MG ECTAB PO SCH (09:26)
[2016-10-12] MEDS: GUAIFENESIN/CODEINE 200MG/20MG 10ML UDC PO PRN ×2 (09:28→16:05)
[2016-10-12] MEDS: AZITHROMYCIN 250 MG TAB PO SCH (12:27)
--- NOTE | 2016-10-12 18:03 | Progress Note ---
Medicine Progress Note Date & Time of Visit: Oct 12, 2016 at 17:47. Subjective Pt was seen and examined Pt sitting in bed with no acute respiratory distress Pt said that her breathing slightly improved she said that she continue to have SOB with exertion Denies any chest pain, palpitation and fever I removed put her on RA while i was in her room, her oxygen sat dropped in the 80s Objective Last 8 Hrs Date Time Temp Pulse Resp B/P Pulse Ox O2 Delivery O2 Flow Rate FiO2 10/12/16 16:00 94 Nasal Cannula 4.0 10/12/16 16:00 95 Nasal Cannula 4.0 10/12/16 15:16 36.7 81 20 142/74 93 Nasal Cannula 2.0 10/12/16 14:33 87 10/12/16 14:12 80 18 89 Nasal Cannula 2.0 10/12/16 12:42 93 Nasal Cannula 2.0 10/12/16 12:34 36.6 74 18 94/46 90 2.0 10/12/16 12:30 81 Room Air Physical Exam: General- no acute distress Head- atraumatic Eyes- PERRL, EOMI ENT- oropharynx clear Neck- supple, no JVD Lungs- Coarse BS Heart- regular rhythm; no murmur Abdomen- normal bowel sounds, soft, nontender Extremities- no calf tenderness Neuro- alert, oriented, PERRL, EOMI; Skin- warm & dry Laboratory Results: Last 24 Hours Test 10/11/16 20:47 10/12/16 07:38 10/12/16 11:30 10/12/16 16:09 Bedside Glucose 139 mg/dl 124 mg/dl 208 mg/dl 137 mg/dl Assessment & Plan SHORTNESS OF BREATH ASSOCIATED WITH COUGH AND FEVER Possible related to viral etiology vs atypical pneumonia CXR showed Stable nonspecific bilateral interstitial opacities -CT sinuses last week was negative despite same symptoms at that time -IV Zosyn/doxy switchted to Augmentin/Azithro on 10/10 -blood and sputum cultures remain negative -flu is negative -Continue tamiflu PENELOPE IN SETTING OF CKD STAGE III Baseline creatinine is around 1.5. Cont holding Losartan Resolved ALTERED MENTAL STATUS Probable encephalopathy secondary to sepsis. resolved CORONARY ARTERY DISEASE No anginal symptoms. Continue aspirin, metoprolol, nitrates, statin. HYPERTENSION Continue metoprolol, nitrates, losartan on hold ASTHMA Continue oxygen supplement Desaturated today on RA Continue bronchodilators PRN DM TYPE 2 Usually well-controlled. Insulin coverage PRN for elevated blood sugars. Currently at goal with minimal coverage required PARKINSON'S DISEASE Continue carbidopa / levodopa. VTE PROPHYLAXIS On heparin to SCDs CODE STATUS Full Code DISPOSITION: PT/OT Current Inpatient Medications: Current Inpatient Medications Medications (Trade) Dose Ordered Sig/Nilsa Route Start Time Stop Time Status Last Admin Dose Admin Albuterol (Ventolin Hfa Inhaler) 2 puffs QID PRN INH 10/07/16 05:30 11/06/16 05:29 Aspirin (Ecotrin Tab) 81 mg QAM PO 10/07/16 09:00 11/06/16 08:59 10/12/16 09:26 81 MG Atorvastatin Calcium (Lipitor Tab) 40 mg DAILY PO 10/07/16 09:00 11/06/16 08:59 10/12/16 08:47 40 MG Benzonatate (Tessalon Perles Cap) 100 mg Q8H PRN PO 10/07/16 05:30 11/06/16 05:29 10/12/16 08:50 100 MG Budesonide/ Formoterol Fumarate (Symbicort 160/ 4.5 Inh) 2 puffs BID INH 10/07/16 09:00 11/06/16 08:59 10/12/16 08:44 2 PUFFS Clopidogrel Bisulfate (plAVix TAB) 75 mg QAM PO 10/07/16 09:00 11/06/16 08:59 10/12/16 08:48 75 MG Duloxetine HCl (Cymbalta Cap) 20 mg DAILY PO 10/07/16 09:00 11/06/16 08:59 10/12/16 08:45 20 MG Fluticasone Propionate (Flonase Nasal [place]) 2 sprays BID JOSE 10/07/16 09:00 11/06/16 08:59 10/12/16 08:45 2 SPRAYS Gabapentin (Neurontin Cap) 200 mg TID PO 10/07/16 09:00 11/06/16 08:59 10/12/16 14:24 200 MG Isosorbide Mononitrate (Imdur Ext Rel Tab) 30 mg QAM PO 10/07/16 09:00 11/06/16 08:59 10/12/16 08:47 30 MG Carbidopa/Levodopa (Sinemet 25/ 100MG Tab) 1 tab QID PO 10/07/16 09:00 11/06/16 08:59 10/12/16 17:32 1 TAB Levothyroxine Sodium (Synthroid Tab) 125 mcg HS PO 10/07/16 21:00 11/06/16 20:59 10/11/16 22:10 125 MCG Lorazepam (Ativan Tab) 0.5 mg BID PRN PO 10/07/16 05:30 11/06/16 05:29 Losartan Potassium (coZAAR TAB) 25 mg QAM PO 10/07/16 09:00 11/06/16 08:59 Future Hold 10/09/16 07:53 25 MG Metoprolol Tartrate (Lopressor Tab) 25 mg QPM PO 10/07/16 21:00 11/06/16 20:59 10/11/16 22:15 25 MG Metoprolol Tartrate (Lopressor Tab) 50 mg QAM PO 10/07/16 09:00 11/06/16 08:59 10/12/16 08:49 50 MG Nitroglycerin (Nitrostat Tab) 0.4 mg UD PRN SL 10/07/16 05:30 11/06/16 05:29 Oxycodone HCl (Roxicodone Immediate Rel Tab) 5 mg Q4H PRN PO 10/07/16 05:30 10/21/16 05:29 10/10/16 10:04 5 MG Pantoprazole Sodium (Protonix Tab) 40 mg QAM PO 10/07/16 09:00 11/06/16 08:59 10/12/16 08:48 40 MG Ranitidine HCl (zANTac TAB) 150 mg BID PO 10/07/16 09:00 11/06/16 08:59 10/12/16 08:49 150 MG Sodium Chloride ([place] Nasal [place]) 2 sprays DAILY JOSE 10/07/16 09:00 11/06/16 08:59 10/12/16 08:45 2 SPRAYS Magnesium Oxide (Mag-Ox Tab) 400 mg QAM PO 10/07/16 09:00 11/06/16 08:59 10/12/16 08:48 400 MG Insulin Aspart (novoLOG ASPART) SLIDING SCALE G... ACHS SC 10/07/16 11:00 2/25/17 10:59 10/12/16 12:28 1 UNITS Glucose (Glucose 40% Gel) 15-30 GRAMS 15 GRAMS... UD PRN PO 10/07/16 07:15 11/06/16 07:14 Glucose (Glucose Chew Tab) 4-8 Tablets 4 Tabl... UD PRN PO 10/07/16 07:15 11/06/16 07:14 Dextrose (Dextrose 50% 50ML Syringe) 25-50ML OF 50% DW IV FOR... UD PRN IV 10/07/16 07:15 11/06/16 07:14 Glucagon (Glucagon Inj) 1 mg UD PRN SQ 10/07/16 07:15 11/06/16 07:14 Bisacodyl (Dulcolax Supp) 10 mg DAILY PRN [place] 10/07/16 17:30 11/06/16 17:29 10/07/16 22:00 10 MG Heparin Sodium (Porcine) (Heparin Sq 5000 Unit/0.5ml) 5,000 unit Q8 SQ 10/08/16 22:00 11/07/16 21:59 10/12/16 14:25 5,000 UNIT Menthol (Nice Janie) 1 janie PRN PRN PO 10/09/16 05:30 11/08/16 05:29 Codeine Phosphate/ Guaifenesin (Robitussin-AC Sugar Free Syrup) 10 ml Q6H PRN PO 10/09/16 10:00 11/08/16 09:59 10/12/16 16:05 10 ML Oseltamivir Phosphate (Tamiflu Susp) 30 mg QAM PO 10/10/16 12:00 10/15/16 11:59 10/12/16 08:52 30 MG Albuterol/ Ipratropium (Duoneb) 3 ml Q6R INH 10/10/16 15:00 11/09/16 14:59 10/12/16 14:12 3 ML Amoxicillin/ Clavulanate Potassium (Augmentin Tab) 500 mg BIDM PO 10/10/16 12:00 10/17/16 11:59 10/12/16 17:32 500 MG Azithromycin (Zithromax Tab) 500 mg Q24H PO 10/10/16 12:00 2/2/17 12:01 10/12/16 12:27 500 MG Loperamide HCl (Imodium Cap) 2 mg UD PRN PO 10/11/16 20:15 11/10/16 20:14
[2016-10-12] MEDS: LEVOTHYROXINE 125 MCG TAB PO SCH (20:37)
[2016-10-12] MEDS: METOPROLOL TARTRATE 25 MG TAB PO SCH (20:37)
[2016-10-13] VITALS (12 sets, daily range): BP systolic 108–146; BP diastolic 57–75; PULSE 65–108; TEMP 36.4–36.9; O2SAT 89–99; Ht 165.1 cm; Wt 76.4 kg
[2016-10-13] MEDS: ALBUT/IPRATROP 3MG/0.5MG NEB 3 ML VIAL INH SCH ×4 (01:58→19:05)
[2016-10-13] MEDS: HEPARIN SOD 5000 UNIT/0.5 ML CARP SQ SCH ×3 (06:08→20:24)
[2016-10-13] MEDS: OSELTAMIVIR PHOSPHATE SUSP 30 MG/5 ML UDP PO SCH (08:00)
[2016-10-13] MEDS: BUDESONIDE/FORMOTEROL FUMARATE 160/4.5 60 PUFFS/INHALER INH SCH ×2 (08:19→20:21)
[2016-10-13] MEDS: FLUTICASONE PROPIONATE NA SPR 16 GM BTL NAE SCH ×2 (08:19→20:21)
[2016-10-13] MEDS: GUAIFENESIN/CODEINE 200MG/20MG 10ML UDC PO PRN ×2 (08:19→20:38)
[2016-10-13] MEDS: ASPIRIN 81 MG ECTAB PO SCH (08:19)
[2016-10-13] MEDS: GABAPENTIN 100 MG CAP PO SCH ×3 (08:20→20:28)
[2016-10-13] MEDS: CLOPIDOGREL BISULFATE 75 MG TAB PO SCH (08:20)
[2016-10-13] MEDS: ATORVASTATIN 20 MG TAB PO SCH (08:20)
[2016-10-13] MEDS: CARBIDOPA/LEVODOPA 25/100MG TAB PO SCH ×4 (08:21→20:29)
[2016-10-13] MEDS: DULOXETINE HCL 20 MG CAP PO SCH (08:21)
[2016-10-13] MEDS: ISOSORBIDE MONONITRATE 30 MG TABCR PO SCH (08:22)
[2016-10-13] MEDS: AMOXICILLIN/CLAVULANATE TAB 500 MG TAB PO SCH ×2 (08:22→17:40)
[2016-10-13] MEDS: PANTOprazole SOD 40 MG TAB PO SCH (08:22)
[2016-10-13] MEDS: MAGNESIUM OXIDE 400 MG TAB PO SCH (08:22)
[2016-10-13] MEDS: METOPROLOL TARTRATE 50 MG TAB PO SCH (08:22)
[2016-10-13] MEDS: SODIUM CHLORIDE 0.65% NA SOLN 45 ML (OCEAN) NAE SCH (08:23)
[2016-10-13] MEDS: RANITIDINE HCL 150 MG TAB PO SCH ×2 (08:23→20:29)
[2016-10-13 08:25] LABS: HEMATOCRIT 29.6 % (37-47); MEAN CELL VOLUME 83.9 fL (80-100); MEAN CORPUSCULAR HEMOGLOBIN 28.6 pg (25-34); MEAN CORPUSCULAR HGB CONC 34.1 g/dl (32-36); MEAN PLATELET VOLUME 10.9 fL (7.4-10.4); PLATELET COUNT 372 K/uL (130-400); RED BLOOD COUNT 3.53 M/uL (4.2-5.4); WHITE BLOOD COUNT 8.25 K/uL (4.8-10.8)
[2016-10-13] MEDS: INSULIN ASPART 100 UNITS/ML 3 ML PEN SC SCH ×4 (08:31→20:24)
[2016-10-13 08:56] LABS: BUN/CREATININE RATIO 17.8 (10-20); CALCIUM 10.3 mg/dl (8.5-10.1); CREATININE 1.3 mg/dl (0.60-1.20); POTASSIUM 5.1 mmol/L (3.5-5.1)
[2016-10-13] MEDS: AZITHROMYCIN 250 MG TAB PO SCH (13:00)
--- NOTE | 2016-10-13 16:38 | Progress Note ---
Medicine Progress Note Date & Time of Visit: Oct 13, 2016 at 16:21. Subjective Pt was seen and examined Sitting in bed with no distress Pt said that she feels much better today she said that her breathing improved She said that made 2 lap around the hallway today denies any chest pain, palpitation, dizziness. Objective Last 8 Hrs Date Time Temp Pulse Resp B/P Pulse Ox O2 Delivery O2 Flow Rate FiO2 10/13/16 15:52 36.6 89 18 115/57 98 Nasal Cannula 2.0 10/13/16 14:29 79 18 94 Nasal Cannula 3.0 10/13/16 09:39 108 89 Physical Exam: General- no acute distress Head- atraumatic Eyes- PERRL, EOMI ENT- oropharynx clear Neck- supple, no JVD Lungs- mild Coarse BS Heart- regular rhythm; no murmur Abdomen- normal bowel sounds, soft, nontender Extremities- no calf tenderness Neuro- alert, oriented, PERRL, EOMI; Skin- warm & dry Laboratory Results: Last 24 Hours Test 10/12/16 20:15 10/13/16 05:51 10/13/16 07:30 10/13/16 07:44 Bedside Glucose 158 mg/dl 253 mg/dl 262 mg/dl White Blood Count 8.25 K/uL Red Blood Count 3.53 M/uL Hemoglobin 10.1 g/dL Hematocrit 29.6 % Mean Corpuscular Volume 83.9 fL Mean Corpuscular Hemoglobin 28.6 pg Mean Corpuscular Hemoglobin Concent 34.1 g/dl RDW Standard Deviation 48.1 fL RDW Coefficient of Variation 15.8 % Platelet Count 372 K/uL Mean Platelet Volume 10.9 fL Sodium Level 133 mmol/L Potassium Level 5.1 mmol/L Chloride Level 98 mmol/L Carbon Dioxide Level 22 mmol/L Anion Gap 13.0 mmol/L Blood Urea Nitrogen 23 mg/dl Creatinine 1.30 mg/dl Est Creatinine Clear Calc Drug Dose 31.8 ml/min Estimated GFR () 43.0 Estimated GFR (Non- 37.1 BUN/Creatinine Ratio 17.8 Random Glucose 245 mg/dl Calcium Level 10.3 mg/dl Test 10/13/16 11:16 Bedside Glucose 327 mg/dl Assessment & Plan SHORTNESS OF BREATH ASSOCIATED WITH COUGH AND FEVER Possible related to viral etiology vs atypical pneumonia CXR showed Stable nonspecific bilateral interstitial opacities -CT sinuses last week was negative despite same symptoms at that time -IV Zosyn/doxy switchted to Augmentin/Azithro on 10/10 -blood and sputum cultures remain negative -flu is negative -Continue tamiflu - Improved PENELOPE IN SETTING OF CKD STAGE III Baseline creatinine is around 1.5. Cont holding Losartan Resolved ALTERED MENTAL STATUS Probable encephalopathy secondary to sepsis. resolved CORONARY ARTERY DISEASE No anginal symptoms. Continue aspirin, metoprolol, nitrates, statin. Stable HYPERTENSION Continue metoprolol, nitrates, losartan on hold ASTHMA Continue oxygen supplement Desaturated today on RA Continue bronchodilators PRN DM TYPE 2 Insulin coverage PRN for elevated blood sugars. Currently at goal with minimal coverage required will add insulin coverage PARKINSON'S DISEASE Continue carbidopa / levodopa. VTE PROPHYLAXIS On heparin to SCDs GI Px PPI CODE STATUS Full Code DISPOSITION: PT/OT Current Inpatient Medications: Current Inpatient Medications Medications (Trade) Dose Ordered Sig/Nilsa Route Start Time Stop Time Status Last Admin Dose Admin Albuterol (Ventolin Hfa Inhaler) 2 puffs QID PRN INH 10/07/16 05:30 11/06/16 05:29 Aspirin (Ecotrin Tab) 81 mg QAM PO 10/07/16 09:00 11/06/16 08:59 10/13/16 08:19 81 MG Atorvastatin Calcium (Lipitor Tab) 40 mg DAILY PO 10/07/16 09:00 11/06/16 08:59 10/13/16 08:20 40 MG Benzonatate (Tessalon Perles Cap) 100 mg Q8H PRN PO 10/07/16 05:30 11/06/16 05:29 10/12/16 08:50 100 MG Budesonide/ Formoterol Fumarate (Symbicort 160/ 4.5 Inh) 2 puffs BID INH 10/07/16 09:00 11/06/16 08:59 10/13/16 08:19 2 PUFFS Clopidogrel Bisulfate (plAVix TAB) 75 mg QAM PO 10/07/16 09:00 11/06/16 08:59 10/13/16 08:20 75 MG Duloxetine HCl (Cymbalta Cap) 20 mg DAILY PO 10/07/16 09:00 11/06/16 08:59 10/13/16 08:21 20 MG Fluticasone Propionate (Flonase Nasal [place]) 2 sprays BID JOSE 10/07/16 09:00 11/06/16 08:59 10/13/16 08:19 2 SPRAYS Gabapentin (Neurontin Cap) 200 mg TID PO 10/07/16 09:00 11/06/16 08:59 10/13/16 13:58 200 MG Isosorbide Mononitrate (Imdur Ext Rel Tab) 30 mg QAM PO 10/07/16 09:00 11/06/16 08:59 10/13/16 08:22 30 MG Carbidopa/Levodopa (Sinemet 25/ 100MG Tab) 1 tab QID PO 10/07/16 09:00 11/06/16 08:59 10/13/16 13:00 1 TAB Levothyroxine Sodium (Synthroid Tab) 125 mcg HS PO 10/07/16 21:00 11/06/16 20:59 10/12/16 20:37 125 MCG Lorazepam (Ativan Tab) 0.5 mg BID PRN PO 10/07/16 05:30 11/06/16 05:29 Losartan Potassium (coZAAR TAB) 25 mg QAM PO 10/07/16 09:00 11/06/16 08:59 Future Hold 10/09/16 07:53 25 MG Metoprolol Tartrate (Lopressor Tab) 25 mg QPM PO 10/07/16 21:00 11/06/16 20:59 10/12/16 20:37 25 MG Metoprolol Tartrate (Lopressor Tab) 50 mg QAM PO 10/07/16 09:00 11/06/16 08:59 10/13/16 08:22 50 MG Nitroglycerin (Nitrostat Tab) 0.4 mg UD PRN SL 10/07/16 05:30 11/06/16 05:29 Oxycodone HCl (Roxicodone Immediate Rel Tab) 5 mg Q4H PRN PO 10/07/16 05:30 10/21/16 05:29 10/10/16 10:04 5 MG Pantoprazole Sodium (Protonix Tab) 40 mg QAM PO 10/07/16 09:00 11/06/16 08:59 10/13/16 08:22 40 MG Ranitidine HCl (zANTac TAB) 150 mg BID PO 10/07/16 09:00 11/06/16 08:59 10/13/16 08:23 150 MG Sodium Chloride ([place] Nasal [place]) 2 sprays DAILY JOSE 10/07/16 09:00 11/06/16 08:59 10/13/16 08:23 2 SPRAYS Magnesium Oxide (Mag-Ox Tab) 400 mg QAM PO 10/07/16 09:00 11/06/16 08:59 10/13/16 08:22 400 MG Insulin Aspart (novoLOG ASPART) SLIDING SCALE G... ACHS SC 10/07/16 11:00 11/06/16 10:59 10/13/16 13:04 4 UNITS Glucose (Glucose 40% Gel) 15-30 GRAMS 15 GRAMS... UD PRN PO 10/07/16 07:15 11/06/16 07:14 Glucose (Glucose Chew Tab) 4-8 Tablets 4 Tabl... UD PRN PO 10/07/16 07:15 11/06/16 07:14 Dextrose (Dextrose 50% 50ML Syringe) 25-50ML OF 50% DW IV FOR... UD PRN IV 10/07/16 07:15 11/06/16 07:14 Glucagon (Glucagon Inj) 1 mg UD PRN SQ 10/07/16 07:15 11/06/16 07:14 Bisacodyl (Dulcolax Supp) 10 mg DAILY PRN [place] 10/07/16 17:30 11/06/16 17:29 10/07/16 22:00 10 MG Heparin Sodium (Porcine) (Heparin Sq 5000 Unit/0.5ml) 5,000 unit Q8 SQ 10/08/16 22:00 11/07/16 21:59 10/13/16 14:06 5,000 UNIT Menthol (Nice Janie) 1 janie PRN PRN PO 10/09/16 05:30 11/08/16 05:29 Codeine Phosphate/ Guaifenesin (Robitussin-AC Sugar Free Syrup) 10 ml Q6H PRN PO 10/09/16 10:00 11/08/16 09:59 10/13/16 08:19 10 ML Oseltamivir Phosphate (Tamiflu Susp) 30 mg QAM PO 10/10/16 12:00 10/15/16 11:59 10/12/16 08:52 30 MG Albuterol/ Ipratropium (Duoneb) 3 ml Q6R INH 10/10/16 15:00 11/09/16 14:59 10/13/16 14:27 3 ML Amoxicillin/ Clavulanate Potassium (Augmentin Tab) 500 mg BIDM PO 10/10/16 12:00 10/17/16 11:59 10/13/16 08:22 500 MG Azithromycin (Zithromax Tab) 500 mg Q24H PO 10/10/16 12:00 10/14/16 12:01 10/13/16 13:00 500 MG Loperamide HCl (Imodium Cap) 2 mg UD PRN PO 10/11/16 20:15 11/10/16 20:14
[2016-10-13] MEDS ORDERED: DEXTROSE 50% 50 ML SYR IV PRN (16:45)
[2016-10-13] MEDS ORDERED: GLUCAGON FOR INJ 1 MG VIAL SQ PRN (16:45)
[2016-10-13] MEDS ORDERED: GLUCOSE 10 TABS/TUBE PO PRN (16:45)
[2016-10-13] MEDS ORDERED: GLUCOSE 40% GEL 15 GM TUBE PO PRN (16:45)
[2016-10-13] MEDS ORDERED: PHARMACY GLYCEMIC MGMT CONSULT PRN (17:16)
[2016-10-13] MEDS: METOPROLOL TARTRATE 25 MG TAB PO SCH (20:30)
[2016-10-13] MEDS: LEVOTHYROXINE 125 MCG TAB PO SCH (20:31)
[2016-10-13] MEDS ORDERED: INSULIN ASPART 100 UNITS/ML 3 ML PEN SC SCH (22:00)
[2016-10-14] VITALS (8 sets, daily range): BP systolic 111–139; BP diastolic 60–77; PULSE 67–78; TEMP 36.2–36.4; O2SAT 90–96
[2016-10-14] MEDS: ALBUT/IPRATROP 3MG/0.5MG NEB 3 ML VIAL INH SCH ×4 (01:43→19:20)
[2016-10-14] MEDS: HEPARIN SOD 5000 UNIT/0.5 ML CARP SQ SCH ×3 (06:02→22:09)
[2016-10-14 06:22] LABS: HEMATOCRIT 26.7 % (37-47); MEAN CORPUSCULAR HEMOGLOBIN 28.3 pg (25-34); MEAN CORPUSCULAR HGB CONC 33.7 g/dl (32-36); MEAN PLATELET VOLUME 10.9 fL (7.4-10.4); PLATELET COUNT 401 K/uL (130-400); RED BLOOD COUNT 3.18 M/uL (4.2-5.4); WHITE BLOOD COUNT 8.91 K/uL (4.8-10.8)
[2016-10-14 06:48] LABS: BUN/CREATININE RATIO 21.2 (10-20); CALCIUM 9.2 mg/dl (8.5-10.1); CREATININE 1.5 mg/dl (0.60-1.20); POTASSIUM 5.6 mmol/L (3.5-5.1)
[2016-10-14] MEDS: CLOPIDOGREL BISULFATE 75 MG TAB PO SCH (08:37)
[2016-10-14] MEDS: RANITIDINE HCL 150 MG TAB PO SCH ×2 (08:37→19:32)
[2016-10-14] MEDS: ASPIRIN 81 MG ECTAB PO SCH (08:37)
[2016-10-14] MEDS: ATORVASTATIN 20 MG TAB PO SCH (08:37)
[2016-10-14] MEDS: SODIUM CHLORIDE 0.65% NA SOLN 45 ML (OCEAN) NAE SCH (08:38)
[2016-10-14] MEDS: AMOXICILLIN/CLAVULANATE TAB 500 MG TAB PO SCH ×2 (08:38→16:54)
[2016-10-14] MEDS: CARBIDOPA/LEVODOPA 25/100MG TAB PO SCH ×4 (08:38→19:33)
[2016-10-14] MEDS: FLUTICASONE PROPIONATE NA SPR 16 GM BTL NAE SCH ×2 (08:38→19:31)
[2016-10-14] MEDS: BUDESONIDE/FORMOTEROL FUMARATE 160/4.5 60 PUFFS/INHALER INH SCH ×2 (08:38→19:31)
[2016-10-14] MEDS: METOPROLOL TARTRATE 50 MG TAB PO SCH (08:39)
[2016-10-14] MEDS: DULOXETINE HCL 20 MG CAP PO SCH (08:39)
[2016-10-14] MEDS: PANTOprazole SOD 40 MG TAB PO SCH (08:39)
[2016-10-14] MEDS: ISOSORBIDE MONONITRATE 30 MG TABCR PO SCH (08:40)
[2016-10-14] MEDS: GABAPENTIN 100 MG CAP PO SCH ×3 (08:40→19:31)
[2016-10-14] MEDS: MAGNESIUM OXIDE 400 MG TAB PO SCH (08:40)
[2016-10-14] MEDS: OSELTAMIVIR PHOSPHATE SUSP 30 MG/5 ML UDP PO SCH (08:43)
[2016-10-14] MEDS: INSULIN ASPART 100 UNITS/ML 3 ML PEN SC SCH ×4 (08:53→22:08)
[2016-10-14] MEDS ORDERED: SODIUM CHLORIDE 0.9% 1000ML 1,000 ML IV ONE (09:15)
--- NOTE | 2016-10-14 09:31 | Pharmacy Progress Note ---
Glycemic Control Intl Consult Date of Service Oct 14, 2016. Scope Glycemic Pharmacist consulted by Dr Archuleta on 10/13/16 for glycemic control and to write orders per [facility] inpatient glycemic control protocol Objective Weight (Kilograms): 76.400 Accuchecks BSG (last 24hrs): Test 10/13/16 11:16 10/13/16 16:34 10/13/16 19:54 10/14/16 05:36 Bedside Glucose 327 mg/dl (70-90) 140 mg/dl (70-90) 210 mg/dl (70-90) Random Glucose 274 mg/dl (70-99) Test 10/14/16 07:51 Bedside Glucose 253 mg/dl (70-90) Laboratory Data (last 24hrs) Test 10/14/16 05:36 Anion Gap 12.0 mmol/L BUN/Creatinine Ratio 21.2 Blood Urea Nitrogen 32 mg/dl Creatinine 1.50 mg/dl Potassium Level 5.6 mmol/L Sodium Level 129 mmol/L White Blood Count 8.91 K/uL Recent Pertinent Medications Outpatient Anti-diabetic Regimen: * Prandin 1mg PO TID prn * Glipizide 5mg PO Daily * A1c = 6.5 % 03/14/16 Risk Factors for Insulin Resistance: * Steroids: Prednisone 40mg PO x 2 doses at 1900 on 10/12 and 10/13 * Infection: Viral vs atypical PNX - Augmentin + Azithromycin * Diet: Type 2 DM/ AHA Assessment & Plan ASSESSMENT: * 86 year old type 2 diabetic admitted with AMS secondary to sepsis, viral vs atypical pneumonia. * A1c 6.5% from last year. * Blood sugars in goal range accept when patient received doses of prednisone the past two evenings, then AM BSGs are elevated due to steroid induced hyperglycemia. * Tighten CF and CR slightly, consider giving doses of NPH with prednisone doses if they continue. * ADA & AACE recommend a goal blood sugar range 140-180 mg/dl for the majority of critically ill & non-critically ill patients. However, more stringent targets may be selected in individual cases. I will use 110-140mg/dL range for patient with 6.5% A1c. PLAN FOR INPATIENT GLYCEMIC CONTROL: * Holding outpatient oral diabetes medications * Correctional Insulin with NOVOLOG per scale ACHS or Q6hrs while NPO * CHANGE: Goal Range: Low 110 mg/dL - High 140 mg/dL * TIGHTEN: Correction Factor: 25 mg/dL/unit * TIGHTEN: Nutritional / Prandial insulin per carb ratio of 1 unit per 9 grams CHO consumed * New A1c ordered * Please note that the plan above was derived based on current level of insulin resistance and hospital stress. These recommendations are appropriate for inpatient admission only. Plan of care upon discharge will need to be reassessed to avoid potential outpatient hypo/hyperglycemia. Thank you.
[2016-10-14] MEDS: AZITHROMYCIN 250 MG TAB PO SCH (13:14)
--- NOTE | 2016-10-14 16:09 | Progress Note ---
Medicine Progress Note Date & Time of Visit: Oct 14, 2016 at 15:54. Subjective Pt was seeing and examined Pt was lying in bed comfortable with no distress Pt said that her breathing feels much better she denies any chest pain, palpitation, dizziness Objective Last 8 Hrs Date Time Temp Pulse Resp B/P Pulse Ox O2 Delivery O2 Flow Rate FiO2 10/14/16 15:21 36.2 67 22 115/64 96 Nasal Cannula 2.0 10/14/16 15:09 70 18 96 Nasal Cannula 2.0 10/14/16 08:00 90 Room Air Physical Exam: General- no acute distress Head- atraumatic Eyes- PERRL, EOMI ENT- oropharynx clear Neck- supple, no JVD Lungs- mild coarse BS Heart- regular rhythm; no murmur Abdomen- normal bowel sounds, soft, nontender Extremities- no calf tenderness Neuro- alert, oriented, PERRL, EOMI; Skin- warm & dry Laboratory Results: Last 24 Hours Test 10/13/16 16:34 10/13/16 19:54 10/14/16 05:36 10/14/16 07:51 Bedside Glucose 140 mg/dl 210 mg/dl 253 mg/dl White Blood Count 8.91 K/uL Red Blood Count 3.18 M/uL Hemoglobin 9.0 g/dL Hematocrit 26.7 % Mean Corpuscular Volume 84.0 fL Mean Corpuscular Hemoglobin 28.3 pg Mean Corpuscular Hemoglobin Concent 33.7 g/dl RDW Standard Deviation 47.9 fL RDW Coefficient of Variation 15.5 % Platelet Count 401 K/uL Mean Platelet Volume 10.9 fL Sodium Level 129 mmol/L Potassium Level 5.6 mmol/L Chloride Level 96 mmol/L Carbon Dioxide Level 21 mmol/L Anion Gap 12.0 mmol/L Blood Urea Nitrogen 32 mg/dl Creatinine 1.50 mg/dl Est Creatinine Clear Calc Drug Dose 27.5 ml/min Estimated GFR () 36.2 Estimated GFR (Non- 31.2 BUN/Creatinine Ratio 21.2 Random Glucose 274 mg/dl Calcium Level 9.2 mg/dl Test 10/14/16 11:28 Bedside Glucose 214 mg/dl Assessment & Plan SHORTNESS OF BREATH ASSOCIATED WITH COUGH AND FEVER Possible related to viral etiology vs atypical pneumonia CXR showed Stable nonspecific bilateral interstitial opacities -CT sinuses last week was negative despite same symptoms at that time -IV Zosyn/doxy switchted to Augmentin/Azithro on 10/10, will complete 5 days course of abx today. -blood and sputum cultures remain negative -flu is negative -Will complete tamiflu course tomorrow - Will try to wean her off from oxygen supplement -if oxygen saturation does not improve, will get a 2 step exercise tomorrow PENELOPE IN SETTING OF CKD STAGE III Baseline creatinine is around 1.5. creatine today 1.5 Cont holding Losartan will give gentle IVF Continue monitor BMP HYPERKALEMIA k 5.6 Repeat potassium if elevates, will give Kayexalate ALTERED MENTAL STATUS Probable encephalopathy secondary to sepsis. resolved CORONARY ARTERY DISEASE No anginal symptoms. Continue aspirin, metoprolol, nitrates, statin. Stable HYPERTENSION Continue metoprolol, nitrates, losartan on hold ASTHMA Continue oxygen supplement Desaturated today on RA Continue bronchodilators PRN will get a 2 step received prednisone 40mg DM TYPE 2 Insulin coverage PRN for elevated blood sugars. Currently at goal with minimal coverage required will add insulin coverage Check HBA1C in am PARKINSON'S DISEASE Continue carbidopa / levodopa. VTE PROPHYLAXIS On heparin to SCDs GI Px PPI CODE STATUS Full Code DISPOSITION: PT/OT Current Inpatient Medications: Current Inpatient Medications Medications (Trade) Dose Ordered Sig/Nilsa Route Start Time Stop Time Status Last Admin Dose Admin Albuterol (Ventolin Hfa Inhaler) 2 puffs QID PRN INH 10/07/16 05:30 11/06/16 05:29 Aspirin (Ecotrin Tab) 81 mg QAM PO 10/07/16 09:00 11/06/16 08:59 10/14/16 08:37 81 MG Atorvastatin Calcium (Lipitor Tab) 40 mg DAILY PO 10/07/16 09:00 11/06/16 08:59 10/14/16 08:37 40 MG Benzonatate (Tessalon Perles Cap) 100 mg Q8H PRN PO 10/07/16 05:30 11/06/16 05:29 10/12/16 08:50 100 MG Budesonide/ Formoterol Fumarate (Symbicort 160/ 4.5 Inh) 2 puffs BID INH 10/07/16 09:00 11/06/16 08:59 10/14/16 08:38 2 PUFFS Clopidogrel Bisulfate (plAVix TAB) 75 mg QAM PO 10/07/16 09:00 11/06/16 08:59 10/14/16 08:37 75 MG Duloxetine HCl (Cymbalta Cap) 20 mg DAILY PO 10/07/16 09:00 11/06/16 08:59 10/14/16 08:39 20 MG Fluticasone Propionate (Flonase Nasal [place]) 2 sprays BID JOSE 10/07/16 09:00 11/06/16 08:59 10/14/16 08:38 2 SPRAYS Gabapentin (Neurontin Cap) 200 mg TID PO 10/07/16 09:00 11/06/16 08:59 10/14/16 14:26 200 MG Isosorbide Mononitrate (Imdur Ext Rel Tab) 30 mg QAM PO 10/07/16 09:00 11/06/16 08:59 10/14/16 08:40 30 MG Carbidopa/Levodopa (Sinemet 25/ 100MG Tab) 1 tab QID PO 10/07/16 09:00 11/06/16 08:59 10/14/16 13:15 1 TAB Levothyroxine Sodium (Synthroid Tab) 125 mcg HS PO 10/07/16 21:00 11/06/16 20:59 10/13/16 20:31 125 MCG Lorazepam (Ativan Tab) 0.5 mg BID PRN PO 10/07/16 05:30 11/06/16 05:29 Losartan Potassium (coZAAR TAB) 25 mg QAM PO 10/07/16 09:00 11/06/16 08:59 Future Hold 10/09/16 07:53 25 MG Metoprolol Tartrate (Lopressor Tab) 25 mg QPM PO 10/07/16 21:00 11/06/16 20:59 10/13/16 20:30 25 MG Metoprolol Tartrate (Lopressor Tab) 50 mg QAM PO 10/07/16 09:00 11/06/16 08:59 10/14/16 08:39 50 MG Nitroglycerin (Nitrostat Tab) 0.4 mg UD PRN SL 10/07/16 05:30 11/06/16 05:29 Oxycodone HCl (Roxicodone Immediate Rel Tab) 5 mg Q4H PRN PO 10/07/16 05:30 10/21/16 05:29 10/10/16 10:04 5 MG Pantoprazole Sodium (Protonix Tab) 40 mg QAM PO 10/07/16 09:00 11/06/16 08:59 10/14/16 08:39 40 MG Ranitidine HCl (zANTac TAB) 150 mg BID PO 10/07/16 09:00 11/06/16 08:59 10/14/16 08:37 150 MG Sodium Chloride ([place] Nasal [place]) 2 sprays DAILY JOSE 10/07/16 09:00 11/06/16 08:59 10/14/16 08:38 2 SPRAYS Magnesium Oxide (Mag-Ox Tab) 400 mg QAM PO 10/07/16 09:00 11/06/16 08:59 10/14/16 08:40 400 MG Insulin Aspart (novoLOG ASPART) SLIDING SCALE G... ACHS SC 10/07/16 11:00 11/06/16 10:59 10/14/16 13:14 10 UNITS Glucose (Glucose 40% Gel) 15-30 GRAMS 15 GRAMS... UD PRN PO 10/07/16 07:15 11/06/16 07:14 Glucose (Glucose Chew Tab) 4-8 Tablets 4 Tabl... UD PRN PO 10/07/16 07:15 11/06/16 07:14 Dextrose (Dextrose 50% 50ML Syringe) 25-50ML OF 50% DW IV FOR... UD PRN IV 10/07/16 07:15 11/06/16 07:14 Glucagon (Glucagon Inj) 1 mg UD PRN SQ 10/07/16 07:15 11/06/16 07:14 Bisacodyl (Dulcolax Supp) 10 mg DAILY PRN [place] 10/07/16 17:30 11/06/16 17:29 10/07/16 22:00 10 MG Heparin Sodium (Porcine) (Heparin Sq 5000 Unit/0.5ml) 5,000 unit Q8 SQ 10/08/16 22:00 11/07/16 21:59 10/14/16 14:29 5,000 UNIT Menthol (Nice Janie) 1 janie PRN PRN PO 10/09/16 05:30 11/08/16 05:29 Codeine Phosphate/ Guaifenesin (Robitussin-AC Sugar Free Syrup) 10 ml Q6H PRN PO 10/09/16 10:00 11/08/16 09:59 10/13/16 20:38 10 ML Oseltamivir Phosphate (Tamiflu Susp) 30 mg QAM PO 10/10/16 12:00 10/15/16 11:59 10/14/16 08:43 30 MG Albuterol/ Ipratropium (Duoneb) 3 ml Q6R INH 10/10/16 15:00 11/09/16 14:59 10/14/16 15:09 3 ML Amoxicillin/ Clavulanate Potassium (Augmentin Tab) 500 mg BIDM PO 10/10/16 12:00 10/17/16 11:59 10/14/16 08:38 500 MG Loperamide HCl (Imodium Cap) 2 mg UD PRN PO 10/11/16 20:15 11/10/16 20:14 Glucose (Glucose 40% Gel) 15-30 GRAMS 15 GRAMS... UD PRN PO 10/13/16 16:45 11/12/16 16:44 Glucose (Glucose Chew Tab) 4-8 Tablets 4 Tabl... UD PRN PO 10/13/16 16:45 11/12/16 16:44 Dextrose (Dextrose 50% 50ML Syringe) 25-50ML OF 50% DW IV FOR... UD PRN IV 10/13/16 16:45 11/12/16 16:44 Glucagon (Glucagon Inj) 1 mg UD PRN SQ 10/13/16 16:45 11/12/16 16:44 Miscellaneous Information 1 ea 1 ea UD PRN N/A 10/13/16 17:16 11/12/16 17:15 Sodium Chloride (Nss 1000ml) 1,000 ml @ 75 mls/hr [id number] ONCE IV 10/14/16 09:15 10/14/16 22:34 10/14/16 11:17 75 MLS/HR
[2016-10-14 16:50] LABS: BUN/CREATININE RATIO 26.4 (10-20); CALCIUM 9.3 mg/dl (8.5-10.1); CREATININE 1.3 mg/dl (0.60-1.20); POTASSIUM 4.9 mmol/L (3.5-5.1)
[2016-10-14] MEDS: LEVOTHYROXINE 125 MCG TAB PO SCH (22:00)
[2016-10-14] MEDS: METOPROLOL TARTRATE 25 MG TAB PO SCH (22:01)
[2016-10-15] VITALS: O2SAT 92
[2016-10-15 00:48] VITALS: BP 131/77; PULSE 71; TEMP 36.4; O2SAT 93
[2016-10-15] MEDS: ALBUT/IPRATROP 3MG/0.5MG NEB 3 ML VIAL INH SCH ×2 (02:09→07:35)
[2016-10-15] MEDS: HEPARIN SOD 5000 UNIT/0.5 ML CARP SQ SCH ×2 (06:08→13:40)
[2016-10-15 07:35] VITALS: PULSE 78; O2SAT 96
[2016-10-15 08:16] VITALS: BP 161/78; PULSE 72; TEMP 36.5; O2SAT 100
[2016-10-15 08:19] LABS: BUN/CREATININE RATIO 24.5 (10-20); CREATININE 1.3 mg/dl (0.60-1.20); POTASSIUM 5.3 mmol/L (3.5-5.1)
[2016-10-15] MEDS: CARBIDOPA/LEVODOPA 25/100MG TAB PO SCH ×2 (08:25→14:40)
[2016-10-15] MEDS: CLOPIDOGREL BISULFATE 75 MG TAB PO SCH (08:26)
[2016-10-15] MEDS: PANTOprazole SOD 40 MG TAB PO SCH (08:26)
[2016-10-15] MEDS: MAGNESIUM OXIDE 400 MG TAB PO SCH (08:27)
[2016-10-15] MEDS: GABAPENTIN 100 MG CAP PO SCH ×2 (08:27→13:27)
[2016-10-15] MEDS: METOPROLOL TARTRATE 50 MG TAB PO SCH (08:28)
[2016-10-15] MEDS: ATORVASTATIN 20 MG TAB PO SCH (08:28)
[2016-10-15] MEDS: ASPIRIN 81 MG ECTAB PO SCH (08:29)
[2016-10-15] MEDS: ISOSORBIDE MONONITRATE 30 MG TABCR PO SCH (08:29)
[2016-10-15] MEDS: AMOXICILLIN/CLAVULANATE TAB 500 MG TAB PO SCH (08:30)
[2016-10-15] MEDS: SODIUM CHLORIDE 0.65% NA SOLN 45 ML (OCEAN) NAE SCH (08:30)
[2016-10-15] MEDS: DULOXETINE HCL 20 MG CAP PO SCH (08:30)
[2016-10-15] MEDS: BUDESONIDE/FORMOTEROL FUMARATE 160/4.5 60 PUFFS/INHALER INH SCH (08:31)
[2016-10-15] MEDS: FLUTICASONE PROPIONATE NA SPR 16 GM BTL NAE SCH (08:31)
[2016-10-15] MEDS: RANITIDINE HCL 150 MG TAB PO SCH (08:32)
[2016-10-15 08:43] VITALS: BP 136/67; PULSE 73
[2016-10-15 09:17] LABS: ESTIMATED AVERAGE GLUCOSE 163 mg/dl; HA1C FLAG Normal (Normal)
[2016-10-15] MEDS: INSULIN ASPART 100 UNITS/ML 3 ML PEN SC SCH ×2 (09:47→13:33)
[2016-10-15] MEDS: OSELTAMIVIR PHOSPHATE SUSP 30 MG/5 ML UDP PO SCH (09:49)
[2016-10-15] MEDS ORDERED: INSULIN GLARGINE SOLOSTAR 100 UNITS/ML 3 ML PEN SC SCH (10:00)
[2016-10-15] MEDS ORDERED: SODIUM POLYSTYRENE SULFONATE PO ONE (12:15)
--- NOTE | 2016-10-15 12:55 | Pharmacy Progress Note ---
Glycemic Control: Progress Nt Date of Service Oct 15, 2016. Scope Glycemic Pharmacist consulted by Dr Archuleta on 10/13/16 for glycemic control and to write orders per [facility] inpatient glycemic control protocol. Objective Accuchecks BSG (last 24hrs): Test 10/14/16 16:11 10/14/16 16:44 10/14/16 20:30 10/14/16 22:05 Random Glucose 151 mg/dl (70-99) Bedside Glucose 171 mg/dl (70-90) 283 mg/dl (70-90) 342 mg/dl (70-90) Test 10/15/16 07:25 10/15/16 07:56 10/15/16 11:26 Random Glucose 253 mg/dl (70-99) Bedside Glucose 285 mg/dl (70-90) 219 mg/dl (70-90) Laboratory Data (last 24hrs) Test 10/14/16 16:11 10/15/16 07:25 Anion Gap 12.0 mmol/L 11.0 mmol/L BUN/Creatinine Ratio 26.4 24.5 Blood Urea Nitrogen 34 mg/dl 32 mg/dl Creatinine 1.30 mg/dl 1.30 mg/dl Potassium Level 4.9 mmol/L 5.3 mmol/L Sodium Level 132 mmol/L 131 mmol/L Hemoglobin A1c 7.3 % HbA1c: Test 10/15/16 07:25 Hemoglobin A1c 7.3 % (4.5-5.6) H Recent Pertinent Medications Outpatient Anti-diabetic Regimen: * Prandin 1mg PO TIDM PRN BSG > 140 * Glipizide 5mg PO Daily The patient is currently receiving: * Basal insulin: None Ordered * Correctional Insulin: Novolog Correction per scale ACHS Goal Range: Low 110 mg/dL - High 140 mg/dL Correction Factor: 25 mg/dL/unit * Prandial insulin: Per carb ratio of 1 unit per 9 grams CHO consumed * Oral Agents: on Hold for admission Risk Factors for Insulin Resistance: * Steroids: on 10/12 & 10/13/16 --> effects should be diminishing at this point * Infection * Diet Assessment & Plan ASSESSMENT: * 86yo T2DM female with adequately controlled diabetes per recent A1c. Pt known to pharmacy from previous admissions/glycemic consults. * Pt is maintained on oral agents as an outpatient. Oral agents are not recommended for inpatient use d/t difficulty titrating in acute situations, changes in PO intake, and drug interactions. Pt initiated on SQ bolus insulin regimen for inpatient use. Basal insulin not ordered however. * Last dose of prednisone was 10/13/16 PM --> hyperglycemic effects should be minimal at this point in time. However, BSGs still significantly elevated. Pt is only ordered bolus insulin per CF/CR. Will add basal insulin at conservative dosing for better control. * AM fasting BSG is elevated at 285mg/dl --> basal insulin needed * Post-prandial BSGs vary significantly --> hopefully will stabilize with the addition of basal insulin. Hesitant to tighten parameters any further based on previous admission insulin dosing data (used last admission, currently ordered at 06/06) Will keep the "low" end of the goal range high to help prevent hypoglycemia. * ADA & AACE recommend a goal blood sugar range 140-180 mg/dl for the majority of critically ill & non-critically ill patients. However, more stringent targets may be selected in individual cases. Will utilize more stringent target of 120-140mg/dl based on outpatient tight glycemic control. PLAN FOR INPATIENT GLYCEMIC CONTROL: * Hold outpatient oral diabetes medications * Basal insulin with LANTUS 10 units SQ daily in the morning * Correctional Insulin with NOVOLOG per scale ACHS or Q6hrs while NPO * Goal Range: Low 120 mg/dL - High 140 mg/dL * Correction Factor: 25 mg/dL/unit * Nutritional / Prandial insulin per carb ratio of 1 unit per 9 grams CHO consumed * Please note that the plan above was derived based on current level of insulin resistance and hospital stress. These recommendations are appropriate for inpatient admission only. Plan of care upon discharge will need to be reassessed to avoid potential outpatient hypo/hyperglycemia. Thank you.
[2016-10-15 15:01] VITALS: BP 136/67; PULSE 73; TEMP 36.5; O2SAT 100
--- NOTE | 2016-10-15 15:47 | Progress Note ---
Medicine Progress Note Date & Time of Visit: Oct 15, 2016 at 15:27. Subjective Pt was seen and examined Sitting in chair very comfortable with no distress Pt said that she feels good she said that she is back to her baseline she had a 2 step done today, and she walked fine with normal sat on RA Pt said that the cough is better she said that her breathing is good she denies any chest pain, palpitation, dizziness and sob Objective Last 8 Hrs Date Time Temp Pulse Resp B/P Pulse Ox O2 Delivery O2 Flow Rate FiO2 10/15/16 15:01 36.5 73 18 100 Room Air 10/15/16 09:00 Room Air 10/15/16 08:43 73 136/67 10/15/16 08:16 36.5 72 18 161/78 100 Nasal Cannula 4.0 10/15/16 07:35 78 18 96 Nasal Cannula 2.0 Physical Exam: General- no acute distress Head- atraumatic Eyes- PERRL, EOMI ENT- oropharynx clear Neck- supple, no JVD Lungs- normal breath sound Heart- regular rhythm; no murmur Abdomen- normal bowel sounds, soft, nontender Extremities- no calf tenderness Neuro- alert, oriented, PERRL, EOMI; Skin- warm & dry Laboratory Results: Last 24 Hours Test 10/14/16 16:11 10/14/16 16:44 10/14/16 20:30 10/14/16 22:05 Sodium Level 132 mmol/L Potassium Level 4.9 mmol/L Chloride Level 100 mmol/L Carbon Dioxide Level 20 mmol/L Anion Gap 12.0 mmol/L Blood Urea Nitrogen 34 mg/dl Creatinine 1.30 mg/dl Est Creatinine Clear Calc Drug Dose 31.8 ml/min Estimated GFR () 43.0 Estimated GFR (Non- 37.1 BUN/Creatinine Ratio 26.4 Random Glucose 151 mg/dl Calcium Level 9.3 mg/dl Bedside Glucose 171 mg/dl 283 mg/dl 342 mg/dl Test 10/15/16 07:25 10/15/16 07:56 10/15/16 11:26 Sodium Level 131 mmol/L Potassium Level 5.3 mmol/L Chloride Level 100 mmol/L Carbon Dioxide Level 20 mmol/L Anion Gap 11.0 mmol/L Blood Urea Nitrogen 32 mg/dl Creatinine 1.30 mg/dl Est Creatinine Clear Calc Drug Dose 31.8 ml/min Estimated GFR () 43.0 Estimated GFR (Non- 37.1 BUN/Creatinine Ratio 24.5 Random Glucose 253 mg/dl Estimated Average Glucose 163 mg/dl Hemoglobin A1c 7.3 % Calcium Level 9.0 mg/dl Bedside Glucose 285 mg/dl 219 mg/dl Assessment & Plan SHORTNESS OF BREATH ASSOCIATED WITH COUGH AND FEVER Possible related to viral etiology vs atypical pneumonia CXR showed Stable nonspecific bilateral interstitial opacities -CT sinuses last week was negative despite same symptoms at that time -IV Zosyn/doxy switchted to Augmentin/Azithro on 10/10, Completed. -blood and sputum cultures remain negative -flu is negative -completed tamiflu course - Saturated well on RA - Overnight oximetry done showed pt requires oxygen at night -2 step exercise done today, showed no desaturation - will discharge on a short course steroid taper - Script given to complex case manager for the oxygen supplement PENELOPE IN SETTING OF CKD STAGE III Baseline creatinine is around 1.5. creatine today 1.3 Cont holding Losartan Continue monitor BMP HYPERKALEMIA k 5.3 will continue hold losartan Kayexalate 10g given continue monitor BMP ALTERED MENTAL STATUS Probable encephalopathy secondary to sepsis. resolved CORONARY ARTERY DISEASE No anginal symptoms. Continue aspirin, metoprolol, nitrates, statin. Stable HYPERTENSION Continue metoprolol, nitrates Continue holding losartan, if K stays elevating, consider to change to another antihypertensive med BP stable continue monitor BP ASTHMA D/C oxygen supplement saturated well today on RA Continue bronchodilators PRN received prednisone 20mg will give a short course of prednisone DM TYPE 2 Insulin coverage PRN for elevated blood sugars. Currently at goal with minimal coverage required will add insulin coverage Hba1c 7.3 Continue monitor BS PARKINSON'S DISEASE Continue carbidopa / levodopa. Stable VTE PROPHYLAXIS On heparin to SCDs GI Px PPI CODE STATUS Full Code DISPOSITION: PT/OT Discharge home today Follow up appointment with Dr. Hogue on Oct 18 at 12:50 Current Inpatient Medications: Current Inpatient Medications Medications (Trade) Dose Ordered Sig/Nilsa Route Start Time Stop Time Status Last Admin Dose Admin Albuterol (Ventolin Hfa Inhaler) 2 puffs QID PRN INH 10/07/16 05:30 11/06/16 05:29 Aspirin (Ecotrin Tab) 81 mg QAM PO 10/07/16 09:00 11/06/16 08:59 10/15/16 08:29 81 MG Atorvastatin Calcium (Lipitor Tab) 40 mg DAILY PO 10/07/16 09:00 11/06/16 08:59 10/15/16 08:28 40 MG Benzonatate (Tessalon Perles Cap) 100 mg Q8H PRN PO 10/07/16 05:30 11/06/16 05:29 10/12/16 08:50 100 MG Budesonide/ Formoterol Fumarate (Symbicort 160/ 4.5 Inh) 2 puffs BID INH 10/07/16 09:00 11/06/16 08:59 10/15/16 08:31 2 PUFFS Clopidogrel Bisulfate (plAVix TAB) 75 mg QAM PO 10/07/16 09:00 11/06/16 08:59 10/15/16 08:26 75 MG Duloxetine HCl (Cymbalta Cap) 20 mg DAILY PO 10/07/16 09:00 11/06/16 08:59 10/15/16 08:30 20 MG Fluticasone Propionate (Flonase Nasal [place]) 2 sprays BID JOSE 10/07/16 09:00 11/06/16 08:59 10/15/16 08:31 2 SPRAYS Gabapentin (Neurontin Cap) 200 mg TID PO 10/07/16 09:00 11/06/16 08:59 10/15/16 13:27 200 MG Isosorbide Mononitrate (Imdur Ext Rel Tab) 30 mg QAM PO 10/07/16 09:00 11/06/16 08:59 10/15/16 08:29 30 MG Carbidopa/Levodopa (Sinemet 25/ 100MG Tab) 1 tab QID PO 10/07/16 09:00 11/06/16 08:59 10/15/16 14:40 1 TAB Levothyroxine Sodium (Synthroid Tab) 125 mcg HS PO 10/07/16 21:00 11/06/16 20:59 10/14/16 22:00 125 MCG Lorazepam (Ativan Tab) 0.5 mg BID PRN PO 10/07/16 05:30 11/06/16 05:29 Losartan Potassium (coZAAR TAB) 25 mg QAM PO 10/07/16 09:00 11/06/16 08:59 Future Hold 10/09/16 07:53 25 MG Metoprolol Tartrate (Lopressor Tab) 25 mg QPM PO 10/07/16 21:00 11/06/16 20:59 10/14/16 22:01 25 MG Metoprolol Tartrate (Lopressor Tab) 50 mg QAM PO 10/07/16 09:00 11/06/16 08:59 10/15/16 08:28 50 MG Nitroglycerin (Nitrostat Tab) 0.4 mg UD PRN SL 10/07/16 05:30 11/06/16 05:29 Oxycodone HCl (Roxicodone Immediate Rel Tab) 5 mg Q4H PRN PO 10/07/16 05:30 10/21/16 05:29 10/10/16 10:04 5 MG Pantoprazole Sodium (Protonix Tab) 40 mg QAM PO 10/07/16 09:00 11/06/16 08:59 10/15/16 08:26 40 MG Ranitidine HCl (zANTac TAB) 150 mg BID PO 10/07/16 09:00 11/06/16 08:59 10/15/16 08:32 150 MG Sodium Chloride ([place] Nasal [place]) 2 sprays DAILY JOSE 10/07/16 09:00 11/06/16 08:59 10/15/16 08:30 2 SPRAYS Magnesium Oxide (Mag-Ox Tab) 400 mg QAM PO 10/07/16 09:00 11/06/16 08:59 10/15/16 08:27 400 MG Insulin Aspart (novoLOG ASPART) SLIDING SCALE G... ACHS SC 10/07/16 11:00 11/06/16 10:59 10/15/16 13:33 6 UNITS Glucose (Glucose 40% Gel) 15-30 GRAMS 15 GRAMS... UD PRN PO 10/07/16 07:15 11/06/16 07:14 Glucose (Glucose Chew Tab) 4-8 Tablets 4 Tabl... UD PRN PO 10/07/16 07:15 11/06/16 07:14 Dextrose (Dextrose 50% 50ML Syringe) 25-50ML OF 50% DW IV FOR... UD PRN IV 10/07/16 07:15 11/06/16 07:14 Glucagon (Glucagon Inj) 1 mg UD PRN SQ 10/07/16 07:15 11/06/16 07:14 Bisacodyl (Dulcolax Supp) 10 mg DAILY PRN [place] 10/07/16 17:30 11/06/16 17:29 10/07/16 22:00 10 MG Heparin Sodium (Porcine) (Heparin Sq 5000 Unit/0.5ml) 5,000 unit Q8 SQ 10/08/16 22:00 11/07/16 21:59 10/15/16 13:40 5,000 UNIT Menthol (Nice Janie) 1 janie PRN PRN PO 10/09/16 05:30 11/08/16 05:29 Codeine Phosphate/ Guaifenesin (Robitussin-AC Sugar Free Syrup) 10 ml Q6H PRN PO 10/09/16 10:00 11/08/16 09:59 10/13/16 20:38 10 ML Albuterol/ Ipratropium (Duoneb) 3 ml Q6R INH 10/10/16 15:00 11/09/16 14:59 10/15/16 07:35 3 ML Amoxicillin/ Clavulanate Potassium (Augmentin Tab) 500 mg BIDM PO 10/10/16 12:00 10/17/16 11:59 10/15/16 08:30 500 MG Loperamide HCl (Imodium Cap) 2 mg UD PRN PO 10/11/16 20:15 11/10/16 20:14 Glucose (Glucose 40% Gel) 15-30 GRAMS 15 GRAMS... UD PRN PO 10/13/16 16:45 11/12/16 16:44 Glucose (Glucose Chew Tab) 4-8 Tablets 4 Tabl... UD PRN PO 10/13/16 16:45 11/12/16 16:44 Dextrose (Dextrose 50% 50ML Syringe) 25-50ML OF 50% DW IV FOR... UD PRN IV 10/13/16 16:45 11/12/16 16:44 Glucagon (Glucagon Inj) 1 mg UD PRN SQ 10/13/16 16:45 11/12/16 16:44 Miscellaneous Information (Consult Glycemic Management Pharmacy) 1 ea UD PRN N/A 10/13/16 17:16 11/12/16 17:15 Insulin Glargine (Lantus Solostar Pen) 10 unit DAILY SC 10/15/16 10:00 11/14/16 09:59 10/15/16 09:48 10 UNIT
[2016-10-15] MEDS ORDERED: PRED10TA PO (15:54)
--- NOTE | 2016-10-15 16:01 | Discharge Instructions ---
Discharge Instructions Admission Reason for Admission: Altered Mental Status Discharge Discharge Diagnosis / Problem: Shortness of breath, PENELOPE IN SETTING OF CKD STAGE III, Hyperkalemia, DM II Discharge Goals Goal(s): Decrease discomfort, Improve function, Improve disease control Activity Recommendations Activity Limitations: resume your previous activity (as tolerated) . Instructions / Follow-Up Instructions / Follow-Up Discharge home today Follow up appointment with Dr. Hogue on Oct 18 at 12:50 Check BMP for hyperkalemia Hold losartan for now due to elevate potassium avoid nephrotoxic agents Monitor Blood pressure Use oxygen at bedtime Monitor Blood Sugar and follow up a healthy diabetic diet Limited concentrated sweet intake Current Hospital Diet Patient's current hospital diet: Diabetes Type 2 Diet, AHA Diet (Heart Healthy) Discharge Diet Recommended Diet: Diabetes Type 2 Diet Pending Studies Studies pending at discharge: no Laboratory Results Hemoglobin A1c Test 10/15/16 07:25 Range/Units Estimated Average Glucose 163 mg/dl Hemoglobin A1c 7.3 H 4.5-5.6 % Lipid Panel Test 07/27/16 08:45 Range/Units Triglycerides Level 294 H 0-150 mg/dl Cholesterol Level 230 H 0-200 mg/dl HDL Cholesterol 42 mg/dl Cholesterol/HDL Ratio 5.5 LDL Cholesterol, Calculated 129 mg/dl Medical Emergencies . Who to Call and When: Medical Emergencies: If at any time you feel your situation is an emergency, please call 911 immediately. . Non-Emergent Contact Non-Emergency issues call your: Primary Care Provider Call Non-Emergent contact if: you have any medication questions . . "Provider Documentation" section prepared by Amy Archuleta. VTE Core Measure Inpt VTE Proph given/why not?: Unfractionated heparin SQ, SCD's
--- NOTE | 2016-10-19 23:24 | Discharge Summary ---
Discharge Summary Admission Date: Oct 07, 2016 at 01:27 Discharge Date: Oct 15, 2016 Discharge Disposition: Home Principal Diagnosis: Dyspnea Secondary Diagnoses/Problems: Shortness of breath PENELOPE IN SETTING OF CKD STAGE III Hyperkalemia DM II Medication Reconciliation New Medications: Prednisone Tab (Prednisone) 10 Mg Tab 10 MG PO UD for 5 Days, TAB take 2 tabs for 2 days, then 1 tab for 3 days and stop. Continued Medications: Albuterol Hfa (Ventolin Hfa) 200 Puffs/54437 Mcg Aers 2 PUFFS INH QID PRN for SOB/Wheezing, #1 INHALER Aspirin (Aspirin Chewable) 81 Mg Chew 81 MG PO DAILY Atorvastatin (Lipitor) 40 Mg Tab 40 MG PO DAILY, TAB Benzonatate (Benzonatate) 100 Mg Cap 100 MG PO Q8H PRN for Cough, #20 CAP Budesonide/Formoterol Fumarate (Symbicort 160-4.5 Mcg/Act) 60 Puffs/Inhaler Aero 2 PUFFS INH BID for 30 Days, 2 Refills Cholecalciferol (Vitamin D3) 2,000 Unit Cap 1 CAP PO DAILY for 90 Days, #90 CAP 3 Refills Clopidogrel Bisulfate (Clopidogrel) 75 Mg Tab 75 MG PO QAM for 30 Days, #30 TAB 6 Refills Duloxetine HCl (Cymbalta) 20 Mg Cap 1 CAP PO DAILY for 30 Days, #30 CAP 2 Refills Fluticasone Propionate (Nasal) (Flonase Allergy Relief) 50 Mcg/Act Spr 1 SPRAY JOSE BID Gabapentin (Neurontin) 100 Mg Cap 200 MG PO TID Glipizide (Glipizide) 5 Mg Tab 5 MG PO DAILY, #30 1 Refill Guaifenesin/Codeine (Robitussin-Ac Syrup) Syrp 5 ML PO Q6H PRN for Cough for 6 Days, #120 ML 1 Refill Ipratropium-Albuterol (Duoneb) 3 Ml Nebu 1 TREATMENT INH Q4H PRN for SOB/Wheezing, #1 INHA 3 Refills Isosorbide Mononitrate (Isosorbide Mononitrate ER) 30 Mg Tabcr 30 MG PO QAM for 30 Days, #30 TABS 6 Refills Levodopa/Carbidopa (Sinemet 25MG/100MG) 1 Ea Tab 1 TABLET PO QID Levothyroxine Sodium (Synthroid) 125 Mcg Tab 125 MCG PO HS for 30 Days, #30 TAB 6 Refills Lorazepam (Lorazepam) 0.5 Mg Tab 0.5 MG PO BID PRN for Anxiety, #30 TAB Magnesium Oxide (Magnesium) 500 Mg Cap 500 MG PO DAILY Metoprolol Tartrate (Lopressor) (Lopressor) 25 Mg Tab 50 MG PO QAM, TAB Metoprolol Tartrate (Lopressor) (Lopressor) 25 Mg Tab 25 MG PO QPM, TAB Nitroglycerin (Nitrostat) 0.4 Mg/1 Tab Subl 0.4 MG SL UD PRN for Chest Pain for 30 Days, #30 MG 6 Refills Oxycodone Immediate Rel Tab (Roxicodone Ir) 5 Mg Tab 1 TAB PO Q4H PRN for Severe Pain, #20 TAB Pantoprazole (Pantoprazole Sodium) 40 Mg Tab 40 MG PO QAM, #30 TAB 2 Refills Ranitidine HCl (Ranitidine HCl) 150 Mg Tab 150 MG PO BID, #60 TAB 2 Refills Repaglinide (Prandin) 1 Mg Tab 1 MG PO TID PRN for BSG >140 take only if bsg is >140 Saline (Gillespie Nasal [place]) 0.65 % Spr 1 SPRAY JOSE DAILY Discontinued Medications: Amoxicillin & Pot Clavulanate (Amoxicillin/Clavulanate P) 1 Tab Tab 500 MG PO BIDM for 5 Days, #10 TAB 0 Refills Losartan Potassium (Losartan Potassium) 25 Mg Tab 25 MG PO QAM for 30 Days, #30 TAB 6 Refills Admission Information HPI (per Admitting provider): 86 YO female followed by Dr. Hogue. History of ischemic heart disease, asthma, DM, Parkinson's disease, and other problems noted below. Hospitalized at [facility] 09/12/16 - 09/20/16 with exacerbation of asthma. Readmitted 10/01/16 - 10/03/16 with hypotension attributed to dehydration. Daughter found her to be confused this evening. Seemed to be unable to get her self undressed. She was experiencing fever and cough productive of yellow sputum, sometimes blood-tinged. Mental status improved by the time she arrived to the ED. No headache. No nausea, vomiting, diarrhea. No dysuria. . Physical Exam (per Admitting): General Appearance: WD/WN, no apparent distress Head: normocephalic, atraumatic Eyes: normal inspection, PERRL, EOMI, sclerae normal, + pertinent finding ( conjunctivae pale) ENT: normal ENT inspection, pharynx normal Neck: supple, no adenopathy, thyroid normal, no JVD Respiratory/Chest: + pertinent finding (few scattered rhonchi, mild diffuse wheezing) Abdomen/GI: normal bowel sounds, non tender, soft, no organomegaly Extremities/Musculoskelatal: normal inspection, no calf tenderness, no pedal edema Neurologic/Psych: business intelligence etl developer II-XII nml as tested (PERRL, EOMI), normal mood/affect , + disoriented (mild confusion) Skin: normal color, no rash, + diaphoresis Lymphatic: no adenopathy Hospital Course SHORTNESS OF BREATH ASSOCIATED WITH COUGH AND FEVER Possible related to viral etiology vs atypical pneumonia CXR showed Stable nonspecific bilateral interstitial opacities -CT sinuses last week was negative despite same symptoms at that time -IV Zosyn/doxy switchted to Augmentin/Azithro on 10/10, Completed. -blood and sputum cultures remain negative -flu is negative -completed tamiflu course - Saturated well on RA - Overnight oximetry done showed pt requires oxygen at night -2 step exercise done today, showed no desaturation - will discharge on a short course steroid taper - Script given to case supervisor for the oxygen supplement PENELOPE IN SETTING OF CKD STAGE III Baseline creatinine is around 1.5. creatine today 1.3 Cont holding Losartan Continue monitor BMP HYPERKALEMIA k 5.3 will continue hold losartan Kayexalate 10g given continue monitor BMP ALTERED MENTAL STATUS Probable encephalopathy secondary to sepsis. resolved CORONARY ARTERY DISEASE No anginal symptoms. Continue aspirin, metoprolol, nitrates, statin. Stable HYPERTENSION Continue metoprolol, nitrates Continue holding losartan, if K stays elevating, consider to change to another antihypertensive med BP stable continue monitor BP ASTHMA D/C oxygen supplement saturated well today on RA Continue bronchodilators PRN received prednisone 20mg will give a short course of prednisone DM TYPE 2 Insulin coverage PRN for elevated blood sugars. Currently at goal with minimal coverage required will add insulin coverage Hba1c 7.3 Continue monitor BS PARKINSON'S DISEASE Continue carbidopa / levodopa. Stable VTE PROPHYLAXIS On heparin to SCDs GI Px PPI CODE STATUS Full Code DISPOSITION: PT/OT Discharge home today Follow up appointment with Dr. Hogue on Feb 6 at 12:50 Total time spent on discharge = 35 minutes This includes examination of the patient, discharge planning, medication reconciliation, and communication with other providers. Discharge Instructions Discharge Instructions Admission Reason for Admission: Altered Mental Status Discharge Discharge Diagnosis / Problem: Shortness of breath, PENELOPE IN SETTING OF CKD STAGE III, Hyperkalemia, DM II Discharge Goals Goal(s): Decrease discomfort, Improve function, Improve disease control Activity Recommendations Activity Limitations: resume your previous activity (as tolerated) . Instructions / Follow-Up Instructions / Follow-Up Discharge home today Follow up appointment with Dr. Hogue on Oct 18 at 12:50 Check BMP for hyperkalemia Hold losartan for now due to elevate potassium avoid nephrotoxic agents Monitor Blood pressure Use oxygen at bedtime Monitor Blood Sugar and follow up a healthy diabetic diet Limited concentrated sweet intake Current Hospital Diet Patient's current hospital diet: Diabetes Type 2 Diet, AHA Diet (Heart Healthy) Discharge Diet Recommended Diet: Diabetes Type 2 Diet Pending Studies Studies pending at discharge: no Laboratory Results Hemoglobin A1c Test 10/15/16 07:25 Range/Units Estimated Average Glucose 163 mg/dl Hemoglobin A1c 7.3 H 4.5-5.6 % Lipid Panel Test 07/27/16 08:45 Range/Units Triglycerides Level 294 H 0-150 mg/dl Cholesterol Level 230 H 0-200 mg/dl HDL Cholesterol 42 mg/dl Cholesterol/HDL Ratio 5.5 LDL Cholesterol, Calculated 129 mg/dl Medical Emergencies . Who to Call and When: Medical Emergencies: If at any time you feel your situation is an emergency, please call 911 immediately. . Non-Emergent Contact Non-Emergency issues call your: Primary Care Provider Call Non-Emergent contact if: you have any medication questions . . "Provider Documentation" section prepared by Amy Archuleta. VTE Core Measure Inpt VTE Proph given/why not?: Unfractionated heparin SQ, SCD's Additional Copies To Amanda Hogue D.O.
== END 2016-10-15 16:30 | disposition home health service (06) | DRG 871 ==
LOC: ENRESERVTM → ENRESERVDT → C.EDB 21:18 → C.MED 10-07 01:27 → UNDOADMIN 10-07 01:30 → EDBEDREQ 10-07 01:43 → UNDOADMIN 10-08 16:38 → C.MED 10-08 16:38 → C.MS4W 10-12 18:29
PROVIDERS: ADMIT Hospitalist; ATTEND Internal Medicine
DX: A41.9 Sepsis, unspecified organism (principal); J18.9 Pneumonia, unspecified organism; G93.40 Encephalopathy, unspecified; J44.0 Chronic obstructive pulmonary disease with (acute) lower respiratory infection; R04.2 Hemoptysis; N17.9 Acute kidney failure, unspecified; I25.10 Atherosclerotic heart disease of native coronary artery without angina pectoris; E11.22 Type 2 diabetes mellitus with diabetic chronic kidney disease; I12.9 Hypertensive chronic kidney disease with stage 1 through stage 4 chronic kidney disease, or unspecified chronic kidney disease; N18.3 Chronic kidney disease, stage 3 (moderate); G20 Parkinson's disease; E78.5 Hyperlipidemia, unspecified; K21.9 Gastro-esophageal reflux disease without esophagitis; I25.2 Old myocardial infarction; H91.90 Unspecified hearing loss, unspecified ear; J45.909 Unspecified asthma, uncomplicated; J01.90 Acute sinusitis, unspecified; E87.5 Hyperkalemia; J44.9 Chronic obstructive pulmonary disease, unspecified; E03.9 Hypothyroidism, unspecified; G43.909 Migraine, unspecified, not intractable, without status migrainosus; R91.1 Solitary pulmonary nodule; Z79.82 Long term (current) use of aspirin; Z79.899 Other long term (current) drug therapy; Z88.8 Allergy status to other drugs, medicaments and biological substances; Z88.3 Allergy status to other anti-infective agents; Z86.73 Personal history of transient ischemic attack (TIA), and cerebral infarction without residual deficits; Z90.49 Acquired absence of other specified parts of digestive tract; Z90.710 Acquired absence of both cervix and uterus; Z80.9 Family history of malignant neoplasm, unspecified; Z83.3 Family history of diabetes mellitus; Z82.49 Family history of ischemic heart disease and other diseases of the circulatory system; Z82.3 Family history of stroke

== ENCOUNTER → 2016-10-20 | Outpatient (CLI) | payer OTHER, MEDICARE ==
[~2016-10-20] MED LIST changes: -ALBUAER19 INH; -AMOX1TAB42 PO; -CHOL100010 PO; +CHOL2000 PO; -CZR25 PO; -LPR25 PO; +METO25TA56 PO; +PRED10TA PO; +VNTHFA/IN INH
[2016-10-20 15:10] LABS: BASO % 0.2 %; BASO ABS # 0.03 K/uL (0-0.2); EOS % 0.5 %; HEMATOCRIT 31.7 % (37-47); IG% 1.6 %; LYMPH % 13.5 %; LYMPH ABS # 1.69 K/uL (1.2-3.4); MEAN CELL VOLUME 87.3 fL (80-100); MEAN CORPUSCULAR HEMOGLOBIN 29.5 pg (25-34); MEAN PLATELET VOLUME 10.5 fL (7.4-10.4); MONO % 7.7 %; NEUT % 76.5 %; PLATELET COUNT 324 K/uL (130-400); RED BLOOD COUNT 3.63 M/uL (4.2-5.4); WHITE BLOOD COUNT 12.48 K/uL (4.8-10.8)
[2016-10-20 15:16] LABS: COMPLETE YES; MEAN CORPUSCULAR HGB CONC 33.8 g/dl (32-36)
[2016-10-20 15:33] LABS: BLOOD UREA NITROGEN 23 mg/dl (7-18); BUN/CREATININE RATIO 16.6 (10-20); CALCIUM 9.3 mg/dl (8.5-10.1); CARBON DIOXIDE 24 mmol/L (21-32); CHLORIDE 103 mmol/L (98-107); GLUCOSE 168 mg/dl (70-99); POTASSIUM 5.1 mmol/L (3.5-5.1); SODIUM 136 mmol/L (136-145)
== END | disposition home or self-care (01) ==
LOC: C.LAB 14:23
PROVIDERS: ATTEND Family Medicine
DX: I12.9 Hypertensive chronic kidney disease with stage 1 through stage 4 chronic kidney disease, or unspecified chronic kidney disease (principal); N18.3 Chronic kidney disease, stage 3 (moderate)

== ENCOUNTER → 2017-05-02 | Outpatient (CLI) | payer OTHER, MEDICARE ==
[~2017-05-02] MED LIST changes: -PRED10TA PO
--- NOTE | 2017-05-02 15:24 | MAMMOGRAPHY REPORT ---
BILATERAL DIGITAL SCREENING MAMMOGRAM WITH CAD: 05/02/2017 CLINICAL HISTORY: Routine screening. Patient has no complaints. TECHNIQUE: Bilateral CC and MLO views were obtained. Current study was also evaluated with a Compute r Aided Detection (CAD) system. COMPARISON: Comparison is made to exams dated: 04/28/2016 mammogram, 03/13/2015 mammogram, 03/08/2014 ma mmogram, 03/05/2013 mammogram, 03/02/2012 mammogram, and 01/26/2011 mammogram - [facility] nter. BREAST COMPOSITION: The tissue of both breasts is heterogeneously dense, which may obscure small mas ses. FINDINGS: There is a stable dominic-shaped metallic biopsy marker in the 6:00 left breast. A few scatter ed stable punctate and coarse calcifications in the breasts. No new suspicious mass, architectural d istortion or cluster of microcalcifications is seen. IMPRESSION: ACR BI-RADS CATEGORY 1: NEGATIVE There is no mammographic evidence of malignancy. A 1 year screening mammogram is recommended. The pa tient will receive written notification of the results. Approximately 10% of breast cancers are not detected with mammography. A negative mammographic report should not delay biopsy if a clinically suggestive mass is present. Mirna Jay M.D. ay/:05/02/2017 13:54:16 Help Desk Manager: Ana MARQUIS(Caleb)(Chanda)(BD), [facility] letter sent: Normal 1/2 BI-RADS Code: ACR BI-RADS Category 1: Negative
== END | disposition home or self-care (01) ==
LOC: C.MAMM 12:59
PROVIDERS: ATTEND Family Medicine
DX: Z12.31 Encounter for screening mammogram for malignant neoplasm of breast (principal)

== ENCOUNTER 2017-07-28 09:34 | Inpatient (IN) | payer OTHER, MEDICARE ==
[~2017-07-28] VITALS: Ht 165.1 cm; Wt 70.0 kg
[~2017-07-28 09:34] MED LIST changes: +REPA1TAB40 PO; -REPA1TAB42 PO
[2017-07-28] MEDS ORDERED: ALBUT/IPRATROP 3MG/0.5MG NEB 3 ML VIAL INH STA ×2 (10:00→13:16)
--- NOTE | 2017-07-28 10:13 | DIAGNOSTIC IMAGING REPORT ---
CHEST ONE VIEW PORTABLE CLINICAL HISTORY: 87 years-old Female presenting with ABDOMINAL PAIN/GI. TECHNIQUE: Portable upright AP view of the chest was obtained. COMPARISON: 10/09/2016. FINDINGS: Atherosclerosis of aortic arch. Cardiac silhouette normal in size. Lungs and pleural spaces clear. Degenerative changes of the thoracic spine. Upper abdomen normal. IMPRESSION: 1. No acute cardiopulmonary disease. Electronically signed by: Brian Escobar M.D. 07/28/2017 10:12 AM Dictated Date/Time: 07/28/2017 10:10 AM
--- NOTE | 2017-07-28 10:31 | EMERGENCY ROOM VISIT NOTE ---
History Report prepared by Janet: Raj Hammer Under the Supervision of: Dr. Nate Higuera D.O. First contact with patient: 09:55 Chief Complaint: OTHER COMPLAINT Stated Complaint: ASPIRATED HER ACID REFLUX-WHEEZY- CHEST PRESSURE History of Present Illness The patient is a 87 year old female who presents to the Emergency Room with complaints of shortness of breath that began early this morning. She has a history of GERD and notes that she woke up from her sleep coughing at this time. She believes she may have aspirated stomach contacts. She is currently experiencing nausea, cough, and fatigue as well. Yesterday, the patient states she was feeling well and at her baseline. She denies any fevers, chills, abdominal pain, or leg swelling. She takes Nexium daily with chewable antacids PRN. She has a history of a complete hysterectomy, appendectomy, tonsillectomy, and two back surgeries. She called her PCP this morning who said they did not have any available appointments and that she should go to the ER. She also has a past history of pneumonia. She received a cardiac stent 1 year ago. She does not have a history of cancer. Source of History: patient Onset: early this morning Position: other (Respiratory System) Symptom Intensity: moderate Quality: other (Shortness of breath) Timing: constant Associated Symptoms: + cough, + nausea, + fatigue, No fevers, No chills, No abdominal pain Note: She denies any leg swelling. Review of Systems See HPI for pertinent positives & negatives. A total of 10 systems reviewed and were otherwise negative. Past Medical & Surgical Medical Problems: (1) Arrhythmia (2) Asthma (3) Benign hypertension (4) CAD (coronary artery disease) (5) CKD (chronic kidney disease), stage III (6) COPD (chronic obstructive pulmonary disease) (7) Diabetes mellitus type 2 (8) Dyslipidemia (9) GERD (gastroesophageal reflux disease) (10) H/O non-ST elevation myocardial infarction (NSTEMI) (11) Hypothyroidism (12) Migraine headache (13) Parkinson's disease (14) Pulmonary nodule (15) TIA (transient ischemic attack) Surgical Problems: (1) H/o cervical laminectomy (2) History of lumbar surgery (3) S/P tonsillectomy and adenoidectomy (4) Status post appendectomy (5) Status post cholecystectomy (6) Status post hysterectomy Family History FH: cancer BROTHER FH: diabetes mellitus FH: heart disease FATHER ( [place] 66) MOTHER ( [place] 72) Hypertension Stroke MOTHER Social History Smoking Status: Never Smoker Alcohol Use: none Marital Status: Housing Status: lives with family Occupation Status: retired Current/Historical Medications Scheduled Amlodipine Besylate (Amlodipine Besylate), 10 MG PO DAILY Amoxicillin & Pot Clavulanate (Amoxicillin/Clavulanate P), 875 MG PO BIDM Aspirin (Aspirin Chewable), 81 MG PO DAILY Atorvastatin (Lipitor), 40 MG PO DAILY Budesonide/Formoterol Fumarate (Symbicort 160-4.5 Mcg/Act), 2 PUFFS INH DAILY Cholecalciferol (Vitamin D3), 2,000 UNITS PO DAILY Clopidogrel Bisulfate (Clopidogrel), 75 MG PO QAM Dextromethorphan-Guaifenesin (Coricidin Hbp Chest Conge), 1 CAP PO BID Duloxetine HCl (Duloxetine HCl), 30 MG PO DAILY Fluticasone Propionate (Nasal) (Flonase Allergy Relief), 1 SPRAY JOSE DAILY Gabapentin (Neurontin), 200 MG PO TID Glipizide (Glipizide Er), 1 TAB PO BIDM Isosorbide Mononitrate (Isosorbide Mononitrate ER), 30 MG PO QAM Levodopa/Carbidopa (Sinemet 25MG/100MG), 1 TABLET PO QID Levothyroxine Sodium (Levothyroxine Sodium), 112 MCG PO DAILY Loratadine (Claritin), 1 TAB PO DAILY Magnesium Oxide (Magnesium), 500 MG PO DAILY Metoprolol Tartrate (Lopressor) (Lopressor), 50 MG PO BID Pantoprazole (Pantoprazole Sodium), 40 MG PO QAM Prednisone (Prednisone), 40 MG PO DAILY Ranitidine HCl (Ranitidine HCl), 150 MG PO BID Scheduled PRN Albuterol Hfa (Ventolin Hfa), 2 PUFFS INH QID PRN for SOB/Wheezing Levalbuterol (Levalbuterol HCl), 1 INHA INH Q4H PRN for SOB/Wheezing Nitroglycerin (Nitrostat), 0.4 MG SL UD PRN for Chest Pain Repaglinide (Prandin), 1 MG PO TID PRN for BSG >140 Saline (Saline Nasal [place]), 1 SPRAY NA QID PRN for Nasal Congestion Allergies Coded Allergies: Cefuroxime (Verified Allergy, Unknown, ., 07/28/17) tongue tingling Cephalosporins (Verified Allergy, Unknown, 07/28/17) Donepezil (Unverified Adverse Reaction, Unknown, night terrors, 07/28/17) Levofloxacin (Unverified Adverse Reaction, Unknown, creatinine raised to 2.1, 07/28/17) Physical Exam Vital Signs Date Time Temp Pulse Resp B/P (MAP) Pulse Ox O2 Delivery O2 Flow Rate FiO2 07/28/17 12:05 92 Nasal Cannula 2.0 07/28/17 11:35 63 18 134/63 92 Nasal Cannula 2.0 07/28/17 11:00 65 18 119/66 87 Room Air 07/28/17 10:50 20 86 Room Air 07/28/17 10:37 65 07/28/17 09:47 36.9 69 18 126/74 94 Room Air Physical Exam GENERAL: Patient is awake, alert, and in no acute distress. Patient is resting comfortably and showing no signs of anxiety EYES: The conjunctivae are clear. The pupils are round and reactive. EARS, NOSE, MOUTH AND THROAT: The nose is without any evidence of any deformity. Mucous membranes are moist tongue is midline NECK: The neck is nontender and supple. RESPIRATORY: Diminished breath sounds at the right base. Expiratory wheezing in both upper lung collins. no tachypnea or conversational dyspnea noted. CARDIOVASCULAR: Regular rate and rhythm noted there no murmurs rubs or gallops normal S1 normal S2 GASTROINTESTINAL: The abdomen is soft. Bowel sounds are present in all quadrants. Abdomen is nontender MUSCULOSKELETAL/EXTREMITIES: There is no evidence of gross deformity full range of motion is noted in the hips and shoulders SKIN: There is no obvious evidence of any rash. There are no petechiae, pallor or cyanosis noted. NEUROLOGIC: Patient is awake alert and oriented x3. Medical Decision & Procedures ER Provider Diagnostic Interpretation: Radiology results as stated below per my review and radiologist interpretation: CHEST ONE VIEW PORTABLE CLINICAL HISTORY: 87 years-old Female presenting with ABDOMINAL PAIN/GI. TECHNIQUE: Portable upright AP view of the chest was obtained. COMPARISON: 10/09/2016. FINDINGS: Atherosclerosis of aortic arch. Cardiac silhouette normal in size. Lungs and pleural spaces clear. Degenerative changes of the thoracic spine. Upper abdomen normal. IMPRESSION: 1. No acute cardiopulmonary disease. Electronically signed by: Brian Escobar M.D. 07/28/2017 10:12 AM Dictated Date/Time: 07/28/2017 10:10 AM Laboratory Results Test 07/28/17 10:19 07/28/17 12:00 Immature Granulocyte % (Auto) 0.2 % White Blood Count 8.33 K/uL (4.8-10.8) Red Blood Count 4.12 M/uL (4.2-5.4) Hemoglobin 12.1 g/dL (12.0-16.0) Hematocrit 36.2 % (37-47) Mean Corpuscular Volume 87.9 fL (80-100) Mean Corpuscular Hemoglobin 29.4 pg (25-34) Mean Corpuscular Hemoglobin Concent 33.4 g/dl (32-36) Platelet Count 192 K/uL (130-400) Mean Platelet Volume 10.8 fL (7.4-10.4) Neutrophils (%) (Auto) 62.0 % Lymphocytes (%) (Auto) 27.9 % Monocytes (%) (Auto) 8.0 % Eosinophils (%) (Auto) 1.3 % Basophils (%) (Auto) 0.6 % Neutrophils # (Auto) 5.16 K/uL (1.4-6.5) Lymphocytes # (Auto) 2.32 K/uL (1.2-3.4) Monocytes # (Auto) 0.67 K/uL (0.11-0.59) Eosinophils # (Auto) 0.11 K/uL (0-0.5) Basophils # (Auto) 0.05 K/uL (0-0.2) Immature Granulocyte # (Auto) 0.02 K/uL (0.00-0.02) Prothrombin Time 10.0 SECONDS (9.0-12.0) Prothromb Time International Ratio 0.9 (0.9-1.1) Activated Partial Thromboplast Time 28.4 SECONDS (21.0-31.0) Partial Thromboplastin Ratio 1.1 Total Bilirubin 0.3 mg/dl (0.2-1) Direct Bilirubin < 0.1 mg/dl (0-0.2) Aspartate Amino Transf (AST/SGOT) 22 U/L (15-37) Alanine Aminotransferase (ALT/SGPT) 10 U/L (12-78) Alkaline Phosphatase 102 U/L (45-117) Total Creatine Kinase 59 U/L (26-192) Creatine Kinase MB 1.1 ng/ml (0.5-3.6) Creatine Kinase MB Ratio 1.9 (0-3.0) Troponin I < 0.015 ng/ml (0-0.045) Total Protein 7.3 gm/dl (6.4-8.2) Albumin 3.4 gm/dl (3.4-5.0) Lipase 192 U/L (73-393) Urine Color YELLOW Urine Appearance CLEAR (CLEAR) Urine pH 5.0 (4.5-7.5) Urine Specific [place] 1.021 (1.000-1.030) Urine Protein NEG (NEG) Urine Glucose (UA) NEG (NEG) Urine Ketones NEG (NEG) Urine Occult Blood NEG (NEG) Urine Nitrite NEG (NEG) Urine Bilirubin NEG (NEG) Urine Urobilinogen NEG (NEG) Urine Leukocyte Esterase NEG (NEG) Laboratory results per my review. Medications Administered Medications (Trade) Dose Ordered Sig/Nilsa Route Start Time Stop Time Status Last Admin Dose Admin Albuterol/ Ipratropium (Duoneb) 3 ml NOW STAT INH 07/28/17 10:00 07/28/17 10:01 DC 07/28/17 10:30 3 ML Ampicillin Sodium/ Sulbactam Sodium 3000 mg/Sodium Chloride 108 ml @ 200 mls/hr NOW STAT IV 07/28/17 11:33 07/28/17 12:05 DC 07/28/17 12:46 200 MLS/HR ECG Indication: SOB/dyspnea Rate (beats per minute): 65 Rhythm: normal sinus Findings: no ectopy, other (No acute ST segment abnormalities) Comparison ECG Date: 10/09/16 Change: no significant change ED Course 0955: The patient was evaluated in room B7. A complete history and physical examination were performed. 1000: Ordered DuoNeb 3 ml INH 1133: Ordered Ampicillin Sodium/ Sulbactam Sodium 3000 mg/Sodium Chloride 108 ml @ 200 mls/hr 1136: Upon reevaluation, the patient is resting. I discussed results and treatment plan with her. She verbalizes agreement and understanding. [facility] The patient will be evaluated for further management and care. Medical Decision Differential diagnosis: Etiologies such as infections, reactive airway disease, pneumonia, pneumothorax , COPD, CHF, cardiac ischemia, pulmonary embolism, musculoskeletal, gastrointestinal, as well as others were entertained. Nursing notes reviewed. Additional history is obtained from the patient's daughter. The patient is an 87-year-old female who presented to the emergency department with difficulty breathing. The patient remembers awakening last evening and having the feeling is associated aspirated. She does have a history of reflux which she describes as very symptomatic. The patient states that afterwards she' s been having difficulty breathing and coughing. She's also described chest tightness. The patient's history and physical exam appeared to be consistent with an aspiration pneumonia but her chest x-ray did not show any definite infiltrate. I do feel that her overall condition is consistent with some injury to her lungs due to this aspiration and sent. She was treated with DuoNeb therapy and on reevaluation was starting to have hypoxia. I discussed the patient's laboratory and radiographic studies with her. Because of her ongoing symptoms I discussed this case with the on-call [facility]. They've agreed to evaluate the patient in emergency department for further management and disposition. She was further treated with IV antibiotics after blood cultures were obtained. Medication Reconcilliation Current Medication List: was personally reviewed by me Blood Pressure Screening Patient's blood pressure: Normal blood pressure Blood pressure disposition: Did not require urgent referral Consults Time Called: 1134 Consulting Physician: Adrienne JOHNSON - [facility] Returned Call: [phone] I discussed the patient's case with her. The patient will be evaluated for further management. Impression Primary Impression: Aspiration pneumonia Additional Impressions: Hypoxia Chest pain Scribe Attestation The scribe's documentation has been prepared under my direction and personally reviewed by me in its entirety. I confirm that the note above accurately reflects all work, treatment, procedures, and medical decision making performed by me. Departure Information Dispostion Being Evaluated By Hospitalist Prescriptions Amoxicillin & Pot Clavulanate (AMOXICILLIN/CLAVULANATE P) 1 Tab Tab 875 MG PO BIDM, #13 TAB Prov: Adrienne Enrique .ALEX 07/29/17 Prednisone (Prednisone) 20 Mg Tab 40 MG PO DAILY for 3 Days, #6 TAB Prov: Adrienne Enrique .ALEX 07/29/17 Budesonide/Formoterol Fumarate (Symbicort 160-4.5 Mcg/Act) 60 Puffs/Inhaler Aero 2 PUFFS INH DAILY for 30 Days, 2 Refills Prov: Adrienne Enrique CRNP 07/28/17 Referrals Amanda Hogue D.O. (PCP) Patient Instructions [facility] Problem Qualifiers Primary Impression: Aspiration pneumonia Aspiration pneumonia type: unspecified Laterality: unspecified laterality Lung location: unspecified part of lung Qualified Codes: J69.0 - Pneumonitis due to inhalation of food and vomit Additional Impressions: Chest pain Chest pain type: unspecified Qualified Codes: R07.9 - Chest pain, unspecified
[2017-07-28 10:33] LABS: BASO % 0.6 %; BASO ABS # 0.05 K/uL (0-0.2); COMPLETE YES; EOS % 1.3 %; HEMATOCRIT 36.2 % (37-47); IG% 0.2 %; LYMPH % 27.9 %; LYMPH ABS # 2.32 K/uL (1.2-3.4); MEAN CELL VOLUME 87.9 fL (80-100); MEAN CORPUSCULAR HEMOGLOBIN 29.4 pg (25-34); MEAN CORPUSCULAR HGB CONC 33.4 g/dl (32-36); MEAN PLATELET VOLUME 10.8 fL (7.4-10.4); PLATELET COUNT 192 K/uL (130-400); RED BLOOD COUNT 4.12 M/uL (4.2-5.4); WHITE BLOOD COUNT 8.33 K/uL (4.8-10.8)
[2017-07-28 10:45] LABS: INR 0.9 (0.9-1.1); PARTIAL THROMBOPLASTIN RATIO 1.1
[2017-07-28 10:53] LABS: ALT/SGPT 10 U/L (12-78); BLOOD UREA NITROGEN 25 mg/dl (7-18); BUN/CREATININE RATIO 20.3 (10-20); CALCIUM 9.4 mg/dl (8.5-10.1); CARBON DIOXIDE 24 mmol/L (21-32); CHLORIDE 107 mmol/L (98-107); CREATININE 1.25 mg/dl (0.60-1.20); GLUCOSE 152 mg/dl (70-99); POTASSIUM 4.1 mmol/L (3.5-5.1); SODIUM 141 mmol/L (136-145)
[2017-07-28] MEDS ORDERED: GLIP10TA10 PO (10:58)
[2017-07-28] MEDS ORDERED: NRV/10 PO (10:58)
[2017-07-28] MEDS ORDERED: CYM30 PO (10:58)
[2017-07-28] MEDS ORDERED: METO50TA16 PO (10:58)
[2017-07-28 10:59] LABS: ALKALINE PHOSPHATASE 102 U/L (45-117); AST/SGOT 22 U/L (15-37); CKMB/CK RATIO 1.9 (0-3.0)
[2017-07-28] MEDS ORDERED: LEVO112T4 PO (11:00)
[2017-07-28] MEDS ORDERED: AMPICILLIN/SULBACTAM SOD INJ 3,000 MG in SODIUM CHLORIDE 0.9% 100ML 100 ML IV STA (11:33)
[2017-07-28 12:05] VITALS: O2SAT 92; Ht 165.1 cm; Wt 70.0 kg
[2017-07-28 12:14] LABS: URINE APPEARANCE CLEAR (CLEAR); URINE BILIRUBIN NEG (NEG); URINE COLOR YELLOW; URINE NITRITE NEG (NEG); URINE SPECIFIC GRAVITY 1.021 (1.000-1.030); UROBILINOGEN NEG (NEG)
[2017-07-28 12:17] LABS: MANUAL MICROSCOPIC REQUIRED? NO; REVIEW REQ? NO
[2017-07-28] MEDS ORDERED: ONDANSETRON INJ 2 MG/ML 2 ML VIAL IV PRN (12:30)
[2017-07-28] MEDS ORDERED: ACETAMINOPHEN 325 MG TAB PO PRN (12:30)
[2017-07-28] MEDS ORDERED: XPNINS125 INH (12:48)
[2017-07-28] MEDS ORDERED: SYMIN INH (12:48)
[2017-07-28] MEDS ORDERED: GLUCOSE 40% GEL 15 GM TUBE PO PRN (13:00)
[2017-07-28] MEDS ORDERED: GLUCOSE 10 TABS/TUBE PO PRN (13:00)
[2017-07-28] MEDS ORDERED: GLUCAGON FOR INJ 1 MG VIAL SQ PRN (13:00)
[2017-07-28] MEDS ORDERED: DEXTROSE 50% 50 ML SYR IV PRN (13:00)
[2017-07-28] MEDS ORDERED: AMPICILLIN/SULBACTAM CONSULT ACTIVE PRN ×2 (13:17)
[2017-07-28] MEDS ORDERED: SALI1SPR3 (13:26)
[2017-07-28] MEDS ORDERED: DEXTCAP23 PO (13:26)
[2017-07-28] MEDS ORDERED: GLIP-197 PO (13:26)
[2017-07-28] MEDS ORDERED: LORA10TA5 PO (13:26)
[2017-07-28 14:00] VITALS: BP 102/55; PULSE 60; TEMP 36.5; O2SAT 96
[2017-07-28] MEDS: LEVALBUTEROL 1.25MG/3ML NEB INH SCH ×2 (15:00→19:19)
[2017-07-28] MEDS ORDERED: GUAIFENESIN/DEXTROM SYRUP 100MG/10MG 5ML UDC PO PRN (15:15)
[2017-07-28] MEDS: GABAPENTIN 100 MG CAP PO SCH ×2 (15:28→20:42)
[2017-07-28] MEDS: CARBIDOPA/LEVODOPA 25/100MG TAB PO SCH ×2 (15:29→20:37)
[2017-07-28 15:33] VITALS: PULSE 74; O2SAT 90
[2017-07-28] MEDS: HEPARIN SOD 5000 UNIT/0.5 ML CARP SQ SCH ×2 (15:58→20:47)
[2017-07-28] MEDS ORDERED: ALBUT/IPRATROP 3MG/0.5MG NEB 3 ML VIAL INH SCH (16:00)
--- NOTE | 2017-07-28 16:20 | History and Physical ---
History & Physical Date & Time of Service: Jul 28, 2017 ~ 12:00 Chief Complaint: Shortness of Breath, Wheezing Primary Care Physician: Dr. Amanda Hogue History of Present Illness 87 year old female who presents to the ED with shortness of breath and wheezing. Patient reports that around 0130 this morning she was awoken by acid reflux. She reports she took a deep breath in and then choked on the reflux. Immediately after she reports increased shortness of breath, cough, and wheezing. Cough has been productive for yellow sputum. She also reports her chest felt tight. She did use her nebulizer at home without much improvement in her symptoms. Patient reports that she ate and had a cup of coffee shortly before going to bed which she reports she normally does not do due to her acid reflux. Patient reports she other pandey has been feeling well recently. No episodes of chest pain or shortness of breath. She denies lightheadedness, dizziness, diaphoresis, or syncopal events. No abdominal pain, nausea, vomiting , or diarrhea. She denies any urinary symptoms. In the ED, patient was found to have wheezing on exam and oxygen saturations dropped to 86% on room air. Symptoms improved with oxygen 2L via NC and nebulizer treatment. CXR is currently clear. She was also given a dose of Unasyn. Labs are unremarkable. Past Medical/Surgical History Medical Problems: (1) Arrhythmia Permanent Comment: Hx SVT vs PAT Status: Chronic (2) Asthma Status: Chronic (3) Benign hypertension Status: Chronic (4) CAD (coronary artery disease) Permanent Comment: chronic RCA occlusion 03/2016 - NSTEMI, NITA to proximal LAD Status: Chronic (5) CKD (chronic kidney disease), stage III Status: Chronic (6) COPD (chronic obstructive pulmonary disease) Status: Chronic (7) Diabetes mellitus type 2 Status: Chronic (8) Dyslipidemia Status: Chronic (9) GERD (gastroesophageal reflux disease) Status: Chronic (10) H/O non-ST elevation myocardial infarction (NSTEMI) Status: Chronic (11) Hypothyroidism Status: Chronic (12) Migraine headache Status: Chronic (13) Parkinson's disease Status: Chronic (14) Pulmonary nodule Permanent Comment: RUL Status: Chronic (15) TIA (transient ischemic attack) Status: Chronic Surgical Problems: (1) H/o cervical laminectomy Status: Chronic (2) History of lumbar surgery Status: Chronic (3) S/P tonsillectomy and adenoidectomy Status: Chronic (4) Status post appendectomy Status: Chronic (5) Status post cholecystectomy Status: Chronic (6) Status post hysterectomy Status: Chronic Family History non contributory due to patient's advanced age Social History Smoking Status: Never Smoker Alcohol Use: occasionally Housing status: lives alone Immunizations History of Influenza Vaccine: Yes Influenza Vaccine Date: Aug 05, 2016 History of Tetanus Vaccine?: Yes Tetanus Immunization Date: Nov 14, 2006 History of Pneumococcal: Yes Pneumococcal Date: Sep 07, 1999 Multi-Drug Resistant Organisms History of MDRO: No Allergies Coded Allergies: Cefuroxime (Verified Allergy, Unknown, ., 07/28/17) tongue tingling Cephalosporins (Verified Allergy, Unknown, 07/28/17) Donepezil (Unverified Adverse Reaction, Unknown, night terrors, 07/28/17) Levofloxacin (Unverified Adverse Reaction, Unknown, creatinine raised to 2.1, 07/28/17) Home Medications Scheduled Amlodipine Besylate (Amlodipine Besylate), 10 MG PO DAILY Aspirin (Aspirin Chewable), 81 MG PO DAILY Atorvastatin (Lipitor), 40 MG PO DAILY Budesonide/Formoterol Fumarate (Symbicort 160-4.5 Mcg/Act), 2 PUFFS INH DAILY Cholecalciferol (Vitamin D3), 2,000 UNITS PO DAILY Clopidogrel Bisulfate (Clopidogrel), 75 MG PO QAM Dextromethorphan-Guaifenesin (Coricidin Hbp Chest Conge), 1 CAP PO BID Duloxetine HCl (Duloxetine HCl), 30 MG PO DAILY Fluticasone Propionate (Nasal) (Flonase Allergy Relief), 1 SPRAY JOSE DAILY Gabapentin (Neurontin), 200 MG PO TID Glipizide (Glipizide Er), 1 TAB PO BIDM Isosorbide Mononitrate (Isosorbide Mononitrate ER), 30 MG PO QAM Levodopa/Carbidopa (Sinemet 25MG/100MG), 1 TABLET PO QID Levothyroxine Sodium (Levothyroxine Sodium), 112 MCG PO DAILY Loratadine (Claritin), 1 TAB PO DAILY Magnesium Oxide (Magnesium), 500 MG PO DAILY Metoprolol Tartrate (Lopressor) (Lopressor), 50 MG PO BID Pantoprazole (Pantoprazole Sodium), 40 MG PO QAM Ranitidine HCl (Ranitidine HCl), 150 MG PO BID Scheduled PRN Albuterol Hfa (Ventolin Hfa), 2 PUFFS INH QID PRN for SOB/Wheezing Levalbuterol (Levalbuterol HCl), 1 INHA INH Q4H PRN for SOB/Wheezing Nitroglycerin (Nitrostat), 0.4 MG SL UD PRN for Chest Pain Repaglinide (Prandin), 1 MG PO TID PRN for BSG >140 Saline (Saline Nasal [place]), 1 SPRAY NA QID PRN for Nasal Congestion Review of Systems ROS per HPI, all other systems reviewed and negative Physical Exam Vital Signs Date Time Temp Pulse Resp B/P (MAP) Pulse Ox O2 Delivery O2 Flow Rate FiO2 07/28/17 12:05 92 Nasal Cannula 2.0 07/28/17 11:35 63 18 134/63 92 Nasal Cannula 2.0 07/28/17 11:00 65 18 119/66 87 Room Air 07/28/17 10:50 20 86 Room Air 07/28/17 10:37 65 07/28/17 09:47 36.9 69 18 126/74 94 Room Air General Appearance: WD/WN, no apparent distress Head: normocephalic, atraumatic Eyes: normal inspection, EOMI, sclerae normal ENT: hearing grossly normal, + pertinent finding (mucous membranes moist) Neck: supple, no JVD, trachea midline Respiratory/Chest: no respiratory distress, + wheezing (expiratory throughout all lung collins) Cardiovascular: regular rate, rhythm, no edema, normal peripheral pulses Abdomen/GI: normal bowel sounds, non tender, soft, no organomegaly Extremities/Musculoskelatal: normal inspection, no calf tenderness, normal capillary refill Neurologic/Psych: no motor/sensory deficits, alert, normal mood/affect, oriented x 3 Skin: normal color, warm/dry Diagnostics Laboratory Results Results Past 24 Hours Test 07/28/17 10:19 07/28/17 12:00 Range/Units White Blood Count 8.33 4.8-10.8 K/uL Red Blood Count 4.12 4.2-5.4 M/uL Hemoglobin 12.1 12.0-16.0 g/dL Hematocrit 36.2 37-47 % Mean Corpuscular Volume 87.9 80-100 fL Mean Corpuscular Hemoglobin 29.4 25-34 pg Mean Corpuscular Hemoglobin Concent 33.4 32-36 g/dl Platelet Count 192 130-400 K/uL Mean Platelet Volume 10.8 7.4-10.4 fL Neutrophils (%) (Auto) 62.0 % Lymphocytes (%) (Auto) 27.9 % Monocytes (%) (Auto) 8.0 % Eosinophils (%) (Auto) 1.3 % Basophils (%) (Auto) 0.6 % Neutrophils # (Auto) 5.16 1.4-6.5 K/uL Lymphocytes # (Auto) 2.32 1.2-3.4 K/uL Monocytes # (Auto) 0.67 0.11-0.59 K/uL Eosinophils # (Auto) 0.11 0-0.5 K/uL Basophils # (Auto) 0.05 0-0.2 K/uL RDW Standard Deviation 46.5 36.4-46.3 fL RDW Coefficient of Variation 14.4 11.5-14.5 % Immature Granulocyte % (Auto) 0.2 % Immature Granulocyte # (Auto) 0.02 0.00-0.02 K/uL Prothrombin Time 10.0 9.0-12.0 SECONDS Prothromb Time International Ratio 0.9 0.9-1.1 Activated Partial Thromboplast Time 28.4 21.0-31.0 SECONDS Partial Thromboplastin Ratio 1.1 Sodium Level 141 136-145 mmol/L Potassium Level 4.1 3.5-5.1 mmol/L Chloride Level 107 98-107 mmol/L Carbon Dioxide Level 24 21-32 mmol/L Anion Gap 10.0 3-11 mmol/L Blood Urea Nitrogen 25 7-18 mg/dl Creatinine 1.25 0.60-1.20 mg/dl Est Creatinine Clear Calc Drug Dose 31.1 ml/min Estimated GFR () 44.8 Estimated GFR (Non- 38.6 BUN/Creatinine Ratio 20.3 10-20 Random Glucose 152 70-99 mg/dl Calcium Level 9.4 8.5-10.1 mg/dl Total Bilirubin 0.3 0.2-1 mg/dl Direct Bilirubin < 0.1 0-0.2 mg/dl Aspartate Amino Transf (AST/SGOT) 22 15-37 U/L Alanine Aminotransferase (ALT/SGPT) 10 12-78 U/L Alkaline Phosphatase 102 45-117 U/L Total Creatine Kinase 59 26-192 U/L Creatine Kinase MB 1.1 0.5-3.6 ng/ml Creatine Kinase MB Ratio 1.9 0-3.0 Troponin I < 0.015 0-0.045 ng/ml Total Protein 7.3 6.4-8.2 gm/dl Albumin 3.4 3.4-5.0 gm/dl Lipase 192 73-393 U/L Urine Color YELLOW Urine Appearance CLEAR CLEAR Urine pH 5.0 4.5-7.5 Urine Specific [place] 1.021 1.000-1.030 Urine Protein NEG NEG Urine Glucose (UA) NEG NEG Urine Ketones NEG NEG Urine Occult Blood NEG NEG Urine Nitrite NEG NEG Urine Bilirubin NEG NEG Urine Urobilinogen NEG NEG Urine Leukocyte Esterase NEG NEG Microbiology Results 07/28/17 Blood Culture, Received Pending 07/28/17 Blood Culture, Received Pending Diagnostic Radiology CXR IMPRESSION: 1. No acute cardiopulmonary disease. Impression Assessment and Plan ACUTE ON CHRONIC HYPOXIC RESPIRATORY FAILURE DUE TO ASPIRATION PNEUMONITIS VS. PNEUMONIA / ASTHMA EXACERBATION - admit to med/surg - patient presenting to the ED with increased cough, wheezing, and shortness of breath after choking on reflux last night; in the ED, patient was found to be hypoxic on room air at 86% which improved with oxygen 2L NC and neb treatment - patient typically wears 2L oxygen at night - CXR currently without infiltrate - will empirically place on Unasyn for now; repeat CXR in AM - Prednisone 40mg PO x 5 days - around the clock nebs, continue home inhaled corticosteroid - speech eval CAD - stable, no reports of chest pain - continue beta sumaya, nitrate, ASA, Plavix, and statin DM - hgb a1c 6.2 07/13/17 - hold oral agents and utilize SSI while hospitalized HTN - BP controlled, continue amlodipine, metoprolol, and isosorbide HX TIA - continue ASA and Plavix PARKINSON'S - continue Sinemet CKD STAGE III - baseline creat runs in the low 1's - creat noted to be 1.2 today - continue to monitor, avoid nephrotoxic agents when able DVT PROPHYLAXIS - SQ Heparin CODE STATUS - Patient is a full code as per my discussion with her. DISPO - In my clinical judgment this beneficiary meets acute admission criteria, established by [facility], that includes being hospitalized through two midnights. - PT/OT, case management - expect d/c home once medically stable Addendum: Attending Physician Dr. Alexander I have seen and examined the patient with INTERNAL RECRUITER Adrienne Enrique and agree with the assessment an plan as above and would like to comment on the following that this is a 87 year old F with PMH including the following: Asthma, Type 2 diabetes mellitus, stage 3 chronic kidney disease, HTN, Parkinson's disease, Acquired hypothyroidism, on home oxygen 2L/min at night, history of coronary artery stent in the past and follows with Cardiology, [facility] Dr. Claude Mcclure, other clinic is [facility] with Dr. Amanda Hogeu, who presents to the ER with shortness of breath. In the ER the O2 saturation on room air was 86% and ER documented physical exam of Diminished breath sounds at the right base. Expiratory wheezing in both upper lung collins. ER provider had ordered one albuterol/ipratroprium treatment and Ampicillin/ Sulbactam for treating community acquired pneumonia and blood cultures was sent. However a review of the chest X ray does not show obvious infiltrates and patients presentation vital signs without fever as the temperature was 36.9 C with 98.2 F. WBC of 8400 within normal reference ranges. Patients respiratory status likely due to asthma, however will empirically continue ampicillin/ sulbactam in case there may be an underlying pulmonary infectious process that has not been clearly identified or an aspiration pneumonia. Of note, patient has multiple listed allergies of Cefuroxime and Levaquin and Kapil Inhibitors and Donepzil. Will order CXR and procalcitonin for tomorrow to assist in decision making process whether antibiotics will need to be continued tomorrow on 07/29/17. Will also continue nebuilzer treatments and give oral prednisone for asthma. Advanced Directives Existing Living Will: No Existing Power of Manager Business Operations: No VTE Prophylaxis VTE Risk Assessment Done? Y/N: Yes Risk Level: Moderate
[2017-07-28] MEDS: INSULIN ASPART 100 UNITS/ML 3 ML PEN SC SCH ×2 (17:30→20:47)
[2017-07-28] MEDS: AMPICILLIN/SULBACTAM SOD INJ 1,500 MG in SODIUM CHLORIDE 0.9% 100ML 100 ML IV SCH (19:17)
[2017-07-28 19:19] VITALS: PULSE 72; O2SAT 93
[2017-07-28 20:36] VITALS: BP 126/66; PULSE 72; O2SAT 98
[2017-07-28] MEDS: METOPROLOL TARTRATE 50 MG TAB PO SCH (20:39)
[2017-07-28] MEDS: RANITIDINE HCL 150 MG TAB PO SCH (20:43)
[2017-07-28] MEDS ORDERED: DEXTROMETHORPHAN GUAIFENESIN PO SCH (21:00)
[2017-07-28 23:58] VITALS: BP 92/54; PULSE 79; TEMP 36.7; O2SAT 96
[2017-07-29] VITALS: O2SAT 93
[2017-07-29] MEDS: AMPICILLIN/SULBACTAM SOD INJ 1,500 MG in SODIUM CHLORIDE 0.9% 100ML 100 ML IV SCH ×2 (01:33→07:46)
[2017-07-29] MEDS: LEVALBUTEROL 1.25MG/3ML NEB INH SCH ×2 (01:51→06:56)
[2017-07-29 01:52] VITALS: PULSE 76; O2SAT 97
[2017-07-29] MEDS: HEPARIN SOD 5000 UNIT/0.5 ML CARP SQ SCH ×2 (05:54→13:32)
[2017-07-29 06:19] LABS: HEMATOCRIT 35.3 % (37-47); MEAN CELL VOLUME 88.3 fL (80-100); MEAN CORPUSCULAR HGB CONC 32.9 g/dl (32-36); MEAN PLATELET VOLUME 11.1 fL (7.4-10.4); PLATELET COUNT 172 K/uL (130-400); WHITE BLOOD COUNT 7.77 K/uL (4.8-10.8)
[2017-07-29] MEDS ORDERED: LEVOTHYROXINE 112 MCG TAB PO SCH (06:30)
[2017-07-29 06:56] VITALS: PULSE 99; O2SAT 97
[2017-07-29 06:57] LABS: BUN/CREATININE RATIO 21.4 (10-20); CALCIUM 9.1 mg/dl (8.5-10.1); CREATININE 1.41 mg/dl (0.60-1.20); POTASSIUM 4.9 mmol/L (3.5-5.1)
[2017-07-29 07:18] VITALS: BP 138/67; PULSE 68; TEMP 36.5
[2017-07-29] MEDS: CARBIDOPA/LEVODOPA 25/100MG TAB PO SCH ×2 (07:39→12:03)
[2017-07-29] MEDS: RANITIDINE HCL 150 MG TAB PO SCH (07:39)
[2017-07-29] MEDS: GABAPENTIN 100 MG CAP PO SCH ×2 (07:39→13:33)
[2017-07-29] MEDS: METOPROLOL TARTRATE 50 MG TAB PO SCH (07:39)
[2017-07-29] MEDS: INSULIN ASPART 100 UNITS/ML 3 ML PEN SC SCH ×2 (08:11→12:06)
--- NOTE | 2017-07-29 08:31 | DIAGNOSTIC IMAGING REPORT ---
CHEST 2 VIEWS ROUTINE HISTORY: 87 years-old Female f/u aspiration acute wheezing with chest pressure and gastroesophageal reflux COMPARISON: Chest radiograph 07/28/2017 TECHNIQUE: PA and lateral views of the chest FINDINGS: Cardiomediastinal and hilar silhouettes are within normal limits. Atherosclerosis of the aorta. There is no pneumothorax, pleural effusion, focal airspace consolidation or overt pulmonary edema. Bones of the chest appear grossly intact. There are degenerative changes of the spine and shoulders. Surgical clips of the upper abdomen suggest prior cholecystectomy. IMPRESSION: No acute cardiopulmonary process. The above report was generated using voice recognition software. It may contain grammatical, syntax or spelling errors. Electronically signed by: Rizwan Brandt M.D. 07/29/2017 8:29 AM Dictated Date/Time: 07/29/2017 8:28 AM
[2017-07-29] MEDS ORDERED: PANTOprazole SOD 40 MG TAB PO SCH (09:00)
[2017-07-29] MEDS ORDERED: DULOXETINE (CYMBALTA) 30 MG CAP PO SCH (09:00)
[2017-07-29] MEDS ORDERED: CLOPIDOGREL BISULFATE 75 MG TAB PO SCH (09:00)
[2017-07-29] MEDS ORDERED: AMLODIPINE BESYLATE 5 MG TAB PO SCH ×2 (09:00)
[2017-07-29] MEDS ORDERED: CHOLECALCIFEROL 1000 INTER.UNIT TAB PO SCH ×2 (09:00)
[2017-07-29] MEDS ORDERED: MAGNESIUM OXIDE 400 MG TAB PO SCH ×2 (09:00)
[2017-07-29] MEDS ORDERED: ISOSORBIDE MONONITRATE 30 MG TABCR PO SCH (09:00)
[2017-07-29] MEDS ORDERED: LORATADINE 10 MG TAB PO SCH (09:00)
[2017-07-29] MEDS ORDERED: ASPIRIN 81 MG ECTAB PO SCH (09:00)
[2017-07-29] MEDS ORDERED: ATORVASTATIN 40 MG TAB PO SCH (09:00)
[2017-07-29] MEDS ORDERED: BUDESONIDE/FORMOTEROL FUMARATE 160/4.5 60 PUFFS/INHALER INH SCH (09:00)
--- NOTE | 2017-07-29 12:19 | Hospitalist Progress Note ---
Hospitalist Progress Note Date of Service Jul 29, 2017. (Adrienne Enrique .ALEX) Subjective Patient seen and examined. Sitting up in bed working on a crossword puzzle. Reports feeling much better today. Currently on room air. Breathing has returned to baseline. Cough is minimal. No chest pain. Denies lightheadedness and dizziness. No abdominal pain or nausea. (Adrienne Enrique CRNP) Objective Vital Signs Date Time Temp Pulse Resp B/P (MAP) Pulse Ox O2 Delivery O2 Flow Rate FiO2 07/29/17 08:00 Room Air 2.0 07/29/17 07:18 36.5 68 18 138/67 (90) Room Air 07/29/17 06:56 99 20 97 Room Air 91.0 07/29/17 01:52 76 18 97 Nasal Cannula 2.0 07/29/17 00:00 93 Room Air 2.0 07/28/17 23:58 36.7 79 16 92/54 (67) 96 Room Air 07/28/17 20:36 72 126/66 (86) 98 Nasal Cannula 2.0 07/28/17 19:19 72 18 93 Nasal Cannula 2.0 07/28/17 16:00 Nasal Cannula 2.0 07/28/17 15:33 74 18 90 Nasal Cannula 2.0 07/28/17 14:00 36.5 60 18 102/55 (71) 96 Nasal Cannula 2.0 (Adrienne Enrique CRNP) Physical Exam General Appearance: no apparent distress Respiratory/Chest: no respiratory distress, + wheezing (expiratory, scattered throughout all lung collins - much improved from yesterday) Cardiovascular: regular rate, rhythm, no edema Abdomen: normal bowel sounds, non tender, soft, no organomegaly Neurologic/Psychiatric: alert, oriented x 3 Skin: normal color, warm/dry (Adrienne Enrique .ALEX) Laboratory Results Last 24 Hours Test 07/28/17 16:41 07/28/17 20:02 07/29/17 06:04 07/29/17 07:26 Bedside Glucose 182 mg/dl 144 mg/dl 136 mg/dl White Blood Count 7.77 K/uL Red Blood Count 4.00 M/uL Hemoglobin 11.6 g/dL Hematocrit 35.3 % Mean Corpuscular Volume 88.3 fL Mean Corpuscular Hemoglobin 29.0 pg Mean Corpuscular Hemoglobin Concent 32.9 g/dl RDW Standard Deviation 46.4 fL RDW Coefficient of Variation 14.5 % Platelet Count 172 K/uL Mean Platelet Volume 11.1 fL Sodium Level 139 mmol/L Potassium Level 4.9 mmol/L Chloride Level 108 mmol/L Carbon Dioxide Level 25 mmol/L Anion Gap 6.0 mmol/L Blood Urea Nitrogen 30 mg/dl Creatinine 1.41 mg/dl Est Creatinine Clear Calc Drug Dose 27.6 ml/min Estimated GFR () 38.7 Estimated GFR (Non- 33.4 BUN/Creatinine Ratio 21.4 Random Glucose 153 mg/dl Calcium Level 9.1 mg/dl Procalcitonin 0.06 ng/ml Test 07/29/17 11:22 Bedside Glucose 213 mg/dl (Adrienne Enrique, ALEX) Diagnostic Results CXR IMPRESSION: No acute cardiopulmonary process. (Adrienne Enrique CRNP) Assessment and Plan ACUTE ON CHRONIC HYPOXIC RESPIRATORY FAILURE DUE TO ASPIRATION PNEUMONITIS / ASTHMA EXACERBATION - admit to med/surg - patient presenting to the ED with increased cough, wheezing, and shortness of breath after choking on reflux; in the ED, patient was found to be hypoxic on room air at 86% which improved with oxygen 2L NC and neb treatment - patient typically wears 2L oxygen at night - currently on room air saturating well - CXR on admission and repeat today without infiltrate - empirically placed on Unasyn; will change to PO Augmentin to complete 7 days of treatment - Prednisone 40mg PO x 5 days - around the clock nebs, continue home inhaled corticosteroid - speech eval completed - no issues; continue GERD precautions CAD - stable, no reports of chest pain - continue beta sumaya, nitrate, ASA, Plavix, and statin DM - hgb a1c 6.2 07/13/17 - hold oral agents and utilize SSI while hospitalized HTN - BP controlled, continue amlodipine, metoprolol, and isosorbide HX TIA - continue ASA and Plavix PARKINSON'S - continue Sinemet CKD STAGE III - baseline creat runs in the low 1's - creat noted to be 1.4 today - continue to monitor, avoid nephrotoxic agents when able DVT PROPHYLAXIS - SQ Heparin CODE STATUS - Patient is a full code as per my discussion with her on admission DISPO - d/c home today - patient already participates in therapy 2 x / week; daughter involved in care (Adrienne Enrique ., ALEX) Pt was seen and examined. Agreed with Adrienne JOHNSON assessment plan. Will complete the course of Augmentin with 5 days course prednisone. Creatine is mildly elevated. advised pt to increase fluid intake. Check BMP in 1 week as an outpatient to monitor renal function. Amy Archuleta MD (Amy Archuleta M.D.)
[2017-07-29] MEDS ORDERED: AMOX1TAB43 PO (12:27)
[2017-07-29] MEDS ORDERED: PRD20 PO (12:27)
--- NOTE | 2017-07-29 12:55 | Discharge Instructions ---
Discharge Instructions Date of Service Jul 29, 2017. Admission Reason for Admission: Aspiration Discharge Discharge Diagnosis / Problem: Aspiration Discharge Goals Goal(s): Decrease discomfort, Improve function, Improve disease control, Learn about illness Activity Recommendations Activity Limitations: resume your previous activity . Instructions / Follow-Up Instructions / Follow-Up You were admitted to the hospital due to aspiration from reflux. Your oxygen levels were low on admission and you required oxygen during the day instead of just during the night. You were given IV antibiotics, oral steroids, and around the clock breathing treatments and your symptoms improved and you are currently not requiring oxygen during the day. You will be discharged on Augmentin (oral antibiotic) - take a dose tonight at home and finish all tablets. You will also be discharged on Prednisone (oral steroid) - start taking tomorrow morning and finish all tablets. Use your nebulizer 2-3 times per day routinely at home for the next 3 days. No other changes were made to your medications and continue to take as prescribed. Continue to use reflux precautions - do not eat less than 2 hours prior to going to bed. Check BMP in 1 week to monitor renal function Follow up with Dr. Hogue on Tuesday08/03/17 at 9:25AM Current Hospital Diet Patient's current hospital diet: AHA Diet (Heart Healthy), Diabetes Type 2 Diet Discharge Diet Recommended Diet: AHA Diet (Heart Healthy), Diabetes Type 2 Diet Pending Studies Studies pending at discharge: no Medical Emergencies . Who to Call and When: Medical Emergencies: If at any time you feel your situation is an emergency, please call 911 immediately. . Non-Emergent Contact Non-Emergency issues call your: Primary Care Provider . . "Provider Documentation" section prepared by Adrienne Enrique. . VTE Core Measure Inpt VTE Proph given/why not?: Unfractionated heparin SQ
--- NOTE | 2017-07-29 13:01 | Discharge Summary ---
Discharge Summary Date of Service Jul 29, 2017. Discharge Summary Admission Date: Jul 28, 2017 at 12:15 Discharge Date: Jul 29, 2017 Discharge Disposition: Home Principal Diagnosis: Aspiration Secondary Diagnoses/Problems: ASTHMA CAD DM HTN HX TIA PARKINSON'S CKD STAGE III Procedures: 07/28 CXR IMPRESSION: No acute cardiopulmonary disease. 07/29 CXR IMPRESSION: No acute cardiopulmonary process. Medication Reconciliation New Medications: Amoxicillin & Pot Clavulanate (Amoxicillin/Clavulanate P) 1 Tab Tab 875 MG PO BIDM, #13 TAB Prednisone (Prednisone) 20 Mg Tab 40 MG PO DAILY for 3 Days, #6 TAB Continued Medications: Albuterol Hfa (Ventolin Hfa) 200 Puffs/80982 Mcg Aers 2 PUFFS INH QID PRN for SOB/Wheezing, #1 INHALER Amlodipine Besylate (Amlodipine Besylate) 10 Mg Tab 10 MG PO DAILY Aspirin (Aspirin Chewable) 81 Mg Chew 81 MG PO DAILY Atorvastatin (Lipitor) 40 Mg Tab 40 MG PO DAILY, TAB Budesonide/Formoterol Fumarate (Symbicort 160-4.5 Mcg/Act) 60 Puffs/Inhaler Aero 2 PUFFS INH DAILY for 30 Days, 2 Refills Cholecalciferol (Vitamin D3) 2,000 Unit Cap 2000 UNITS PO DAILY for 90 Days, CAP 3 Refills Clopidogrel Bisulfate (Clopidogrel) 75 Mg Tab 75 MG PO QAM for 30 Days, #30 TAB 6 Refills Dextromethorphan-Guaifenesin (Coricidin Hbp Chest Conge) 1 Cap Cap 1 CAP PO BID Duloxetine HCl (Duloxetine HCl) 30 Mg Cap 30 MG PO DAILY Fluticasone Propionate (Nasal) (Flonase Allergy Relief) 50 Mcg/Act Spr 1 SPRAY JOSE DAILY Gabapentin (Neurontin) 100 Mg Cap 200 MG PO TID Glipizide (Glipizide Er) 5 Mg Tab 1 TAB PO BIDM for 30 Days, #60 TAB 5 Refills Isosorbide Mononitrate (Isosorbide Mononitrate ER) 30 Mg Tabcr 30 MG PO QAM for 30 Days, #30 TABS 6 Refills Levalbuterol (Levalbuterol HCl) 1.25 Mg/3 Ml Nebu 1 INHA INH Q4H PRN for SOB/Wheezing Levodopa/Carbidopa (Sinemet 25MG/100MG) 1 Ea Tab 1 TABLET PO QID Levothyroxine Sodium (Levothyroxine Sodium) 112 Mcg Tab 112 MCG PO DAILY Loratadine (Claritin) 10 Mg Tab 1 TAB PO DAILY for 30 Days, #30 TAB 5 Refills Magnesium Oxide (Magnesium) 500 Mg Cap 500 MG PO DAILY Metoprolol Tartrate (Lopressor) (Lopressor) 50 Mg Tab 50 MG PO BID Nitroglycerin (Nitrostat) 0.4 Mg/1 Tab Subl 0.4 MG SL UD PRN for Chest Pain for 30 Days, #30 MG 6 Refills Pantoprazole (Pantoprazole Sodium) 40 Mg Tab 40 MG PO QAM, #30 TAB 2 Refills Ranitidine HCl (Ranitidine HCl) 150 Mg Tab 150 MG PO BID, #60 TAB 2 Refills Repaglinide (Prandin) 1 Mg Tab 1 MG PO TID PRN for BSG >140 take only if bsg is >140 Saline (Saline Nasal [place]) 0.65 % Spr 1 SPRAY NA QID PRN for Nasal Congestion Admission Information HPI (per Admitting provider): 87 year old female who presents to the ED with shortness of breath and wheezing. Patient reports that around 0130 this morning she was awoken by acid reflux. She reports she took a deep breath in and then choked on the reflux. Immediately after she reports increased shortness of breath, cough, and wheezing. Cough has been productive for yellow sputum. She also reports her chest felt tight. She did use her nebulizer at home without much improvement in her symptoms. Patient reports that she ate and had a cup of coffee shortly before going to bed which she reports she normally does not do due to her acid reflux. Patient reports she other pandey has been feeling well recently. No episodes of chest pain or shortness of breath. She denies lightheadedness, dizziness, diaphoresis, or syncopal events. No abdominal pain, nausea, vomiting , or diarrhea. She denies any urinary symptoms. In the ED, patient was found to have wheezing on exam and oxygen saturations dropped to 86% on room air. Symptoms improved with oxygen 2L via NC and nebulizer treatment. CXR is currently clear. She was also given a dose of Unasyn. Labs are unremarkable. Physical Exam (per Admitting): General Appearance: WD/WN, no apparent distress Head: normocephalic, atraumatic Eyes: normal inspection, EOMI, sclerae normal ENT: hearing grossly normal, + pertinent finding (mucous membranes moist) Neck: supple, no JVD, trachea midline Respiratory/Chest: no respiratory distress, + wheezing (expiratory throughout all lung collins) Cardiovascular: regular rate, rhythm, no edema, normal peripheral pulses Abdomen/GI: normal bowel sounds, non tender, soft, no organomegaly Extremities/Musculoskelatal: normal inspection, no calf tenderness, normal capillary refill Neurologic/Psych: no motor/sensory deficits, alert, normal mood/affect, oriented x 3 Skin: normal color, warm/dry Hospital Course ACUTE ON CHRONIC HYPOXIC RESPIRATORY FAILURE DUE TO ASPIRATION PNEUMONITIS / ASTHMA EXACERBATION - patient presenting to the ED with increased cough, wheezing, and shortness of breath after choking on reflux; in the ED, patient was found to be hypoxic on room air at 86% which improved with oxygen 2L NC and neb treatment - patient typically wears 2L oxygen at night - currently on room air saturating well, wheezing much improved from admission - CXR on admission and repeat on 07/29 without infiltrate - empirically placed on Unasyn; will change to PO Augmentin to complete 7 days of treatment - Prednisone 40mg PO x 5 days - nebs, continue home inhaled corticosteroid; patient instructed to use nebulizer 2-3 times routinely at home for the next 3 days - speech eval completed - no issues; continue GERD precautions CAD - stable, no reports of chest pain - continue beta sumaya, nitrate, ASA, Plavix, and statin DM - hgb a1c 6.2 07/13/17 - hold oral agents and utilize SSI while hospitalized HTN - BP controlled, continue amlodipine, metoprolol, and isosorbide HX TIA - continue ASA and Plavix PARKINSON'S - continue Sinemet CKD STAGE III - baseline creat runs in the low 1's - creat noted to be 1.4 on 07/29 - continue to monitor, avoid nephrotoxic agents when able Total time spent on discharge = 30 minutes This includes examination of the patient, discharge planning, medication reconciliation, and communication with other providers. Discharge Instructions Discharge Instructions Date of Service Jul 29, 2017. Admission Reason for Admission: Aspiration Discharge Discharge Diagnosis / Problem: Aspiration Discharge Goals Goal(s): Decrease discomfort, Improve function, Improve disease control, Learn about illness Activity Recommendations Activity Limitations: resume your previous activity . Instructions / Follow-Up Instructions / Follow-Up You were admitted to the hospital due to aspiration from reflux. Your oxygen levels were low on admission and you required oxygen during the day instead of just during the night. You were given IV antibiotics, oral steroids, and around the clock breathing treatments and your symptoms improved and you are currently not requiring oxygen during the day. You will be discharged on Augmentin (oral antibiotic) - take a dose tonight at home and finish all tablets. You will also be discharged on Prednisone (oral steroid) - start taking tomorrow morning and finish all tablets. Use your nebulizer 2-3 times per day routinely at home for the next 3 days. No other changes were made to your medications and continue to take as prescribed. Continue to use reflux precautions - do not eat less than 2 hours prior to going to bed. Follow up with Dr. Hogue on Tuesday08/03/17 at 9:25AM Current Hospital Diet Patient's current hospital diet: AHA Diet (Heart Healthy), Diabetes Type 2 Diet Discharge Diet Recommended Diet: AHA Diet (Heart Healthy), Diabetes Type 2 Diet Pending Studies Studies pending at discharge: no Medical Emergencies . Who to Call and When: Medical Emergencies: If at any time you feel your situation is an emergency, please call 911 immediately. . Non-Emergent Contact Non-Emergency issues call your: Primary Care Provider . . "Provider Documentation" section prepared by Adrienne Enrique. . VTE Core Measure Inpt VTE Proph given/why not?: Unfractionated heparin SQ Additional Copies To Amanda Hogue D.O.
[2017-07-29 13:08] VITALS: BP 138/67; PULSE 68; TEMP 36.5; O2SAT 97
[2017-07-29] MEDS ORDERED: AMOXICILLIN/CLAVULANATE TAB 875 MG TAB PO SCH (17:00)
[2017-07-29] MEDS ORDERED: AMPICILLIN/SULBACTAM SOD INJ 1,500 MG in SODIUM CHLORIDE 0.9% 100ML 100 ML IV SCH (20:00)
== END 2017-07-29 14:23 | disposition home or self-care (01) | DRG 177 ==
LOC: C.EDB 09:37 → C.MED 12:15 → ENRESERV 13:28
PROVIDERS: ADMIT Hospitalist; ATTEND Internal Medicine
DX: J69.0 Pneumonitis due to inhalation of food and vomit (principal); J96.21 Acute and chronic respiratory failure with hypoxia; J45.909 Unspecified asthma, uncomplicated; I25.10 Atherosclerotic heart disease of native coronary artery without angina pectoris; N18.3 Chronic kidney disease, stage 3 (moderate); J44.9 Chronic obstructive pulmonary disease, unspecified; E11.9 Type 2 diabetes mellitus without complications; E78.5 Hyperlipidemia, unspecified; K21.9 Gastro-esophageal reflux disease without esophagitis; E03.9 Hypothyroidism, unspecified; G20 Parkinson's disease; Z86.73 Personal history of transient ischemic attack (TIA), and cerebral infarction without residual deficits; I25.2 Old myocardial infarction; Z90.49 Acquired absence of other specified parts of digestive tract; Z90.710 Acquired absence of both cervix and uterus; Z79.82 Long term (current) use of aspirin; Z80.9 Family history of malignant neoplasm, unspecified; Z83.3 Family history of diabetes mellitus; Z82.49 Family history of ischemic heart disease and other diseases of the circulatory system

== ENCOUNTER 2017-08-15 16:59 | Emergency (ER) | payer OTHER, MEDICARE ==
[~2017-08-15] VITALS: Ht 162.6 cm; Wt 65.0 kg
[~2017-08-15 16:59] MED LIST changes: +AMOX1TAB43 PO; -ATV5 PO; -BENZ100C7 PO; +CYM30 PO; +DEXTCAP23 PO; -DULO-24 PO; -GLC5 PO; +GLIP-197 PO; -GUAISYP4 PO; -IPRASOL4 INH; +LEVO112T4 PO; +LORA10TA5 PO; -METO25TA56 PO; +METO50TA16 PO; +NRV/10 PO; -OXYC1TAB3 PO; +PRD20 PO; -SALI0.6510 NAE; +SALI1SPR3; -SYN125 PO; +XPNINS125 INH
[2017-08-15 17:15] VITALS: BP 118/71; TEMP 36.7; Ht 162.6 cm; Wt 65.0 kg
--- NOTE | 2017-08-15 17:51 | DIAGNOSTIC IMAGING REPORT ---
R TIBIA/FIBULA 2 VIEWS ROUTINE CLINICAL HISTORY: Right leg pain status post trauma COMPARISON: None. DISCUSSION: There are osteoarthritic changes involving the knee. There is an oblique nondisplaced fracture of the distal fibula, 5 cm proximal to the fibular tip. No tibial fractures are visualized. IMPRESSION: Acute nondisplaced oblique fracture of the distal fibula. Electronically signed by: Matthew Corea M.D. 08/15/2017 5:49 PM Dictated Date/Time: 08/15/2017 5:48 PM
--- NOTE | 2017-08-15 17:55 | EMERGENCY ROOM VISIT NOTE ---
History First contact with patient: 17:21 Chief Complaint: FALL Stated Complaint: INJURED LEG,FALL History of Present Illness The patient is a 87 year old female who presents to the Emergency Room via private vehicle accompanied by male with complaints of "injured leg, following ". The patient states that she was on her wheelchair at [facility], and when she went to get into the car she tripped on the left foot brace region and injured her right leg. She points to the inferior right juarez as a location of pain that she states is worse with weightbearing and rates on a numeric scale of 10/10. She denies any numbness or tingling in the distal extremity. She denies loss of consciousness. There is no headache. Review of Systems A complete 6-point Review of Systems was discussed with the patient, with pertinent positives and negatives listed in the History of Present Illness. All remaining Review of Systems questions can be considered negative unless otherwise specified. Past Medical/Surgical History Medical Problems: (1) Arrhythmia (2) Asthma (3) Benign hypertension (4) CAD (coronary artery disease) (5) CKD (chronic kidney disease), stage III (6) COPD (chronic obstructive pulmonary disease) (7) Diabetes mellitus type 2 (8) Dyslipidemia (9) GERD (gastroesophageal reflux disease) (10) H/O non-ST elevation myocardial infarction (NSTEMI) (11) Hypothyroidism (12) Migraine headache (13) Parkinson's disease (14) Pulmonary nodule (15) TIA (transient ischemic attack) Surgical Problems: (1) H/o cervical laminectomy (2) History of lumbar surgery (3) S/P tonsillectomy and adenoidectomy (4) Status post appendectomy (5) Status post cholecystectomy (6) Status post hysterectomy Family History FH: cancer BROTHER FH: diabetes mellitus FH: heart disease FATHER ( [place] 66) MOTHER ( [place] 72) Hypertension Stroke MOTHER Social History Smoking Status: Never Smoker Alcohol Use: none Housing Status: lives with family Current/Historical Medications Scheduled Amlodipine Besylate (Amlodipine Besylate), 10 MG PO DAILY Aspirin (Aspirin Chewable), 81 MG PO DAILY Atorvastatin (Lipitor), 40 MG PO DAILY Budesonide/Formoterol Fumarate (Symbicort 160-4.5 Mcg/Act), 2 PUFFS INH DAILY Cholecalciferol (Vitamin D3), 2,000 UNITS PO DAILY Clopidogrel (Plavix), 75 MG PO DAILY Dextromethorphan-Guaifenesin (Coricidin Hbp Chest Conge), 1 CAP PO BID Duloxetine HCl (Duloxetine HCl), 30 MG PO DAILY Fluticasone Propionate (Nasal) (Flonase Allergy Relief), 1 SPRAY JOSE DAILY Gabapentin (Neurontin), 200 MG PO TID Glipizide (Glipizide Er), 5 MG PO BIDM Isosorbide Mononitrate Ext Rel (Imdur Ext Rel), 30 MG PO QAM Levodopa/Carbidopa (Sinemet 25MG/100MG), 1 TABLET PO QID Levothyroxine Sodium (Levothyroxine Sodium), 112 MCG PO DAILY Loratadine (Claritin), 10 MG PO DAILY Magnesium Oxide (Magnesium), 500 MG PO DAILY Metoprolol Tartrate (Lopressor) (Lopressor), 50 MG PO BID Nitroglycerin (Nitrostat), 0.4 MG UT PRN Pantoprazole (Protonix), 40 MG PO QAM Ranitidine (Zantac), 150 MG PO BID Scheduled PRN Albuterol Hfa (Ventolin Hfa), 2 PUFFS INH QID PRN for SOB/Wheezing Levalbuterol (Levalbuterol HCl), 1 INHA INH Q4H PRN for SOB/Wheezing Repaglinide (Prandin), 1 MG PO TID PRN for BSG >140 Saline (Saline Nasal [place]), 1 SPRAY NA QID PRN for Nasal Congestion Physical Exam Vital Signs Date Time Temp Pulse Resp B/P (MAP) Pulse Ox O2 Delivery O2 Flow Rate FiO2 08/15/17 18:45 68 18 97 08/15/17 17:15 36.7 72 20 118/71 94 Room Air Physical Exam VITAL SIGNS - Vital signs and nursing notes were reviewed. Stable. GENERAL -87-year-old female appearing her stated age who is in no acute distress. Communicates well with provider and answers questions appropriately. SKIN - Without rashes. HEAD - NC/AT. EXTREMITIES - No clubbing or peripheral cyanosis. No pretibial edema present. R distal lateral juarez tenderness over fibula. No foot, ankle, or knee tenderness. +5/5 strength noted in UE/LE bilaterally. She is neurovascularly intact in the right lower extremity. Medical Decision & Procedures ER Provider Diagnostic Interpretation: R TIBIA/FIBULA 2 VIEWS ROUTINE CLINICAL HISTORY: Right leg pain status post trauma COMPARISON: None. DISCUSSION: There are osteoarthritic changes involving the knee. There is an oblique nondisplaced fracture of the distal fibula, 5 cm proximal to the fibular tip. No tibial fractures are visualized. IMPRESSION: Acute nondisplaced oblique fracture of the distal fibula. Electronically signed by: Matthew Corea M.D. 08/15/2017 5:49 PM Dictated Date/Time: 08/15/2017 5:48 PM Medications Administered Medications (Trade) Dose Ordered Sig/Nilsa Route Start Time Stop Time Status Last Admin Dose Admin Acetaminophen/ Codeine Phosphate (TYLENOL W/ CODEINE #3 Home Pack) 1 homepack UD STAT PO 08/15/17 18:39 08/15/17 18:40 DC 08/15/17 18:42 1 HOMEPACK Medical Decision Patient was seen and evaluated as above. She presents to us today with right leg pain. X-ray was obtained with results as above. Distal fib fracture. She would be appropriately splinted with Ortho-Glass, however the patient feels as though she is a high fall risk. The concern is that she has to be completely nonweightbearing with Ortho-Glass of which would be grade the temporary cast. At this time I believe that a hightop walking boot/fracture boot is more appropriate given the patient's high fall risk. Patient case was discussed with the attending physician. Patient was fitted with a boot with good fit. She was educated to be nonweightbearing as much as possible. She is to follow- up with orthopedics. She was educated upon management, educated upon worrisome symptoms which to return, had questions about discharge, and was discharged home in good condition. Medication list reviewed. Blood pressure normal. In the evaluation and treatment of this patient, the following differential diagnoses were considered: Ankle Fracture, Ankle Sprain, Distal Fibula Fracture , Distal Tibia Fracture, Foot Fracture, [place] Fracture. Impression Primary Impression: Fall Additional Impression: Closed fibular fracture Departure Information Dispostion Home / Self-Care Condition GOOD Referrals Amanda Hogue D.O. (PCP) Gabriel Bowles D.O. Patient Instructions ED Compartment Syndrome At Risk For, My [facility] Additional Instructions You have been treated in the Emergency Department for leg pain. For pain control, you can use the following hift-fvy-yiuwsku medicines (if >12 yo): - Regular strength (325mg/tab) Tylenol (acetaminophen) 2 tabs every 4-6 hours as needed. Do not exceed 12 tablets in a 24 hour period. Avoid taking more than 3 grams (3000 mg) of Tylenol per day. This includes any other sources of acetaminophen you may take on a regular basis. If this is a recent injury (<24 hrs), ice can be applied to the area of pain for the first 3 days to help decrease pain and inflammation. Ice massages can be performed by freezing water in a paper cup, peeling back the cup to expose the ice and then massaging over the affected area. You have been provided the number for an Orthopaedic Surgeon. You should call this number as soon as possible to establish a follow-up visit from today's Emergency Department visit. Keep the leg brace in place until cleared by Orthopedics. Use the walker you have been provided to keep ALL weight off of the leg until weight bearing is tolerable. Return to the Emergency Department if your current symptoms worsen despite treatment course outlined above. Problem Qualifiers
[2017-08-15] MEDS ORDERED: SYMIN INH (18:05)
[2017-08-15] MEDS ORDERED: CLOP1TAB15 PO (18:06)
[2017-08-15] MEDS ORDERED: ISOS30TA3 PO (18:09)
[2017-08-15] MEDS ORDERED: NTRGSL/4 UT (18:12)
[2017-08-15] MEDS ORDERED: PANT40TA PO (18:14)
[2017-08-15] MEDS ORDERED: ZNTT/150 PO (18:15)
[2017-08-15] MEDS ORDERED: TYLENOL #3 HOME PACK PO STA (18:39)
[2017-08-15 18:45] VITALS: PULSE 68; O2SAT 97
== END 2017-08-15 18:47 | disposition home or self-care (01) ==
LOC: C.EDB 17:02 → C.EDD 18:47
DX: S82.401A Unspecified fracture of shaft of right fibula, initial encounter for closed fracture (principal); W01.0XXA Fall on same level from slipping, tripping and stumbling without subsequent striking against object, initial encounter; I12.9 Hypertensive chronic kidney disease with stage 1 through stage 4 chronic kidney disease, or unspecified chronic kidney disease; N18.3 Chronic kidney disease, stage 3 (moderate); E11.9 Type 2 diabetes mellitus without complications; E78.5 Hyperlipidemia, unspecified; I25.10 Atherosclerotic heart disease of native coronary artery without angina pectoris; E03.9 Hypothyroidism, unspecified; K21.9 Gastro-esophageal reflux disease without esophagitis; J44.9 Chronic obstructive pulmonary disease, unspecified; J45.909 Unspecified asthma, uncomplicated; I25.2 Old myocardial infarction; G20 Parkinson's disease; Z86.73 Personal history of transient ischemic attack (TIA), and cerebral infarction without residual deficits; Z90.710 Acquired absence of both cervix and uterus; Z90.49 Acquired absence of other specified parts of digestive tract; Z98.890 Other specified postprocedural states; Z79.82 Long term (current) use of aspirin; Z79.899 Other long term (current) drug therapy; Z80.9 Family history of malignant neoplasm, unspecified; Z83.3 Family history of diabetes mellitus; Z82.49 Family history of ischemic heart disease and other diseases of the circulatory system; Z82.3 Family history of stroke

== ENCOUNTER → 2017-08-29 | Outpatient (CLI) | payer OTHER, MEDICARE ==
[~2017-08-29] MED LIST changes: -AMOX1TAB43 PO; +CLOP1TAB15 PO; -IMDSR30 PO; +ISOS30TA3 PO; -LORA10TA5 PO; +LORA10TA6 PO; +NTRGSL/4 UT; -NTRSLP4 SL; +PANT40TA PO; -PLV75 PO; -PRD20 PO; -PRT40 PO; -ZNT150 PO; +ZNTT/150 PO
--- NOTE | 2017-08-29 13:54 | DIAGNOSTIC IMAGING REPORT ---
L TIBIA/FIBULA 2 VIEWS ROUTINE CLINICAL HISTORY: 87 years-old Female presenting with LEFT LEG PAIN. TECHNIQUE: Frontal and lateral views of the left lower leg were obtained. COMPARISON: Correlation made to radiographs of the right lower leg from 08/15/2017. FINDINGS: No acute fracture or malalignment. Knee joint and ankle mortise grossly congruent. No advanced degenerative change. No radiographic evidence of soft tissue abnormality. IMPRESSION: No acute osseous injury of the left lower leg. Electronically signed by: Brian Escobar M.D. 08/29/2017 1:53 PM Dictated Date/Time: 08/29/2017 1:51 PM
== END | disposition home or self-care (01) ==
LOC: C.RAD 13:22
PROVIDERS: ATTEND Family Medicine
DX: L03.116 Cellulitis of left lower limb (principal); M79.662 Pain in left lower leg; W19.XXXA Unspecified fall, initial encounter

== ENCOUNTER → 2018-05-03 | Outpatient (CLI) | payer OTHER, MEDICARE ==
[~2018-05-03] MED LIST changes: +RANI150T85 PO; +SALI-3; -SALI1SPR3; -ZNTT/150 PO
--- NOTE | 2018-05-04 15:07 | MAMMOGRAPHY REPORT ---
BILATERAL DIGITAL SCREENING MAMMOGRAM TOMOSYNTHESIS WITH CAD: 05/03/2018 CLINICAL HISTORY: Routine screening. Patient has no complaints. TECHNIQUE: The study was acquired using full field digital technology and interpreted from soft copy. Breast tomosynthesis in addition to standard 2D mammography was performed. Current study was also ev aluated with a Computer Aided Detection (CAD) system. COMPARISON: Comparison is made to exams dated: 05/02/2017 mammogram, 04/28/2016 mammogram, 03/13/2015 ma mmogram, 03/08/2014 mammogram, 03/05/2013 mammogram, and 03/02/2012 mammogram - [facility]. BREAST COMPOSITION: The tissue of both breasts is heterogeneously dense, which may obscure small mass es. FINDINGS: A linear scar marker overlies the superior right breast. There is a stable metallic biopsy marker clip in the 6:00 left breast. Scattered round and punctate microcalcifications as well as mi nimal vascular calcification in the breasts. No new suspicious mass, architectural distortion or clus ter of microcalcifications is seen. IMPRESSION: ACR BI-RADS CATEGORY 2: BENIGN There is no mammographic evidence of malignancy. A 1 year screening mammogram is recommended.( [id number]) The patient will receive written notification of the results. Some breast cancers are not detected with mammography. A negative mammographic report should not jacki y biopsy if a clinically suggestive mass is present. Mirna Jay M.D. ay/:05/03/2018 15:08:12 Cashier Supervisor: RT Bernadette(Caleb)(M), [facility] letter sent: Normal 1/2 BI-RADS Code: ACR BI-RADS Category 2: Benign
== END | disposition home or self-care (01) ==
LOC: C.MAMM 11:33
PROVIDERS: ATTEND Family Medicine
DX: Z12.31 Encounter for screening mammogram for malignant neoplasm of breast (principal)

== ENCOUNTER 2019-12-20 12:11 | Inpatient (IN) ==
[2019-12-20] MEDS ORDERED: ASPIRIN CHEW 324 MG PO STA (12:18)
--- NOTE | 2019-12-20 12:31 | Emergency Department Note ---
History of Present Illness General Chief complaint: Cardiac Assessment Stated complaint: SWEATY,NOT FEELING RIGHT,HEART PROBLEMS,UTI,DENTAL Time Seen by Provider: 12/20/19 12:17 History of Present Illness Provider complaint: Nausea and diaphoresis Onset (ago): hour(s) (2.5) Current Pain Intensity: 0 Associated symptoms: + nausea/vomiting; no chest pain, no cough, no fever/chills, no headaches and no shortness of breath 89-year-old female presents emergency department for nausea and diaphoresis. Patient is here with her daughter who is a former nurse. Daughter reports that at around 10 AM the patient began having nausea and was pouring sweat. Patient reported she felt lightheaded. She denies any chest pain or difficulty breathing. The daughter does state that the patient had some blood in her urine. No fevers. Patient has history of Parkinson's. Daughter states she is concerned about her nausea and diaphoresis because in the past she had needed a cardiac stent when presenting with similar symptoms. Home Medications Home Medications Medication Instructions Recorded Confirmed Type albuterol sulfate [Ventolin HFA] 2 puff INHALATION Q6H PRN 07/11/18 12/20/19 History aspirin 81 mg PO BID 07/11/18 12/20/19 History atorvastatin [Lipitor] 40 mg PO HS 07/11/18 12/20/19 History budesonide-formoterol [Symbicort] 2 puff INHALATION QAM 07/11/18 12/20/19 History carbidopa-levodopa [Sinemet] 1 tab PO QID 07/11/18 12/20/19 History cholecalciferol (vitamin D3) 2,000 unit PO QAM 07/11/18 12/20/19 History [Vitamin D3] clopidogrel [Plavix] 75 mg PO QAM 07/11/18 12/20/19 History duloxetine [Cymbalta] 30 mg PO HS 07/11/18 12/20/19 History fluticasone propionate [Flonase 1 spray INTRANASAL QAM 07/11/18 12/20/19 History Allergy Relief] gabapentin 200 mg PO TID 07/11/18 12/20/19 History glipizide 10 mg PO TID 07/11/18 12/20/19 History isosorbide mononitrate 30 mg PO QAM 07/11/18 12/20/19 History levalbuterol HCl 1.25 mg INHALATION TID PRN 07/11/18 12/20/19 History levothyroxine 112 mcg PO QAM 07/11/18 12/20/19 History magnesium oxide 500 mg PO QAM 07/11/18 12/20/19 History metoprolol tartrate [Lopressor] 50 mg PO BID 07/11/18 12/20/19 History nitroglycerin 1 dose SUBLINGUAL UD PRN 07/11/18 12/20/19 History repaglinide [Prandin] 1 mg PO TID PRN 07/11/18 12/20/19 History acetaminophen [Tylenol Extra 500 mg PO Q6H PRN 12/20/19 12/20/19 History Strength] amlodipine 5 mg PO PM 12/20/19 12/20/19 History Allergies Allergy/AdvReac Type Severity Reaction Status Date / Time cefuroxime Allergy Unknown Tingling Verified 12/20/19 15:35 to tongue Cephalosporins Allergy Unknown ? Verified 12/20/19 13:54 azithromycin Allergy Swelling Unverified 12/20/19 13:54 of Lip/Tongue/Throat donepezil AdvReac Unknown night Unverified 12/20/19 13:54 terrors levofloxacin AdvReac Unknown creatinine Unverified 12/20/19 13:54 raised to 2.1 AGUILAR Inhibitors AdvReac Cough Verified 12/20/19 13:54 flu vaccine AdvReac Severe Respiratory Uncoded 12/20/19 14:07 issues Past Med/Surg History Medical History Anxiety (Chronic) Arrhythmia (Resolved) Asthma (Chronic) Cardiac murmur (Chronic) Chronic kidney disease (Chronic) ST III Depression (Chronic) Diabetes mellitus, type 2 (Chronic) NIDDM GERD (gastroesophageal reflux disease) (Chronic) Hearing deficit (Resolved) History of active rheumatic fever (Resolved) Hyperlipidemia (Chronic) Hypertension (Chronic) Hypothyroidism (Chronic) Kidney problem (Resolved) Migraine (Resolved) On home oxygen therapy (Chronic) 2 LPM AT NIGHT Parkinson disease (Chronic) Sinus problem (Resolved) Spinal stenosis (Chronic) Transient ischemic attack (TIA) 6 YEARS AGO - NO ISSUES SINCE - NO NEUROLOGIST Surgical History History of appendectomy History of back surgery (Ruled-out) LUMBAR AND CERVICAL SPINE - DENIES ROM RESTRICTIONS TO CERVICAL SPINE History of cardiac cath (Chronic) 2016 - [facility] - [place] - 1 STENT - FOLLOWS W/ DR. SIMPSON 5 YEARS AGO - MATHEW Charles CP - NO STENTS/ANGIOPLASTY History of cholecystectomy History of colonoscopy W/ POLYPECTOMY History of heart artery stent (Chronic) X 1 History of tonsillectomy History of tooth extraction History of total abdominal hysterectomy and bilateral salpingo-oophorectomy Family History Father Myocardial infarction Mother Myocardial infarction Brother Prostate cancer HLD (hyperlipidemia) Social History (Updated 12/20/19 @ 15:48 by Saima Barr PA-C) Preferred Language: Luxembourger Communication Ability: Effective [employer]out Technician Required: No Beliefs That Will Affect Care: None marital status: Current Living Situation: Alone current occupational status: retired Other Information That Helps Us Care for You: No Feels Safe at Home: Yes Safety Concerns: Feels Safe At This Time Smoking Status: Never smoker Do You Dip or Chew Tobacco: No ; Second Hand Exposure: No ; Tobacco Cessation Education Requested by Patient: No Hx Alcohol Use: Yes Alcohol type: wine Alcohol Intake Frequency: Rarely Hx Substance Use: No Review of Systems A total of 10 systems reviewed and were otherwise negative Physical Exam Vital Signs Vital Signs - 24 hr 12/20/19 12:13 12/20/19 12:24 12/20/19 12:32 Temperature 36.8 C Temperature Source Oral Pulse Rate 63 63 Pulse Rate from SpO2 Sensor Respiratory Rate 20 21 Respiratory Effort / Characteristics Non-Labored Spontaneous Respiratory Depth Normal Blood Pressure 183/74 H 197/80 H Blood Pressure Mean 110 110 Blood Pressure Position Sitting Pulse Oximetry 93 Oxygen Delivery Method Room Air Room Air Room Air Sepsis Recent Fever Within 48 Hours No Sepsis Action Taken by Nursing No Action Required 12/20/19 12:40 12/20/19 12:50 12/20/19 13:00 Temperature Temperature Source Pulse Rate 62 64 61 Pulse Rate from SpO2 Sensor 61 61 Respiratory Rate 17 21 17 Respiratory Effort / Characteristics Respiratory Depth Blood Pressure 139/65 Blood Pressure Mean 88 Blood Pressure Position Pulse Oximetry 94 92 Oxygen Delivery Method Room Air Room Air Room Air Sepsis Recent Fever Within 48 Hours Sepsis Action Taken by Nursing 12/20/19 13:10 12/20/19 13:20 12/20/19 13:30 Temperature Temperature Source Pulse Rate 61 60 60 Pulse Rate from SpO2 Sensor 61 60 60 Respiratory Rate 18 16 12 Respiratory Effort / Characteristics Respiratory Depth Blood Pressure 141/65 H Blood Pressure Mean 96 Blood Pressure Position Pulse Oximetry 91 91 91 Oxygen Delivery Method Room Air Room Air Room Air Sepsis Recent Fever Within 48 Hours Sepsis Action Taken by Nursing 12/20/19 13:40 12/20/19 13:50 12/20/19 14:00 Temperature Temperature Source Pulse Rate 59 L 59 L 59 L Pulse Rate from SpO2 Sensor 59 L 59 L 59 L Respiratory Rate 19 18 13 Respiratory Effort / Characteristics Respiratory Depth Blood Pressure 134/73 Blood Pressure Mean 109 Blood Pressure Position Pulse Oximetry 92 91 96 Oxygen Delivery Method Room Air Room Air Room Air Sepsis Recent Fever Within 48 Hours Sepsis Action Taken by Nursing 12/20/19 14:10 12/20/19 14:20 12/20/19 14:30 Temperature Temperature Source Pulse Rate 58 L 56 L 59 L Pulse Rate from SpO2 Sensor 57 L 58 L 59 L Respiratory Rate 18 17 20 Respiratory Effort / Characteristics Respiratory Depth Blood Pressure 137/66 Blood Pressure Mean 85 Blood Pressure Position Pulse Oximetry 92 94 93 Oxygen Delivery Method Room Air Room Air Room Air Sepsis Recent Fever Within 48 Hours Sepsis Action Taken by Nursing Physical Exam GENERAL: She is oriented to person, place, and time. She appears well-developed and well-nourished. She does not appear distressed. HENT: Exam performed. -Head: Normocephalic and atraumatic. -Right Ear: External ear normal. No mastoid tenderness. -Left Ear: External ear normal. No mastoid tenderness. -Mouth/Throat: The oropharynx is clear and moist. No trismus in the jaw. No dental abscesses or uvula swelling. No oropharyngeal exudate or tonsillar abscesses. EYES: Conjunctivae and EOM are normal. Pupils are equal, round, and reactive to light. Right eye exhibits no discharge. Left eye exhibits no discharge. No scleral icterus. NECK: Normal range of motion. Neck supple. No JVD present. No spinous process tenderness present. No carotid bruit present. No rigidity. No tracheal deviation and normal range of motion present. No Brudzinski's sign and no Kernig's sign noted. CV: Normal rate, regular rhythm, murmur present. Intact distal pulses. There is no peripheral edema. Palpable radial pulses bue. PULM/CHEST: Effort normal and breath sounds normal. No respiratory distress. No stridor. She has no wheezes. She has no rales. -Chest Wall: She exhibits no tenderness. ABD: The abdomen is soft. Bowel sounds are normal. She has no distension. No mass is present. There is no tenderness. There is no rebound, no guarding, no Caputo's sign and no tenderness at McBurney's point. Rovsig negative MUSC/SKEL: Normal range of motion. There is no peripheral edema, tenderness or deformity. LYMPH: No cervical adenopathy. NEURO: She is alert and oriented to person, place, and time. Motor and sensation grossly intact. SKIN: Skin is warm and dry. She is not diaphoretic. PSYCH: She has a normal mood and affect. Behavior is normal. Judgment and thought content normal. Course Course 1220: The patient was evaluated in room A3. A complete history and physical exam was performed. Cardiac monitoring: An order was placed for continuous cardiac monitoring. The monitor shows a rate of 60 with sinus rhythm 1424: Vital signs stable. Labs show creatinine of 1.8. GFR less than 30. Lactic acid 2.4. Fluid bolus initiated. Blood culture sent. Flu swab ordered. Discussed with CT who states they prefer not to inject contrast in someone whose GFR is less than 30. I did discuss the case with admitting hospitalist Dr. Mayberry about admitting the patient. We also discussed obtaining a VQ scan tomorrow in which should be done about anticoagulation. I did ask if we should start her on Lovenox however she stated given her poor renal function she would not recommend Lovenox and actually represents starting the patient on heparin drip with no bolus. CT of the abdomen also ordered. Administered Medications Heparin Sodium/Dextrose (Heparin Sodium/Dextrose) 25,000 units in 500 mls @ 23 mls/hr IV .[id number] [facility]; Protocol Stop: 01/19/20 14:29 Last Admin: 12/20/19 16:10 Dose: 1,150 units/hr, 23 mls/hr Documented by: [id number] Cosigned by: [id number] Discontinued Medications Aspirin (Aspirin) 324 mg PO NOW STA Stop: 12/20/19 12:19 Last Admin: 12/20/19 12:36 Dose: 243 mg Documented by: [id number] Heparin Sodium/Dextrose () 1 ea N/A ONE ONE; Protocol Stop: 12/20/19 14:18 Last Admin: 12/20/19 16:11 Dose: 1 ea Documented by: [id number] Sodium Chloride (Nss 1000ml) 1,000 mls @ 999 mls/hr IV .Q1H1M ONE Stop: 12/20/19 14:48 Last Infusion: 12/20/19 15:21 Dose: 0 mls/hr Documented by: [id number] Admin: 12/20/19 14:19 Dose: 999 mls/hr Documented by: [id number] Ondansetron HCl (Zofran) Confirm Administered Dose 4 mg .ROUTE .STK-MED ONE Stop: 12/20/19 13:19 Last Admin: 12/20/19 13:20 Dose: 4 mg Documented by: [id number] Medical Decision Making Laboratory Data Result diagrams: 12/20/19 12:56 12/20/19 12:56 Lab Results 12/20/19 12/20/19 12/20/19 Range/Units 12:35 12:56 12:56 WBC 8.53 (4.8-10.8) K/uL RBC 4.54 (4.2-5.4) M/uL Hgb 13.6 (12.0-16.0) g/dL Hct 40.5 (37-47) % MCV 89.2 (80-100) fL MCH 30.0 (25-34) pg MCHC 33.6 (32-36) g/dL RDW Std Deviation 47.0 H (36.4-46.3) fL RDW Coeff of Sandi 14.4 (11.5-14.5) % Plt Count 235 (130-400) K/uL MPV 10.7 H (7.4-10.4) fL Immature Gran % (Auto) 0.1 % Neut % (Auto) 65.2 % Lymph % (Auto) 26.4 % [place] % (Auto) 6.2 % Eos % (Auto) 1.3 % Baso % (Auto) 0.8 % Immature Gran # (Auto) 0.01 (0.00-0.02) K/uL Neut # (Auto) 5.56 (1.4-6.5) K/uL Lymph # (Auto) 2.25 (1.2-3.4) K/uL [place] # (Auto) 0.53 (0.11-0.59) K/uL Eos # (Auto) 0.11 (0-0.5) K/uL Baso # (Auto) 0.07 (0-0.2) K/uL PT 10.8 (9.0-12.0) Seconds INR 1.0 (0.9-1.1) APTT 29.8 (21.0-31.0) Seconds PTT Ratio 1.1 D-Dimer 900 H* (0-500) ug/L FEU Sodium (136-145) mmol/L Potassium (3.5-5.1) mmol/L Chloride (98-107) mmol/L Carbon Dioxide (21-32) mmol/L Anion Gap (3-11) BUN (7-18) mg/dl Creatinine (0.6-1.2) mg/dl Est Cr Clr Drug Dosing Est GFR ( Amer) Est GFR (Non-Af Amer) BUN/Creatinine Ratio (10-20) Glucose (70-99) mg/dl Lactate (0.4-2.0) mmol/L Calcium (8.5-10.1) mg/dl Troponin I (0-0.045) ng/ml Lipase (73-393) U/L Urine Color Yellow Urine Appearance Cloudy A (Clear) Urine pH 8.5 H (4.5-7.5) Ur Specific [place] 1.014 (1.000-1.030) Urine Protein Negative (Negative) Urine Glucose (UA) Negative (Negative) Urine Ketones Negative (Negative) Urine Blood Negative (Negative) Urine Nitrite Negative (Negative) Urine Bilirubin Negative (Negative) Urine Urobilinogen Negative (Negative) Ur Leukocyte Esterase Trace H (Negative) Urine WBC (Auto) 5-10 H (0-5) /hpf Urine RBC (Auto) 0-4 (0-4) /hpf U Hyaline Cast (Auto) 1-5 (0-5) /lpf U Epithel Cells (Auto) >30 H (0-5) /lpf Urine Bacteria (Auto) Negative (Negative) Influenza Type A (PCR) (Neg) Influenza Type B (PCR) (Neg) 12/20/19 12/20/19 12/20/19 Range/Units 12:56 12:56 14:20 WBC (4.8-10.8) K/uL RBC (4.2-5.4) M/uL Hgb (12.0-16.0) g/dL Hct (37-47) % MCV (80-100) fL MCH (25-34) pg MCHC (32-36) g/dL RDW Std Deviation (36.4-46.3) fL RDW Coeff of Sandi (11.5-14.5) % Plt Count (130-400) K/uL MPV (7.4-10.4) fL Immature Gran % (Auto) % Neut % (Auto) % Lymph % (Auto) % [place] % (Auto) % Eos % (Auto) % Baso % (Auto) % Immature Gran # (Auto) (0.00-0.02) K/uL Neut # (Auto) (1.4-6.5) K/uL Lymph # (Auto) (1.2-3.4) K/uL [place] # (Auto) (0.11-0.59) K/uL Eos # (Auto) (0-0.5) K/uL Baso # (Auto) (0-0.2) K/uL PT (9.0-12.0) Seconds INR (0.9-1.1) APTT (21.0-31.0) Seconds PTT Ratio D-Dimer (0-500) ug/L FEU Sodium 134 L (136-145) mmol/L Potassium 4.6 (3.5-5.1) mmol/L Chloride 103 (98-107) mmol/L Carbon Dioxide 23 (21-32) mmol/L Anion Gap 8.0 (3-11) BUN 24 H (7-18) mg/dl Creatinine 1.80 H (0.6-1.2) mg/dl Est Cr Clr Drug Dosing Not Reportable Est GFR ( Amer) 28.4 Est GFR (Non-Af Amer) 24.5 BUN/Creatinine Ratio 13.3 (10-20) Glucose 231 H (70-99) mg/dl Lactate 3.4 H* (0.4-2.0) mmol/L Calcium 9.6 (8.5-10.1) mg/dl Troponin I < 0.015 (0-0.045) ng/ml Lipase 170 (73-393) U/L Urine Color Urine Appearance (Clear) Urine pH (4.5-7.5) Ur Specific [place] (1.000-1.030) Urine Protein (Negative) Urine Glucose (UA) (Negative) Urine Ketones (Negative) Urine Blood (Negative) Urine Nitrite (Negative) Urine Bilirubin (Negative) Urine Urobilinogen (Negative) Ur Leukocyte Esterase (Negative) Urine WBC (Auto) (0-5) /hpf Urine RBC (Auto) (0-4) /hpf U Hyaline Cast (Auto) (0-5) /lpf U Epithel Cells (Auto) (0-5) /lpf Urine Bacteria (Auto) (Negative) Influenza Type A (PCR) Neg for Influ A (Neg) Influenza Type B (PCR) Neg for Influ B (Neg) Imaging Data Radiologist's Impression: BILATERAL LOWER EXTREMITY VENOUS DOPPLER HISTORY: Acute pain and swelling of the lower extremities ro dvt COMPARISON STUDY: None. FINDINGS: There is normal compressibility, flow, and augmentation within the bilateral lower extremity deep venous systems. The bilateral superficial femoral veins are suboptimally visualized. IMPRESSION: No DVT within the right or left lower extremity. ACT 112: Negative or not required by law. Electronically signed by: Rizwan Brandt M.D. 12/20/2019 4:00 PM Dictated: 12/20/19 1559 Transcribed: 12/20/[address] abd pelvis wo con CLINICAL HISTORY: 89 years-old Female presenting with abdominal discomfort, lower dysuria. TECHNIQUE: Multidetector CT of the abdomen and pelvis was performed without the use of intravenous contrast. IV contrast: None. One or more dose lowering techniques were used consistent with the principles of ALARA (as low as reasonably achievable), including automatic exposure control, mA or kV adjustment to individual patient size, and/or use of iterative reconstruction. COMPARISON: 06/17/2013. CT DOSE (mGy.cm): The estimated cumulative dose is 391.26 mGy.cm. FINDINGS: Do All Operator topogram: Cholecystectomy clips. Lung bases: Borderline enlargement of the heart. Coronary artery, aortic valve, and mitral annular calcification. No pericardial or pleural effusion. Minimal dependent changes likely atelectasis. Prominent pericardial lymph nodes noted adjacent to the IVC. These were present on prior exam and have been essentially stable since 2013 consistent with benignity. Liver: Normal morphology. Normal density. Biliary: Mild biliary ductal prominence likely a reservoir effect in the post cholecystectomy state. Gallbladder surgically absent. Pancreas: Mild parenchymal atrophy. Spleen: Normal noncontrast appearance. Adrenal glands: Normal noncontrast appearance. Kidneys and ureters: Normal noncontrast appearance. No nephrolithiasis. Minimal right pelviectasis. No hydronephrosis. Normal ureters. Bladder: Normal noncontrast appearance. Pelvic organs: Uterus surgically absent. Bowel: Normal noncontrast appearance. No bowel obstruction. Peritoneal cavity: No free fluid or intraperitoneal gas. Lymph nodes: No gross lymphadenopathy allowing for noncontrast technique. Vasculature: Atherosclerosis of the normal caliber abdominal aorta. Abdominal wall: Normal. Musculoskeletal: Degenerative changes of the spine and bilateral hips. Postsurgical changes of laminectomies from L3 to L5. Grade 1 anterolisthesis of L3 on L4. IMPRESSION: 1. Allowing for noncontrast technique, no acute intra-abdominal pathology. 2. No nephrolithiasis or hydronephrosis. ACT 112: Negative or not required by law. Electronically signed by: Brian Escobar M.D. 12/20/2019 3:27 PM Dictated: 12/20/19 1521 Transcribed: 12/20/19 1521 XR chest 1V portable HISTORY: 89 years-old Female Chest Pain acute atypical chest pain COMPARISON: Chest radiograph 08/02/2018 TECHNIQUE: Portable AP view of the chest FINDINGS: Cardiac silhouette is mildly enlarged. There is no pneumothorax, pleural effusion, overt pulmonary edema or airspace consolidation typical for pneumonia. Unchanged mild linear left lung base atelectasis/scarring. 6 mm nodular opacity of the right lateral midlung may reflect summation density versus pulmonary nodule. Degenerative changes of the shoulders and spine. IMPRESSION: No acute process. ACT 112: Negative or not required by law. The above report was generated using voice recognition software. It may contain grammatical, syntax or spelling errors. Electronically signed by: Rizwan Brandt M.D. 12/20/2019 12:39 PM Dictated: 12/20/19 1236 Transcribed: 12/20/19 1236 ECG Data Rate (beats per minute): 61 Rhythm: + normal sinus ECG Intervals/blocks: + Normal QRS, + Normal RI and + Normal QT-c ECG ST segments: + Normal ST segments [facility] Narrative 1220: The patient was evaluated in room A3. A complete history and physical exam was performed. Cardiac monitoring: An order was placed for continuous cardiac monitoring. The monitor shows a rate of 60 with sinus rhythm 1424: Vital signs stable. Labs show creatinine of 1.8. GFR less than 30. Lactic acid 2.4. Fluid bolus initiated. Blood culture sent. Flu swab ordered. Discussed with CT who states they prefer not to inject contrast in someone whose GFR is less than 30. I did discuss the case with admitting hospitalist Dr. Mayberry about admitting the patient. We also discussed obtaining a VQ scan tomorrow in which should be done about anticoagulation. I did ask if we should start her on Lovenox however she stated given her poor renal function she would not recommend Lovenox and actually represents starting the patient on heparin drip with no bolus. CT of the abdomen also ordered. Impression & Plan Lactic acidemia, D-dimer, elevated Discharge Plan Visit Data Chief Complaint: Cardiac Assessment Stated Complaint: SWEATY,NOT FEELING RIGHT,HEART PROBLEMS,UTI,DENTAL ED Provider: Dennis Kumar Discharge Problem: Lactic acidemia, D-dimer, elevated Patient Disposition: Admitted As Inpatient Discharge Instructions Interventions: ED Discharge Assessment Last Done: 12/20/19 16:26
--- NOTE | 2019-12-20 12:41 | XRay Report ---
XR chest 1V portable HISTORY: 89 years-old Female Chest Pain acute atypical chest pain COMPARISON: Chest radiograph 08/02/2018 TECHNIQUE: Portable AP view of the chest FINDINGS: Cardiac silhouette is mildly enlarged. There is no pneumothorax, pleural effusion, overt pulmonary ed juan or airspace consolidation typical for pneumonia. Unchanged mild linear left lung base atelectasis /scarring. 6 mm nodular opacity of the right lateral midlung may reflect summation density versus pul monary nodule. Degenerative changes of the shoulders and spine. IMPRESSION: No acute process. ACT 112: Negative or not required by law. The above report was generated using voice recognition software. It may contain grammatical, syntax o r spelling errors. Electronically signed by: Rizwan Brandt M.D. 12/20/2019 12:39 PM
--- NOTE | 2019-12-20 12:47 | Electrocardiogram Report ---
Test Reason : Blood Pressure : / mmHG Vent. Rate : 061 BPM Atrial Rate : 061 BPM P-R Int : 180 ms QRS Dur : 092 ms QT Int : 438 ms P-R-T Axes : 053 -01 036 degrees QTc Int : 440 ms Normal sinus rhythm Borderline Criteria for Old Inferior infarct (cited on or before 28-JUL-2017) Diffuse Nonspecific T wave abnormality Abnormal ECG When compared with ECG of 02-AUG-2018 12:31, No significant change was found Confirmed by Eitan Recio ([id number]) on 12/20/2019 12:47:06 PM Referred By: Confirmed By:Eitan Recio
[2019-12-20 12:49] LABS: Appearance Urine Cloudy (Clear); Bacteria Urine Automated Negative (Negative); Bilirubin Urine Negative (Negative); Blood Urine Negative (Negative); Color Urine Yellow; Epithelial Cell Urine Auto >30 /lpf (0-5); Glucose Urine UA Negative (Negative); Ketones Urine Negative (Negative); Leukocyte Esterase Urine Trace (Negative); Nitrite Urine Negative (Negative); RBC Urine Automated 0-4 /hpf (0-4); Specific Gravity Urine 1.014 (1.000-1.030); Urobilinogen Urine Negative (Negative); pH Urine 8.5 (4.5-7.5)
[2019-12-20 12:54] LABS: Protein Urine Negative (Negative); Sulfosalicylic Acid Urine Negative (Negative)
[2019-12-20 13:09] LABS: Basophils # (auto) 0.07 K/uL (0-0.2); Basophils % (auto) 0.8 %; Eosinophils # (auto) 0.11 K/uL (0-0.5); Eosinophils % (auto) 1.3 %; Hematocrit (blood only) 40.5 % (37-47); Hemoglobin 13.6 g/dL (12.0-16.0); Immature Granulocytes # (auto) 0.01 K/uL (0.00-0.02); Immature Granulocytes % (auto) 0.1 %; Lymphocytes # (auto) 2.25 K/uL (1.2-3.4); Lymphocytes % (auto) 26.4 %; Mean Corpuscular Hgb Conc 33.6 g/dL (32-36); Mean Corpuscular Volume 89.2 fL (80-100); Mean Platelet Volume 10.7 fL (7.4-10.4); Monocytes # (auto) 0.53 K/uL (0.11-0.59); Monocytes % (auto) 6.2 %; Neutrophils # (auto) 5.56 K/uL (1.4-6.5); Neutrophils % (auto) 65.2 %; Platelet Count 235 K/uL (130-400); RDW Coefficient of Variation 14.4 % (11.5-14.5); Red Blood Count 4.54 M/uL (4.2-5.4); White Blood Count 8.53 K/uL (4.8-10.8)
[2019-12-20] MEDS ORDERED: ONDANSETRON INJ 2 MG/ML 2 ML VIAL ONE (13:18)
[2019-12-20 13:21] LABS: Partial Thromboplastin Ratio 1.1; Partial Thromboplastin Time 29.8 Seconds (21.0-31.0); Prothrombin Time 10.8 Seconds (9.0-12.0)
[2019-12-20 13:24] LABS: D Dimer 900 ug/L FEU (0-500)
[2019-12-20 13:26] LABS: BUN Creatinine Ratio 13.3 (10-20); Blood Urea Nitrogen 24 mg/dl (7-18); Calcium 9.6 mg/dl (8.5-10.1); Carbon Dioxide 23 mmol/L (21-32); Chloride 103 mmol/L (98-107); Est GFR (African American) 28.4; Est GFR (Non-African American) 24.5; Glucose 231 mg/dl (70-99); Lipase 170 U/L (73-393); Potassium 4.6 mmol/L (3.5-5.1); Sodium 134 mmol/L (136-145)
[2019-12-20 13:31] LABS: Troponin I < 0.015 ng/ml (0-0.045)
[2019-12-20] MEDS ORDERED: SODIUM CHLORIDE 0.9% 1000ML 1,000 ML IV ONE (13:48)
[2019-12-20] MEDS ORDERED: Heparin IV Standard *NO* Bolus ONE (14:17)
[2019-12-20 15:04] LABS: Influenza A virus by PCR Neg for Influ A (Neg); Influenza B virus by PCR Neg for Influ B (Neg)
--- NOTE | 2019-12-20 15:28 | History & Physical Report ---
Date of Service December 20, 2019 Assessment & Plan (1) Nausea: Pt is 89 y/o F with PMH DM II, HTN, HLD, h/o NSTEMI s/p NITA to LAD in 2016, stable angina, Parkinson's, asthma, TIA, hypothyroidism, CKD III presented to ER with c/o nausea, diaphoresis and lightheadedness this morning around 10 am when getting ready to wash herself.Reported BSG was 159 at the time. Denies any CP or SOB, syncope or palpitations. Pt started Bactrim on 12/17/2019 for possible UTI In ER afebrile, no tachycardia or tachypnea, initial BP: 183/74 down to 134/73, no hypoxia on RA. Initial troponin negative, no leukocytosis, EKG without acute ST changes. CT ABD/PELVIS: Allowing for noncontrast technique, no acute intra-abdominal pathology. No nephrolithiasis or hydronephrosis. DDX: Medication side effect, infection, orthostatic hypotension, vertigo, cardiopulmonary etiology -In ER given Zofran, 1L NSS, ASA 324mg po and pt reports feels back to baseline with no further nausea, diaphoresis, lightheadedness -Obtain orthostatic vital signs -IVF -Cardiac work up with repeat troponins (2) Elevated d-dimer: D-Dimer: 900. Age adjusted D-Dimer top normal range of 890 No SOB, CP, hypoxia, tachycardia Pt cannot have CTA chest to r/o PE secondary to renal functions -Pending BLE venous doppler to R/O DVT -Heparin IV started in ER (3) Elevated lactic acid level: Lactic acid: 3.4. No leukocytosis, normal bicarb. Afebrile. Possible recent UTI. Does not appear septic In ER given 1L NSS Repeat lactic acid: 2.6 -Blood cultures pending -Trend lactic acid -IVF (4) Possible urinary tract infection: Hematuria, surpapubic pressure several days ago and was started on Bactrim and Pyridium by PCP via telemedicine visit Reported resolution of symptoms UA today: trace leuk, 5-10 WBC, >30 epithelial, no bacteria -Hold on further Bactrim -Urine culture pending (5) Acute kidney injury superimposed on CKD: Cr: 1.8. Baseline Cr: 1.2 Pt recently started on Bactrim -Hold Bactrim -IVF -Monitor renal functions -Avoid other nephrotoxic agents when possible (6) CAD (coronary artery disease): h/o NSTEMI s/p NITA to LAD in 2016 -Continue atorvastatin, Plavix, aspirin, metoprolol, Imdur (7) Diabetes mellitus, type 2: A1c: 7.0 on 09/24/2019 -Hold glipizide, Prandin -NovoLog sliding scale per protocol (8) Hypertension: -Continue amlodipine, metoprolol (9) Hypothyroidism: -TSH in a.m. -Continue levothyroxine (10) TIA (transient ischemic attack): -Continue aspirin, Plavix, atorvastatin (11) Asthma: No acute exacerbation -Continue home inhalers -Xopenex as needed shortness of breath (12) Parkinson's disease: -Continue Sinemet, gabapentin DVT Prophylaxis -On IV Heparin currently Full Code as per discussion with pt Follows with Dr Hogue for routine care Pt was seen and care coordinated with Dr Marie. See addendum History of Present Illness Chief Complaint: Nausea Primary Care Provider: Amanda Hogue DO Pt is 89 y/o F with PMH DM II, HTN, HLD, h/o NSTEMI s/p NITA to LAD in 2016, stable angina, Parkinson's, asthma, TIA, hypothyroidism, CKD III presented to ER with c/o nausea. Pt states woke up this morning and felt normal and took morning meds except for her diabetic medication. Did not eat breakfast yet. She went to bathroom to wash her hair when she became nauseated, lightheaded and diaphoretic. Her BSG was 159 at the time. Denies any CP or SOB, syncope or palpitations. Since arrival to ER and receiving Zofran pt reports feels back to baseline. Pt reports suprapubic pressure and hematuria a couple of days ago and on 12/18/2019 Bactrim and Pyridium was called in for her. She has taken with resolution of hematuria and no further suprapubic pressure. Denies dysuria, urinary frequency or retention, flank pain, fever or chills. Denies any other abdominal pain. H/O NSTEMI in 2016 and pt reports had epigastric discomfort, chest pressure and bilateral arm funny feeling. States the symptoms today felt different then her prior DE. Pt states 2 weeks ago started with right lower dental pain and reports dentist reported that has abscess on dental xray and pt prescribed amoxicillin that she took for 3 days with improvement of dental pain and then dental pain returned so took additional 3 days and finished on 12/15/2019. Denies any facial swelling, gingival discharge, dysphagia. Has not had any recurrent dental pain. Denies fever/chills, vomiting, diarrhea, constipation, [place], vision changes, neck pain, orthopnea, cough, sore throat, choking, otalgia, rhinorrhea, paresthesias, weakness, extremity weakness, extremity edema, rashes. Denies ill contacts or recent travel. Has been staying at home for past 4-5 weeks. Allergies Allergy/AdvReac Type Severity Reaction Status Date / Time cefuroxime Allergy Unknown Tingling Verified 12/20/19 15:35 to tongue Cephalosporins Allergy Unknown ? Verified 12/20/19 13:54 azithromycin Allergy Swelling Unverified 12/20/19 13:54 of Lip/Tongue/Throat donepezil AdvReac Unknown night Unverified 12/20/19 13:54 terrors levofloxacin AdvReac Unknown creatinine Unverified 12/20/19 13:54 raised to 2.1 AGUILAR Inhibitors AdvReac Cough Verified 12/20/19 13:54 flu vaccine AdvReac Severe Respiratory Uncoded 12/20/19 14:07 issues Home Medications Home Medications Medication Instructions Recorded Confirmed Type albuterol sulfate [Ventolin HFA] 2 puff INHALATION Q6H PRN 07/11/18 12/20/19 History aspirin 81 mg PO BID 07/11/18 12/20/19 History atorvastatin [Lipitor] 40 mg PO HS 07/11/18 12/20/19 History budesonide-formoterol [Symbicort] 2 puff INHALATION QAM 07/11/18 12/20/19 History carbidopa-levodopa [Sinemet] 1 tab PO QID 07/11/18 12/20/19 History cholecalciferol (vitamin D3) 2,000 unit PO QAM 07/11/18 12/20/19 History [Vitamin D3] clopidogrel [Plavix] 75 mg PO QAM 07/11/18 12/20/19 History duloxetine [Cymbalta] 30 mg PO HS 07/11/18 12/20/19 History fluticasone propionate [Flonase 1 spray INTRANASAL QAM 07/11/18 12/20/19 History Allergy Relief] gabapentin 200 mg PO TID 07/11/18 12/20/19 History glipizide 10 mg PO TID 07/11/18 12/20/19 History isosorbide mononitrate 30 mg PO QAM 07/11/18 12/20/19 History levalbuterol HCl 1.25 mg INHALATION TID PRN 07/11/18 12/20/19 History levothyroxine 112 mcg PO QAM 07/11/18 12/20/19 History magnesium oxide 500 mg PO QAM 07/11/18 12/20/19 History metoprolol tartrate [Lopressor] 50 mg PO BID 07/11/18 12/20/19 History nitroglycerin 1 dose SUBLINGUAL UD PRN 07/11/18 12/20/19 History repaglinide [Prandin] 1 mg PO TID PRN 07/11/18 12/20/19 History acetaminophen [Tylenol Extra 500 mg PO Q6H PRN 12/20/19 12/20/19 History Strength] amlodipine 5 mg PO PM 12/20/19 12/20/19 History Past Med/Surg History Medical History Anxiety (Chronic) Arrhythmia (Resolved) Asthma (Chronic) Cardiac murmur (Chronic) Chronic kidney disease (Chronic) ST III Depression (Chronic) Diabetes mellitus, type 2 (Chronic) NIDDM GERD (gastroesophageal reflux disease) (Chronic) Hearing deficit (Resolved) History of active rheumatic fever (Resolved) Hyperlipidemia (Chronic) Hypertension (Chronic) Hypothyroidism (Chronic) Kidney problem (Resolved) Migraine (Resolved) On home oxygen therapy (Chronic) 2 LPM AT NIGHT Parkinson disease (Chronic) Sinus problem (Resolved) Spinal stenosis (Chronic) Transient ischemic attack (TIA) 6 YEARS AGO - NO ISSUES SINCE - NO NEUROLOGIST Surgical History History of appendectomy History of back surgery (Ruled-out) LUMBAR AND CERVICAL SPINE - DENIES ROM RESTRICTIONS TO CERVICAL SPINE History of cardiac cath (Chronic) 2016 - [facility] - [place] - 1 STENT - FOLLOWS W/ DR. SIMPSON 5 YEARS AGO - [facility] - NO STENTS/ANGIOPLASTY History of cholecystectomy History of colonoscopy W/ POLYPECTOMY History of heart artery stent (Chronic) X 1 History of tonsillectomy History of tooth extraction History of total abdominal hysterectomy and bilateral salpingo-oophorectomy Family History Father Myocardial infarction Mother Myocardial infarction Brother Prostate cancer HLD (hyperlipidemia) Social History (Updated 12/20/19 @ 15:48 by Saima Barr PA-C) Preferred Language: Cymraes Communication Ability: Effective Rfid Engineer Required: No Beliefs That Will Affect Care: None marital status: / Current Living Situation: Alone current occupational status: retired Other Information That Helps Us Care for You: No Feels Safe at Home: Yes Safety Concerns: Feels Safe At This Time Smoking Status: Never smoker Do You Dip or Chew Tobacco: No ; Second Hand Exposure: No ; Tobacco Cessation Education Requested by Patient: No Hx Alcohol Use: Yes Alcohol type: wine Alcohol Intake Frequency: Rarely Hx Substance Use: No Review of Systems Review of Systems: All systems reviewed & are unremarkable except as noted in HPI & below Physical Exam Physical Exam: General: no distress, WDWN Head: normocephalic, atraumatic Eyes: PERRL, EOM's intact, conjunctiva non-injected, anicteric ENT: normal inspection external ears, nose, mucous membranes moist Neck: supple, trachea midline Lungs: clear, no respiratory distress, no wheezing/rhonchi/rales CV: RRR, +murmur, no pretibial edema Abd: normal BS, soft, non-tender Ext: no cyanosis, no calf tenderness Neuro: A&O x 3, no focal deficits noted, normal affect Skin: warm, dry Results & Data Results & Data ([facility]) Vital Signs (Past 12 Hours) Vital Signs Temp Pulse Resp BP Pulse Ox 12/20/19 14:10 58 L 18 92 12/20/19 14:00 59 L 13 134/73 96 12/20/19 13:50 59 L 18 91 12/20/19 13:40 59 L 19 92 12/20/19 13:30 60 12 141/65 H 91 12/20/19 13:20 60 16 91 12/20/19 13:10 61 18 91 12/20/19 13:00 61 17 139/65 92 12/20/19 12:50 64 21 12/20/19 12:40 62 17 94 12/20/19 12:32 63 21 12/20/19 12:24 197/80 H 12/20/19 12:13 36.8 C 63 20 183/74 H 93 Laboratory Results Short CBC 12/20/19 Range/Units 12:56 WBC 8.53 (4.8-10.8) K/uL Hgb 13.6 (12.0-16.0) g/dL Hct 40.5 (37-47) % Plt Count 235 (130-400) K/uL BMP 12/20/19 12:56 Sodium 134 L Potassium 4.6 Chloride 103 Carbon Dioxide 23 BUN 24 H Creatinine 1.80 H Glucose 231 H Calcium 9.6 Cardiac Enzymes 12/20/19 Range/Units 12:56 Troponin I < 0.015 (0-0.045) ng/ml Urine 12/20/19 Range/Units 12:35 Urine Color Yellow Urine Appearance Cloudy A (Clear) Urine pH 8.5 H (4.5-7.5) Ur Specific [place] 1.014 (1.000-1.030) Urine Protein Negative (Negative) Urine Glucose (UA) Negative (Negative) Diagnostic Findings CXR: IMPRESSION: No acute process. CT ABD/PELVIS: IMPRESSION: 1. Allowing for noncontrast technique, no acute intra-abdominal pathology. 2. No nephrolithiasis or hydronephrosis. ECG Rate (beats per minute): 61 Rhythm: sinus rhythm Findings: + nonspecific-ST abn (nonspecific t wave abnormality) Code Status & VTE Plan VTE Prophylaxis Plan VTE Prophylaxis will be ordered: Yes Supervising Physician Co-Signing Physician Notes Pt seen and examined by me, care coordinated with Saima Barr PA-C. Please refer to her note above for further detail. Pt is an 89 y/o female with DM II, HTN, HLD, h/o NSTEMI s/p NITA to LAD in 2016, stable angina, Parkinson's, asthma, hx of TIA, hypothyroidism, CKD III who presented to ER with c/o nausea. Nausea has since resolved. Pt labs significant for elevated Creatinine / PENELOPE, elevated lactic acid and D-dimer (even though when taking into account her age, D-dimer is only borderline elevated). Her medical hx is also significant for recent use of Bacrim d/t UTI and amoxicillin or augmentin for tooth abscess. Pt reports that she was on short course of antibiotic but when she finished it her tooth ache came back and her antibiotic was re-started. She was not able to have her tooth abscess fixed by dentists yet d/t coronavirus pandemic. Currently pt feels well overall, denies any fever, chills, chest pain, shortness of breath, abd. pain, nausea or vomiting. Also denies any headache, lightheadedness, dizziness. On physical exam, heart sounds are regular, there is soft murmur noted, breath sounds are clear w/o any rhonchi, crackles, wheezing. Abdomen is soft, nontender and nondistended. There is no LE edema, and pt moves all her extremities spontaneously. Speech is fluent, and there is no facial asymmetry. Skin is warm and well perfused. CT abdomen ordered by ED physician pending. LE doppler pending. Pt started on IV heparin d/t d- dimer elevation. Will await doppler and/or V/Q scan. Will provide IVF for PENELOPE. Will start Augmentin to cover for partially treated UTI (no urine cultures available as pt was evaluated via telemedicine) and tooth abscess. MD Uzair
--- NOTE | 2019-12-20 15:28 | CT Scan Report ---
CT abd pelvis wo con CLINICAL HISTORY: 89 years-old Female presenting with abdominal discomfort, lower dysuria. TECHNIQUE: Multidetector CT of the abdomen and pelvis was performed without the use of intravenous co ntrast. IV contrast: None. One or more dose lowering techniques were used consistent with the princip les of DIMA (as low as reasonably achievable), including automatic exposure control, mA or kV adjust ment to individual patient size, and/or use of iterative reconstruction. COMPARISON: 06/17/2013. CT DOSE (mGy.cm): The estimated cumulative dose is 391.26 mGy.cm. FINDINGS: Crm Architect topogram: Cholecystectomy clips. Lung bases: Borderline enlargement of the heart. Coronary artery, aortic valve, and mitral annular ca lcification. No pericardial or pleural effusion. Minimal dependent changes likely atelectasis. Promin ent pericardial lymph nodes noted adjacent to the IVC. These were present on prior exam and have been essentially stable since 2013 consistent with benignity. Liver: Normal morphology. Normal density. Biliary: Mild biliary ductal prominence likely a reservoir effect in the post cholecystectomy state. Gallbladder surgically absent. Pancreas: Mild parenchymal atrophy. Spleen: Normal noncontrast appearance. Adrenal glands: Normal noncontrast appearance. Kidneys and ureters: Normal noncontrast appearance. No nephrolithiasis. Minimal right pelviectasis. N o hydronephrosis. Normal ureters. Bladder: Normal noncontrast appearance. Pelvic organs: Uterus surgically absent. Bowel: Normal noncontrast appearance. No bowel obstruction. Peritoneal cavity: No free fluid or intraperitoneal gas. Lymph nodes: No gross lymphadenopathy allowing for noncontrast technique. Vasculature: Atherosclerosis of the normal caliber abdominal aorta. Abdominal wall: Normal. Musculoskeletal: Degenerative changes of the spine and bilateral hips. Postsurgical changes of soumya ctomies from L3 to L5. Grade 1 anterolisthesis of L3 on L4. IMPRESSION: 1. Allowing for noncontrast technique, no acute intra-abdominal pathology. 2. No nephrolithiasis or hydronephrosis. ACT 112: Negative or not required by law. Electronically signed by: Brian Escobar M.D. 12/20/2019 3:27 PM
--- NOTE | 2019-12-20 16:01 | Ultrasound Report ---
BILATERAL LOWER EXTREMITY VENOUS DOPPLER HISTORY: Acute pain and swelling of the lower extremities ro dvt COMPARISON STUDY: None. FINDINGS: There is normal compressibility, flow, and augmentation within the bilateral lower extremit y deep venous systems. The bilateral superficial femoral veins are suboptimally visualized. IMPRESSION: No DVT within the right or left lower extremity. ACT 112: Negative or not required by law. Electronically signed by: Rizwan Brandt M.D. 12/20/2019 4:00 PM
[2019-12-20] MEDS: HEPARIN SODIUM/DEXTROSE 25,000 UNITS/500 ML BAG IV SCH (16:10)
[2019-12-20] MEDS ORDERED: GLUCOSE 10 TABS/TUBE PO PRN (16:45)
[2019-12-20] MEDS ORDERED: DEXTROSE 50% 50 ML SYRINGE IV PRN (16:45)
[2019-12-20] MEDS ORDERED: LEVALBUTEROL 1.25MG/0.5ML NEB INH PRN (16:45)
[2019-12-20] MEDS ORDERED: ACETAMINOPHEN 325 MG TAB PO PRN (16:45)
[2019-12-20] MEDS ORDERED: GLUCOSE 40% GEL 15 GM TUBE PO PRN (16:45)
[2019-12-20] MEDS ORDERED: ONDANSETRON INJ 2 MG/ML 2 ML VIAL IV PRN (16:45)
[2019-12-20] MEDS ORDERED: GLUCAGON FOR INJ 1 MG VIAL SQ PRN (16:45)
[2019-12-20] MEDS ORDERED: NITROGLYCERIN SL 0.4 MG/TAB TAB SL PRN (16:45)
[2019-12-20] MEDS: CARBIDOPA/LEVODOPA 25/100MG TAB PO SCH ×2 (17:43→22:01)
[2019-12-20] MEDS: SODIUM CHLORIDE 0.9% 1000ML 1,000 ML IV SCH (17:43)
[2019-12-20] MEDS: AMOXICILLIN/CLAVULANATE 500 MG TAB PO SCH (18:06)
[2019-12-20] MEDS: INSULIN ASPART 100 UNITS/ML 3 ML PEN SC SCH ×2 (18:06→21:49)
--- NOTE | 2019-12-20 18:32 | CT Scan Report ---
CT OF THE HEAD WITHOUT CONTRAST CLINICAL HISTORY: dizziness COMPARISON STUDY: MRI of the brain January 08, 2008. Head CT and CTA of the head August 02, 2018. CT DOSE: 537.48 mGy.cm TECHNIQUE: Helical axial images of the head were obtained without IV contrast. Automated exposure con trol was utilized for the study. A dose lowering technique was utilized adhering to the principles o f ALARA. FINDINGS: No acute intracranial hemorrhage, midline shift or mass effect is present. The ventricular system is unremarkable. The basilar cisterns are patent. No extra-axial collections are present. Ther e are no findings to suggest acute dural sinus thrombosis or acute territorial infarct. No significan t calvarial abnormalities are present. Visualized portions of the sinuses and mastoid air cells are c lear. White matter hypodensities are similar to head CT of August 02, 2018 and favor small vessel d isease. Appearance of the brain is unchanged. IMPRESSION: No acute intracranial findings. No change in appearance of the brain. ACT 112: Negative or not required by law. Electronically signed by: Serge Grewal M.D. 12/20/2019 6:30 PM
[2019-12-20] MEDS: DULOXETINE HCL 30 MG CAP PO SCH (21:39)
[2019-12-20] MEDS: METOPROLOL TARTRATE 50 MG TAB PO SCH (21:39)
[2019-12-20] MEDS: ASPIRIN 81 MG ECTAB PO SCH (21:39)
[2019-12-20] MEDS: GABAPENTIN 100 MG CAP PO SCH (21:39)
[2019-12-20] MEDS: AMLODIPINE BESYLATE 5 MG TAB PO SCH (21:40)
[2019-12-20] MEDS: ATORVASTATIN 40 MG TAB PO SCH (21:41)
[2019-12-20 22:41] LABS: Partial Thromboplastin Ratio 3.2
[2019-12-20 22:44] LABS: Partial Thromboplastin Time 89.4 Seconds (21.0-31.0)
[2019-12-21] MEDS: LEVOTHYROXINE SODIUM 112 MCG TABLET PO SCH (04:41)
[2019-12-21] MEDS: SODIUM CHLORIDE 0.9% 1000ML 1,000 ML IV SCH (04:41)
[2019-12-21 06:02] LABS: Hematocrit (blood only) 37.3 % (37-47); Hemoglobin 12.5 g/dL (12.0-16.0); Mean Corpuscular Hemoglobin 30.1 pg (25-34); Mean Corpuscular Hgb Conc 33.5 g/dL (32-36); Mean Corpuscular Volume 89.9 fL (80-100); Mean Platelet Volume 10.7 fL (7.4-10.4); Platelet Count 204 K/uL (130-400); RDW Coefficient of Variation 14.6 % (11.5-14.5); RDW Standard Deviation 48.5 fL (36.4-46.3); Red Blood Count 4.15 M/uL (4.2-5.4); White Blood Count 8.38 K/uL (4.8-10.8)
[2019-12-21 06:26] LABS: Partial Thromboplastin Ratio > 5.0
[2019-12-21 06:33] LABS: Calcium 9.5 mg/dl (8.5-10.1); Creatinine Clr Calc Pharmacy 23.2 ml/min; Est GFR (African American) 30.7; Est GFR (Non-African American) 26.5; Magnesium 2.3 mg/dl (1.8-2.4); Potassium 4.5 mmol/L (3.5-5.1)
[2019-12-21 06:41] LABS: Partial Thromboplastin Time > 139.0 Seconds (21.0-31.0)
[2019-12-21 06:44] LABS: Thyroid Stimulating Hormone 5.81 uIu/ml (0.300-4.500)
[2019-12-21 08:11] LABS: Partial Thromboplastin Ratio 2.4
[2019-12-21 08:24] LABS: Partial Thromboplastin Time 67.9 Seconds (21.0-31.0)
[2019-12-21] MEDS: HEPARIN SODIUM/DEXTROSE 25,000 UNITS/500 ML BAG IV SCH (08:37)
--- NOTE | 2019-12-21 08:41 | Nuclear Medicine Report ---
NM pul perfusion CLINICAL HISTORY: 89 years-old Female presenting with elevated d-dimer, diaphoresis, clinical concern for PE. TECHNIQUE: Immediately following the intravenous administration of 5.4 mCi of technetium 99 M MAA for the perfusion scan, anterior, oblique, lateral, and posterior views of the chest were obtained. No v entilation scan was performed. Modified perfusion-only PIOPED II criteria were used for interpretatio n. COMPARISON: Chest x-ray performed yesterday. FINDINGS: No perfusion defects are identified on this examination. No areas of abnormal radiotracer accumulatio n are identified on this examination. Reference: Modified perfusion-only PIOPED II criteria: PE absent: [id number] perfusion defect (nonsegmental); Q defect < CXR lesion; 1-3 small segment al defects; solitary matched (Q:CXR) defect (< or = 1 segment) in mid or upper lung; stripe sign; tg itary large pleural effusion; normal or near-normal perfusion. Nondiagnostic: Cannot classify as PE present for PE absent. PE present: > or = 2 large mismatched (Q/CXR) segmental defects. IMPRESSION: PE absent. ACT 112: Negative or not required by law. Electronically signed by: Brian Escobar M.D. 12/21/2019 8:40 AM
[2019-12-21] MEDS: CARBIDOPA/LEVODOPA 25/100MG TAB PO SCH ×4 (08:43→20:09)
[2019-12-21] MEDS: MAGNESIUM OXIDE 400 MG TAB PO SCH (08:43)
[2019-12-21] MEDS: ASPIRIN 81 MG ECTAB PO SCH ×2 (08:43→20:10)
[2019-12-21] MEDS: ISOSORBIDE MONO EXTENDED REL 30 MG TABCR PO SCH (08:44)
[2019-12-21] MEDS: AMOXICILLIN/CLAVULANATE 500 MG TAB PO SCH ×2 (08:44→16:00)
[2019-12-21] MEDS: GABAPENTIN 100 MG CAP PO SCH ×3 (08:44→20:11)
[2019-12-21] MEDS: CHOLECALCIFEROL 1,000 UNITS 25 MCG TAB PO SCH (08:44)
[2019-12-21] MEDS: FLUTICASONE/VILANTEROL 200/25MCG 14 PUFFS/INHALER INH SCH (08:44)
[2019-12-21] MEDS: CLOPIDOGREL BISULFATE 75 MG TAB PO SCH (08:44)
[2019-12-21] MEDS: METOPROLOL TARTRATE 50 MG TAB PO SCH ×2 (08:44→20:10)
[2019-12-21] MEDS: FLUTICASONE PROPIONATE NA SPR 16 GM BTL NAE SCH (08:45)
[2019-12-21] MEDS: INSULIN ASPART 100 UNITS/ML 3 ML PEN SC SCH ×4 (08:49→20:51)
--- NOTE | 2019-12-21 10:40 | Hospitalist Progress Note ---
Date of Service December 21, 2019 Assessment & Plan (1) Nausea: Pt is 89 y/o F with PMH DM II, HTN, HLD, h/o NSTEMI s/p NITA to LAD in 2016, stable angina, Parkinson's, asthma, TIA, hypothyroidism, CKD III presented to ER with c/o nausea, diaphoresis and lightheadedness this morning around 10 am when getting ready to wash herself.Reported BSG was 159 at the time. Denies any CP or SOB, syncope or palpitations. Pt started Bactrim on 12/17/2019 for possible UTI In ER afebrile, no tachycardia or tachypnea, initial BP: 183/74 down to 134/73, no hypoxia on RA. Initial troponin negative, no leukocytosis, EKG without acute ST changes. CT ABD/PELVIS: Allowing for noncontrast technique, no acute intra-abdominal pathology. No nephrolithiasis or hydronephrosis. DDX: Medication side effect, infection, orthostatic hypotension, vertigo, cardiopulmonary etiology -In ER given Zofran, 1L NSS, ASA 324mg po and pt reports feels back to baseline with no further nausea, diaphoresis, lightheadedness -Obtain orthostatic vital signs -orthostatics checked today, after IV hydration, negative -cont. IVF -Cardiac work up with repeat troponins -repeated troponins negative (2) Elevated d-dimer: D-Dimer: 900. Age adjusted D-Dimer top normal range of 890 No SOB, CP, hypoxia, tachycardia Pt cannot have CTA chest to r/o PE secondary to renal functions -BLE venous doppler to R/O DVT - negative -VQ scan - negative for PE -Heparin IV started in ER, will d/c (3) Elevated lactic acid level: Lactic acid: 3.4. No leukocytosis, normal bicarb. Afebrile. Possible recent UTI. Does not appear septic In ER given 1L NSS Repeat lactic acid: 2.6 -Blood cultures pending -Urine culture pending, currently denies any dysuria, however started treatment with Bactrim for dysuria/cystitis few days ago -lactic acid 1.3 today after IVF (4) Possible urinary tract infection: Hematuria, suprapubic pressure several days ago and was started on Bactrim and Pyridium by PCP via telemedicine visit Reported resolution of symptoms UA today: trace leuk, 5-10 WBC, >30 epithelial, no bacteria -Hold Bactrim -Urine culture pending -Continue with Augmentin instead given patient's other antibiotic allergies and elevated creatinine, will not continue Bactrim Tooth abscess -Patient recently evaluated by her dentist for tooth abscess -States she was on short course of antibiotic however when she stopped taking it, she developed pain again, then restarted on antibiotic again, seems as Augmentin or amoxicillin -Given current code 19 pandemic, she has to wait for dental procedure -We will continue Augmentin for now -Further close evaluation by her dentist recommended (5) Acute kidney injury superimposed on CKD: Cr: 1.8. Baseline Cr: 1.2 Pt recently started on Bactrim, elevated creatinine possibly secondary to this medication -Hold Bactrim -IVF -Monitor renal functions -Avoid other nephrotoxic agents when possible -Creatinine improved, continue to monitor and continue gentle IV hydration, encourage p.o. fluid (6) CAD (coronary artery disease): h/o NSTEMI s/p NITA to LAD in 2016 -Continue atorvastatin, Plavix, aspirin, metoprolol, Imdur (7) Diabetes mellitus, type 2: A1c: 7.0 on 09/24/2019 -Hold glipizide, Prandin -NovoLog sliding scale per protocol (8) Hypertension: -Continue amlodipine, metoprolol (9) Hypothyroidism: -TSH in a.m. -Continue levothyroxine (10) TIA (transient ischemic attack): Hx of TIA -Continue aspirin, Plavix, atorvastatin (11) Asthma: No acute exacerbation -Continue home inhalers -Xopenex as needed shortness of breath (12) Parkinson's disease: -Continue Sinemet, gabapentin DVT Prophylaxis -On IV Heparin currently, will stop, start SCDs Full Code as per discussion with pt Follows with Dr Hogue for routine care Admission and Anticipated Discharge Date Admission Date: December 20, 2019 Subjective Today patient says that she feels much better, she has no nausea or dizziness. She is inquiring about going home. Denies any fevers, chills, chest pain, shortness of breath, abdominal pain, nausea or vomiting. Also denies any headache, dizziness or lightheadedness. She does say that however she gets little dizzy when she stands up. Orthostatics checked and negative. However orthostatics were done after patient's been already hydrated since admission. Creatinine is still elevated, discussed this with the patient and daughter. We will continue gentle IV hydration and encourage increased p.o. fluid intake. Blood culture and urine culture pending. VQ scan negative for PE, lower extremity Doppler also negative for DVT, will discontinue IV heparin. Lactate down to 1.3 after hydration. Troponin remains negative. Review of Systems Review of Systems: All systems reviewed & are unremarkable except as noted in HPI & below Constitutional: no fever and no chills Respiratory: no cough and no dyspnea Cardiovascular: no chest pain, no palpitations and no edema Gastrointestinal: no abdominal pain, no nausea and no vomiting Genitourinary: no dysuria and no flank pain Physical Exam Physical Exam: General: Elderly female, appears younger than stated age, lying in bed, in no acute distress, WDWN Head: normocephalic, atraumatic Eyes: PERRL, EOM's intact, conjunctiva non-injected, anicteric ENT: normal inspection external ears, nose, mucous membranes moist Neck: supple, trachea midline Lungs: clear to auscultation bilaterally, no respiratory distress, no wheezing/rhonchi/rales CV: RRR, +murmur, no pretibial edema Abd: normal BS, soft, non-tender, nondistended Ext: no cyanosis, no calf tenderness, no lower extremity edema, moves all 4 extremities spontaneously and without difficulty Neuro/Psych: A&O x 3, normal affect, speech fluent, no facial asymmetry, moves all 4 extremities spontaneously and without difficulty Skin: warm, dry Results & Data Results & Data ([facility]) Vital Signs (Past 12 Hours) Vital Signs Temp Pulse Resp BP Pulse Ox 12/21/19 06:51 36.7 C 69 18 129/67 90 12/21/19 04:42 36.7 C 60 20 111/66 91 12/20/19 23:20 37.0 C 62 18 124/72 92 Laboratory Results 12/21/19 12/21/19 12/21/19 Range/Units 07:36 07:35 05:50 WBC (4.8-10.8) K/uL RBC (4.2-5.4) M/uL Hgb (12.0-16.0) g/dL Hct (37-47) % MCV (80-100) fL MCH (25-34) pg MCHC (32-36) g/dL RDW Std Deviation (36.4-46.3) fL RDW Coeff of Sandi (11.5-14.5) % Plt Count (130-400) K/uL MPV (7.4-10.4) fL Immature Gran % (Auto) % Neut % (Auto) % Lymph % (Auto) % [place] % (Auto) % Eos % (Auto) % Baso % (Auto) % Immature Gran # (Auto) (0.00-0.02) K/uL Neut # (Auto) (1.4-6.5) K/uL Lymph # (Auto) (1.2-3.4) K/uL [place] # (Auto) (0.11-0.59) K/uL Eos # (Auto) (0-0.5) K/uL Baso # (Auto) (0-0.2) K/uL PT (9.0-12.0) Seconds INR (0.9-1.1) APTT 67.9 H* > 139.0 H* (21.0-31.0) Seconds PTT Ratio 2.4 > 5.0 D-Dimer (0-500) ug/L FEU Sodium (136-145) mmol/L Potassium (3.5-5.1) mmol/L Chloride (98-107) mmol/L Carbon Dioxide (21-32) mmol/L Anion Gap (3-11) BUN (7-18) mg/dl Creatinine (0.6-1.2) mg/dl Est Cr Clr Drug Dosing Est GFR ( Amer) Est GFR (Non-Af Amer) BUN/Creatinine Ratio (10-20) Glucose (70-99) mg/dl POC Glucose 123 H (70-99) mg/dl Lactate (0.4-2.0) mmol/L Calcium (8.5-10.1) mg/dl Magnesium (1.8-2.4) mg/dl Troponin I (0-0.045) ng/ml Lipase (73-393) U/L TSH (0.300-4.500) uIu/ml Urine Color Urine Appearance (Clear) Urine pH (4.5-7.5) Ur Specific [place] (1.000-1.030) Urine Protein (Negative) Urine Glucose (UA) (Negative) Urine Ketones (Negative) Urine Blood (Negative) Urine Nitrite (Negative) Urine Bilirubin (Negative) Urine Urobilinogen (Negative) Ur Leukocyte Esterase (Negative) Urine WBC (Auto) (0-5) /hpf Urine RBC (Auto) (0-4) /hpf U Hyaline Cast (Auto) (0-5) /lpf U Epithel Cells (Auto) (0-5) /lpf Urine Bacteria (Auto) (Negative) Influenza Type A (PCR) (Neg) Influenza Type B (PCR) (Neg) 12/21/19 12/21/19 12/21/19 Range/Units 05:50 05:50 00:24 WBC 8.38 (4.8-10.8) K/uL RBC 4.15 L (4.2-5.4) M/uL Hgb 12.5 (12.0-16.0) g/dL Hct 37.3 (37-47) % MCV 89.9 (80-100) fL MCH 30.1 (25-34) pg MCHC 33.5 (32-36) g/dL RDW Std Deviation 48.5 H (36.4-46.3) fL RDW Coeff of Sandi 14.6 H (11.5-14.5) % Plt Count 204 (130-400) K/uL MPV 10.7 H (7.4-10.4) fL Immature Gran % (Auto) % Neut % (Auto) % Lymph % (Auto) % [place] % (Auto) % Eos % (Auto) % Baso % (Auto) % Immature Gran # (Auto) (0.00-0.02) K/uL Neut # (Auto) (1.4-6.5) K/uL Lymph # (Auto) (1.2-3.4) K/uL [place] # (Auto) (0.11-0.59) K/uL Eos # (Auto) (0-0.5) K/uL Baso # (Auto) (0-0.2) K/uL PT (9.0-12.0) Seconds INR (0.9-1.1) APTT (21.0-31.0) Seconds PTT Ratio D-Dimer (0-500) ug/L FEU Sodium 137 (136-145) mmol/L Potassium 4.5 (3.5-5.1) mmol/L Chloride 109 H (98-107) mmol/L Carbon Dioxide 26 (21-32) mmol/L Anion Gap 2.0 L (3-11) BUN 22 H (7-18) mg/dl Creatinine 1.69 H (0.6-1.2) mg/dl Est Cr Clr Drug Dosing 23.2 Est GFR ( Amer) 30.7 Est GFR (Non-Af Amer) 26.5 BUN/Creatinine Ratio 13.0 (10-20) Glucose 111 H (70-99) mg/dl POC Glucose (70-99) mg/dl Lactate (0.4-2.0) mmol/L Calcium 9.5 (8.5-10.1) mg/dl Magnesium 2.3 (1.8-2.4) mg/dl Troponin I < 0.015 (0-0.045) ng/ml Lipase (73-393) U/L TSH 5.810 H (0.300-4.500) uIu/ml Urine Color Urine Appearance (Clear) Urine pH (4.5-7.5) Ur Specific [place] (1.000-1.030) Urine Protein (Negative) Urine Glucose (UA) (Negative) Urine Ketones (Negative) Urine Blood (Negative) Urine Nitrite (Negative) Urine Bilirubin (Negative) Urine Urobilinogen (Negative) Ur Leukocyte Esterase (Negative) Urine WBC (Auto) (0-5) /hpf Urine RBC (Auto) (0-4) /hpf U Hyaline Cast (Auto) (0-5) /lpf U Epithel Cells (Auto) (0-5) /lpf Urine Bacteria (Auto) (Negative) Influenza Type A (PCR) (Neg) Influenza Type B (PCR) (Neg) 12/21/19 12/20/19 12/20/19 Range/Units 00:24 22:08 21:45 WBC (4.8-10.8) K/uL RBC (4.2-5.4) M/uL Hgb (12.0-16.0) g/dL Hct (37-47) % MCV (80-100) fL MCH (25-34) pg MCHC (32-36) g/dL RDW Std Deviation (36.4-46.3) fL RDW Coeff of Sandi (11.5-14.5) % Plt Count (130-400) K/uL MPV (7.4-10.4) fL Immature Gran % (Auto) % Neut % (Auto) % Lymph % (Auto) % [place] % (Auto) % Eos % (Auto) % Baso % (Auto) % Immature Gran # (Auto) (0.00-0.02) K/uL Neut # (Auto) (1.4-6.5) K/uL Lymph # (Auto) (1.2-3.4) K/uL [place] # (Auto) (0.11-0.59) K/uL Eos # (Auto) (0-0.5) K/uL Baso # (Auto) (0-0.2) K/uL PT (9.0-12.0) Seconds INR (0.9-1.1) APTT 89.4 H* (21.0-31.0) Seconds PTT Ratio 3.2 D-Dimer (0-500) ug/L FEU Sodium (136-145) mmol/L Potassium (3.5-5.1) mmol/L Chloride (98-107) mmol/L Carbon Dioxide (21-32) mmol/L Anion Gap (3-11) BUN (7-18) mg/dl Creatinine (0.6-1.2) mg/dl Est Cr Clr Drug Dosing Est GFR ( Amer) Est GFR (Non-Af Amer) BUN/Creatinine Ratio (10-20) Glucose (70-99) mg/dl POC Glucose 96 (70-99) mg/dl Lactate 1.3 (0.4-2.0) mmol/L Calcium (8.5-10.1) mg/dl Magnesium (1.8-2.4) mg/dl Troponin I (0-0.045) ng/ml Lipase (73-393) U/L TSH (0.300-4.500) uIu/ml Urine Color Urine Appearance (Clear) Urine pH (4.5-7.5) Ur Specific [place] (1.000-1.030) Urine Protein (Negative) Urine Glucose (UA) (Negative) Urine Ketones (Negative) Urine Blood (Negative) Urine Nitrite (Negative) Urine Bilirubin (Negative) Urine Urobilinogen (Negative) Ur Leukocyte Esterase (Negative) Urine WBC (Auto) (0-5) /hpf Urine RBC (Auto) (0-4) /hpf U Hyaline Cast (Auto) (0-5) /lpf U Epithel Cells (Auto) (0-5) /lpf Urine Bacteria (Auto) (Negative) Influenza Type A (PCR) (Neg) Influenza Type B (PCR) (Neg) 12/20/19 12/20/19 12/20/19 Range/Units 19:59 17:10 16:46 WBC (4.8-10.8) K/uL RBC (4.2-5.4) M/uL Hgb (12.0-16.0) g/dL Hct (37-47) % MCV (80-100) fL MCH (25-34) pg MCHC (32-36) g/dL RDW Std Deviation (36.4-46.3) fL RDW Coeff of Sandi (11.5-14.5) % Plt Count (130-400) K/uL MPV (7.4-10.4) fL Immature Gran % (Auto) % Neut % (Auto) % Lymph % (Auto) % [place] % (Auto) % Eos % (Auto) % Baso % (Auto) % Immature Gran # (Auto) (0.00-0.02) K/uL Neut # (Auto) (1.4-6.5) K/uL Lymph # (Auto) (1.2-3.4) K/uL [place] # (Auto) (0.11-0.59) K/uL Eos # (Auto) (0-0.5) K/uL Baso # (Auto) (0-0.2) K/uL PT (9.0-12.0) Seconds INR (0.9-1.1) APTT (21.0-31.0) Seconds PTT Ratio D-Dimer (0-500) ug/L FEU Sodium (136-145) mmol/L Potassium (3.5-5.1) mmol/L Chloride (98-107) mmol/L Carbon Dioxide (21-32) mmol/L Anion Gap (3-11) BUN (7-18) mg/dl Creatinine (0.6-1.2) mg/dl Est Cr Clr Drug Dosing Est GFR ( Amer) Est GFR (Non-Af Amer) BUN/Creatinine Ratio (10-20) Glucose (70-99) mg/dl POC Glucose 152 H (70-99) mg/dl Lactate 2.3 H* (0.4-2.0) mmol/L Calcium (8.5-10.1) mg/dl Magnesium (1.8-2.4) mg/dl Troponin I < 0.015 (0-0.045) ng/ml Lipase (73-393) U/L TSH (0.300-4.500) uIu/ml Urine Color Urine Appearance (Clear) Urine pH (4.5-7.5) Ur Specific [place] (1.000-1.030) Urine Protein (Negative) Urine Glucose (UA) (Negative) Urine Ketones (Negative) Urine Blood (Negative) Urine Nitrite (Negative) Urine Bilirubin (Negative) Urine Urobilinogen (Negative) Ur Leukocyte Esterase (Negative) Urine WBC (Auto) (0-5) /hpf Urine RBC (Auto) (0-4) /hpf U Hyaline Cast (Auto) (0-5) /lpf U Epithel Cells (Auto) (0-5) /lpf Urine Bacteria (Auto) (Negative) Influenza Type A (PCR) (Neg) Influenza Type B (PCR) (Neg) 12/20/19 12/20/19 12/20/19 Range/Units 14:48 14:20 12:56 WBC (4.8-10.8) K/uL RBC (4.2-5.4) M/uL Hgb (12.0-16.0) g/dL Hct (37-47) % MCV (80-100) fL MCH (25-34) pg MCHC (32-36) g/dL RDW Std Deviation (36.4-46.3) fL RDW Coeff of Sandi (11.5-14.5) % Plt Count (130-400) K/uL MPV (7.4-10.4) fL Immature Gran % (Auto) % Neut % (Auto) % Lymph % (Auto) % [place] % (Auto) % Eos % (Auto) % Baso % (Auto) % Immature Gran # (Auto) (0.00-0.02) K/uL Neut # (Auto) (1.4-6.5) K/uL Lymph # (Auto) (1.2-3.4) K/uL [place] # (Auto) (0.11-0.59) K/uL Eos # (Auto) (0-0.5) K/uL Baso # (Auto) (0-0.2) K/uL PT (9.0-12.0) Seconds INR (0.9-1.1) APTT (21.0-31.0) Seconds PTT Ratio D-Dimer (0-500) ug/L FEU Sodium (136-145) mmol/L Potassium (3.5-5.1) mmol/L Chloride (98-107) mmol/L Carbon Dioxide (21-32) mmol/L Anion Gap (3-11) BUN (7-18) mg/dl Creatinine (0.6-1.2) mg/dl Est Cr Clr Drug Dosing Est GFR ( Amer) Est GFR (Non-Af Amer) BUN/Creatinine Ratio (10-20) Glucose (70-99) mg/dl POC Glucose (70-99) mg/dl Lactate 2.6 H* 3.4 H* (0.4-2.0) mmol/L Calcium (8.5-10.1) mg/dl Magnesium (1.8-2.4) mg/dl Troponin I (0-0.045) ng/ml Lipase (73-393) U/L TSH (0.300-4.500) uIu/ml Urine Color Urine Appearance (Clear) Urine pH (4.5-7.5) Ur Specific [place] (1.000-1.030) Urine Protein (Negative) Urine Glucose (UA) (Negative) Urine Ketones (Negative) Urine Blood (Negative) Urine Nitrite (Negative) Urine Bilirubin (Negative) Urine Urobilinogen (Negative) Ur Leukocyte Esterase (Negative) Urine WBC (Auto) (0-5) /hpf Urine RBC (Auto) (0-4) /hpf U Hyaline Cast (Auto) (0-5) /lpf U Epithel Cells (Auto) (0-5) /lpf Urine Bacteria (Auto) (Negative) Influenza Type A (PCR) Neg for Influ A (Neg) Influenza Type B (PCR) Neg for Influ B (Neg) 12/20/19 12/20/19 12/20/19 Range/Units 12:56 12:56 12:56 WBC 8.53 (4.8-10.8) K/uL RBC 4.54 (4.2-5.4) M/uL Hgb 13.6 (12.0-16.0) g/dL Hct 40.5 (37-47) % MCV 89.2 (80-100) fL MCH 30.0 (25-34) pg MCHC 33.6 (32-36) g/dL RDW Std Deviation 47.0 H (36.4-46.3) fL RDW Coeff of Sandi 14.4 (11.5-14.5) % Plt Count 235 (130-400) K/uL MPV 10.7 H (7.4-10.4) fL Immature Gran % (Auto) 0.1 % Neut % (Auto) 65.2 % Lymph % (Auto) 26.4 % [place] % (Auto) 6.2 % Eos % (Auto) 1.3 % Baso % (Auto) 0.8 % Immature Gran # (Auto) 0.01 (0.00-0.02) K/uL Neut # (Auto) 5.56 (1.4-6.5) K/uL Lymph # (Auto) 2.25 (1.2-3.4) K/uL [place] # (Auto) 0.53 (0.11-0.59) K/uL Eos # (Auto) 0.11 (0-0.5) K/uL Baso # (Auto) 0.07 (0-0.2) K/uL PT 10.8 (9.0-12.0) Seconds INR 1.0 (0.9-1.1) APTT 29.8 (21.0-31.0) Seconds PTT Ratio 1.1 D-Dimer 900 H* (0-500) ug/L FEU Sodium 134 L (136-145) mmol/L Potassium 4.6 (3.5-5.1) mmol/L Chloride 103 (98-107) mmol/L Carbon Dioxide 23 (21-32) mmol/L Anion Gap 8.0 (3-11) BUN 24 H (7-18) mg/dl Creatinine 1.80 H (0.6-1.2) mg/dl Est Cr Clr Drug Dosing Not Reportable Est GFR ( Amer) 28.4 Est GFR (Non-Af Amer) 24.5 BUN/Creatinine Ratio 13.3 (10-20) Glucose 231 H (70-99) mg/dl POC Glucose (70-99) mg/dl Lactate (0.4-2.0) mmol/L Calcium 9.6 (8.5-10.1) mg/dl Magnesium (1.8-2.4) mg/dl Troponin I < 0.015 (0-0.045) ng/ml Lipase 170 (73-393) U/L TSH (0.300-4.500) uIu/ml Urine Color Urine Appearance (Clear) Urine pH (4.5-7.5) Ur Specific [place] (1.000-1.030) Urine Protein (Negative) Urine Glucose (UA) (Negative) Urine Ketones (Negative) Urine Blood (Negative) Urine Nitrite (Negative) Urine Bilirubin (Negative) Urine Urobilinogen (Negative) Ur Leukocyte Esterase (Negative) Urine WBC (Auto) (0-5) /hpf Urine RBC (Auto) (0-4) /hpf U Hyaline Cast (Auto) (0-5) /lpf U Epithel Cells (Auto) (0-5) /lpf Urine Bacteria (Auto) (Negative) Influenza Type A (PCR) (Neg) Influenza Type B (PCR) (Neg) 12/20/19 Range/Units 12:35 WBC (4.8-10.8) K/uL RBC (4.2-5.4) M/uL Hgb (12.0-16.0) g/dL Hct (37-47) % MCV (80-100) fL MCH (25-34) pg MCHC (32-36) g/dL RDW Std Deviation (36.4-46.3) fL RDW Coeff of Sandi (11.5-14.5) % Plt Count (130-400) K/uL MPV (7.4-10.4) fL Immature Gran % (Auto) % Neut % (Auto) % Lymph % (Auto) % [place] % (Auto) % Eos % (Auto) % Baso % (Auto) % Immature Gran # (Auto) (0.00-0.02) K/uL Neut # (Auto) (1.4-6.5) K/uL Lymph # (Auto) (1.2-3.4) K/uL [place] # (Auto) (0.11-0.59) K/uL Eos # (Auto) (0-0.5) K/uL Baso # (Auto) (0-0.2) K/uL PT (9.0-12.0) Seconds INR (0.9-1.1) APTT (21.0-31.0) Seconds PTT Ratio D-Dimer (0-500) ug/L FEU Sodium (136-145) mmol/L Potassium (3.5-5.1) mmol/L Chloride (98-107) mmol/L Carbon Dioxide (21-32) mmol/L Anion Gap (3-11) BUN (7-18) mg/dl Creatinine (0.6-1.2) mg/dl Est Cr Clr Drug Dosing Est GFR ( Amer) Est GFR (Non-Af Amer) BUN/Creatinine Ratio (10-20) Glucose (70-99) mg/dl POC Glucose (70-99) mg/dl Lactate (0.4-2.0) mmol/L Calcium (8.5-10.1) mg/dl Magnesium (1.8-2.4) mg/dl Troponin I (0-0.045) ng/ml Lipase (73-393) U/L TSH (0.300-4.500) uIu/ml Urine Color Yellow Urine Appearance Cloudy A (Clear) Urine pH 8.5 H (4.5-7.5) Ur Specific [place] 1.014 (1.000-1.030) Urine Protein Negative (Negative) Urine Glucose (UA) Negative (Negative) Urine Ketones Negative (Negative) Urine Blood Negative (Negative) Urine Nitrite Negative (Negative) Urine Bilirubin Negative (Negative) Urine Urobilinogen Negative (Negative) Ur Leukocyte Esterase Trace H (Negative) Urine WBC (Auto) 5-10 H (0-5) /hpf Urine RBC (Auto) 0-4 (0-4) /hpf U Hyaline Cast (Auto) 1-5 (0-5) /lpf U Epithel Cells (Auto) >30 H (0-5) /lpf Urine Bacteria (Auto) Negative (Negative) Influenza Type A (PCR) (Neg) Influenza Type B (PCR) (Neg) Diagnostic Findings CT head (12/20/2019) IMPRESSION: No acute intracranial findings. No change in appearance of the brain. CT abdomen/pelvis (12/20/2019) IMPRESSION: 1. Allowing for noncontrast technique, no acute intra-abdominal pathology. 2. No nephrolithiasis or hydronephrosis. Doppler LE b/l (12/20/2019) FINDINGS: There is normal compressibility, flow, and augmentation within the bilateral lower extremity deep venous systems. The bilateral superficial femoral veins are suboptimally visualized. IMPRESSION: No DVT within the right or left lower extremity. VQ scan (12/21/2019) IMPRESSION: PE absent. Medications Administered Current Inpatient Medications Acetaminophen (Tylenol) 650 mg PO Q4H PRN PRN Reason: Pain or Fever Stop: 01/19/20 16:44 Amlodipine Besylate (Norvasc) 5 mg PO PM [facility] Stop: 01/19/20 20:59 Last Admin: 12/20/19 21:40 Dose: 5 mg Documented by: Amoxicillin/Clavulanate Potassium (Augmentin 500mg) 1 tab PO BIDM [facility]; Protocol Stop: 12/25/19 17:14 Last Admin: 12/21/19 08:44 Dose: 1 tab Documented by: Aspirin (Ecotrin Ectab) 81 mg PO BID [facility] Stop: 01/19/20 20:59 Last Admin: 12/21/19 08:43 Dose: 81 mg Documented by: Atorvastatin Calcium (Lipitor) 40 mg PO [facility] Stop: 01/19/20 20:59 Last Admin: 12/20/19 21:41 Dose: 40 mg Documented by: Carbidopa/Levodopa (Sinemet 25/100 Mg) 1 tab PO QID [facility] Stop: 01/19/20 16:59 Last Admin: 12/21/19 08:43 Dose: 1 tab Documented by: Clopidogrel Bisulfate (Plavix) 75 mg PO QAM [facility] Stop: 01/20/20 08:59 Last Admin: 12/21/19 08:44 Dose: 75 mg Documented by: Dextrose (Dextrose 50%) 25 - 50 ml IV UD PRN; Protocol PRN Reason: Hypoglycemia Protocol Stop: 01/19/20 16:44 Duloxetine HCl (Cymbalta) 30 mg PO HS [facility] Stop: 01/19/20 20:59 Last Admin: 12/20/19 21:39 Dose: 30 mg Documented by: Fluticasone Propionate (Flonase) 1 sprays JOSE QAM [facility] Stop: 01/20/20 08:59 Last Admin: 12/21/19 08:45 Dose: 1 sprays Documented by: Fluticasone/Vilanterol (Breo Ellipta 200/25 Mcg Inh) 1 puffs INH DAILY [place] Stop: 01/20/20 08:59 Last Admin: 12/21/19 08:44 Dose: 1 puffs Documented by: Gabapentin (Neurontin) 200 mg PO TID [facility] Stop: 01/19/20 20:59 Last Admin: 12/21/19 08:44 Dose: 200 mg Documented by: Glucagon (Glucagen) 1 mg SQ UD PRN; Protocol PRN Reason: Hypoglycemia Protocol Stop: 01/19/20 16:44 Glucose (Dex4 Glucose) 4 - 8 tabs PO UD PRN; Protocol PRN Reason: Hypoglycemia Protocol Stop: 01/19/20 16:44 Glucose (Glucose 40%) 15 - 30 gm PO UD PRN; Protocol PRN Reason: Hypoglycemia Protocol Stop: 01/19/20 16:44 Heparin Sodium/Dextrose (Heparin Sodium/Dextrose) 25,000 units in 500 mls @ 16 mls/hr IV .Q24H [facility]; Protocol Stop: 01/19/20 14:29 Last Admin: 12/21/19 08:37 Dose: 800 units/hr, 16 mls/hr Documented by: Sodium Chloride (Nss 1000ml) 1,000 mls @ 80 mls/hr IV .[id number] [facility] Stop: 12/21/19 17:44 Last Admin: 12/21/19 04:41 Dose: 80 mls/hr Documented by: Insulin Aspart (Novolog Flexpen) 0 units SC ACHS [facility] Stop: 01/19/20 16:59 Last Admin: 12/21/19 08:49 Dose: 6 units Documented by: Isosorbide Mononitrate (Imdur Extended Rel) 30 mg PO QAM [facility] Stop: 01/20/20 08:59 Last Admin: 12/21/19 08:44 Dose: 30 mg Documented by: Levalbuterol HCl (Xopenex 1.25mg/0.5ml Neb) 1.25 mg INH TID PRN PRN Reason: Shortness Of Breath Stop: 01/19/20 16:44 Levothyroxine Sodium (Synthroid) 112 mcg PO DAILYBB [facility] Stop: 01/20/20 06:29 Last Admin: 12/21/19 04:41 Dose: 112 mcg Documented by: [facility] ([facility]-Ox) [facility] Protocol Stop: 01/20/20 08:59 Last Admin: 12/21/19 08:43 Dose: 400 mg Documented by: Metoprolol Tartrate (Lopressor) 50 mg PO BID [facility] Stop: 01/19/20 20:59 Last Admin: 12/21/19 08:44 Dose: 50 mg Documented by: Miscellaneous (Carbohydrates For Hypoglycemia) 15 - 30 gm PO UD PRN PRN Reason: Hypoglycemia Protocol Stop: 01/19/20 16:44 Nitroglycerin (Nitrostat) 0.4 mg SL UD PRN PRN Reason: Chest Pain Stop: 01/19/20 16:44 Ondansetron HCl (Zofran) 4 mg IV Q6H PRN PRN Reason: Nausea Stop: 01/19/20 16:44 Vitamin D (Vitamin D3) 2,000 units PO [facility] Stop: 01/20/20 08:59 Last Admin: 12/21/19 08:44 Dose: 2,000 units Documented by:
[2019-12-21] MEDS: CARBOHYDRATES FOR HYPOGLYCEMIA PO PRN ×2 (16:40→16:58)
[2019-12-21] MEDS: ATORVASTATIN 40 MG TAB PO SCH (20:10)
[2019-12-21] MEDS: AMLODIPINE BESYLATE 5 MG TAB PO SCH (20:11)
[2019-12-21] MEDS: DULOXETINE HCL 30 MG CAP PO SCH (20:12)
[2019-12-22] MEDS: LEVOTHYROXINE SODIUM 112 MCG TABLET PO SCH (05:28)
[2019-12-22 07:57] LABS: Creatinine Clr Calc Pharmacy 24.5 ml/min; Est GFR (African American) 33.3; Est GFR (Non-African American) 28.7
[2019-12-22] MEDS: CLOPIDOGREL BISULFATE 75 MG TAB PO SCH (09:08)
[2019-12-22] MEDS: FLUTICASONE/VILANTEROL 200/25MCG 14 PUFFS/INHALER INH SCH (09:08)
[2019-12-22] MEDS: CHOLECALCIFEROL 1,000 UNITS 25 MCG TAB PO SCH (09:08)
[2019-12-22] MEDS: ISOSORBIDE MONO EXTENDED REL 30 MG TABCR PO SCH (09:08)
[2019-12-22] MEDS: AMOXICILLIN/CLAVULANATE 500 MG TAB PO SCH (09:09)
[2019-12-22] MEDS: METOPROLOL TARTRATE 50 MG TAB PO SCH (09:09)
[2019-12-22] MEDS: GABAPENTIN 100 MG CAP PO SCH ×2 (09:09→14:29)
[2019-12-22] MEDS: MAGNESIUM OXIDE 400 MG TAB PO SCH (09:09)
[2019-12-22] MEDS: CARBIDOPA/LEVODOPA 25/100MG TAB PO SCH ×2 (09:10→12:41)
[2019-12-22] MEDS: FLUTICASONE PROPIONATE NA SPR 16 GM BTL NAE SCH (09:10)
[2019-12-22] MEDS: ASPIRIN 81 MG ECTAB PO SCH (09:10)
[2019-12-22] MEDS: INSULIN ASPART 100 UNITS/ML 3 ML PEN SC SCH ×2 (09:11→12:44)
--- NOTE | 2019-12-22 15:10 | Discharge Summary ---
Date of Service December 22, 2019 Admission HPI Per Admitting Provider Pt is 89 y/o F with PMH DM II, HTN, HLD, h/o NSTEMI s/p NITA to LAD in 2016, stable angina, Parkinson's, asthma, TIA, hypothyroidism, CKD III presented to ER with c/o nausea. Pt states woke up this morning and felt normal and took morning meds except for her diabetic medication. Did not eat breakfast yet. She went to bathroom to wash her hair when she became nauseated, lightheaded and diaphoretic. Her BSG was 159 at the time. Denies any CP or SOB, syncope or palpitations. Since arrival to ER and receiving Zofran pt reports feels back to baseline. Pt reports suprapubic pressure and hematuria a couple of days ago and on 12/18/2019 Bactrim and Pyridium was called in for her. She has taken with resolution of hematuria and no further suprapubic pressure. Denies dysuria, urinary frequency or retention, flank pain, fever or chills. Denies any other abdominal pain. H/O NSTEMI in 2016 and pt reports had epigastric discomfort, chest pressure and bilateral arm funny feeling. States the symptoms today felt different then her prior NM. Pt states 2 weeks ago started with right lower dental pain and reports dentist reported that has abscess on dental xray and pt prescribed amoxicillin that she took for 3 days with improvement of dental pain and then dental pain returned so took additional 3 days and finished on 12/15/2019. Denies any facial swelling, gingival discharge, dysphagia. Has not had any recurrent dental pain. Denies fever/chills, vomiting, diarrhea, constipation, [place], vision changes, neck pain, orthopnea, cough, sore throat, choking, otalgia, rhinorrhea, paresthesias, weakness, extremity weakness, extre mity edema, rashes. Denies ill contacts or recent travel. Has been staying at home for past 4-5 weeks. Admission Exam Per Admitting Provider General: Elderly female lying in bed, in no acute distress, WDWN Head: normocephalic, atraumatic Eyes: PERRL, EOM's intact, conjunctiva non-injected, anicteric ENT: normal inspection external ears, nose, mucous membranes moist Neck: supple, trachea midline Lungs: clear, no respiratory distress, no wheezing/rhonchi/rales CV: RRR, +murmur, no pretibial edema Abd: normal BS, soft, non-tender, nondistended Ext: no cyanosis, no calf tenderness, moves all extremities spontaneously Neuro: A&O x 3, speech fluent, no facial asymmetry, moves all 4 extremities spontaneously, no focal deficits noted, normal affect/pleasant Skin: warm, dry Principal Diagnosis Acute kidney injury Dehydration Nausea Elevated lactic acid Elevated D-dimer Tooth abscess (partially treated) UTI/cystitis (partially treated) Discharge Exam General: Elderly female, appears younger than stated age, sitting up on the edge of the bed, in no acute distress, WDWN VS: BP 118/58, HR 62, RR 18, Temp. 36.6C, O2 sats 97% on room air Head: normocephalic, atraumatic Eyes: PERRL, EOM's intact, conjunctiva non-injected, anicteric ENT: normal inspection external ears, nose, mucous membranes moist Neck: supple, trachea midline Lungs: clear to auscultation bilaterally, no respiratory distress, no wheezing/rhonchi/rales CV: RRR, +murmur, no pretibial edema Abd: normal BS, soft, non-tender, nondistended Ext: no cyanosis, no calf tenderness, no lower extremity edema, moves all 4 extremities spontaneously and without difficulty Neuro/Psych: A&O x 3, euthymic affect, speech fluent, no facial asymmetry, moves all 4 extremities spontaneously and without difficulty Skin: warm, dry Discharge Data Allergies Allergy/AdvReac Type Severity Reaction Status Date / Time cefuroxime Allergy Unknown Tingling Verified 12/20/19 15:35 to tongue Cephalosporins Allergy Unknown ? Verified 12/20/19 13:54 azithromycin Allergy Swelling Unverified 12/20/19 13:54 of Lip/Tongue/Throat donepezil AdvReac Unknown night Unverified 12/20/19 13:54 terrors levofloxacin AdvReac Unknown creatinine Unverified 12/20/19 13:54 raised to 2.1 AGUILAR Inhibitors AdvReac Cough Verified 12/20/19 13:54 flu vaccine AdvReac Severe Respiratory Uncoded 12/20/19 14:07 issues Consultations 12/20/19 14:01 ED Decision to Admit Stat 12/20/19 16:45 Consult Case Management - Discharge Planning Routine Ordered Studies Diagnostic Findings CT head (12/20/2019) IMPRESSION: No acute intracranial findings. No change in appearance of the brain. CT abdomen/pelvis (12/20/2019) IMPRESSION: 1. Allowing for noncontrast technique, no acute intra-abdominal pathology. 2. No nephrolithiasis or hydronephrosis. Doppler LE b/l (12/20/2019) FINDINGS: There is normal compressibility, flow, and augmentation within the bilateral lower extremity deep venous systems. The bilateral superficial femoral veins are suboptimally visualized. IMPRESSION: No DVT within the right or left lower extremity. VQ scan (12/21/2019) IMPRESSION: PE absent. Hospital Course (1) Nausea: Pt is 89 y/o F with PMH DM II, HTN, HLD, h/o NSTEMI s/p NITA to LAD in 2016, stable angina, Parkinson's, asthma, TIA, hypothyroidism, CKD III presented to ER with c/o nausea, diaphoresis and lightheadedness this morning around 10 am when getting ready to wash herself. Reported BSG was 159 at the time. Denies any CP or SOB, syncope or palpitations. Pt started Bactrim on 12/17/2019 for possible UTI In ER afebrile, no tachycardia or tachypnea, initial BP: 183/74 down to 134/73, no hypoxia on RA. Initial troponin negative, no leukocytosis, EKG without acute ST changes. CT ABD/PELVIS: Allowing for noncontrast technique, no acute intra-abdominal pathology. No nephrolithiasis or hydronephrosis. DDX: Medication side effect, infection, orthostatic hypotension, vertigo, cardiopulmonary etiology -In ER given Zofran, 1L NSS, ASA 324mg po and pt reports feels back to baseline with no further nausea, diaphoresis, lightheadedness -Obtain orthostatic vital signs -orthostatics checked after IV hydration, negative -cont. IVF during admission -Cardiac work up with repeat troponins -repeated troponins negative Clinically patient much improved, denies any nausea, dizziness, says she feels very well and is excited to go home. Denies any chest pain, shortness of breath, abdominal pain, nausea or vomiting. (2) Elevated d-dimer: D-Dimer: 900. Age adjusted D-Dimer top normal range of 890 No SOB, CP, hypoxia, tachycardia Pt cannot have CTA chest to r/o PE secondary to renal functions -BLE venous doppler to R/O DVT - negative -VQ scan - negative for PE -Heparin IV started in ER, stopped the next day when V/Q scan results available (negative) (3) Elevated lactic acid level: Lactic acid: 3.4. No leukocytosis, normal bicarb. Afebrile. Possible recent UTI. Does not appear septic In ER given 1L NSS Repeat lactic acid: 2.6 -Blood cultures - NGTD, final results pending -UA - negative -Urine culture - negative, currently denies any dysuria, however started treatment with Bactrim for dysuria/cystitis few days ago -repeat lactic acid 1.3 after IVF (4) Possible urinary tract infection: Hematuria, suprapubic pressure several days ago and was started on Bactrim and Pyridium by PCP via telemedicine visit Reported resolution of symptoms UA today: trace leuk, 5-10 WBC, >30 epithelial, no bacteria -Hold Bactrim -Urine culture - negative -Continued with Augmentin instead given patient's other antibiotic allergies and elevated creatinine, Bactrim stopped - will d/c pt on augmentin - further Abx treatment/ if needed to discuss w/ PCP Tooth abscess -Patient recently evaluated by her dentist for tooth abscess -States she was on short course of antibiotic however when she stopped taking it, she developed pain again, then restarted on antibiotic again, seems as Augmentin or amoxicillin -Given current Covid 19 pandemic, she has to wait for dental procedure -We will continue Augmentin for now, and will d/c on augmentin -Further close evaluation by her dentist recommended - Discussed with the pt and and her daughter that close dental follow up and evaluation is recommended (5) Acute kidney injury superimposed on CKD: Cr on admission 1.8. Baseline Cr: 1.2 Pt recently started on Bactrim, elevated creatinine possibly secondary to this medication -Hold Bactrim -IVF during hospitalization -Avoid other nephrotoxic agents when possible -Creatinine improved to 1.58 - encourage p.o. fluid intake - BMP check as outpt in 1 week (6) CAD (coronary artery disease): h/o NSTEMI s/p NITA to LAD in 2016 -Continue atorvastatin, Plavix, aspirin, metoprolol, Imdur (7) Diabetes mellitus, type 2: A1c: 7.0 on 09/24/2019 -Hold glipizide, Prandin -NovoLog sliding scale per protocol (8) Hypertension: -Continue amlodipine, metoprolol (9) Hypothyroidism: -TSH in a.m. -Continue levothyroxine (10) TIA (transient ischemic attack): Hx of TIA -Continue aspirin, Plavix, atorvastatin (11) Asthma: No acute exacerbation -Continue home inhalers -Xopenex as needed shortness of breath (12) Parkinson's disease: -Continue Sinemet, gabapentin Follows with Dr Hogue for routine care Total Time Total Time Spent Total Time Spent (In Minutes): 40 Total Time Includes: Examination of the Patient, Discharge Planning and Medication Reconciliation Discharge Plan Discharge Items Patient Disposition: Home - Self-Care Reason For Visit: NAUSEA Discharge Diagnosis: Acute kidney injury Activity: As commented below Non-emergency contact: Primary Care Provider Call non-emergency contact if: you have any medication questions and your symptoms worsen Follow-up/Referrals: Amanda Hogue, [Primary Care Provider] - Diet: Carb Consistent or DM2 and Heart Healthy Addtl Attending Provider Instructions: Recommend increased fluid intake in the next couple of days. Do not take Bactrim. You should follow-up with your PCP in about a week. At that time you should have your blood work checked, BMP, to check your kidney function. You should also follow-up with your dentist, regarding your tooth abscess. In the meantime, continue to take Augmentin as prescribed. Pending Studies at Discharge: Yes Studies:: Blood cultures - no growth to date, final results pending Stand-Alone Forms: My [facility], Smoking Cessation Medications and DC Order Prescriptions: New amoxicillin-pot clavulanate 500-125 mg Tablet 1 tab PO BIDM 3 Days Qty: 6 RF: 0 Continued atorvastatin [Lipitor] 40 mg Tablet 40 mg PO HS RF: 0 glipizide 10 mg Tablet 10 mg PO TID RF: 0 isosorbide mononitrate 30 mg Tablet Extended Release 24 Hr 30 mg PO QAM RF: 0 clopidogrel [Plavix] 75 mg Tablet 75 mg PO QAM RF: 0 metoprolol tartrate [Lopressor] 50 mg Tablet 50 mg PO BID RF: 0 nitroglycerin 0.4 mg Tablet, Sublingual 1 dose Sublingual UD PRN (Reason: Chest Pain) RF: 0 aspirin 81 mg Tablet,Chewable 81 mg PO BID RF: 0 gabapentin 100 mg Capsule 200 mg PO TID RF: 0 albuterol sulfate [Ventolin HFA] 90 mcg/actuation Hfa Aerosol Inhaler 2 puff INHALATION Q6H PRN (Reason: Shortness Of Breath) RF: 0 carbidopa-levodopa [Sinemet] 25-100 mg Tablet 1 tab PO QID RF: 0 fluticasone propionate [Flonase Allergy Relief] 50 mcg/actuation [place],Suspension 1 spray INTRANASAL QAM RF: 0 levothyroxine 112 mcg Tablet 112 mcg PO QAM RF: 0 repaglinide [Prandin] 1 mg Tablet 1 mg PO TID PRN (Reason: BLOOD SUGAR > 140) RF: 0 levalbuterol HCl 1.25 mg/0.5 mL Solution For Nebulization 1.25 mg INHALATION TID PRN (Reason: Shortness Of Breath) RF: 0 duloxetine [Cymbalta] 30 mg Capsule,Delayed Release(Dr/Ec) 30 mg PO HS RF: 0 budesonide-formoterol [Symbicort] 160-4.5 mcg/actuation Hfa Aerosol Inhaler 2 puff INHALATION QAM RF: 0 magnesium oxide 500 mg Capsule 500 mg PO QAM RF: 0 cholecalciferol (vitamin D3) [Vitamin D3] 2,000 unit Tablet 2,000 unit PO QAM RF: 0 acetaminophen [Tylenol Extra Strength] 500 mg Tablet 500 mg PO Q6H PRN (Reason: Pain) RF: 0 amlodipine 10 mg tablet 5 mg PO PM RF: 0 Discharge Orders: Discharge Order (Routine); Ordered 12/22/19 Ordered By: Colin Ashby/Other Patient Handouts: Acute Kidney Injury Dc Admission Data Admit Date/Time: 12/20/19 14:38 Attending Provider: Colin Marie Admit Provider: Colin Marie Primary Care Provider: Amanda Hogue Other Providers: Colin Marie Other Interventions: Discharge Summary Assessment (RN) Last Done: 12/22/19 15:11
== END 2019-12-22 16:17 | disposition home or self-care (01) | DRG 683 ==
LOC: ED 12:11 → 2S 14:38 → 2W 20:34